=== PATIENT | male | born 1940 | race Caucasian/White ===

== ENCOUNTER → 2016-05-04 | Outpatient (CLI) | payer OTHER ==
[~2016-05-04] MED LIST: ACET-1256 PO; APIX1TAB3 PO; ATOR-22 PO; CHOL1TAB42 PO; COLC0.6T54 PO; CRD4 PO; DILT240C48 PO; FRS/40 PO; GLIM4TAB2 PO; GLUC1TAB22 PO; LSN25 PO; MULTTAB58 PO; OMEP40CA PO; OPTIRAY 320 IV PRN; OXGN; POTA-65 PO; SPRIN INH
--- NOTE | 2016-05-04 09:04 | DIAGNOSTIC IMAGING REPORT ---
CT ANGIOGRAM OF THE CHEST COMBO CLINICAL HISTORY: Thoracic aortic aneurysm status post repair. COMPARISON STUDY: CT angiogram of the chest dated 04/02/2015. TECHNIQUE: Before and following the IV administration of 92 cc of Optiray 320, CT angiogram of the chest was performed from the thoracic inlet to the upper abdomen utilizing the stent graft protocol. Images are reviewed in the axial, sagittal, and coronal planes. 3-D MIPS images are created and assessed. IV contrast was administered without complication. CT DOSE: 3349.67 mGy.cm FINDINGS: Thyroid: Imaged portions of the thyroid gland are normal in size and attenuation. Thoracic aorta: There is advanced atherosclerotic calcification of the thoracic aorta. The aortic arch demonstrates standard 3-vessel anatomy and the arch vessels are widely patent. Again seen are postoperative changes from stent graft repair of a descending thoracic aortic aneurysm. This originates at the level of T5-T6 and extends Below the diaphragmatic hiatus. The descending thoracic aorta measures up to 5.2 x 5.1 cm (AP x transverse) an this is overall similar to previous. There is no evidence of endoleak. Only a tiny residual aneurysm sac is present. The ascending thoracic aorta measures up to 3.9 cm in diameter and the aortic arch measures up to 2.9 cm. No dissection is seen. Pulmonary vasculature: The pulmonary trunk is dilated measuring up to 3.8 cm. This suggests pulmonary artery hypertension. There are no central filling defects identified in the pulmonary vessels to suggest pulmonary embolus. Note that this examination was not specifically protocoled to assess for pulmonary emboli. Heart: The heart is enlarged and there is trace pericardial effusion. The coronary arteries are calcified. Lungs and pleural spaces: Emphysematous change is again noted. There is no airspace consolidation typical for pneumonia. Trace pleural fluid is seen in the left lung base, and there is atelectasis/scarring in the left lower lobe adjacent to the stent graft. The trachea and central airways are clear. There are tiny scattered calcified granulomas. Mediastinum: There is no mediastinal lymphadenopathy. Candy: Clear. Axillae: There is no axillary lymphadenopathy. Upper abdomen: There is a small hiatal hernia. The visualized renal parenchyma demonstrates cortical atrophy. A dual diverticulum is incidentally noted. Skeletal structures: The skeletal structures are osteopenic. Degenerative change is noted throughout the thoracic spine. There are healed bilateral rib fractures. Arthritic change is seen in the shoulders. No lytic or blastic bony lesions are seen. IMPRESSION: 1. Again seen are postoperative changes from stent graft repair of a descending thoracic aortic aneurysm. 2. The descending thoracic aorta measures up to 5.2 cm. There is only a tiny residual aneurysm sac. No evidence of endoleak is seen. 3. Cardiomegaly with evidence of pulmonary artery hypertension. 4. Emphysema. 5. Trace left pleural effusion with atelectasis/scarring at the left lung base. 6. There is no airspace consolidation typical for pneumonia. 7. Additional findings as above. Electronically signed by: Andi Andrew M.D. 05/04/2016 9:02 AM Dictated Date/Time: 05/04/2016 8:47 AM
== END | disposition home or self-care (01) ==
LOC: C.CTS 07:37
PROVIDERS: ATTEND Surgery Vascular Surgery
DX: I71.2 Thoracic aortic aneurysm, without rupture (principal); Z98.890 Other specified postprocedural states; I51.7 Cardiomegaly; J43.9 Emphysema, unspecified; K44.9 Diaphragmatic hernia without obstruction or gangrene; M85.80 Other specified disorders of bone density and structure, unspecified site; M47.814 Spondylosis without myelopathy or radiculopathy, thoracic region; M19.011 Primary osteoarthritis, right shoulder; M19.012 Primary osteoarthritis, left shoulder

== ENCOUNTER → 2016-05-19 | Outpatient (CLI) | payer OTHER ==
[~2016-05-19] MED LIST changes: -OPTIRAY 320 IV PRN
[2016-05-19 13:35] LABS: BASO % 0.5 %; BASO ABS # 0.03 K/uL (0-0.2); COMPLETE YES; EOS % 2.5 %; HEMATOCRIT 37.3 % (42-52); IG% 0.2 %; LYMPH % 13.7 %; LYMPH ABS # 0.83 K/uL (1.2-3.4); MEAN CELL VOLUME 94.9 fL (80-100); MEAN CORPUSCULAR HEMOGLOBIN 31.8 pg (25-34); MEAN CORPUSCULAR HGB CONC 33.5 g/dl (32-36); MEAN PLATELET VOLUME 10.1 fL (7.4-10.4); MONO % 10.9 %; NEUT % 72.2 %; PLATELET COUNT 177 K/uL (130-400); RED BLOOD COUNT 3.93 M/uL (4.7-6.1); WHITE BLOOD COUNT 6.06 K/uL (4.8-10.8)
[2016-05-19 13:54] LABS: ESTIMATED AVERAGE GLUCOSE 140 mg/dl; HA1C FLAG Normal (Normal)
[2016-05-19 14:25] LABS: ALT/SGPT 32 U/L (12-78); AST/SGOT 19 U/L (15-37); BLOOD UREA NITROGEN 34 mg/dl (7-18); BUN/CREATININE RATIO 26.3 (10-20); CALCIUM 8.8 mg/dl (8.5-10.1); CARBON DIOXIDE 32 mmol/L (21-32); CHLORIDE 105 mmol/L (98-107); GLUCOSE 127 mg/dl (70-99); POTASSIUM 3.9 mmol/L (3.5-5.1); SODIUM 142 mmol/L (136-145); URIC ACID 12.1 mg/dl (2.6-7.2)
[2016-05-19 14:36] LABS: ALB/GLOB RATIO 1.2 (0.9-2); ALKALINE PHOSPHATASE 103 U/L (45-117)
== END | disposition home or self-care (01) ==
LOC: C.LABBC 11:20
PROVIDERS: ATTEND Internal Medicine Geriatric Medicine
DX: I10 Essential (primary) hypertension (principal); E11.9 Type 2 diabetes mellitus without complications; M10.9 Gout, unspecified; D64.9 Anemia, unspecified; I48.2 Chronic atrial fibrillation; D69.6 Thrombocytopenia, unspecified

== ENCOUNTER → 2016-09-03 | Outpatient (CLI) | payer OTHER ==
--- NOTE | 2016-09-03 17:54 | DIAGNOSTIC IMAGING REPORT ---
RIGHT UPPER EXTREMITY VENOUS DOPPLER CLINICAL HISTORY: Right upper extremity pain. COMPARISON STUDY: No previous studies for comparison. FINDINGS: The right internal jugular, subclavian, axillary, brachial, basilic, radial and ulnar veins were patent. IMPRESSION: No deep venous thrombus within the right upper extremity. Electronically signed by: Scotty Francis M.D. 09/03/2016 5:52 PM Dictated Date/Time: 09/03/2016 5:51 PM
--- NOTE | 2016-09-03 18:05 | DIAGNOSTIC IMAGING REPORT ---
CERVICAL SPINE 2 OR 3 VIEWS CLINICAL HISTORY: Right arm pain. No trauma. COMPARISON STUDY: No previous studies for comparison. FINDINGS: No acute fractures are visualized. The prevertebral soft tissues are normal. There is a minimal spinal curvature convex to the right. There are degenerative changes present most pronounced at the C6-7 level. There is mild widening of the C6-7, and C7-T1 interspinous distances. There is straightening of normal cervical lordosis. IMPRESSION: 1. No acute fractures 2. Degenerative changes most pronounced the C6-7 level 3. Straightening of normal cervical lordosis 4. Mild widening of the C6-7 and C7-T1 interspinous distances Electronically signed by: Cl Segundo M.D. 09/03/2016 6:04 PM Dictated Date/Time: 09/03/2016 6:02 PM
== END | disposition home or self-care (01) ==
LOC: C.ULTR 16:52
PROVIDERS: ATTEND Physician Assistant Medical
DX: M79.601 Pain in right arm (principal)

== ENCOUNTER → 2016-09-28 | Outpatient (CLI) | payer OTHER ==
--- NOTE | 2016-09-28 10:29 | DIAGNOSTIC IMAGING REPORT ---
LUMBAR SPINE W/O CONTRAST CLINICAL HISTORY: 76 years-old Male presenting with back pain and left leg weakness, no history of injury. TECHNIQUE: Multisequence, multiplanar MR imaging of the lumbar spine was performed without the use of intravenous contrast. IV contrast: None. COMPARISON: CT from 2014. FINDINGS: Localizer images: Unremarkable. Slight straightening of normal lumbar lordosis with slight kyphosis at L1-2, where there is mild anterior vertebral body height loss of L1 and minimal height loss of L2, unchanged since 2014. Mild T2 hyperintense, T1 hypointense bony edema noted at the anterior endplates at L2-3. Vertebral bodies otherwise demonstrate normal height, bone marrow signal intensity, and alignment. Intervertebral disc desiccation and height loss from L1-2 through L3-4, where there are multilevel degenerative changes. L1-2: Mild disc bulge with minimal effacement of the ventral thecal sac. No significant neural foraminal or spinal canal narrowing. L2-3: Mild disc bulge and left facet arthropathy results in mild left neural foraminal narrowing. No significant spinal canal narrowing. L3-4: Minimal disc bulge and mild ligamentum flavum hypertrophy without significant neural foraminal or spinal canal narrowing. L4-5: Mild left greater than right facet arthropathy. No significant neural foraminal or spinal canal narrowing. L5-S1: Mild left greater than right facet arthropathy. No significant neural foraminal or spinal canal narrowing. 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 The spinal cord ends in good position at L1. Normal morphology of the cauda equina. Paraspinal soft tissues normal. IMPRESSION: Mild multilevel degenerative changes in the upper lumbar spine resulting in mild left neural foraminal narrowing at L2-3, further detailed above. Electronically signed by: Tera Nixon M.D. 09/28/2016 10:28 AM Dictated Date/Time: 09/28/2016 10:13 AM
== END | disposition home or self-care (01) ==
LOC: C.MRI 09:14
PROVIDERS: ATTEND Physician Assistant Medical
DX: R29.898 Other symptoms and signs involving the musculoskeletal system (principal)

== ENCOUNTER → 2016-11-02 | Outpatient (CLI) | payer OTHER ==
[2016-11-02 09:29] LABS: BASO % 0.5 %; BASO ABS # 0.03 K/uL (0-0.2); COMPLETE YES; HEMATOCRIT 42.9 % (42-52); IG% 0.4 %; LYMPH ABS # 0.84 K/uL (1.2-3.4); MEAN CELL VOLUME 97.5 fL (80-100); MEAN CORPUSCULAR HEMOGLOBIN 31.6 pg (25-34); MEAN CORPUSCULAR HGB CONC 32.4 g/dl (32-36); MEAN PLATELET VOLUME 9.6 fL (7.4-10.4); MONO % 9.3 %; NEUT % 71.8 %; PLATELET COUNT 185 K/uL (130-400); WHITE BLOOD COUNT 5.59 K/uL (4.8-10.8)
[2016-11-02 10:20] LABS: ALT/SGPT 25 U/L (12-78); AST/SGOT 19 U/L (15-37); BLOOD UREA NITROGEN 18 mg/dl (7-18); CALCIUM 8.2 mg/dl (8.5-10.1); CARBON DIOXIDE 30 mmol/L (21-32); CHLORIDE 106 mmol/L (98-107); CHOLESTEROL 121 mg/dl (0-200); CREATININE 0.82 mg/dl (0.60-1.40); GLUCOSE 140 mg/dl (70-99); POTASSIUM 3.4 mmol/L (3.5-5.1); SODIUM 143 mmol/L (136-145)
[2016-11-02 10:23] LABS: ALB/GLOB RATIO 1.1 (0.9-2); ALKALINE PHOSPHATASE 112 U/L (45-117); CHOLESTEROL/HDL RATIO 2.9; HDL CHOLESTEROL 42 mg/dl; LDL CHOLESTEROL CALCULATED 51 mg/dl; TRIGLYCERIDES 141 mg/dl (0-150); URIC ACID 8.3 mg/dl (2.6-7.2); VERY LOW DENSITY LIPOPROT CALC 28 mg/dl
[2016-11-02 10:34] LABS: ESTIMATED AVERAGE GLUCOSE 117 mg/dl; HA1C FLAG Normal (Normal)
== END | disposition home or self-care (01) ==
LOC: C.LAB 08:35
PROVIDERS: ATTEND Internal Medicine Geriatric Medicine
DX: J44.9 Chronic obstructive pulmonary disease, unspecified (principal); M10.9 Gout, unspecified; E11.42 Type 2 diabetes mellitus with diabetic polyneuropathy; D64.9 Anemia, unspecified; I48.2 Chronic atrial fibrillation

== ENCOUNTER → 2017-01-18 | Outpatient (CLI) | payer OTHER ==
[2017-01-18 12:24] LABS: BASO % 0.7 %; BASO ABS # 0.04 K/uL (0-0.2); COMPLETE YES; EOS % 1.5 %; HEMATOCRIT 44.3 % (42-52); IG% 0.2 %; LYMPH % 15.4 %; LYMPH ABS # 0.91 K/uL (1.2-3.4); MEAN CELL VOLUME 96.3 fL (80-100); MEAN CORPUSCULAR HGB CONC 33.2 g/dl (32-36); MEAN PLATELET VOLUME 10.5 fL (7.4-10.4); NEUT % 72.2 %; PLATELET COUNT 198 K/uL (130-400); WHITE BLOOD COUNT 5.89 K/uL (4.8-10.8)
[2017-01-18 12:40] LABS: BLOOD UREA NITROGEN 19 mg/dl (7-18); BUN/CREATININE RATIO 18.9 (10-20); CALCIUM 8.5 mg/dl (8.5-10.1); CARBON DIOXIDE 31 mmol/L (21-32); CHLORIDE 103 mmol/L (98-107); CREATININE 0.98 mg/dl (0.60-1.40); GLUCOSE 117 mg/dl (70-99); POTASSIUM 3.3 mmol/L (3.5-5.1); SODIUM 139 mmol/L (136-145)
== END | disposition home or self-care (01) ==
LOC: C.LAB 11:01
PROVIDERS: ATTEND Internal Medicine Geriatric Medicine
DX: I10 Essential (primary) hypertension (principal); D64.9 Anemia, unspecified

== ENCOUNTER → 2017-02-10 | Outpatient (CLI) | payer OTHER ==
[2017-02-10 13:34] LABS: BLOOD UREA NITROGEN 19 mg/dl (7-18); BUN/CREATININE RATIO 19.3 (10-20); CALCIUM 8.6 mg/dl (8.5-10.1); CARBON DIOXIDE 30 mmol/L (21-32); CHLORIDE 105 mmol/L (98-107); GLUCOSE 85 mg/dl (70-99); POTASSIUM 3.8 mmol/L (3.5-5.1); SODIUM 140 mmol/L (136-145)
== END | disposition home or self-care (01) ==
LOC: C.LABBC 12:05
PROVIDERS: ATTEND Internal Medicine Geriatric Medicine
DX: I11.0 Hypertensive heart disease with heart failure (principal); I50.9 Heart failure, unspecified; D64.9 Anemia, unspecified

== ENCOUNTER 2017-03-24 10:04 | Inpatient (IN) | payer OTHER ==
[~2017-03-24] VITALS: Ht 177.8 cm; Wt 110.3 kg
[2017-03-24] VITALS (7 sets, daily range): BP systolic 129–158; BP diastolic 90–108; PULSE 79–113; TEMP 36.4–37.2; O2SAT 91–99; Ht 177.8 cm; Wt 110.3 kg
[2017-03-24] MEDS ORDERED: ASPIRIN 81 MG CHEW PO STA (10:27)
[2017-03-24] MEDS ORDERED: ALBUT/IPRATROP 3MG/0.5MG NEB 3 ML VIAL INH STA (10:30)
[2017-03-24 10:37] LABS: BASO % 0.2 %; BASO ABS # 0.01 K/uL (0-0.2); EOS % 0.2 %; EOS ABS # 0.01 K/uL (0-0.5); HEMATOCRIT 48.2 % (42-52); HEMOGLOBIN 16.3 g/dL (14.0-18.0); LYMPH ABS # 0.67 K/uL (1.2-3.4); MEAN CELL VOLUME 98.8 fL (80-100); MEAN CORPUSCULAR HEMOGLOBIN 33.4 pg (25-34); MEAN CORPUSCULAR HGB CONC 33.8 g/dl (32-36); MEAN PLATELET VOLUME 9.9 fL (7.4-10.4); MONO % 8.4 %; MONO ABS # 0.43 K/uL (0.11-0.59); NEUT % 78.2 %; NEUT ABS # 4.02 K/uL (1.4-6.5); PLATELET COUNT 161 K/uL (130-400); RED CELL DISTRIBUTION WIDTH CV 13.4 % (11.5-14.5); RED CELL DISTRIBUTION WIDTH SD 48.7 fL (36.4-46.3); WHITE BLOOD COUNT 5.14 K/uL (4.8-10.8)
[2017-03-24 10:47] LABS: PTT PATIENT 30.1 SECONDS (21.0-31.0)
[2017-03-24 10:52] LABS: BLOOD UREA NITROGEN 15 mg/dl (7-18); CALCIUM 8.6 mg/dl (8.5-10.1); CARBON DIOXIDE 29 mmol/L (21-32); CREATININE 1.05 mg/dl (0.60-1.40); GLUCOSE 122 mg/dl (70-99); POTASSIUM 3.9 mmol/L (3.5-5.1); SODIUM 139 mmol/L (136-145)
[2017-03-24 10:59] LABS: INFLUENZA B ANTIGEN Neg for Influ B (NEG)
[2017-03-24] MEDS ORDERED: FRS/40 PO (11:14)
[2017-03-24] MEDS ORDERED: SYMIN/8045 INH (11:14)
[2017-03-24] MEDS ORDERED: PRLSR20 PO (11:14)
[2017-03-24] MEDS ORDERED: OSELTAMIVIR PHOSPHATE 75 MG CAP PO STA (11:47)
--- NOTE | 2017-03-24 11:50 | History and Physical ---
History & Physical Date & Time of Service: Mar 24, 2017 at 11:46 Chief Complaint: Breathing Difficulty/Weakness Primary Care Physician: Garcia Lam M.D. History of Present Illness Source: patient 77 y/o M advanced COPD, diastolic CHF, DM, HTN, HPL, AF, obese. Pt presents with progressive SOB and a productive cough. He states that his symptoms have been present for one month but have recently worsened. He was treated for a COPD exacerbation one month prior with steroids and antibiotics. He could not confirm fevers and denies CP, nausea, vomiting or dysuria. Initial labs are notable for a (+) rapid flu and Leukocytosis. Past Medical/Surgical History 1. CHF - echo 11/29 - diastolic dysfunction - ejection fraction 50%. 2. COPD, dependent on 4 liters O2. 3. Insulin-dependent diabetes. 4. Hypertension. 5. Hyperlipidemia. 6. Chronic atrial fibrillation on Eliquis 7. Obesity. 8. Thoracic aortic aneurysm 9. Brain aneurysm Surgical 1. Hemorrhoidectomy 2. Tonsillectomy 3. Thoracic aneurysm repair - stent placement Family History Heart disease Stroke MOTHER Social History Smoking Status: Former Smoker Drug Use: none Marital Status: Housing status: lives alone Occupational Status: retired Immunizations History of Influenza Vaccine: Yes History of Tetanus Vaccine?: utd History of Pneumococcal: Yes History of Hepatitis B Vaccine: No Multi-Drug Resistant Organisms History of MDRO: No Allergies Coded Allergies: Iodinated Diagnostic Agents (Verified Allergy, Unknown, NEEDS PRETREAT FOR CT DYE, 12/28/15) Home Medications Scheduled Apixaban (Eliquis), 5 MG PO BID Atorvastatin (Lipitor), 20 MG PO QAM Budesonide/Formoterol Fumarate (Symbicort 80/4.5 Inhaler), 2 PUFFS INH BID Cholecalciferol (Vitamin D), 1 TAB PO DAILY Diltiazem Hcl Coated Beads (Cartia Xt), 480 MG PO QAM Doxazosin Mesylate (Doxazosin Mesylate), 4 MG PO HS Furosemide (Lasix), 40 MG PO DAILY Glimepiride (Glimepiride), 1 TAB PO DAILY Glucosamine Hydrochloride (Glucosamine), 2 TAB PO HS Home O2 Therapy (Oxygen), 2 LITERS NA CONTINOUS Multiple Vitamin (Multivitamin), 1 TAB PO DAILY Omeprazole (Prilosec), 40 MG PO DAILY Potassium Chloride (Potassium Chloride ER), 20 MEQ PO BID Scheduled PRN Acetaminophen (Tylenol), 1,000 MG PO TID PRN for PRN Colchicine (Colchicine), 0.6 MG PO QAM PRN for PRN Review of Systems Constitutional: + weakness, No fever, No chills, No sweats Eyes: No worsening of vision ENT: No hearing loss, No unusual epistaxis, No nasal symptoms Respiratory: + cough, + sputum, + shortness of breath, + dyspnea on exertion, + dyspnea at rest Cardiovascular: + orthopnea, No chest pain, No PND Abdomen: No pain, No nausea, No vomiting Musculoskeletal: No joint pain Genitourinary - Male: No hematuria, No dysuria Neurologic: + weakness, No memory loss, No paralysis Psychiatric: No depression symptoms Endocrine: + fatigue Hematologic / Lymphatic: No abnormal bleeding/bruising Integumentary: No rash Allergic / Immunologic: No environmental allergies Physical Exam Vital Signs Date Time Temp Pulse Resp B/P (MAP) Pulse Ox O2 Delivery O2 Flow Rate FiO2 03/24/17 10:55 93 Nasal Cannula 2.0 03/24/17 10:46 95 17 170/120 98 Nebulizer 03/24/17 10:34 91 21 91 03/24/17 10:31 174/108 03/24/17 10:23 99 18 155/114 93 Nasal Cannula 2.0 03/24/17 10:22 155/114 03/24/17 10:16 95 Nasal Cannula 2.0 03/24/17 10:16 95 Nasal Cannula 2.0 03/24/17 10:16 36.5 89 18 166/104 95 Nasal Cannula 2.0 03/24/17 10:15 93 03/24/17 10:09 166/104 General Appearance: + pertinent finding (Obese, elederly male - no overt distress, breathing is labored) Head: normocephalic Eyes: normal inspection ENT: normal ENT inspection, pharynx normal Neck: supple, + pertinent finding (Cannot eval JVD due to habitus) Respiratory/Chest: chest non-tender, + pertinent finding (Wheezing in all lung jauregui - very poor air movement in general) Cardiovascular: + irregularly irregular, + pertinent finding (Faimt, irreg heart sounds) Abdomen/GI: normal bowel sounds, + pertinent finding (Distended, nontender abdomen) Back: normal inspection, no CVA tenderness Extremities/Musculoskelatal: normal inspection, no calf tenderness, normal capillary refill Neurologic/Psych: experimental assembler II-XII nml as tested, no motor/sensory deficits, alert Skin: normal color Diagnostics Laboratory Results Results Past 24 Hours Test 03/24/17 10:17 03/24/17 10:30 Range/Units White Blood Count 5.14 4.8-10.8 K/uL Red Blood Count 4.88 4.7-6.1 M/uL Hemoglobin 16.3 14.0-18.0 g/dL Hematocrit 48.2 42-52 % Mean Corpuscular Volume 98.8 80-100 fL Mean Corpuscular Hemoglobin 33.4 25-34 pg Mean Corpuscular Hemoglobin Concent 33.8 32-36 g/dl Platelet Count 161 130-400 K/uL Mean Platelet Volume 9.9 7.4-10.4 fL Neutrophils (%) (Auto) 78.2 % Lymphocytes (%) (Auto) 13.0 % Monocytes (%) (Auto) 8.4 % Eosinophils (%) (Auto) 0.2 % Basophils (%) (Auto) 0.2 % Neutrophils # (Auto) 4.02 1.4-6.5 K/uL Lymphocytes # (Auto) 0.67 1.2-3.4 K/uL Monocytes # (Auto) 0.43 0.11-0.59 K/uL Eosinophils # (Auto) 0.01 0-0.5 K/uL Basophils # (Auto) 0.01 0-0.2 K/uL RDW Standard Deviation 48.7 36.4-46.3 fL RDW Coefficient of Variation 13.4 11.5-14.5 % Immature Granulocyte % (Auto) 0.0 % Immature Granulocyte # (Auto) 0.00 0.00-0.02 K/uL Prothrombin Time 10.4 9.0-12.0 SECONDS Prothromb Time International Ratio 1.0 0.9-1.1 Activated Partial Thromboplast Time 30.1 21.0-31.0 SECONDS Partial Thromboplastin Ratio 1.2 Sodium Level 139 136-145 mmol/L Potassium Level 3.9 3.5-5.1 mmol/L Chloride Level 103 98-107 mmol/L Carbon Dioxide Level 29 21-32 mmol/L Anion Gap 8.0 3-11 mmol/L Blood Urea Nitrogen 15 7-18 mg/dl Creatinine 1.05 0.60-1.40 mg/dl Est Creatinine Clear Calc Drug Dose 71.5 ml/min Estimated GFR () 78.4 Estimated GFR (Non- 67.7 BUN/Creatinine Ratio 14.2 10-20 Random Glucose 122 70-99 mg/dl Calcium Level 8.6 8.5-10.1 mg/dl Troponin I < 0.015 0-0.045 ng/ml Pro-B-Type Natriuretic Peptide 678 0-1800 pg/ml Influenza Type A Antigen POS for Influ A NEG Influenza Type B Antigen Neg for Influ B NEG Diagnostic Radiology CXR: Moderate cardiomegaly. Stent within the thoracic aorta which has been described previously. Mild prominence of pulmonary vasculature. Diaphragms are smooth. EKG AF, PVCs Impression Assessment and Plan 77 y/o M advanced COPD, diastolic CHF, DM, HTN, HPL, AF, obese. Pt presents with progressive SOB, a productive cough and intermittent CP - mostly when coughing. He states that his symptoms have been present for one month but have recently worsened. He could not confirm fevers and denies nausea, vomiting, diaphoresis. Initial labs are notable for a (+) rapid flu and Leukocytosis, although he was recently on a steroid taper. 1) Dyspnea/COPD/influ A - likely multifactorial owing to COPD, flu and possibly CHF. The pt will be placed on a COPD protocol including steroids, nebs, antibiotics. We will provide Tamiflu. 2) CHF - volume status is difficult to gauge clinically. He will remain on his scheduled Lasix dose - would consider additional diuresis if his resp status does not improve with COPD treatment. 3) AF - cont Apiaxaban, Diltiazem 4) DM - placed on SS 5) HTN - cont Diltiazem 6) HPL - cont Atorvastatin Full code - Apixaban prophylaxis Total time for this admit oncluding review of records, labs, meds, imaging, EKG - discussion with pt and ER attending - 41 min Level of Care Telemetry Resuscitation Status FULL RESUSCITATION VTE Prophylaxis Given or contraindicated: Other Anticoagulation
--- NOTE | 2017-03-24 11:56 | EMERGENCY ROOM VISIT NOTE ---
History Report prepared by Kimberley: Ge Yañez Under the Supervision of: Dr. Vikram Weber M.D. First contact with patient: 10:19 Chief Complaint: SHORTNESS OF BREATH Stated Complaint: BREATHING DIFFICULTY/WEAKNESS History of Present Illness The patient is a 77 year old male who presents to the Emergency Room with complaints of worsening shortness of breath beginning one month ago. The patient also complains of a productive cough and chest pain also beginning a month ago. His cough produces a yellow sputum. He feels that his chest pain is due to indigestion. The patient states that he received IM steroids, and PO steroids for his symptoms about a month ago from his PCP. He is on 2 L of supplemental oxygen at home all the time. He is a former smoker but quit 30 years ago. The patient denies any fevers, abdominal pain, hematuria, bloody stool, or passing out. He has a history of aortic stent due to an thoracic aortic aneurysm. He notes that he has a history of brain aneurysm as well. The patient states that he is usually able to lay flat when he sleeps, but slept in a recliner last night. He is on Eliquis and Lasix. Source of History: patient Onset: One month ago Quality: other (shortness of breath) Associated Symptoms: + cough (productive), + chest pain, No LOC, No fevers, No abdominal pain, No hematochezia, No urinary symptoms (hematuria) Review of Systems See HPI for pertinent positives and negatives. A total of ten systems were reviewed and were otherwise negative. Past Medical & Surgical Medical Problems: (1) Atrial fibrillation (2) CHF (congestive heart failure) (3) COPD (chronic obstructive pulmonary disease) (4) COPD exacerbation (5) Diabetes (6) History of cardioversion (7) Hyperlipidemia (8) Hypertension Surgical Problems: (1) History of hemorrhoidectomy (2) History of tonsillectomy Family History Heart disease Stroke MOTHER Social History Smoking Status: Former Smoker Alcohol Use: none Drug Use: none Marital Status: Housing Status: lives alone Occupation Status: retired Current/Historical Medications Scheduled Apixaban (Eliquis), 5 MG PO BID Atorvastatin (Lipitor), 20 MG PO QAM Budesonide/Formoterol Fumarate (Symbicort 80/4.5 Inhaler), 2 PUFFS INH BID Cholecalciferol (Vitamin D), 1 TAB PO DAILY Diltiazem Hcl Coated Beads (Cartia Xt), 480 MG PO QAM Doxazosin Mesylate (Doxazosin Mesylate), 4 MG PO HS Furosemide (Lasix), 40 MG PO DAILY Glimepiride (Glimepiride), 1 TAB PO DAILY Glucosamine Hydrochloride (Glucosamine), 2 TAB PO HS Home O2 Therapy (Oxygen), 2 LITERS NA CONTINOUS Multiple Vitamin (Multivitamin), 1 TAB PO DAILY Omeprazole (Prilosec), 40 MG PO DAILY Potassium Chloride (Potassium Chloride ER), 20 MEQ PO BID Scheduled PRN Acetaminophen (Tylenol), 1,000 MG PO TID PRN for PRN Colchicine (Colchicine), 0.6 MG PO QAM PRN for PRN Allergies Coded Allergies: Iodinated Diagnostic Agents (Verified Allergy, Unknown, NEEDS PRETREAT FOR CT DYE, 12/28/15) Physical Exam Vital Signs Date Time Temp Pulse Resp B/P (MAP) Pulse Ox O2 Delivery O2 Flow Rate FiO2 03/24/17 12:31 88 22 168/117 03/24/17 12:26 94 20 03/24/17 12:21 88 23 03/24/17 12:16 84 25 181/99 03/24/17 12:11 90 25 03/24/17 12:06 90 22 03/24/17 12:01 84 25 162/126 03/24/17 11:56 96 30 03/24/17 11:51 91 21 03/24/17 11:46 94 22 159/113 95 Nasal Cannula 2.0 03/24/17 11:31 184/110 03/24/17 11:21 94 25 03/24/17 11:16 180/118 03/24/17 11:01 166/100 03/24/17 10:55 93 Nasal Cannula 2.0 03/24/17 10:51 86 24 95 03/24/17 10:46 95 17 170/120 98 Nebulizer 03/24/17 10:34 91 21 91 03/24/17 10:31 174/108 03/24/17 10:23 99 18 155/114 93 Nasal Cannula 2.0 03/24/17 10:22 155/114 03/24/17 10:16 95 Nasal Cannula 2.0 03/24/17 10:16 95 Nasal Cannula 2.0 03/24/17 10:16 36.5 89 18 166/104 95 Nasal Cannula 2.0 03/24/17 10:15 93 03/24/17 10:09 166/104 Physical Exam GENERAL: Awake, alert, well-appearing, in no distress HENT: Normocephalic, Atraumatic. no hemotympanum bilaterally, lindsay sign negative bilaterally. Oropharynx unremarkable. EYES: Normal conjunctiva. Sclera non-icteric. PERRL bilaterally. EOMI bilaterally. NECK: Supple. No nuchal rigidity. FROM. No JVD. No C-spine tenderness. RESPIRATORY: Diffuse expiratory wheezes. CARDIAC: Regular rate, normal rhythm. Extremities warm and well perfused. Equal palpable radial pulses to the bilateral upper extremities. Equal palpable DP pulses to the bilateral lower extremities. ABDOMEN: Obese, soft, non-distended. No tenderness to palpation. No rebound or guarding. No masses. Rovsig Negative. RECTAL: Deferred. MUSCULOSKELETAL: Chest examination reveals no tenderness. The back is symmetrical on inspection without obvious abnormality. There is no CVA tenderness to palpation. No joint edema. LOWER EXTREMITIES: Calves are equal size bilaterally and non-tender. No edema. No discoloration. NEURO: Normal sensorium. No sensory or motor deficits noted. No pronator drift. No facial droop. No dysarthria. SKIN: No rash or jaundice noted. Diffuse ecchymosis on the upper and lower extremities. Medical Decision & Procedures Laboratory Results 03/24/17 10:17 Red Blood Count 4.88, Mean Corpuscular Volume 98.8, Mean Corpuscular Hemoglobin 33.4, Mean Corpuscular Hemoglobin Concent 33.8, Mean Platelet Volume 9.9, Neutrophils (%) (Auto) 78.2, Lymphocytes (%) (Auto) 13.0, Monocytes (%) (Auto) 8.4, Eosinophils (%) (Auto) 0.2, Basophils (%) (Auto) 0.2, Neutrophils # (Auto) 4.02, Lymphocytes # (Auto) 0.67, Monocytes # (Auto) 0.43, Eosinophils # (Auto) 0.01, Basophils # (Auto) 0.01 03/24/17 10:17 Test 03/24/17 10:17 03/24/17 10:30 White Blood Count 5.14 K/uL (4.8-10.8) Red Blood Count 4.88 M/uL (4.7-6.1) Hemoglobin 16.3 g/dL (14.0-18.0) Hematocrit 48.2 % (42-52) Mean Corpuscular Volume 98.8 fL (80-100) Mean Corpuscular Hemoglobin 33.4 pg (25-34) Mean Corpuscular Hemoglobin Concent 33.8 g/dl (32-36) Platelet Count 161 K/uL (130-400) Mean Platelet Volume 9.9 fL (7.4-10.4) Neutrophils (%) (Auto) 78.2 % Lymphocytes (%) (Auto) 13.0 % Monocytes (%) (Auto) 8.4 % Eosinophils (%) (Auto) 0.2 % Basophils (%) (Auto) 0.2 % Neutrophils # (Auto) 4.02 K/uL (1.4-6.5) Lymphocytes # (Auto) 0.67 K/uL (1.2-3.4) Monocytes # (Auto) 0.43 K/uL (0.11-0.59) Eosinophils # (Auto) 0.01 K/uL (0-0.5) Basophils # (Auto) 0.01 K/uL (0-0.2) RDW Standard Deviation 48.7 fL (36.4-46.3) RDW Coefficient of Variation 13.4 % (11.5-14.5) Immature Granulocyte % (Auto) 0.0 % Immature Granulocyte # (Auto) 0.00 K/uL (0.00-0.02) Prothrombin Time 10.4 SECONDS (9.0-12.0) Prothromb Time International Ratio 1.0 (0.9-1.1) Activated Partial Thromboplast Time 30.1 SECONDS (21.0-31.0) Partial Thromboplastin Ratio 1.2 Anion Gap 8.0 mmol/L (3-11) Est Creatinine Clear Calc Drug Dose 71.5 ml/min Estimated GFR () 78.4 Estimated GFR (Non- 67.7 BUN/Creatinine Ratio 14.2 (10-20) Calcium Level 8.6 mg/dl (8.5-10.1) Pro-B-Type Natriuretic Peptide 678 pg/ml (0-1800) Influenza Type A Antigen POS for Influ A (NEG) Influenza Type B Antigen Neg for Influ B (NEG) Laboratory results reviewed by me Medications Administered Medications (Trade) Dose Ordered Sig/Enrique Route Start Time Stop Time Status Last Admin Dose Admin Aspirin (Aspirin Chew) 324 mg NOW STAT PO 03/24/17 10:27 03/24/17 10:30 DC 03/24/17 10:53 324 MG Albuterol/ Ipratropium (Duoneb) 3 ml NOW STAT INH 03/24/17 10:30 03/24/17 10:31 DC 03/24/17 10:52 3 ML Prednisone (PredniSONE TAB) 60 mg NOW STAT PO 03/24/17 10:30 03/24/17 10:31 DC 03/24/17 10:53 60 MG Oseltamivir Phosphate (Tamiflu Cap) 75 mg NOW STAT PO 03/24/17 11:47 03/24/17 11:49 DC 03/24/17 11:58 75 MG ECG Indication: SOB/dyspnea Rate (beats per minute): 94 Rhythm: atrial fibrillation Findings: PVC, no acute ischemic change, other (QRS and QTC intervals within normal limits. Basline wander and artifact. ) ED Course 1020: The patient was evaluated in room A4B. A complete history and physical exam was performed. 1027: Ordered Aspirin Chew 324 mg PO. 1030: Ordered Prednisone Tab 60 mg PO, DuoNeb 3 mL INH. 1140: Patient's vitals are stable on oxygen. Patient is flu positive. Given his multiple pulmonary co-morbidities and positive influenza testing, will admit to the hospital for nebulizer treatments. Patient states that he feels better after receiving nebulizer treatment in the ED. Hospitalist to admit the patient. 1147: Ordered Tamiflu Cap 75 mg PO. Medical Decision Patient's vitals are stable on oxygen. Patient is flu positive. Given his multiple pulmonary co-morbidities and positive influenza testing, will admit to the hospital for nebulizer treatments. Patient states that he feels better after receiving nebulizer treatment in the ED. Hospitalist to admit the patient. Medication Reconcilliation Current Medication List: was personally reviewed by me Blood Pressure Screening Patient's blood pressure: Elevated blood pressure Blood pressure disposition: Referred to PCP Consults Time Called: 1140 Consulting Physician: Dr. Usama KESSLER Hospitalist Returned Call: 1143 The patient will be evaluated for further treatment and disposition. Impression Primary Impression: Influenza A Scribe Attestation The scribe's documentation has been prepared under my direction and personally reviewed by me in its entirety. I confirm that the note above accurately reflects all work, treatment, procedures, and medical decision making performed by me. The chart was completed utilizing [employer] Speech voice recognition software. Grammatical errors, random word insertions, pronoun errors, and incomplete sentences are an occasional consequence of this system due to software limitations, ambient noise, and hardware issues. Any formal questions or concerns about the content, text, or information contained within the body of this dictation should be directly addressed to the physician for clarification. Departure Information Dispostion Being Evaluated By Hospitalist Referrals Garcia Lam M.D. (PCP) Patient Instructions My [facility]
[2017-03-24] MEDS ORDERED: ALBUTEROL 0.083% NEBU SOLN 3 ML VIAL INH PRN (12:00)
--- NOTE | 2017-03-24 12:08 | DIAGNOSTIC IMAGING REPORT ---
CHEST ONE VIEW PORTABLE CLINICAL HISTORY: pnm pain. Dyspnea. COMPARISON STUDY: 12/29/2015 FINDINGS: Moderate cardiomegaly. Stent within the thoracic aorta which has been described previously. Mild prominence of pulmonary vasculature. Diaphragms are smooth. IMPRESSION: Potential developing congestive failure. The above report was generated using voice recognition software. It may contain grammatical, syntax or spelling errors. Electronically signed by: Tenzin Antunez M.D. 03/24/2017 12:07 PM Dictated Date/Time: 03/24/2017 12:06 PM
[2017-03-24] MEDS ORDERED: MAGNESIUM HYDROXIDE SUSP 30 ML UDC PO PRN (12:45)
[2017-03-24] MEDS ORDERED: ALUMINUM/MAGNESIUM/SIMETH (MAALOX MAX) 30 ML UDC PO PRN (12:45)
[2017-03-24] MEDS ORDERED: ACETAMINOPHEN 325 MG TAB PO PRN (12:45)
[2017-03-24] MEDS ORDERED: POLYETHYLENE (MIRALAX) 17 GM PACK PO PRN (12:45)
[2017-03-24] MEDS ORDERED: ONDANSETRON INJ 2 MG/ML 2 ML VIAL IV PRN (12:45)
[2017-03-24] MEDS ORDERED: LEVOFLOXACIN CONSULT ACTIVE PRN (14:30)
[2017-03-24] MEDS ORDERED: LEVOFLOXACIN / D5W 500 MG in PREMIXED IN D5W 100 ML IV SCH (14:30)
[2017-03-24] MEDS: ALBUT/IPRATROP 3MG/0.5MG NEB 3 ML VIAL INH SCH ×2 (14:59→19:17)
[2017-03-24] MEDS: METHYLPREDNISOLONE IV 60 MG in SYRINGE 0 ML IV SCH ×2 (15:43→21:06)
[2017-03-24] MEDS: POTASSIUM CHLORIDE 20 MEQ TABCR PO SCH (15:44)
[2017-03-24] MEDS ORDERED: GLUCOSE 10 TABS/TUBE PO PRN (19:15)
[2017-03-24] MEDS ORDERED: GLUCAGON FOR INJ 1 MG VIAL SQ PRN (19:15)
[2017-03-24] MEDS ORDERED: GLUCOSE 40% GEL 15 GM TUBE PO PRN (19:15)
[2017-03-24] MEDS: DOXAZosin MESYLATE TAB 4 MG TAB PO SCH (21:06)
[2017-03-24] MEDS: APIXABAN 2.5 MG TAB PO SCH (21:06)
[2017-03-24] MEDS: BUDESONIDE/FORMOTEROL FUMARATE 80/4.5 60 PUFFS/INHALER INH SCH (21:07)
[2017-03-24] MEDS: OSELTAMIVIR PHOSPHATE 75 MG CAP PO SCH (21:07)
[2017-03-24] MEDS: INSULIN ASPART 100 UNITS/ML 3 ML PEN SC SCH (21:10)
[2017-03-25] VITALS (11 sets, daily range): BP systolic 99–151; BP diastolic 73–104; PULSE 67–103; TEMP 36.5–36.7; O2SAT 92–100
[2017-03-25] MEDS: ALBUT/IPRATROP 3MG/0.5MG NEB 3 ML VIAL INH SCH ×4 (01:55→19:08)
[2017-03-25] MEDS: METHYLPREDNISOLONE IV 60 MG in SYRINGE 0 ML IV SCH (03:53)
[2017-03-25 06:21] LABS: HEMATOCRIT 42.8 % (42-52); HEMOGLOBIN 14.5 g/dL (14.0-18.0); MEAN CELL VOLUME 97.9 fL (80-100); MEAN CORPUSCULAR HEMOGLOBIN 33.2 pg (25-34); MEAN CORPUSCULAR HGB CONC 33.9 g/dl (32-36); MEAN PLATELET VOLUME 9.6 fL (7.4-10.4); PLATELET COUNT 144 K/uL (130-400); RED CELL DISTRIBUTION WIDTH CV 13.1 % (11.5-14.5); RED CELL DISTRIBUTION WIDTH SD 47.1 fL (36.4-46.3); WHITE BLOOD COUNT 4.35 K/uL (4.8-10.8)
[2017-03-25 06:39] LABS: CALCIUM 8.5 mg/dl (8.5-10.1); CREATININE 0.94 mg/dl (0.60-1.40)
[2017-03-25] MEDS: INSULIN ASPART 100 UNITS/ML 3 ML PEN SC SCH ×4 (07:00→22:01)
[2017-03-25] MEDS ORDERED: HydrALAZINE HCL 20 MG/ML VIAL IV PRN (08:00)
[2017-03-25] MEDS: FUROSEMIDE 40 MG TAB PO SCH (08:11)
[2017-03-25] MEDS: OSELTAMIVIR PHOSPHATE 75 MG CAP PO SCH ×2 (08:11→21:56)
[2017-03-25] MEDS: APIXABAN 2.5 MG TAB PO SCH ×2 (08:11→21:57)
[2017-03-25] MEDS: DILTIAZEM HCL 240 MG CAPCR PO SCH (08:12)
[2017-03-25] MEDS: PANTOprazole SOD 40 MG TAB PO SCH (08:13)
[2017-03-25] MEDS: BUDESONIDE/FORMOTEROL FUMARATE 80/4.5 60 PUFFS/INHALER INH SCH ×2 (08:13→21:56)
[2017-03-25] MEDS: POTASSIUM CHLORIDE 20 MEQ TABCR PO SCH ×2 (08:13→17:28)
[2017-03-25] MEDS ORDERED: METOPROLOL TARTRATE 1 MG/ML VIAL IV PRN (08:45)
[2017-03-25] MEDS ORDERED: METOPROLOL TARTRATE 1 MG/ML VIAL ONE (08:51)
[2017-03-25] MEDS: ATORVASTATIN 20 MG TAB PO SCH (09:00)
--- NOTE | 2017-03-25 09:04 | DIAGNOSTIC IMAGING REPORT ---
CHEST ONE VIEW PORTABLE CLINICAL HISTORY: worsening sob COMPARISON STUDY: March 24, 2017 FINDINGS: The heart is enlarged. 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 There is no failure. There is no focal pulmonary consolidation. An electronic device projects over the left mid chest, possibly representing an event recorder[ IMPRESSION: Stable cardiomegaly. No acute findings. Electronically signed by: Cl Segundo M.D. 03/25/2017 9:02 AM Dictated Date/Time: 03/25/2017 9:00 AM
--- NOTE | 2017-03-25 09:42 | Medical Student: [facility] ---
Med Student Progress Note Date of Service Mar 25, 2017. Subjective Pt evaluation today including: conversation w/ patient This is a 86-year-old male with a history of COPD, DMII, a fib, thoracic aortic aneurysm, and undefined CHF who rpesented to the ED 03/23 with shortness of breath and weakness, along with a productive cough. Patient states that he has felt more short of breath than usual over the last month, but yesterday he felt much worse and called the ambulance. He has had the cough for about a week, and he has coughed up yellow mucous. He is on 2L O2 nasal cannula at baseline. Has some orthopnea and is sitting in a recliner this morning as he states he cannot lie back in bed without feeling more short of breath. Denies fever, chills, nausea, vomiting, abdominal pain, abnormal bleeding. Former smoker, quit 30 years ago. Was +influenza A in ED. Normal WBC. Today he is feeling much better. Says the nebs in the ED helped a lot and that his breathing is markedly improved. States the his strength is returning as well. Still has a cough but is bringing up less mucous. No fevers overnight. Review of Systems Constitutional: No fever, No chills Respiratory: + cough, + sputum, + shortness of breath, + dyspnea on exertion Cardiac: + orthopnea, No chest pain, No edema, No claudication Musculoskeletal: No muscle pain, No calf pain Male : No dysuria Neurologic: + weakness Heme: No abnormal bleeding/bruising Endo: + fatigue Skin: No rash All Other Systems: Reviewed and Negative Objective Vital Signs Date Time Temp Pulse Resp B/P (MAP) Pulse Ox O2 Delivery O2 Flow Rate FiO2 03/25/17 08:53 133 142/104 03/25/17 08:05 Nasal Cannula 2.0 03/25/17 07:05 36.5 95 24 142/104 (117) 100 2.0 03/25/17 07:03 84 16 96 Nasal Cannula 2.0 03/25/17 03:53 Nasal Cannula 2.0 03/25/17 03:20 36.7 99 18 151/93 (112) 95 Nasal Cannula 2.0 03/25/17 01:55 67 16 95 Nasal Cannula 2.0 03/25/17 00:10 Nasal Cannula 2.0 03/24/17 23:20 36.9 97 22 150/100 (117) 92 Room Air 03/24/17 20:05 Nasal Cannula 2.0 03/24/17 20:04 36.4 113 20 147/100 (116) 91 Nasal Cannula 2.0 03/24/17 19:18 81 16 95 Nasal Cannula 2.0 03/24/17 16:00 Nasal Cannula 2.0 03/24/17 15:45 37.0 102 20 129/90 (103) 93 Nasal Cannula 2.0 03/24/17 15:02 86 18 94 Nasal Cannula 2.0 03/24/17 13:57 37.2 79 20 158/108 99 Nasal Cannula 2.0 03/24/17 13:49 37.2 79 20 158/108 (125) 94 Nasal Cannula 2.0 03/24/17 13:23 36.5 75 27 171/104 93 03/24/17 13:17 93 Nasal Cannula 2.0 03/24/17 13:16 171/104 03/24/17 13:04 153/99 03/24/17 13:02 184/164 03/24/17 13:01 75 27 85 03/24/17 12:46 176/126 03/24/17 12:31 88 22 168/117 03/24/17 12:26 94 20 03/24/17 12:21 88 23 03/24/17 12:16 84 25 181/99 03/24/17 12:11 90 25 03/24/17 12:06 90 22 03/24/17 12:01 84 25 162/126 03/24/17 11:56 96 30 03/24/17 11:51 91 21 03/24/17 11:46 94 22 159/113 95 Nasal Cannula 2.0 03/24/17 11:31 184/110 03/24/17 11:21 94 25 03/24/17 11:16 180/118 03/24/17 11:01 166/100 03/24/17 10:55 93 Nasal Cannula 2.0 03/24/17 10:51 86 24 95 03/24/17 10:46 95 17 170/120 98 Nebulizer 03/24/17 10:34 91 21 91 03/24/17 10:31 174/108 03/24/17 10:23 99 18 155/114 93 Nasal Cannula 2.0 03/24/17 10:22 155/114 03/24/17 10:16 95 Nasal Cannula 2.0 03/24/17 10:16 95 Nasal Cannula 2.0 03/24/17 10:16 36.5 89 18 166/104 95 Nasal Cannula 2.0 03/24/17 10:15 93 03/24/17 10:09 166/104 Physical Exam General Appearance: WD/WN, no apparent distress Eyes: bilateral eyes normal inspection Neck: supple, no adenopathy Respiratory/Chest: chest non-tender, + decreased breath sounds (diffuse), + wheezing (diffuse expiratory) Cardiovascular: no edema, + tachycardia Abdomen: normal bowel sounds, non tender, soft Extremities: normal range of motion, non-tender Neurologic/Psychiatric: alert, normal mood/affect, oriented x 3 Skin: normal color, warm/dry Laboratory Results Last 24 Hours Test 03/24/17 10:17 03/24/17 10:30 03/24/17 13:20 03/24/17 16:24 White Blood Count 5.14 K/uL Red Blood Count 4.88 M/uL Hemoglobin 16.3 g/dL Hematocrit 48.2 % Mean Corpuscular Volume 98.8 fL Mean Corpuscular Hemoglobin 33.4 pg Mean Corpuscular Hemoglobin Concent 33.8 g/dl Platelet Count 161 K/uL Mean Platelet Volume 9.9 fL Neutrophils (%) (Auto) 78.2 % Lymphocytes (%) (Auto) 13.0 % Monocytes (%) (Auto) 8.4 % Eosinophils (%) (Auto) 0.2 % Basophils (%) (Auto) 0.2 % Neutrophils # (Auto) 4.02 K/uL Lymphocytes # (Auto) 0.67 K/uL Monocytes # (Auto) 0.43 K/uL Eosinophils # (Auto) 0.01 K/uL Basophils # (Auto) 0.01 K/uL RDW Standard Deviation 48.7 fL RDW Coefficient of Variation 13.4 % Immature Granulocyte % (Auto) 0.0 % Immature Granulocyte # (Auto) 0.00 K/uL Prothrombin Time 10.4 SECONDS Prothromb Time International Ratio 1.0 Activated Partial Thromboplast Time 30.1 SECONDS Partial Thromboplastin Ratio 1.2 Sodium Level 139 mmol/L Potassium Level 3.9 mmol/L Chloride Level 103 mmol/L Carbon Dioxide Level 29 mmol/L Anion Gap 8.0 mmol/L Blood Urea Nitrogen 15 mg/dl Creatinine 1.05 mg/dl Est Creatinine Clear Calc Drug Dose 71.5 ml/min Estimated GFR () 78.4 Estimated GFR (Non- 67.7 BUN/Creatinine Ratio 14.2 Random Glucose 122 mg/dl Calcium Level 8.6 mg/dl Troponin I < 0.015 ng/ml < 0.015 ng/ml Pro-B-Type Natriuretic Peptide 678 pg/ml Influenza Type A Antigen POS for Influ A Influenza Type B Antigen Neg for Influ B Bedside Glucose 174 mg/dl Test 03/24/17 18:53 03/24/17 20:11 03/25/17 06:04 03/25/17 06:47 Troponin I < 0.015 ng/ml Bedside Glucose 263 mg/dl 269 mg/dl White Blood Count 4.35 K/uL Red Blood Count 4.37 M/uL Hemoglobin 14.5 g/dL Hematocrit 42.8 % Mean Corpuscular Volume 97.9 fL Mean Corpuscular Hemoglobin 33.2 pg Mean Corpuscular Hemoglobin Concent 33.9 g/dl RDW Standard Deviation 47.1 fL RDW Coefficient of Variation 13.1 % Platelet Count 144 K/uL Mean Platelet Volume 9.6 fL Sodium Level 135 mmol/L Potassium Level 4.0 mmol/L Chloride Level 100 mmol/L Carbon Dioxide Level 27 mmol/L Anion Gap 7.0 mmol/L Blood Urea Nitrogen 17 mg/dl Creatinine 0.94 mg/dl Est Creatinine Clear Calc Drug Dose 79.4 ml/min Estimated GFR () 89.6 Estimated GFR (Non- 77.3 BUN/Creatinine Ratio 18.6 Random Glucose 253 mg/dl Calcium Level 8.5 mg/dl Magnesium Level 1.8 mg/dl Assessment and Plan Assessment and Plan: Assessment: This is a 77 year old male with a history of COPD, a fib, DMII, and undefined CHF who presented to the ED 03/24 with shortness of breath and weakness. DDx includes COPD exacerbation, influenza, pneumonia, CHF exacerbation, PE, ME. Plan: SOB/COPD/influenza -SOB likely caused by combination of COPD/flu, with possible CHF component -Positive influenza A rapid test - start Tamiflu -Continue COPD protocol - nebs, steroids, Levaquin -Repeat CXR shows no acute changes A fib -Continue Eliquis, diltiazem -Monitor on tele; HR has been elevated, will use metoprolol IV q4 PRN CHF -Unclear diagnosis given last echo in 2015 showed no diastolic dysfunction and normal ejection fraction -Currently on Lasix per PCP -Will investigate further and diurese as needed -Consider repeat echo
--- NOTE | 2017-03-25 10:25 | Clinical Documentation Query ---
QUERY 1 OF [address] RILEY, In your clinical opinion is this patient being managed for: ( x) Chronic hypoxic respiratory failure ( ) Not Agree ( ) Other explanation of clinical findings (Please Explain) ( ) Unable to determine (Please Define) ( ) Need to Discuss The medical record reflects the following clinical findings, treatment, and risk factors. Clinical Indicators: 77 yo male presenting with influenza A. Noted to wear chronic home O2 support. Treatment: chronic management includes O2 support, symbicort Risk Factors: hx smoking, advanced COPD QUERY 2 OF 2 In your clinical opinion is this patient being managed for: ( ) COPD with exacerbation ( ) Not Agree ( x) Other explanation of clinical findings (Please Explain) ( ) Unable to determine (Please Define) ( ) Need to Discuss The medical record reflects the following clinical findings, treatment, and risk factors. Clinical Indicators: Pt noted to have diffuse exp wheezes Treatment:O2 support, IV solumedrol, symbicort, duonebs, levaquin Risk Factors: influenza A, advanced COPD Please clarify and document your clinical opinion in the progress notes and discharge summary. Terms such as "probable", "suspected", "likely", "questionable", "possible", or "still to be ruled out" are acceptable. IF IN AGREEMENT, YOU MUST DOCUMENT ABOVE DIAGNOSTIC STATEMENT IN DAILY PROGRESS NOTES AND DISCHARGE SUMMARY. This document is not part of the patient's record. Thank You, Lissy James, RN [phone]
[2017-03-25] MEDS ORDERED: LANTUS PER UNIT CHARGE SC ONE (13:00)
--- NOTE | 2017-03-25 14:02 | Progress Note ---
Subjective Date of Service: Mar 25, 2017. Subjective pt states he feels almost 90% improved, more ease of breathing but cannot lay flat nor walk without dyspnea, no chest pain or other issues Problem List Medical Problems: (1) Cellulitis of right leg Status: Acute (2) COPD exacerbation Status: Acute (3) COPD exacerbation Status: Acute (4) Exertional dyspnea Status: Acute (5) Fatigue Status: Acute (6) Fluid overload Status: Acute (7) Influenza A Status: Acute (8) SOB (shortness of breath) Status: Acute Review of Systems Constitutional: No fever, No chills Respiratory: + cough, + sputum, + shortness of breath, + dyspnea on exertion Cardiac: + orthopnea, + edema, No chest pain Abdomen: No pain, No nausea, No vomiting, No diarrhea Male : No dysuria, No urinary frequency Psychiatric: No depression symptoms, No anhedonism Objective Vital Signs Date Time Temp Pulse Resp B/P (MAP) Pulse Ox O2 Delivery O2 Flow Rate FiO2 03/25/17 07:05 36.5 95 24 142/104 (117) 100 2.0 03/25/17 07:03 84 16 96 Nasal Cannula 2.0 03/25/17 03:53 Nasal Cannula 2.0 03/25/17 03:20 36.7 99 18 151/93 (112) 95 Nasal Cannula 2.0 03/25/17 01:55 67 16 95 Nasal Cannula 2.0 03/25/17 00:10 Nasal Cannula 2.0 03/24/17 23:20 36.9 97 22 150/100 (117) 92 Room Air 03/24/17 20:05 Nasal Cannula 2.0 03/24/17 20:04 36.4 113 20 147/100 (116) 91 Nasal Cannula 2.0 03/24/17 19:18 81 16 95 Nasal Cannula 2.0 03/24/17 16:00 Nasal Cannula 2.0 03/24/17 15:45 37.0 102 20 129/90 (103) 93 Nasal Cannula 2.0 03/24/17 15:02 86 18 94 Nasal Cannula 2.0 03/24/17 13:57 37.2 79 20 158/108 99 Nasal Cannula 2.0 03/24/17 13:49 37.2 79 20 158/108 (125) 94 Nasal Cannula 2.0 03/24/17 13:23 36.5 75 27 171/104 93 03/24/17 13:17 93 Nasal Cannula 2.0 03/24/17 13:16 171/104 03/24/17 13:04 153/99 03/24/17 13:02 184/164 03/24/17 13:01 75 27 85 03/24/17 12:46 176/126 03/24/17 12:31 88 22 168/117 03/24/17 12:26 94 20 03/24/17 12:21 88 23 03/24/17 12:16 84 25 181/99 03/24/17 12:11 90 25 03/24/17 12:06 90 22 03/24/17 12:01 84 25 162/126 03/24/17 11:56 96 30 03/24/17 11:51 91 21 03/24/17 11:46 94 22 159/113 95 Nasal Cannula 2.0 03/24/17 11:31 184/110 03/24/17 11:21 94 25 03/24/17 11:16 180/118 03/24/17 11:01 166/100 03/24/17 10:55 93 Nasal Cannula 2.0 03/24/17 10:51 86 24 95 03/24/17 10:46 95 17 170/120 98 Nebulizer 03/24/17 10:34 91 21 91 03/24/17 10:31 174/108 03/24/17 10:23 99 18 155/114 93 Nasal Cannula 2.0 03/24/17 10:22 155/114 03/24/17 10:16 95 Nasal Cannula 2.0 03/24/17 10:16 95 Nasal Cannula 2.0 03/24/17 10:16 36.5 89 18 166/104 95 Nasal Cannula 2.0 03/24/17 10:15 93 03/24/17 10:09 166/104 Physical Exam General Appearance: + moderate distress, + obese Eyes: normal inspection, sclerae normal Respiratory/Chest: + decreased breath sounds, + accessory muscle use, + rales ( left base) Cardiovascular: + tachycardia, + irregularly irregular Abdomen: normal bowel sounds, non tender, soft Extremities: no calf tenderness, + pedal edema Neurologic/Psychiatric: alert, oriented x 3 Laboratory Results Last 24 Hours Test 03/24/17 10:17 03/24/17 10:30 03/24/17 13:20 03/24/17 16:24 White Blood Count 5.14 K/uL Red Blood Count 4.88 M/uL Hemoglobin 16.3 g/dL Hematocrit 48.2 % Mean Corpuscular Volume 98.8 fL Mean Corpuscular Hemoglobin 33.4 pg Mean Corpuscular Hemoglobin Concent 33.8 g/dl Platelet Count 161 K/uL Mean Platelet Volume 9.9 fL Neutrophils (%) (Auto) 78.2 % Lymphocytes (%) (Auto) 13.0 % Monocytes (%) (Auto) 8.4 % Eosinophils (%) (Auto) 0.2 % Basophils (%) (Auto) 0.2 % Neutrophils # (Auto) 4.02 K/uL Lymphocytes # (Auto) 0.67 K/uL Monocytes # (Auto) 0.43 K/uL Eosinophils # (Auto) 0.01 K/uL Basophils # (Auto) 0.01 K/uL RDW Standard Deviation 48.7 fL RDW Coefficient of Variation 13.4 % Immature Granulocyte % (Auto) 0.0 % Immature Granulocyte # (Auto) 0.00 K/uL Prothrombin Time 10.4 SECONDS Prothromb Time International Ratio 1.0 Activated Partial Thromboplast Time 30.1 SECONDS Partial Thromboplastin Ratio 1.2 Sodium Level 139 mmol/L Potassium Level 3.9 mmol/L Chloride Level 103 mmol/L Carbon Dioxide Level 29 mmol/L Anion Gap 8.0 mmol/L Blood Urea Nitrogen 15 mg/dl Creatinine 1.05 mg/dl Est Creatinine Clear Calc Drug Dose 71.5 ml/min Estimated GFR () 78.4 Estimated GFR (Non- 67.7 BUN/Creatinine Ratio 14.2 Random Glucose 122 mg/dl Calcium Level 8.6 mg/dl Troponin I < 0.015 ng/ml < 0.015 ng/ml Pro-B-Type Natriuretic Peptide 678 pg/ml Influenza Type A Antigen POS for Influ A Influenza Type B Antigen Neg for Influ B Bedside Glucose 174 mg/dl Test 03/24/17 18:53 03/24/17 20:11 03/25/17 06:04 03/25/17 06:47 Troponin I < 0.015 ng/ml Bedside Glucose 263 mg/dl 269 mg/dl White Blood Count 4.35 K/uL Red Blood Count 4.37 M/uL Hemoglobin 14.5 g/dL Hematocrit 42.8 % Mean Corpuscular Volume 97.9 fL Mean Corpuscular Hemoglobin 33.2 pg Mean Corpuscular Hemoglobin Concent 33.9 g/dl RDW Standard Deviation 47.1 fL RDW Coefficient of Variation 13.1 % Platelet Count 144 K/uL Mean Platelet Volume 9.6 fL Sodium Level 135 mmol/L Potassium Level 4.0 mmol/L Chloride Level 100 mmol/L Carbon Dioxide Level 27 mmol/L Anion Gap 7.0 mmol/L Blood Urea Nitrogen 17 mg/dl Creatinine 0.94 mg/dl Est Creatinine Clear Calc Drug Dose 79.4 ml/min Estimated GFR () 89.6 Estimated GFR (Non- 77.3 BUN/Creatinine Ratio 18.6 Random Glucose 253 mg/dl Calcium Level 8.5 mg/dl Magnesium Level 1.8 mg/dl Assessment and Plan 77 y/o M advanced COPD, diastolic CHF, DM, HTN, HPL, AF, obese. Pt presents with progressive SOB, a productive cough and intermittent CP Acute on Chronic Respiratory failure with hypoxia, Dyspnea/COPD/influ COPD protocol including steroids, nebs, antibiotics. Tamiflu. Copd exacerbation continue steroids, nebulized meds, improved 03/25 CHF - unclear wether systolic or diastolic, outpt Lasix dosing, last echo was 2015 suggested preserved EF but is taking lasix as out pt will repeat echo, suspect diastolic heart failure as history of afib and maybe due to rate Assesed to have fair rate control AF -did require additional metoprolol, cont Apiaxaban, Diltiazem DM -has been elevated, on ssi, monitoring for hypoglycemia HTN - cont Diltiazem to assure blood pressure control HPL - cont Atorvastatin Full code - Apixaban prophylaxis
[2017-03-25] MEDS: METHYLPREDNISOLONE IV 40 MG in SYRINGE 0 ML IV SCH (15:48)
[2017-03-25] MEDS: DOXAZosin MESYLATE TAB 4 MG TAB PO SCH (21:57)
[2017-03-26] VITALS (7 sets, daily range): BP systolic 117–133; BP diastolic 73–102; PULSE 65–96; TEMP 36.4–36.9; O2SAT 93–97
[2017-03-26] MEDS: ALBUT/IPRATROP 3MG/0.5MG NEB 3 ML VIAL INH SCH ×2 (01:44→07:17)
[2017-03-26] MEDS: METHYLPREDNISOLONE IV 40 MG in SYRINGE 0 ML IV SCH (04:07)
--- NOTE | 2017-03-26 08:58 | Progress Note ---
Subjective Date of Service: Mar 26, 2017. Problem List Medical Problems: (1) Cellulitis of right leg Status: Acute (2) COPD exacerbation Status: Acute (3) COPD exacerbation Status: Acute (4) Exertional dyspnea Status: Acute (5) Fatigue Status: Acute (6) Fluid overload Status: Acute (7) Influenza A Status: Acute (8) SOB (shortness of breath) Status: Acute Objective Vital Signs Date Time Temp Pulse Resp B/P (MAP) Pulse Ox O2 Delivery O2 Flow Rate FiO2 03/26/17 08:10 36.6 87 20 133/73 (93) 97 Nasal Cannula 2.0 03/26/17 07:19 76 16 96 Nasal Cannula 2.0 03/26/17 05:08 36.6 74 20 128/80 (96) 97 Nasal Cannula 1.0 03/26/17 04:00 Nasal Cannula 2.0 03/26/17 01:44 65 16 97 Nasal Cannula 2.0 03/26/17 00:16 36.9 84 21 117/102 (107) 94 03/26/17 00:00 Nasal Cannula 2.0 03/25/17 20:00 Nasal Cannula 2.0 03/25/17 19:51 36.5 103 20 140/82 (101) 92 Nasal Cannula 2.0 03/25/17 19:08 89 16 94 Nasal Cannula 2.0 03/25/17 16:00 95 Nasal Cannula 2.0 03/25/17 15:30 36.5 89 20 129/77 (94) 95 Nasal Cannula 2.0 03/25/17 14:08 79 16 92 Nasal Cannula 2.0 03/25/17 12:18 36.5 89 22 99/73 (82) 94 Room Air 03/25/17 12:02 Nasal Cannula 2.0 03/25/17 09:45 98 Laboratory Results Last 24 Hours Test 03/25/17 11:30 03/25/17 16:20 03/25/17 20:16 03/26/17 06:41 Bedside Glucose 322 mg/dl 297 mg/dl 321 mg/dl 203 mg/dl Assessment and Plan 77 y/o M advanced COPD, diastolic CHF, DM, HTN, HPL, AF, obese. Pt presents with progressive SOB, a productive cough and intermittent CP Acute on Chronic Respiratory failure with hypoxia, Dyspnea/COPD/influ COPD protocol including steroids, nebs, antibiotics. Tamiflu. Copd exacerbation continue steroids, nebulized meds, improved 03/25 CHF - unclear wether systolic or diastolic, last echo was 2015 suggested preserved EF pending repeat echo, suspect diastolic heart failure as history of afib and maybe due to rate Assessed to have fair rate control AF -did require additional metoprolol, cont Apiaxaban, Diltiazem DM -has been elevated, on ssi, willl use some lantus while on steroids, monitoring for hypoglycemia HTN - cont Diltiazem to assure blood pressure control HPL - cont Atorvastatin Full code - Apixaban prophylaxis
[2017-03-26] MEDS ORDERED: INSULIN GLARGINE SOLOSTAR 100 UNITS/ML 3 ML PEN SC SCH (09:00)
[2017-03-26] MEDS: BUDESONIDE/FORMOTEROL FUMARATE 80/4.5 60 PUFFS/INHALER INH SCH (09:17)
[2017-03-26] MEDS: APIXABAN 2.5 MG TAB PO SCH (09:17)
[2017-03-26] MEDS: OSELTAMIVIR PHOSPHATE 75 MG CAP PO SCH (09:17)
[2017-03-26] MEDS: PANTOprazole SOD 40 MG TAB PO SCH (09:18)
[2017-03-26] MEDS: POTASSIUM CHLORIDE 20 MEQ TABCR PO SCH (09:18)
[2017-03-26] MEDS: FUROSEMIDE 40 MG TAB PO SCH (09:18)
[2017-03-26] MEDS: DILTIAZEM HCL 240 MG CAPCR PO SCH (09:18)
[2017-03-26] MEDS: INSULIN ASPART 100 UNITS/ML 3 ML PEN SC SCH ×2 (09:22→12:47)
[2017-03-26] MEDS ORDERED: PRED10TA PO (10:33)
[2017-03-26] MEDS ORDERED: TMF75 PO (10:33)
[2017-03-26] MEDS ORDERED: IPRASOL4 INH (10:33)
[2017-03-26] MEDS ORDERED: NEBMAC (10:34)
--- NOTE | 2017-03-26 10:41 | Discharge Instructions ---
Discharge Instructions Date of Service Mar 26, 2017. Admission Reason for Admission: Copd Exacerbation, Influenza A Discharge Discharge Diagnosis / Problem: influenza, copd exacerbation Discharge Goals Goal(s): Diagnostic testing, Therapeutic intervention Activity Recommendations Activity Limitations: as noted below Lifting Limitations: gradually increase as tolerated Please take it easy and rest at home Use your nebulizer at home until released by your primary care provider As prednisone makes your blood sugar go up, please be very aware of the foods you eat to stick to a strict diabetic diet Wear oxygen at all times . Current Hospital Diet Patient's current hospital diet: AHA Diet (Heart Healthy), Diabetes Type 2 Diet Discharge Diet Recommended Diet: Diabetes Type 2 Diet Pending Studies Studies pending at discharge: no Medical Emergencies . Who to Call and When: Medical Emergencies: If at any time you feel your situation is an emergency, please call 911 immediately. . Non-Emergent Contact Non-Emergency issues call your: Primary Care Provider Call Non-Emergent contact if: temperature is above 101, your pain is unusual for you . . "Provider Documentation" section prepared by Freddy Hirsch. . VTE Core Measure Inpt VTE Proph given/why not?: Other Anticoagulation
[2017-03-26] MEDS: ATORVASTATIN 20 MG TAB PO SCH (13:06)
--- NOTE | 2017-03-26 15:12 | Discharge Summary ---
Discharge Summary Date of Service Mar 26, 2017. Discharge Summary Admission Date: Mar 24, 2017 at 12:34 Discharge Date: Mar 26, 2017 Discharge Disposition: Home Principal Diagnosis: influenza, copd exacerbation Immunizations: Have You Had Influenza Vaccine: Yes History of Tetanus Vaccine?: utd History of Pneumococcal: Yes History of Hepatitis B Vaccine: No Medication Reconciliation New Medications: Nebulizer Machine (Home Use) (Nebulizer Machine (Home Use) ) Mis EA N/A UD, #1 Prednisone Tab (Prednisone) 10 Mg Tab 10 MG PO UD, #42 TAB 4 pills a day for 4 days then 3 a day for 4 days then 2 a day for 4 days then 1 a day Ipratropium-Albuterol (Duoneb) 3 Ml Nebu 3 ML INH Q6R, #120 DOSE Oseltamivir Phosphate (Tamiflu) 75 Mg Cap 75 MG PO BID, #7 CAP Continued Medications: Acetaminophen (Tylenol) 500 Mg Tab 1000 MG PO TID PRN for PRN Apixaban (Eliquis) 5 Mg Tab 5 MG PO BID for 90 Days Atorvastatin (Lipitor) 20 Mg Tab 20 MG PO QAM, TAB Budesonide/Formoterol Fumarate (Symbicort 80/4.5 Inhaler) Aero 2 PUFFS INH BID, INHALER Cholecalciferol (Vitamin D) 5,000 Unit Tab 1 TAB PO DAILY Colchicine (Colchicine) 0.6 Mg Tab 0.6 MG PO QAM PRN for PRN Diltiazem Hcl Coated Beads (Cartia Xt) 240 Mg Cap 480 MG PO QAM, #90 Doxazosin Mesylate (Doxazosin Mesylate) 4 Mg Tab 4 MG PO HS for 30 Days, TAB Furosemide (Lasix) 40 Mg Tab 40 MG PO DAILY, TAB Glimepiride (Glimepiride) 4 Mg Tab 1 TAB PO DAILY for 30 Days, #30 TAB 5 Refills Glucosamine Hydrochloride (Glucosamine) 750 Mg Tab 2 TAB PO HS Home O2 Therapy (Oxygen) Gas 2 LITERS NA CONTINOUS Multiple Vitamin (Multivitamin) 1 Tab Tab 1 TAB PO DAILY Omeprazole (Prilosec) 20 Mg Capcr 40 MG PO DAILY, CAP Potassium Chloride (Potassium Chloride ER) 20 Meq Tab 20 MEQ PO BID, #4 Discharge Exam Review of Systems: Constitutional: No fever, No chills Respiratory: + cough, + sputum, + shortness of breath, + dyspnea on exertion Cardiovascular: No chest pain, No edema Abdomen: No pain, No nausea, No vomiting, No diarrhea Physical Exam: General Appearance: WD/WN, + mild distress Eyes: normal inspection, sclerae normal Respiratory/Chest: chest non-tender, + decreased breath sounds, + accessory muscle use Cardiovascular: regular rate, rhythm, + systolic murmur Abdomen / GI: normal bowel sounds, non tender, soft Extremities: no pedal edema, normal range of motion Neurologic/Psychiatric: alert, oriented x 3 Hospital Course 77 y/o M advanced COPD, diastolic CHF, DM, HTN, HPL, AF, obese. Pt presented with progressive SOB, a productive cough and intermittent CP Acute on Chronic Respiratory failure with hypoxia, Dyspnea/COPD/influenza has improved and will be able to taper steroids, nebs, antibiotics. Tamiflu complete outpt course. Copd exacerbation taper po steroids, nebulized meds, will have home on nebulizer for another month or so and wear home o2 continuously CHF - unclear wether systolic or diastolic, last echo was 2015 suggested preserved EF suspect diastolic heart failure as history of afib and maybe due to increased rate NOw Assessed to have fair rate control on diltiazem but-did require additional metoprolol, cont Apiaxaban, Diltiazem DM -has been elevated, on ssi,did use some lantus while on steroids, will have restarted home oral med HTN - cont Diltiazem to assure blood pressure control HPL - cont Atorvastatin Full code - Apixaban prophylaxis Total Time Spent: Greater than 30 minutes This includes examination of the patient, discharge planning, medication reconciliation, and communication with other providers. Discharge Instructions Please refer to the electronic Patient Visit Report (Discharge Instructions) for additional information.
== END 2017-03-26 13:56 | disposition home or self-care (01) | DRG 193 ==
LOC: EDBD 10:04 → C.EDA 10:05 → C.2E 12:34 → ENRESERV 13:13
PROVIDERS: ADMIT Internal Medicine; ATTEND Internal Medicine
DX: J10.1 Influenza due to other identified influenza virus with other respiratory manifestations (principal); J96.21 Acute and chronic respiratory failure with hypoxia; J44.1 Chronic obstructive pulmonary disease with (acute) exacerbation; J44.0 Chronic obstructive pulmonary disease with (acute) lower respiratory infection; I50.32 Chronic diastolic (congestive) heart failure; I48.91 Unspecified atrial fibrillation; E11.9 Type 2 diabetes mellitus without complications; E78.5 Hyperlipidemia, unspecified; I11.0 Hypertensive heart disease with heart failure; Z79.01 Long term (current) use of anticoagulants; Z79.899 Other long term (current) drug therapy; Z87.891 Personal history of nicotine dependence

== ENCOUNTER 2017-04-11 17:07 | Inpatient (IN) | payer OTHER ==
[~2017-04-11] VITALS: Ht 177.8 cm; Wt 109.3 kg
[~2017-04-11 17:07] MED LIST changes: +IPRASOL4 INH; -LSN25 PO; -OMEP40CA PO; +PRED10TA PO; +PRLSR20 PO; -SPRIN INH; +SYMIN/8045 INH; +TMF75 PO
[2017-04-11] MEDS ORDERED: ASPIRIN 81 MG CHEW PO STA (17:45)
--- NOTE | 2017-04-11 18:01 | DIAGNOSTIC IMAGING REPORT ---
CHEST ONE VIEW PORTABLE CLINICAL HISTORY: Atypical chest pain COMPARISON STUDY: March 25, 2017 FINDINGS: The cardiac and mediastinal contours remain stable. A descending thoracic aorta endograft is again visualized. An electronic device projects over the left chest, possibly representing an event recorder. Since the prior study, the patient has developed bibasal airspace opacities right greater than left. This may represent a pneumonia or aspiration. Clinical and radiographic follow-up is recommended.[ IMPRESSION: Interval development of bibasal airspace opacities right greater than left, suspicious for pneumonia. Clinical and radiographic follow-up is recommended in follow-up Electronically signed by: Cl Segundo M.D. 04/11/2017 5:59 PM Dictated Date/Time: 04/11/2017 5:58 PM
[2017-04-11] MEDS ORDERED: VANCOMYCIN INJ 0 MG in SODIUM CHLORIDE 0.9% 500ML 500 ML IV STA (18:22)
[2017-04-11] MEDS ORDERED: PIPERACILLIN/TAZOBACTAM 4.5 GM/100ML D5W IV STA (18:22)
[2017-04-11 18:30] LABS: BASO % 0.1 %; BASO ABS # 0.01 K/uL (0-0.2); HEMOGLOBIN 13.7 g/dL (14.0-18.0); IG# 0.04 K/uL (0.00-0.02); LYMPH % 4.2 %; LYMPH ABS # 0.42 K/uL (1.2-3.4); MEAN CELL VOLUME 101.2 fL (80-100); MEAN CORPUSCULAR HEMOGLOBIN 33.8 pg (25-34); MEAN CORPUSCULAR HGB CONC 33.4 g/dl (32-36); MEAN PLATELET VOLUME 10.1 fL (7.4-10.4); NEUT % 91.3 %; NEUT ABS # 9.15 K/uL (1.4-6.5); PLATELET COUNT 180 K/uL (130-400); RED CELL DISTRIBUTION WIDTH CV 13.9 % (11.5-14.5); RED CELL DISTRIBUTION WIDTH SD 51.5 fL (36.4-46.3); WHITE BLOOD COUNT 10.02 K/uL (4.8-10.8)
[2017-04-11] MEDS ORDERED: VANCOMYCIN CONSULT ACTIVE PRN ×2 (18:30→20:45)
[2017-04-11 18:37] LABS: BLOOD UREA NITROGEN 17 mg/dl (7-18); CALCIUM 8.7 mg/dl (8.5-10.1); CARBON DIOXIDE 32 mmol/L (21-32); CREATININE 0.92 mg/dl (0.60-1.40); GLUCOSE 348 mg/dl (70-99); POTASSIUM 3.8 mmol/L (3.5-5.1); SODIUM 135 mmol/L (136-145)
[2017-04-11] MEDS ORDERED: VANCOMYCIN INJ 1,000 MG in SODIUM CHLORIDE 0.9% 250ML 250 ML IV STA (18:47)
[2017-04-11] MEDS ORDERED: DOXA1TAB86 PO (19:57)
[2017-04-11] MEDS ORDERED: IPRASOL4 INH (19:59)
--- NOTE | 2017-04-11 20:26 | History and Physical ---
History & Physical Date & Time of Service: Apr 11, 2017 at 19:57 Chief Complaint: Fluid Build Up Primary Care Physician: Garcia Lam M.D. History of Present Illness Source: patient, spouse, hospital records 77 y/o M advanced COPD, diastolic CHF, DM, HTN, HPL, AF, obese. Recently admitted with URI, Influ A and CHF exacerbation. He presents complaining of fluid building up in his legs and a productive cough. He denies fever. He has not increased his home 02 flow which is 4L at baseline. He denies CP, N/V, diarrhea or dysuria. Past Medical/Surgical History 1. CHF - echo 11/29 - diastolic dysfunction - ejection fraction 50%. 2. COPD, dependent on 4 liters O2. 3. Insulin-dependent diabetes. 4. Hypertension. 5. Hyperlipidemia. 6. Chronic atrial fibrillation on Eliquis 7. Obesity. 8. Thoracic aortic aneurysm 9. Brain aneurysm Surgical 1. Hemorrhoidectomy 2. Tonsillectomy 3. Thoracic aneurysm repair - stent placement Family History Heart disease Stroke MOTHER Heart disease Stroke Social History Smoking Status: Former Smoker Drug Use: none Marital Status: Housing status: lives alone Occupational Status: retired Immunizations History of Influenza Vaccine: Yes History of Tetanus Vaccine?: utd History of Pneumococcal: Yes History of Hepatitis B Vaccine: No Multi-Drug Resistant Organisms History of MDRO: No Allergies Coded Allergies: Iodinated Diagnostic Agents (Verified Allergy, Unknown, NEEDS PRETREAT FOR CT DYE, 04/11/17) Home Medications Scheduled Apixaban (Eliquis), 5 MG PO BID Atorvastatin (Lipitor), 20 MG PO QAM Budesonide/Formoterol Fumarate (Symbicort 80/4.5 Inhaler), 2 PUFFS INH BID Cholecalciferol (Vitamin D), 5,000 UNITS PO DAILY Diltiazem Hcl Coated Beads (Cartia Xt), 480 MG PO QAM Doxazosin Mesylate (Doxazosin Mesylate), 4 MG PO HS Furosemide (Lasix), 40 MG PO DAILY Glimepiride (Glimepiride), 1 TAB PO DAILY Glucosamine Hydrochloride (Glucosamine), 1,500 MG PO HS Ipratropium-Albuterol (Duoneb), 3 ML INH Q6H Multiple Vitamin (Multivitamin), 1 TAB PO DAILY Omeprazole (Prilosec), 40 MG PO DAILY Potassium Chloride (Potassium Chloride ER), 20 MEQ PO BID Prednisone Tab (Prednisone), 10 MG PO UD Scheduled PRN Acetaminophen (Tylenol), 1,000 MG PO TID PRN for PRN Colchicine (Colchicine), 0.6 MG PO QAM PRN for PRN Review of Systems Constitutional: No fever, No chills, No sweats Eyes: No worsening of vision ENT: No hearing loss, No unusual epistaxis, No nasal symptoms Respiratory: + cough, + sputum, No wheezing, No shortness of breath Cardiovascular: No chest pain, No orthopnea, No PND Abdomen: No pain, No nausea, No vomiting Musculoskeletal: + problem reported (lower ext edema), No joint pain Genitourinary - Male: No hematuria, No dysuria, No urinary frequency Neurologic: No memory loss, No paralysis, No weakness Psychiatric: No depression symptoms Endocrine: No fatigue Hematologic / Lymphatic: No abnormal bleeding/bruising Integumentary: + problem reported, No rash Allergic / Immunologic: No environmental allergies Physical Exam Vital Signs Date Time Temp Pulse Resp B/P (MAP) Pulse Ox O2 Delivery O2 Flow Rate FiO2 04/11/17 19:25 87 24 143/89 95 Nasal Cannula 4.0 04/11/17 18:14 81 25 162/95 95 Nasal Cannula 4.0 04/11/17 18:13 94 Nasal Cannula 4.0 04/11/17 18:13 95 Nasal Cannula 4.0 04/11/17 18:12 91 04/11/17 17:48 139/78 04/11/17 17:35 37.4 96 22 174/108 80 Room Air General Appearance: WD/WN Head: normocephalic Eyes: normal inspection, EOMI ENT: normal ENT inspection, pharynx normal Neck: supple, + pertinent finding (cannot evaluate JVD due to habitus) Respiratory/Chest: chest non-tender, + crackles (BL crackles at both bases - no wheezing) Cardiovascular: no gallop, no murmur, + irregularly irregular Abdomen/GI: normal bowel sounds, non tender, soft Back: normal inspection, no CVA tenderness Extremities/Musculoskelatal: normal inspection, no calf tenderness, normal capillary refill, + pedal edema (3+ BL) Neurologic/Psych: 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, no motor/sensory deficits, alert Skin: + pertinent finding (There is stasis chnages of the LEs - The R ant has a few shallow skinn tears) Diagnostics Laboratory Results Results Past 24 Hours Test 04/11/17 18:00 Range/Units White Blood Count 10.02 4.8-10.8 K/uL Red Blood Count 4.05 4.7-6.1 M/uL Hemoglobin 13.7 14.0-18.0 g/dL Hematocrit 41.0 42-52 % Mean Corpuscular Volume 101.2 80-100 fL Mean Corpuscular Hemoglobin 33.8 25-34 pg Mean Corpuscular Hemoglobin Concent 33.4 32-36 g/dl Platelet Count 180 130-400 K/uL Mean Platelet Volume 10.1 7.4-10.4 fL Neutrophils (%) (Auto) 91.3 % Lymphocytes (%) (Auto) 4.2 % Monocytes (%) (Auto) 4.0 % Eosinophils (%) (Auto) 0.0 % Basophils (%) (Auto) 0.1 % Neutrophils # (Auto) 9.15 1.4-6.5 K/uL Lymphocytes # (Auto) 0.42 1.2-3.4 K/uL Monocytes # (Auto) 0.40 0.11-0.59 K/uL Eosinophils # (Auto) 0.00 0-0.5 K/uL Basophils # (Auto) 0.01 0-0.2 K/uL RDW Standard Deviation 51.5 36.4-46.3 fL RDW Coefficient of Variation 13.9 11.5-14.5 % Immature Granulocyte % (Auto) 0.4 % Immature Granulocyte # (Auto) 0.04 0.00-0.02 K/uL Venous Blood pH 7.38 7.36-7.41 Venous Blood Partial Pressure CO2 59 38.0-50.0 mmHg Venous Blood Partial Pressure O2 25 mmHg Venous Blood HCO3 34 mmol/L Venous Blood Oxygen Saturation < 60.0 % Venous Blood Base Excess 7.4 mEq/L Sodium Level 135 136-145 mmol/L Potassium Level 3.8 3.5-5.1 mmol/L Chloride Level 96 98-107 mmol/L Carbon Dioxide Level 32 21-32 mmol/L Anion Gap 7.0 3-11 mmol/L Blood Urea Nitrogen 17 7-18 mg/dl Creatinine 0.92 0.60-1.40 mg/dl Est Creatinine Clear Calc Drug Dose 80.7 ml/min Estimated GFR () 92.0 Estimated GFR (Non- 79.4 BUN/Creatinine Ratio 18.5 10-20 Random Glucose 348 70-99 mg/dl Calcium Level 8.7 8.5-10.1 mg/dl Magnesium Level 2.1 1.8-2.4 mg/dl Troponin I < 0.015 0-0.045 ng/ml Pro-B-Type Natriuretic Peptide 1424 0-1800 pg/ml Beta-Hydroxybutyric Acid 0.50 0.2-2.81 mg/dL Diagnostic Radiology CXR: Interval development of bibasilar airspace opacities right greater than left, suspicious for pneumonia. Clinical and radiographic follow-up is recommended in follow-up. EKG AF, PVCs - no evidence of acute ischemia - no significant change from prior Impression Assessment and Plan 77 y/o M advanced COPD, diastolic CHF, DM, HTN, HPL, AF, obese. Recently admitted with URI, Influ A and CHF exacerbation. He presents complaining of fluid building up in his legs and a productive cough. He denies fever. He has not increased his home 02 flow which is 4L at baseline. He denies CP, N/V, diarrhea or dysuria. 1) PNM - vs CHF - pt's volume status is difficult to gauge. The CXR may be read as CHF or BL PNM. A CT chest is therefore ordered. He had a recent flu and was hospitalized less than 20 days prior so that if PNM is confirmed, we would have to treat for post-viral and HCAP. He will receive Zosyn, Vanc, Zithro pending culture results. We will treat with additional diuresis and COPD modalities only in the absence of infiltrates on CT. He will receive diuresis regardless due to worsening LE edema. 2) AF - Cont Diltiazem, Apixaban - he did require additional B blockade during his recent stay which we can employ as needed 3) COPD - presentation is not consistent with exacerbation - cont Symbicort, PRN Albuterol, complete pred taper - 4L 02 4) DM - placed on SS and Lantus - Glu is high on arrival likely due to steroid taper 5) HTN, HPL - cont Atorvastatin, Diltiazem Full code - Apixaban prophylaxis Total time for this admit including review of labs, meds, imaging, records, EKG - discussion with pt, , ER attending - 37 min Level of Care Telemetry Resuscitation Status FULL RESUSCITATION VTE Prophylaxis Given or contraindicated: Other Anticoagulation
[2017-04-11] MEDS ORDERED: LANTUS PER UNIT CHARGE SC STA (20:30)
[2017-04-11] MEDS ORDERED: FUROSEMIDE INJ 40 MG in SYRINGE 0 ML IV ONE (20:30)
--- NOTE | 2017-04-11 20:40 | DIAGNOSTIC IMAGING REPORT ---
(CHEST) THORAX WITHOUT CT DOSE: 1119.59 mGy.cm HISTORY: Short of breath. PNM vs CHF TECHNIQUE: Multiaxial CT images of the chest were performed without contrast. A dose lowering technique was utilized adhering to the principles of ALARA. COMPARISON: Chest 05/04/2016. FINDINGS: Small amount of mucoid material within the trachea and bronchus intermedius. No pneumothorax. Emphysema. Respiratory motion artifact. Bibasilar patchy groundglass and consolidative airspace opacities, right greater than left. There is also small focus of nodular airspace opacities within the left upper lobe. Findings are consistent with a multifocal pneumonia. 5 mm nodular density within the right upper lobe on image 114. This is stable compared to the prior study. No pleural or pericardial effusions. The heart remains mildly enlarged. Evidence for stent graft repair of a descending thoracic aortic aneurysm. The graft and aneurysm sac remains unchanged. This measures a maximal diameter of 5.2 cm. No change in the atelectasis within the left lower lobe adjacent to the descending thoracic aorta. Evaluation for an aortic dissection is essentially nondiagnostic due to the lack of intravenous contrast. A few small gallstones. The unenhanced liver, spleen, and adrenal glands are unremarkable. Small residual electronic stimulator within the left anterior chest. Mild mediastinal lymphadenopathy which has slight progressed. This may be reactive. Old, healed left-sided rib fractures. Stable sclerotic focus within the left posterior ninth rib likely representing a bone island. IMPRESSION: 1. Bibasilar airspace opacities, right greater than left and a small airspace opacity within the left upper lobe. Findings are consistent with a multifocal pneumonia. Recommend follow-up to ensure resolution. 2. Stable 5 mm nodule within the right upper lobe. 3. No change in the size of the descending thoracic aorta status post stent graft repair. 4. Mild mediastinal lymphadenopathy which is slightly progressed. This could be reactive. 5. Additional findings as described above. Electronically signed by: Maldonado Moody M.D. 04/11/2017 8:38 PM Dictated Date/Time: 04/11/2017 8:30 PM
[2017-04-11] MEDS ORDERED: ALBUTEROL 0.083% NEBU SOLN 3 ML VIAL INH PRN (20:45)
[2017-04-11] MEDS ORDERED: COLCHICINE 0.6 MG TAB PO PRN (20:45)
[2017-04-11] MEDS ORDERED: PIPERACILL/TAZOBAC CONSULT ACTIVE PRN (20:45)
[2017-04-11] MEDS: INSULIN ASPART 100 UNITS/ML 3 ML PEN SC SCH (21:00)
[2017-04-11] MEDS ORDERED: FUROSEMIDE 40 MG/4 ML VIAL IV ONE (21:15)
[2017-04-11 22:00] VITALS: BP 137/73; PULSE 86; TEMP 36.7; O2SAT 92; Ht 177.8 cm; Wt 109.3 kg
[2017-04-11] MEDS ORDERED: GLUCAGON FOR INJ 1 MG VIAL SQ PRN (22:00)
[2017-04-11] MEDS ORDERED: GLUCOSE 10 TABS/TUBE PO PRN (22:00)
[2017-04-11] MEDS ORDERED: GLUCOSE 40% GEL 15 GM TUBE PO PRN (22:00)
[2017-04-11] MEDS ORDERED: DEXTROSE 50% 50 ML SYR IV PRN (22:00)
--- NOTE | 2017-04-11 23:59 | EMERGENCY ROOM VISIT NOTE ---
History Report prepared by Kimberley: Ivon Bardales Under the Supervision of: Dr. Vikram Weber M.D. First contact with patient: 17:41 Chief Complaint: OTHER COMPLAINT Stated Complaint: FLUID BUILD UP History of Present Illness The patient is a 77 year old male who presents to the Emergency Room with complaints of worsening SOB starting 2 weeks ago. The patient was discharged from the hospital 2 weeks ago after having the flu. He has been SOB since having the flu. He reports worsening fluid build up. He denies any chest pain. He is on Eliquis. He has a history of CHF. He is normally on 2L of oxygen. He has not been using more pillows at night. Patient states he has not been using his oxygen at home like he is supposed to. He states he has the oxygen, he just chose not to use it. Source of History: patient Onset: 2 weeks ago Position: other (global) Quality: other (SOB) Timing: worsening Associated Symptoms: No chest pain Review of Systems See HPI for pertinent positives and negatives. A total of ten systems were reviewed and were otherwise negative. Past Medical & Surgical Medical Problems: (1) Atrial fibrillation (2) CHF (congestive heart failure) (3) COPD (chronic obstructive pulmonary disease) (4) COPD exacerbation (5) Diabetes (6) History of cardioversion (7) Hyperlipidemia (8) Hypertension (9) Pneumonia Surgical Problems: (1) History of hemorrhoidectomy (2) History of tonsillectomy Family History Heart disease Stroke MOTHER Social History Smoking Status: Former Smoker Alcohol Use: none Drug Use: none Marital Status: Housing Status: lives alone Occupation Status: retired Current/Historical Medications Scheduled Apixaban (Eliquis), 5 MG PO BID Atorvastatin (Lipitor), 20 MG PO QAM Budesonide/Formoterol Fumarate (Symbicort 80/4.5 Inhaler), 2 PUFFS INH BID Cholecalciferol (Vitamin D), 5,000 UNITS PO DAILY Diltiazem Hcl Coated Beads (Cartia Xt), 480 MG PO QAM Doxazosin Mesylate (Doxazosin Mesylate), 4 MG PO HS Furosemide (Lasix), 40 MG PO DAILY Glimepiride (Glimepiride), 1 TAB PO DAILY Glucosamine Hydrochloride (Glucosamine), 1,500 MG PO HS Ipratropium-Albuterol (Duoneb), 3 ML INH Q6H Multiple Vitamin (Multivitamin), 1 TAB PO DAILY Omeprazole (Prilosec), 40 MG PO DAILY Potassium Chloride (Potassium Chloride ER), 20 MEQ PO BID Prednisone Tab (Prednisone), 10 MG PO UD Scheduled PRN Acetaminophen (Tylenol), 1,000 MG PO TID PRN for PRN Colchicine (Colchicine), 0.6 MG PO QAM PRN for PRN Allergies Coded Allergies: Iodinated Diagnostic Agents (Verified Allergy, Unknown, NEEDS PRETREAT FOR CT DYE, 04/11/17) Physical Exam Vital Signs Date Time Temp Pulse Resp B/P (MAP) Pulse Ox O2 Delivery O2 Flow Rate FiO2 04/11/17 20:10 78 20 156/92 95 Room Air 04/11/17 19:25 87 24 143/89 95 Nasal Cannula 4.0 04/11/17 18:14 81 25 162/95 95 Nasal Cannula 4.0 04/11/17 18:13 94 Nasal Cannula 4.0 04/11/17 18:13 95 Nasal Cannula 4.0 04/11/17 18:12 91 04/11/17 17:48 139/78 04/11/17 17:35 37.4 96 22 174/108 80 Room Air Physical Exam Physical Exam GENERAL: He is oriented to person, place, and time. He appears well-developed and well-nourished. He does not appear distressed. ____ HENT: Exam performed. Head: Normocephalic and atraumatic. Right Ear: External ear normal. No mastoid tenderness. Left Ear: External ear normal. No mastoid tenderness. Mouth/Throat: The oropharynx is clear and moist. No trismus in the jaw. No dental abscesses or uvula swelling. No oropharyngeal exudate or tonsillar abscesses. ____ EYES: Conjunctivae and EOM are normal. Pupils are equal, round, and reactive to light. Right eye exhibits no discharge. Left eye exhibits no discharge. No scleral icterus. ____ NECK: Normal range of motion. Neck supple. No JVD present. No spinous process tenderness present. No carotid bruit present. No rigidity. No tracheal deviation and normal range of motion present. No Brudzinski's sign and no Kernig 's sign noted. ____ CV: Normal rate, irregular rhythm, normal heart sounds and intact distal pulses. There is no peripheral edema. Palpable radial pulses bue. ____ PULM/CHEST: Effort normal. No respiratory distress. No stridor. He has scattered expiratory wheezes at the bases. He has diffuse rales bilaterally. Chest Wall: He exhibits no tenderness. ____ ABD: The abdomen is soft. Bowel sounds are normal. He has no distension. No mass is present. There is no tenderness. There is no rebound, no guarding, no Marie's sign and no tenderness at McBurney's point. Rovsig negative MUSC/SKEL: Normal range of motion. There is no tenderness or deformity. There is 3+ pitting edema. LYMPH: No cervical adenopathy. ____ NEURO: He is alert and oriented to person, place, and time. He has normal strength. No cranial nerve deficit or sensory deficit. Coordination and gait normal. GCS eye subscore is 4. GCS verbal subscore is 5. GCS motor subscore is 6. Cerebellar tests wnl. ____ SKIN: Skin is warm and dry. He is not diaphoretic. ____ PSYCH: He has a normal mood and affect. His behavior is normal. Judgment and thought content normal. ____ Medical Decision & Procedures ER Provider Diagnostic Interpretation: Radiology results as stated below per my review and radiologist interpretation: CHEST ONE VIEW PORTABLE CLINICAL HISTORY: Atypical chest pain COMPARISON STUDY: March 25, 2017 FINDINGS: The cardiac and mediastinal contours remain stable. A descending thoracic aorta endograft is again visualized. An electronic device projects over the left chest, possibly representing an event recorder. Since the prior study, the patient has developed bibasal airspace opacities right greater than left. This may represent a pneumonia or aspiration. Clinical and radiographic follow-up is recommended.[ IMPRESSION: Interval development of bibasal airspace opacities right greater than left, suspicious for pneumonia. Clinical and radiographic follow-up is recommended in follow-up Electronically signed by: Cl Segundo M.D. 04/11/2017 5:59 PM Dictated Date/Time: 04/11/2017 5:58 PM Laboratory Results 04/11/17 18:00 Red Blood Count 4.05, Mean Corpuscular Volume 101.2, Mean Corpuscular Hemoglobin 33.8, Mean Corpuscular Hemoglobin Concent 33.4, Mean Platelet Volume 10.1, Neutrophils (%) (Auto) 91.3, Lymphocytes (%) (Auto) 4.2, Monocytes (%) ( Auto) 4.0, Eosinophils (%) (Auto) 0.0, Basophils (%) (Auto) 0.1, Neutrophils # ( Auto) 9.15, Lymphocytes # (Auto) 0.42, Monocytes # (Auto) 0.40, Eosinophils # ( Auto) 0.00, Basophils # (Auto) 0.01 04/11/17 18:00 Test 04/11/17 18:00 White Blood Count 10.02 K/uL (4.8-10.8) Red Blood Count 4.05 M/uL (4.7-6.1) Hemoglobin 13.7 g/dL (14.0-18.0) Hematocrit 41.0 % (42-52) Mean Corpuscular Volume 101.2 fL (80-100) Mean Corpuscular Hemoglobin 33.8 pg (25-34) Mean Corpuscular Hemoglobin Concent 33.4 g/dl (32-36) Platelet Count 180 K/uL (130-400) Mean Platelet Volume 10.1 fL (7.4-10.4) Neutrophils (%) (Auto) 91.3 % Lymphocytes (%) (Auto) 4.2 % Monocytes (%) (Auto) 4.0 % Eosinophils (%) (Auto) 0.0 % Basophils (%) (Auto) 0.1 % Neutrophils # (Auto) 9.15 K/uL (1.4-6.5) Lymphocytes # (Auto) 0.42 K/uL (1.2-3.4) Monocytes # (Auto) 0.40 K/uL (0.11-0.59) Eosinophils # (Auto) 0.00 K/uL (0-0.5) Basophils # (Auto) 0.01 K/uL (0-0.2) RDW Standard Deviation 51.5 fL (36.4-46.3) RDW Coefficient of Variation 13.9 % (11.5-14.5) Immature Granulocyte % (Auto) 0.4 % Immature Granulocyte # (Auto) 0.04 K/uL (0.00-0.02) Venous Blood pH 7.38 (7.36-7.41) Venous Blood Partial Pressure CO2 59 mmHg (38.0-50.0) Venous Blood Partial Pressure O2 25 mmHg Venous Blood HCO3 34 mmol/L Venous Blood Oxygen Saturation < 60.0 % Venous Blood Base Excess 7.4 mEq/L Anion Gap 7.0 mmol/L (3-11) Est Creatinine Clear Calc Drug Dose 80.7 ml/min Estimated GFR () 92.0 Estimated GFR (Non- 79.4 BUN/Creatinine Ratio 18.5 (10-20) Calcium Level 8.7 mg/dl (8.5-10.1) Magnesium Level 2.1 mg/dl (1.8-2.4) Troponin I < 0.015 ng/ml (0-0.045) Pro-B-Type Natriuretic Peptide 1424 pg/ml (0-1800) Beta-Hydroxybutyric Acid 0.50 mg/dL (0.2-2.81) Laboratory results reviewed by me Medications Administered Medications (Trade) Dose Ordered Sig/Enrique Route Start Time Stop Time Status Last Admin Dose Admin Aspirin (Aspirin Chew) 324 mg NOW STAT PO 04/11/17 17:45 04/11/17 17:48 DC 04/11/17 17:45 324 MG Piperacillin Sod/ Tazobactam Sod (Zosyn Iv) 4.5 gm NOW STAT IV 04/11/17 18:22 04/11/17 18:24 DC 04/11/17 18:22 4.5 GM Vancomycin HCl 1000 mg/Sodium Chloride 270 ml @ 125 mls/hr NOW STAT IV 04/11/17 18:47 04/11/17 20:56 DC 04/11/17 18:47 125 MLS/HR ECG Per My Interpretation Indication: SOB/dyspnea Rate (beats per minute): 92 Rhythm: atrial fibrillation Findings: PVC, other (QRS, QTc within normal limits, no ST elevation or ST depression, baseline artifact due to patient's respiratory status) ED Course 1741: The patient was evaluated in room C1B. A complete history and physical exam was performed. Patient was immediately replaced on oxygen, his oxygen saturation did not improve with his home 2 L, he was placed on 4 L and his oxygen saturation level normalized. 1921: Vital signs stable on the continued nasal cannula [address] Forrester, [facility] hospitalist was notified. Labs within normal limits, the patient's proBNP was on the upper side of normal at 1424. Chest x-ray demonstrated bibasilar pneumonia. Given that the patient was recently admitted to the hospital and treated for influenza, he will be treated for HCAP. Patient was started on broad-spectrum antibiotics. The patient will be evaluated by hospitalist for further management. Medical Decision Vital signs stable on the continued nasal cannula 4 L. VICTORIA Santos hospitalist was notified. Labs within normal limits, the patient's proBNP was on the upper side of normal at 1424. Chest x-ray demonstrated bibasilar pneumonia. Given that the patient was recently admitted to the hospital and treated for influenza, he will be treated for HCAP. Patient was started on broad-spectrum antibiotics. The patient will be evaluated by hospitalist for further managemen Medication Reconcilliation Current Medication List: was personally reviewed by me Blood Pressure Screening Patient's blood pressure: Elevated blood pressure Referred to hospitalist. Consults Time Called: 1921 Consulting Physician: VICTORIA Santos hospitalist He was notified. Impression Primary Impression: HCAP (healthcare-associated pneumonia) Scribe Attestation The scribe's documentation has been prepared under my direction and personally reviewed by me in its entirety. I confirm that the note above accurately reflects all work, treatment, procedures, and medical decision making performed by me. The chart was completed utilizing [employer] Speech voice recognition software. Grammatical errors, random word insertions, pronoun errors, and incomplete sentences are an occasional consequence of this system due to software limitations, ambient noise, and hardware issues. Any formal questions or concerns about the content, text, or information contained within the body of this dictation should be directly addressed to the physician for clarification. Departure Information Dispostion Being Evaluated By Hospitalist Referrals Garcia Lam M.D. (PCP) Patient Instructions My [facility]
[2017-04-12] VITALS (7 sets, daily range): BP systolic 130–154; BP diastolic 75–88; PULSE 74–102; TEMP 36.5–38.9; O2SAT 92–97
[2017-04-12] MEDS: AZITHROMYCIN IV 500 MG in DEXTROSE 5% 250ML 250 ML IV SCH (00:02)
[2017-04-12] MEDS: VANCOMYCIN INJ 1,500 MG in SODIUM CHLORIDE 0.9% 500ML 500 ML IV SCH ×2 (00:02→12:18)
[2017-04-12] MEDS: POTASSIUM CHLORIDE 20 MEQ TABCR PO SCH ×3 (00:02→21:30)
[2017-04-12] MEDS: DOXAZosin MESYLATE TAB 4 MG TAB PO SCH ×2 (00:03→21:29)
[2017-04-12] MEDS: BUDESONIDE/FORMOTEROL FUMARATE 80/4.5 60 PUFFS/INHALER INH SCH ×3 (00:03→21:28)
[2017-04-12] MEDS: APIXABAN 2.5 MG TAB PO SCH ×3 (00:03→21:29)
[2017-04-12] MEDS: ALBUT/IPRATROP 3MG/0.5MG NEB 3 ML VIAL INH SCH ×4 (01:47→19:12)
[2017-04-12] MEDS: PIPERACILL/TAZOBAC IV 4.5 GM in DEXTROSE 5% 100ML 100 ML IV SCH ×3 (03:17→19:22)
[2017-04-12] MEDS ORDERED: SODIUM CHLORIDE 0.65% NA SOLN 45 ML (OCEAN) ONE (05:39)
[2017-04-12] MEDS: INSULIN ASPART 100 UNITS/ML 3 ML PEN SC SCH ×4 (07:00→21:00)
[2017-04-12 07:47] LABS: HEMATOCRIT 35.6 % (42-52); HEMOGLOBIN 11.8 g/dL (14.0-18.0); MEAN CELL VOLUME 100.6 fL (80-100); MEAN CORPUSCULAR HEMOGLOBIN 33.3 pg (25-34); MEAN CORPUSCULAR HGB CONC 33.1 g/dl (32-36); MEAN PLATELET VOLUME 9.6 fL (7.4-10.4); PLATELET COUNT 141 K/uL (130-400); RED CELL DISTRIBUTION WIDTH CV 13.6 % (11.5-14.5); RED CELL DISTRIBUTION WIDTH SD 50.2 fL (36.4-46.3); WHITE BLOOD COUNT 6.86 K/uL (4.8-10.8)
[2017-04-12] MEDS: DILTIAZEM HCL 240 MG CAPCR PO SCH (07:49)
[2017-04-12] MEDS: PANTOprazole SOD 40 MG TAB PO SCH (07:49)
[2017-04-12] MEDS: ATORVASTATIN 20 MG TAB PO SCH (07:50)
[2017-04-12] MEDS: CHOLECALCIFEROL 1000 INTER.UNIT TAB PO SCH (07:50)
--- NOTE | 2017-04-12 08:09 | Clinical Documentation Query ---
QUERY 1 OF [address] IRIZARRY, In your clinical opinion is this patient being managed for: ( x ) possible gram negative or MRSA Pneumonia ( ) Not Agree ( ) Other explanation of clinical findings (Please Explain) ( ) Unable to determine (Please Define) ( ) Need to Discuss The medical record reflects the following clinical findings, treatment, and risk factors. Clinical Indicators: 77 yo male presenting with increasing dyspnea, diagnosed with HCAP and now with moist productive cough. Pt recently hospitalized with influenza A. Treatment: sputum cx, IV zosyn, IV vancomycin, IV azithromycin, O2 support, symbicort, prn ventolin nebs Risk Factors: age, DM, recent hospitalization QUERY 2 OF 3 In your clinical opinion is this patient being managed for: ( x ) possible Acute on chronic diastolic CHF, ( ) Chronic diastolic CHF ( ) Not Agree ( ) Other explanation of clinical findings (Please Explain) ( ) Unable to determine (Please Define) ( ) Need to Discuss The medical record reflects the following clinical findings, treatment, and risk factors. Clinical Indicators: Pt with increasing LE edema, bibasilar crackles. BNP hi normal 1424 Treatment: O2 support, tele, lasix, cardizem, cardura, Risk Factors: A fib, HTN, DM, penumonia Please clarify and document your clinical opinion in the progress notes and discharge summary. Terms such as "probable", "suspected", "likely", "questionable", "possible", or "still to be ruled out" are acceptable. QUERY 3 OF 3 In your clinical opinion is this patient being managed for: ( ) Chronic hypoxic respiratory failure ( ) Not Agree ( ) Other explanation of clinical findings (Please Explain) ( ) Unable to determine (Please Define) ( ) Need to Discuss The medical record reflects the following clinical findings, treatment, and risk factors. Clinical Indicators: Pt noted to be ordered chronic home O2 (pt is however, noncompliant) Treatment: chronic treatment includes O2 support, symbicort, duonebs, and current prednisone taper Risk Factors: COPD, diastolic CHF Please clarify and document your clinical opinion in the progress notes and discharge summary. Terms such as "probable", "suspected", "likely", "questionable", "possible", or "still to be ruled out" are acceptable. IF IN AGREEMENT, YOU MUST DOCUMENT ABOVE DIAGNOSTIC STATEMENT IN DAILY PROGRESS NOTES AND DISCHARGE SUMMARY. This document is not part of the patient's record. Thank You, Lissy James RN [phone]
--- NOTE | 2017-04-12 08:14 | Hospitalist Progress Note ---
Hospitalist Progress Note Date of Service Apr 12, 2017. Subjective Pt evaluation today including: conversation w/ patient, conversation w/ family , physical exam, chart review, lab review, review of studies, review of inpatient medication list Patient seen and evaluated. No acute events overnight. Remains in A Fib on monitor. States breathing has improved since admission but not yet baseline. Not requiring more than baseline O2 at this time. Continue with a productive cough of brown sputum. Nasal congestion improving with saline spray. Feels that his lower extremity edema is improving. Constitutional: No fever, No chills Respiratory: + cough, + sputum, + shortness of breath Cardiovascular: No chest pain Abdomen: No pain, No nausea, No vomiting, No diarrhea, No constipation Musculoskeletal: + swelling (b/l lower extremities - improving) Male : No dysuria Heme: No abnormal bleeding/bruising Skin: No rash Medications Current Inpatient Medications Medications (Trade) Dose Ordered Sig/Enrique Route Start Time Stop Time Status Last Admin Dose Admin Insulin Aspart (novoLOG ASPART) SLIDING SCALE G... ACHS SC 04/11/17 21:00 05/11/17 20:59 04/12/17 12:21 8 UNITS Atorvastatin Calcium (Lipitor Tab) 20 mg QAM PO 04/12/17 09:00 05/12/17 08:59 04/12/17 07:50 20 MG Budesonide/ Formoterol Fumarate (Symbicort 80/ 4.5 Inh) 2 puffs BID INH 04/11/17 21:00 05/11/17 20:59 04/12/17 07:51 2 PUFFS Colchicine (Colchicine Tab) 0.6 mg QAM PRN PO 04/11/17 20:45 05/11/17 20:44 Diltiazem HCl (Cardizem Cd Cap) 480 mg QAM PO 04/12/17 09:00 05/12/17 08:59 04/12/17 07:49 480 MG Doxazosin Mesylate (Cardura Tab) 4 mg HS PO 04/11/17 21:00 05/11/17 20:59 04/12/17 00:03 4 MG Albuterol/ Ipratropium (Duoneb) 3 ml Q6R INH 04/12/17 03:00 05/12/17 02:59 04/12/17 01:47 3 ML Apixaban (Eliquis Tab) 5 mg BID PO 04/11/17 21:00 05/11/17 20:59 04/12/17 07:50 5 MG Cholecalciferol (Vitamin D Tab) 5,000 inter.unit DAILY PO 04/12/17 09:00 05/12/17 08:59 04/12/17 07:50 5,000 INTER.UNIT Pantoprazole Sodium (Protonix Tab) 40 mg DAILY PO 04/12/17 09:00 05/12/17 08:59 04/12/17 07:49 40 MG Potassium Chloride (Klor-Con Tab) 20 meq BID PO 04/11/17 21:00 05/11/17 20:59 04/12/17 07:51 20 MEQ Albuterol Sulfate (Ventolin 0.083% 2.5MG/3ML Neb) 2.5 mg Q6R PRN INH 04/11/17 20:45 05/11/17 20:44 Piperacillin Sod/ Tazobactam Sod 4.5 gm/Dextrose 120 ml @ 30 mls/hr Q8H IV 04/12/17 00:00 04/19/17 00:00 04/12/17 12:18 30 MLS/HR Miscellaneous Information (Consult) 1 ea UD PRN N/A 04/11/17 20:45 05/11/17 20:44 Vancomycin HCl 1500 mg/Sodium Chloride 530 ml @ 200 mls/hr Q12H IV 04/12/17 00:00 04/19/17 00:00 04/12/17 12:18 200 MLS/HR Miscellaneous Information (Consult) 1 ea UD PRN N/A 04/11/17 20:45 05/11/17 20:44 Azithromycin 500 mg/Dextrose 255 ml @ 125 mls/hr Q24H IV 04/12/17 00:00 04/19/17 00:00 04/12/17 00:02 125 MLS/HR Glucose (Glucose 40% Gel) 15-30 GRAMS 15 GRAMS... UD PRN PO 04/11/17 22:00 05/11/17 21:59 Glucose (Glucose Chew Tab) 4-8 Tablets 4 Tabl... UD PRN PO 04/11/17 22:00 05/11/17 21:59 Dextrose (Dextrose 50% 50ML Syringe) 25-50ML OF 50% DW IV FOR... UD PRN IV 04/11/17 22:00 05/11/17 21:59 Glucagon (Glucagon Inj) 1 mg UD PRN SQ 04/11/17 22:00 05/11/17 21:59 Insulin Glargine (Lantus Solostar Pen) 15 units HS SC 04/12/17 21:00 05/12/17 20:59 Furosemide 40 mg/ Syringe 4 ml @ 4 mls/min BID17 IV 04/12/17 18:00 05/12/17 17:59 Objective Vital Signs Date Time Temp Pulse Resp B/P (MAP) Pulse Ox O2 Delivery O2 Flow Rate FiO2 04/12/17 07:52 37.0 86 22 147/87 (107) 94 04/12/17 04:00 Nasal Cannula 4.0 04/12/17 03:09 36.5 100 22 154/75 (101) 94 04/12/17 01:50 102 20 94 Nasal Cannula 4.0 04/11/17 23:59 Nasal Cannula 4.0 04/11/17 22:00 36.7 86 24 137/73 92 Nasal Cannula 4.0 04/11/17 21:56 37.4 78 20 156/92 95 04/11/17 20:10 78 20 156/92 95 Room Air 04/11/17 19:25 87 24 143/89 95 Nasal Cannula 4.0 04/11/17 18:14 81 25 162/95 95 Nasal Cannula 4.0 04/11/17 18:13 94 Nasal Cannula 4.0 04/11/17 18:13 95 Nasal Cannula 4.0 04/11/17 18:12 91 04/11/17 17:48 139/78 04/11/17 17:35 37.4 96 22 174/108 80 Room Air Physical Exam General Appearance: WD/WN, no apparent distress Eyes: sclerae normal ENT: hearing grossly normal Neck: supple, no JVD, trachea midline Respiratory/Chest: no respiratory distress, no accessory muscle use, + crackles , + rhonchi (b/l bases to approx. mid lung) Cardiovascular: + irregularly irregular Abdomen: normal bowel sounds, non tender, soft Extremities: + pertinent finding (chronic venous stasis changes; trace to 1+ pitting edema) Neurologic/Psychiatric: alert Skin: normal color Laboratory Results Last 24 Hours Test 04/11/17 18:00 04/11/17 22:30 04/12/17 07:00 White Blood Count 10.02 K/uL 6.86 K/uL Red Blood Count 4.05 M/uL 3.54 M/uL Hemoglobin 13.7 g/dL 11.8 g/dL Hematocrit 41.0 % 35.6 % Mean Corpuscular Volume 101.2 fL 100.6 fL Mean Corpuscular Hemoglobin 33.8 pg 33.3 pg Mean Corpuscular Hemoglobin Concent 33.4 g/dl 33.1 g/dl Platelet Count 180 K/uL 141 K/uL Mean Platelet Volume 10.1 fL 9.6 fL Neutrophils (%) (Auto) 91.3 % Lymphocytes (%) (Auto) 4.2 % Monocytes (%) (Auto) 4.0 % Eosinophils (%) (Auto) 0.0 % Basophils (%) (Auto) 0.1 % Neutrophils # (Auto) 9.15 K/uL Lymphocytes # (Auto) 0.42 K/uL Monocytes # (Auto) 0.40 K/uL Eosinophils # (Auto) 0.00 K/uL Basophils # (Auto) 0.01 K/uL RDW Standard Deviation 51.5 fL 50.2 fL RDW Coefficient of Variation 13.9 % 13.6 % Immature Granulocyte % (Auto) 0.4 % Immature Granulocyte # (Auto) 0.04 K/uL Venous Blood pH 7.38 Venous Blood Partial Pressure CO2 59 mmHg Venous Blood Partial Pressure O2 25 mmHg Venous Blood HCO3 34 mmol/L Venous Blood Oxygen Saturation < 60.0 % Venous Blood Base Excess 7.4 mEq/L Sodium Level 135 mmol/L Potassium Level 3.8 mmol/L Chloride Level 96 mmol/L Carbon Dioxide Level 32 mmol/L Anion Gap 7.0 mmol/L Blood Urea Nitrogen 17 mg/dl Creatinine 0.92 mg/dl Est Creatinine Clear Calc Drug Dose 80.7 ml/min Estimated GFR () 92.0 Estimated GFR (Non- 79.4 BUN/Creatinine Ratio 18.5 Random Glucose 348 mg/dl Calcium Level 8.7 mg/dl Magnesium Level 2.1 mg/dl Troponin I < 0.015 ng/ml Pro-B-Type Natriuretic Peptide 1424 pg/ml Beta-Hydroxybutyric Acid 0.50 mg/dL Bedside Glucose 149 mg/dl Assessment and Plan 77 y/o M advanced COPD, diastolic CHF, DM, HTN, HPL, AF, obese. Recently admitted with URI, Influ A and CHF exacerbation. He presents complaining of fluid building up in his legs and a productive cough. He denies fever. He has not increased his home 02 flow which is 4L at baseline. He denies CP, N/V, diarrhea or dysuria. Multifocal Pneumonia: - Recent treatment for influenza - may be viral etiology vs HCAP - Zithromax 500 mg IV daily, Zosyn, and Vanc - Duonebs ENRIQUE and PRN Albuterol; Symbicort 2 puffs BID Acute on Chronic Diastolic CHF: - Currently at - 700 mL - Continue Lasix 40 mg IV BID -- Reports home dosing is actually twice a day dosing and states he can take up to 4 pills if needed - will verify home dosing to have appropriate med rec on D/C Chronic Respiratory Failure 2/2 COPD without Exacerbation: Baseline 4 L NC - Currently not requiring additional O2 needs - continue to monitor Persistent Atrial Fibrillation with HTN/HLD: - Eliquis 5 mg BID and Diltiazem 480 mg daily - Doxazosin 4 mg HS - Lipitor 20 mg daily T2DM: A1c 5.7 - Lantus 15 units SC daily and SSI - If oral intake remains well and the stress of illness doesn't create significant sugars - consider changing ora DVT Prophylaxis: Eliquis Code Status: FULL RESUSCITATION Disposition: - Continue to diurese and ambulate as tolerated Continued [facility] stay due to: multiple IV medications needed Discharge planning: home with IV medication
[2017-04-12 08:16] LABS: CALCIUM 7.9 mg/dl (8.5-10.1); CREATININE 0.62 mg/dl (0.60-1.40); POTASSIUM 3.1 mmol/L (3.5-5.1)
--- NOTE | 2017-04-12 08:33 | Pharmacy Progress Note ---
Pharmacy Abx Initial Consult Date of Service Apr 12, 2017. Pharmacy Dosing Scope Date of Consult: 04/12/17 Consultation requested by: Dr. Forrester Pharmacy is consulted to initiate Vanco/Zosyn IV dosing therapy, order appropriate labs and adjust drug dose/frequency. Subjective The patient is a 77 year old male admitted on Apr 11, 2017 at 20:29. Objective Height (Feet): 5 Height (Inches): 10.00 Weight (Kilograms): 112.500 Vital Signs (Past 12Hrs) Vital Signs Past 12 Hours Date Time Temp Pulse Resp B/P (MAP) Pulse Ox O2 Delivery O2 Flow Rate FiO2 04/12/17 07:52 37.0 86 22 147/87 (107) 94 04/12/17 04:00 Nasal Cannula 4.0 04/12/17 03:09 36.5 100 22 154/75 (101) 94 04/12/17 01:50 102 20 94 Nasal Cannula 4.0 04/11/17 23:59 Nasal Cannula 4.0 04/11/17 22:00 36.7 86 24 137/73 92 Nasal Cannula 4.0 04/11/17 21:56 37.4 78 20 156/92 95 Lab Results (24Hrs) Laboratory Tests (24 Hours) Test 04/11/17 18:00 04/12/17 07:00 White Blood Count 10.02 K/uL (4.8-10.8) 6.86 K/uL (4.8-10.8) Red Blood Count 4.05 M/uL (4.7-6.1) L Hemoglobin 13.7 g/dL (14.0-18.0) L Hematocrit 41.0 % (42-52) L Mean Corpuscular Volume 101.2 fL (80-100) H Mean Corpuscular Hemoglobin 33.8 pg (25-34) Mean Corpuscular Hemoglobin Concent 33.4 g/dl (32-36) Platelet Count 180 K/uL (130-400) Mean Platelet Volume 10.1 fL (7.4-10.4) Neutrophils (%) (Auto) 91.3 % Lymphocytes (%) (Auto) 4.2 % Monocytes (%) (Auto) 4.0 % Eosinophils (%) (Auto) 0.0 % Basophils (%) (Auto) 0.1 % Neutrophils # (Auto) 9.15 K/uL (1.4-6.5) H Lymphocytes # (Auto) 0.42 K/uL (1.2-3.4) L Monocytes # (Auto) 0.40 K/uL (0.11-0.59) Eosinophils # (Auto) 0.00 K/uL (0-0.5) Basophils # (Auto) 0.01 K/uL (0-0.2) Micro Results Date/Time Source Procedure Growth Status 04/12/17 03:20 Sputum Expectorated Sputum Gram Stain - Final Resulted 04/12/17 03:20 Sputum Expectorated Sputum Sputum Culture Pending Resulted Risk Factors for Resistance * Hospitalization for 48 hours or more within the past 90 days Assessment & Plan Assessment Mr. Dc is a 77yo M p/w fluid overload and productive cough. Currently being treated for HAP due to his recent hospital admission. Current population p' kinetics: t1/2=6.6, ke=0.104,m Vd=0.6. Sputum and MRSA nares are both currently pending. Plan Vancomycin: * Vanco 1000mg x1 given in ED * Then Vancomycin 1500mg (13.3mg/kg) started overnight q12 * Trough ordered for 04/13/17 @ 1130 * Goal trough 15-20mcg/mL for possible pulmonary source Zosyn: * Zosyn EI 4.5g q8, appropriate for renal fxn and pts clinical status. Pharmacy will continue to follow and will adjust dose/frequency as necessary. Thank you.
[2017-04-12] MEDS ORDERED: FUROSEMIDE 40 MG TAB PO SCH (09:00)
[2017-04-12] MEDS ORDERED: POTASSIUM CHLORIDE 20 MEQ TABCR PO STA (10:35)
[2017-04-12] MEDS ORDERED: FUROSEMIDE INJ 40 MG in SYRINGE 0 ML IV ONE (14:00)
[2017-04-12] MEDS: FUROSEMIDE INJ 40 MG in SYRINGE 0 ML IV SCH (18:31)
[2017-04-12] MEDS: INSULIN GLARGINE SOLOSTAR 100 UNITS/ML 3 ML PEN SC SCH (21:39)
[2017-04-13] VITALS (9 sets, daily range): BP systolic 116–146; BP diastolic 68–88; PULSE 59–90; TEMP 36.5–36.9; O2SAT 92–97
[2017-04-13] MEDS: AZITHROMYCIN IV 500 MG in DEXTROSE 5% 250ML 250 ML IV SCH ×2 (00:14→23:39)
[2017-04-13] MEDS: VANCOMYCIN INJ 1,500 MG in SODIUM CHLORIDE 0.9% 250ML 250 ML IV SCH ×2 (00:14→13:18)
[2017-04-13] MEDS: ALBUT/IPRATROP 3MG/0.5MG NEB 3 ML VIAL INH SCH ×2 (01:35→07:16)
[2017-04-13] MEDS: PIPERACILL/TAZOBAC IV 4.5 GM in DEXTROSE 5% 100ML 100 ML IV SCH ×3 (04:21→21:33)
[2017-04-13] MEDS: DILTIAZEM HCL 240 MG CAPCR PO SCH (07:53)
[2017-04-13] MEDS: FUROSEMIDE INJ 40 MG in SYRINGE 0 ML IV SCH ×2 (07:54→17:26)
[2017-04-13] MEDS: APIXABAN 2.5 MG TAB PO SCH ×2 (07:54→21:33)
[2017-04-13] MEDS: POTASSIUM CHLORIDE 20 MEQ TABCR PO SCH ×2 (07:54→21:31)
[2017-04-13] MEDS: PANTOprazole SOD 40 MG TAB PO SCH (07:55)
[2017-04-13] MEDS: ATORVASTATIN 20 MG TAB PO SCH (07:55)
[2017-04-13] MEDS: BUDESONIDE/FORMOTEROL FUMARATE 80/4.5 60 PUFFS/INHALER INH SCH (07:55)
[2017-04-13] MEDS: CHOLECALCIFEROL 1000 INTER.UNIT TAB PO SCH (07:55)
[2017-04-13 07:58] LABS: HEMATOCRIT 37.2 % (42-52); MEAN CELL VOLUME 100.8 fL (80-100); MEAN CORPUSCULAR HEMOGLOBIN 32.5 pg (25-34); MEAN CORPUSCULAR HGB CONC 32.3 g/dl (32-36); MEAN PLATELET VOLUME 9.7 fL (7.4-10.4); PLATELET COUNT 160 K/uL (130-400); RED CELL DISTRIBUTION WIDTH CV 13.7 % (11.5-14.5); RED CELL DISTRIBUTION WIDTH SD 50.4 fL (36.4-46.3); WHITE BLOOD COUNT 7.22 K/uL (4.8-10.8)
[2017-04-13] MEDS: INSULIN ASPART 100 UNITS/ML 3 ML PEN SC SCH ×4 (07:58→21:43)
[2017-04-13 08:30] LABS: CALCIUM 8.1 mg/dl (8.5-10.1); CREATININE 0.78 mg/dl (0.60-1.40); POTASSIUM 3.6 mmol/L (3.5-5.1)
[2017-04-13] MEDS ORDERED: VANCOMYCIN TROUGH ONE (11:30)
[2017-04-13] MEDS ORDERED: NURSING VERBAL MED ORDER ONE ×2 (12:00→18:30)
[2017-04-13] MEDS ORDERED: METOPROLOL TARTRATE 25 MG TAB PO ONE (12:15)
[2017-04-13] MEDS ORDERED: ALBUTEROL 0.083% NEBU SOLN 3 ML VIAL INH SCH (12:15)
--- NOTE | 2017-04-13 12:51 | Pharmacy Progress Note ---
Pharmacy Abx Dose Short Note Date of Service Apr 13, 2017. Assessment & Plan Assessment 77 year old male receiving Vancomycin for treatment of bilateral HAP Day # 04/20 of antimicrobial therapy. Plan Vancomycin * Trough level of 14.8 mcg/mL is therapeutic * Continue dose of 1500 mg IV every 12 hours * Goal trough level for pneumonia : 15 to 20 mcg/mL * Trough level ordered for: 04/15/17 ~30 minutes before the 1200 dose to ensure therapeutic concentrations without causing Vancomycin accumulation and toxicity. Pharmacy will continue to follow and will adjust dose/frequency as necessary. Thank you.
[2017-04-13] MEDS ORDERED: ALBUT/IPRATROP 3MG/0.5MG NEB 3 ML VIAL INH PRN (13:00)
--- NOTE | 2017-04-13 13:48 | Hospitalist Progress Note ---
Hospitalist Progress Note Date of Service Apr 13, 2017. Subjective Pt evaluation today including: conversation w/ patient, physical exam, chart review, lab review, review of studies, review of inpatient medication list Patient seen and evaluated. No acute events overnight. Reporting breathing seems to be improving each day but not baseline. Better aeration today but still with crackles at bases. Will place fluid restriction while trying to diurese. Only approx. - 300 cc and hopefully with fluid restriction this will help. Continues with a productive cough but feels like it is improving. Does admit to dietary intake of salty foods such as breakfast sausage that may have caused his swelling Constitutional: No fever, No chills Respiratory: + cough, + sputum, + shortness of breath Cardiovascular: No chest pain Abdomen: No pain, No nausea, No vomiting, No diarrhea, No constipation Musculoskeletal: + swelling (b/l lower extremities ), No calf pain Male : No dysuria Heme: No abnormal bleeding/bruising Skin: No rash Medications Current Inpatient Medications Medications (Trade) Dose Ordered Sig/Enrique Route Start Time Stop Time Status Last Admin Dose Admin Insulin Aspart (novoLOG ASPART) SLIDING SCALE G... ACHS SC 04/11/17 21:00 05/11/17 20:59 04/13/17 12:10 5 UNITS Atorvastatin Calcium (Lipitor Tab) 20 mg QAM PO 04/12/17 09:00 05/12/17 08:59 04/13/17 07:55 20 MG Colchicine (Colchicine Tab) 0.6 mg QAM PRN PO 04/11/17 20:45 05/11/17 20:44 Diltiazem HCl (Cardizem Cd Cap) 480 mg QAM PO 04/12/17 09:00 05/12/17 08:59 04/13/17 07:53 480 MG Doxazosin Mesylate (Cardura Tab) 4 mg HS PO 04/11/17 21:00 05/11/17 20:59 04/12/17 21:29 4 MG Apixaban (Eliquis Tab) 5 mg BID PO 04/11/17 21:00 05/11/17 20:59 04/13/17 07:54 5 MG Cholecalciferol (Vitamin D Tab) 5,000 inter.unit DAILY PO 04/12/17 09:00 05/12/17 08:59 2/28/18 07:55 5,000 INTER.UNIT Pantoprazole Sodium (Protonix Tab) 40 mg DAILY PO 04/12/17 09:00 05/12/17 08:59 04/13/17 07:55 40 MG Potassium Chloride (Klor-Con Tab) 20 meq BID PO 04/11/17 21:00 05/11/17 20:59 04/13/17 07:54 20 MEQ Piperacillin Sod/ Tazobactam Sod 4.5 gm/Dextrose 120 ml @ 30 mls/hr Q8H IV 04/12/17 00:00 04/19/17 00:00 04/13/17 12:08 30 MLS/HR Miscellaneous Information (Consult) 1 ea UD PRN N/A 04/11/17 20:45 05/11/17 20:44 Miscellaneous Information (Consult) 1 ea UD PRN N/A 04/11/17 20:45 05/11/17 20:44 Azithromycin 500 mg/Dextrose 255 ml @ 125 mls/hr Q24H IV 04/12/17 00:00 04/19/17 00:00 04/13/17 00:14 125 MLS/HR Glucose (Glucose 40% Gel) 15-30 GRAMS 15 GRAMS... UD PRN PO 04/11/17 22:00 05/11/17 21:59 Glucose (Glucose Chew Tab) 4-8 Tablets 4 Tabl... UD PRN PO 04/11/17 22:00 05/11/17 21:59 Dextrose (Dextrose 50% 50ML Syringe) 25-50ML OF 50% DW IV FOR... UD PRN IV 04/11/17 22:00 05/11/17 21:59 Glucagon (Glucagon Inj) 1 mg UD PRN SQ 04/11/17 22:00 05/11/17 21:59 Insulin Glargine (Lantus Solostar Pen) 15 units HS SC 04/12/17 21:00 05/12/17 20:59 04/12/17 21:39 15 UNITS Furosemide 40 mg/ Syringe 4 ml @ 4 mls/min BID17 IV 04/12/17 18:00 05/12/17 17:59 04/13/17 07:54 4 MLS/MIN Vancomycin HCl 1500 mg/Sodium Chloride 280 ml @ 105 mls/hr Q12H IV 04/13/17 00:00 04/19/17 00:00 04/13/17 13:18 105 MLS/HR Metoprolol Tartrate (Lopressor Tab) 25 mg BID PO 04/13/17 21:00 05/13/17 20:59 Albuterol/ Ipratropium (Duoneb) 3 ml Q2H PRN INH 04/13/17 13:00 05/12/17 02:59 Objective Vital Signs Date Time Temp Pulse Resp B/P (MAP) Pulse Ox O2 Delivery O2 Flow Rate FiO2 04/13/17 12:00 Nasal Cannula 3.0 04/13/17 11:51 36.5 59 18 129/68 (88) 96 04/13/17 08:00 Nasal Cannula 3.0 04/13/17 07:55 36.8 61 18 130/69 (89) 95 04/13/17 07:16 77 18 96 Nasal Cannula 4.0 04/13/17 04:00 93 Nasal Cannula 3.0 04/13/17 03:42 36.7 85 18 146/81 (102) 93 3.0 04/13/17 01:35 90 20 96 Nasal Cannula 4.0 04/13/17 00:01 Nasal Cannula 4.0 04/12/17 23:52 36.6 98 20 130/83 (99) 92 4.0 04/12/17 20:00 Nasal Cannula 3.0 04/12/17 19:24 36.9 82 18 139/88 (105) 95 Nasal Cannula 3.0 04/12/17 16:00 36.9 95 20 135/80 (98) 95 Nasal Cannula 3.0 04/12/17 16:00 Nasal Cannula 3.0 Physical Exam General Appearance: WD/WN, no apparent distress ENT: hearing grossly normal Neck: supple, no JVD, trachea midline Respiratory/Chest: no respiratory distress, no accessory muscle use, + crackles (bases b/l), + rhonchi (bases b/l - improving) Cardiovascular: + irregularly irregular Abdomen: normal bowel sounds, non tender, soft Extremities: + swelling (trace to 1+ pitting edema b/l with chronic venous stasis changes) Neurologic/Psychiatric: alert Skin: normal color, warm/dry Laboratory Results Last 24 Hours Test 04/12/17 15:53 04/12/17 20:28 04/13/17 06:42 04/13/17 07:28 Bedside Glucose 135 mg/dl 150 mg/dl 158 mg/dl White Blood Count 7.22 K/uL Red Blood Count 3.69 M/uL Hemoglobin 12.0 g/dL Hematocrit 37.2 % Mean Corpuscular Volume 100.8 fL Mean Corpuscular Hemoglobin 32.5 pg Mean Corpuscular Hemoglobin Concent 32.3 g/dl RDW Standard Deviation 50.4 fL RDW Coefficient of Variation 13.7 % Platelet Count 160 K/uL Mean Platelet Volume 9.7 fL Sodium Level 137 mmol/L Potassium Level 3.6 mmol/L Chloride Level 97 mmol/L Carbon Dioxide Level 35 mmol/L Anion Gap 5.0 mmol/L Blood Urea Nitrogen 15 mg/dl Creatinine 0.78 mg/dl Est Creatinine Clear Calc Drug Dose 97.0 ml/min Estimated GFR () 100.2 Estimated GFR (Non- 86.5 BUN/Creatinine Ratio 19.8 Random Glucose 146 mg/dl Calcium Level 8.1 mg/dl Magnesium Level 2.0 mg/dl Test 04/13/17 11:19 04/13/17 11:44 Bedside Glucose 198 mg/dl Vancomycin Level Trough 14.8 mcg/ml Assessment and Plan 77 y/o M advanced COPD, diastolic CHF, DM, HTN, HPL, AF, obese. Recently admitted with URI, Influ A and CHF exacerbation. He presents complaining of fluid building up in his legs and a productive cough. He denies fever. He has not increased his home 02 flow which is 4L at baseline. He denies CP, N/V, diarrhea or dysuria. Multifocal Pneumonia: IMPROVING - Recent treatment for influenza - may be viral etiology vs HCAP - Given that he has remained afebrile and without leukocytosis will stop Vanc, switch Zithro to oral, and will continue Zosyn at this time -- Could consider conversion to Cefdinir tomorrow for gram + coverage/ strept. pneumoniae coverage and continue Zithro - Albuterol INH QID as patient has been reluctant to take complete neb treatments; Symbicort 2 puffs BID - Per outpatient records that were reviewed - he is not always compliant with supplemental O2 or neb treatments Acute on Chronic Diastolic CHF: - Currently at - 300 mL - will place 1800 fluid restriction as respiratory status may be more fluid overload - Continue Lasix 40 mg IV BID -- Reports home dosing is actually 40 mg twice a day dosing and states he can take up to 4 pills if needed which he has been for a couple days Chronic Respiratory Failure 2/2 COPD without Exacerbation: Baseline 4 L NC - Currently not requiring additional O2 needs - no wheezing on examination - does not appear to be in an exacerbation at this time Persistent Atrial Fibrillation with HTN/HLD: - Eliquis 5 mg BID and Diltiazem 480 mg daily - Doxazosin 4 mg HS - Lipitor 20 mg daily T2DM: A1c 5.7 - Lantus 15 units SC daily and SSI DVT Prophylaxis: Eliquis Code Status: FULL RESUSCITATION Disposition: - Continue to diurese and ambulate as tolerated - possible D/C in 1-2 days pending diuresis - Not very cooperative with OT services - patient plans to return home Continued [facility] stay due to: multiple IV medications needed Discharge planning: home
[2017-04-13] MEDS: ALBUTEROL HFA 8 GM INHALER INH SCH ×2 (17:26→21:29)
[2017-04-13] MEDS ORDERED: ALBUTEROL HFA 8 GM INHALER INH SCH (18:00)
[2017-04-13] MEDS: ACETAMINOPHEN 325 MG TAB PO PRN (18:45)
[2017-04-13] MEDS: METOPROLOL TARTRATE 25 MG TAB PO SCH (21:31)
[2017-04-13] MEDS: DOXAZosin MESYLATE TAB 4 MG TAB PO SCH (21:33)
[2017-04-13] MEDS: INSULIN GLARGINE SOLOSTAR 100 UNITS/ML 3 ML PEN SC SCH (21:44)
[2017-04-14] VITALS (10 sets, daily range): BP systolic 121–155; BP diastolic 77–93; PULSE 70–101; TEMP 36.7–37.7; O2SAT 89–97
[2017-04-14] MEDS: ACETAMINOPHEN 325 MG TAB PO PRN (02:27)
[2017-04-14] MEDS: PIPERACILL/TAZOBAC IV 4.5 GM in DEXTROSE 5% 100ML 100 ML IV SCH ×2 (04:05→11:58)
[2017-04-14 07:25] LABS: HEMATOCRIT 35.5 % (42-52); HEMOGLOBIN 11.7 g/dL (14.0-18.0); MEAN CELL VOLUME 99.2 fL (80-100); MEAN CORPUSCULAR HEMOGLOBIN 32.7 pg (25-34); MEAN PLATELET VOLUME 9.4 fL (7.4-10.4); PLATELET COUNT 149 K/uL (130-400); RED CELL DISTRIBUTION WIDTH CV 13.7 % (11.5-14.5); RED CELL DISTRIBUTION WIDTH SD 49.4 fL (36.4-46.3)
[2017-04-14 08:01] LABS: CALCIUM 8.1 mg/dl (8.5-10.1); CREATININE 0.71 mg/dl (0.60-1.40); POTASSIUM 3.2 mmol/L (3.5-5.1)
[2017-04-14] MEDS: INSULIN ASPART 100 UNITS/ML 3 ML PEN SC SCH ×4 (08:09→20:40)
[2017-04-14] MEDS: APIXABAN 2.5 MG TAB PO SCH ×2 (08:10→20:37)
[2017-04-14] MEDS: FUROSEMIDE INJ 40 MG in SYRINGE 0 ML IV SCH (08:10)
[2017-04-14] MEDS: POTASSIUM CHLORIDE 20 MEQ TABCR PO SCH ×2 (08:11→20:37)
[2017-04-14] MEDS: DILTIAZEM HCL 240 MG CAPCR PO SCH (08:11)
[2017-04-14] MEDS: METOPROLOL TARTRATE 25 MG TAB PO SCH ×2 (08:11→20:36)
[2017-04-14] MEDS: ATORVASTATIN 20 MG TAB PO SCH (08:12)
[2017-04-14] MEDS: CHOLECALCIFEROL 1000 INTER.UNIT TAB PO SCH (08:12)
[2017-04-14] MEDS: PANTOprazole SOD 40 MG TAB PO SCH (08:12)
[2017-04-14] MEDS: ALBUTEROL HFA 8 GM INHALER INH SCH ×4 (08:13→20:35)
[2017-04-14] MEDS ORDERED: NURSING VERBAL MED ORDER ONE (10:15)
[2017-04-14] MEDS ORDERED: POTASSIUM CHLORIDE 20 MEQ TABCR PO ONE (10:30)
--- NOTE | 2017-04-14 15:57 | Progress Note ---
Subjective Date of Service: Apr 14, 2017. Subjective Pt evaluation today including: conversation w/ patient, conversation w/ family , physical exam, chart review, lab review, review of studies, review of inpatient medication list Voiding: no voiding problems Feeling a little better, less cough, less sputum, however , lower extremities still 2-3+ edema, denies fever and chill, denied chest pain Problem List Medical Problems: (1) Cellulitis of right leg Status: Acute (2) COPD exacerbation Status: Acute (3) COPD exacerbation Status: Acute (4) Exertional dyspnea Status: Acute (5) Fatigue Status: Acute (6) Fluid overload Status: Acute (7) HCAP (healthcare-associated pneumonia) Status: Acute (8) Influenza A Status: Acute (9) SOB (shortness of breath) Status: Acute Review of Systems Constitutional: + weakness, + fatigue, No fever, No chills, No sweats, No weight loss, No problem reported Eyes: No worsening of vision, No eye pain, No redness, No discharge, No diplopia ENT: No hearing loss, No unusual epistaxis, No nasal symptoms, No sore throat, No tinnitus, No dental problems, No trouble swallowing Respiratory: + cough, + shortness of breath, No sputum, No wheezing, No dyspnea on exertion, No dyspnea at rest, No hemoptysis Cardiac: + edema, No chest pain, No orthopnea, No PND, No claudication, No palpitations Abdomen: No pain, No nausea, No vomiting, No diarrhea, No constipation Musculoskeletal: + swelling, No joint pain, No muscle pain, No calf pain Male : No dysuria, No urinary frequency, No incontinence, No nocturia more than once/night, No slowing stream, No hematuria Neurologic: No memory loss, No paralysis, No weakness, No numbness/tingling, No vertigo, No balance problems Psychiatric: No depression symptoms, No anhedonism, No anxiety, No insomnia, No substance abuse Heme: No abnormal bleeding/bruising, No clotting problems, No swollen lymph nodes, No night sweats Endo: No fatigue, No excessive thirst, No excessive urination Skin: No rash, No itch, No new/changing skin lesions, No color change, No bleeding Objective Vital Signs Date Time Temp Pulse Resp B/P (MAP) Pulse Ox O2 Delivery O2 Flow Rate FiO2 04/14/17 12:00 93 Nasal Cannula 4.0 04/14/17 11:30 36.8 70 18 132/87 (102) 96 04/14/17 08:00 89 Nasal Cannula 6.0 04/14/17 07:21 36.8 95 18 143/89 (107) 95 5.0 04/14/17 04:50 36.8 71 20 143/93 (110) 97 Nasal Cannula 5.0 04/14/17 04:00 97 Nasal Cannula 5.0 04/14/17 00:01 97 Nasal Cannula 5.0 04/13/17 23:51 36.9 74 21 131/88 (102) 97 Nasal Cannula 5.0 04/13/17 20:04 36.7 76 20 125/84 (98) 92 Nasal Cannula 5.0 04/13/17 20:00 Nasal Cannula 3.0 04/13/17 16:00 Nasal Cannula 3.0 Physical Exam General Appearance: WD/WN, no apparent distress, + obese Eyes: normal inspection, PERRL, EOMI, sclerae normal ENT: normal ENT inspection, hearing grossly normal, pharynx normal Neck: supple, no adenopathy, thyroid normal, no JVD, no carotid bruits, trachea midline Respiratory/Chest: chest non-tender, normal breath sounds, no respiratory distress, no accessory muscle use, + decreased breath sounds, + rales Cardiovascular: regular rate, rhythm, no gallop, no JVD, no murmur Abdomen: normal bowel sounds, non tender, soft, no organomegaly, no pulsatile mass Extremities: normal range of motion, non-tender, normal inspection, no pedal edema, no calf tenderness, normal capillary refill, pelvis stable, + swelling (2 -3+ edema) 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, no motor/sensory deficits, alert, normal mood/affect, oriented x 3 Skin: normal color, warm/dry, no rash Lymphatic: no adenopathy Laboratory Results Last 24 Hours Test 04/13/17 16:14 04/13/17 21:02 04/14/17 07:08 04/14/17 07:30 Bedside Glucose 323 mg/dl 179 mg/dl 150 mg/dl White Blood Count 5.90 K/uL Red Blood Count 3.58 M/uL Hemoglobin 11.7 g/dL Hematocrit 35.5 % Mean Corpuscular Volume 99.2 fL Mean Corpuscular Hemoglobin 32.7 pg Mean Corpuscular Hemoglobin Concent 33.0 g/dl RDW Standard Deviation 49.4 fL RDW Coefficient of Variation 13.7 % Platelet Count 149 K/uL Mean Platelet Volume 9.4 fL Sodium Level 136 mmol/L Potassium Level 3.2 mmol/L Chloride Level 98 mmol/L Carbon Dioxide Level 33 mmol/L Anion Gap 6.0 mmol/L Blood Urea Nitrogen 15 mg/dl Creatinine 0.71 mg/dl Est Creatinine Clear Calc Drug Dose 106.5 ml/min Estimated GFR () 104.2 Estimated GFR (Non- 89.9 BUN/Creatinine Ratio 21.5 Random Glucose 143 mg/dl Calcium Level 8.1 mg/dl Magnesium Level 2.1 mg/dl Assessment and Plan 77 y/o M admitted because of multiple focal pneumonia and CHF exacerbation, Multifocal Pneumonia: Stable IMPROVING, blood culture negative so far, no fever and chills, change IV antibiotic to oral, continue nebulizer treatment, Symbicort, continue oxygen support Acute on Chronic Diastolic CHF: Has no obvious negative fluid and weight loss yet even though has been on IV Lasix, and fluid restriction, will continue fluid restriction, change Lasix to 60 mg IV twice daily, continue watching him out, switch IV medication to oral which may also help Chronic Respiratory Failure 2/2 COPD without Exacerbation: Baseline 4 L NC, Coumadin is on 4 L possible approaching 2 patient, continue current care, may plan to add oral steroid which may help improving of pneumonia Persistent Atrial Fibrillation with HTN/HLD T2DM: A1c 5.7 above conditions are stable continue current medication Hypokalemia replaced DVT Prophylaxis: Eliquis Code Status: FULL RESUSCITATION Disposition: - Continue to diurese and ambulate as tolerated - possible D/C in 1-2 days pending diuresis - Not very cooperative with OT services - patient plans to return home Continued [facility] stay due to: multiple IV medications needed Discharge planning: home
[2017-04-14] MEDS: FUROSEMIDE INJ 60 MG in SYRINGE 0 ML IV SCH (17:05)
[2017-04-14] MEDS: AMOXICILLIN/CLAVULANATE TAB 875 MG TAB PO SCH (17:05)
[2017-04-14] MEDS: DOXAZosin MESYLATE TAB 4 MG TAB PO SCH (20:36)
[2017-04-14] MEDS: INSULIN GLARGINE SOLOSTAR 100 UNITS/ML 3 ML PEN SC SCH (20:39)
[2017-04-15] VITALS (8 sets, daily range): BP systolic 114–150; BP diastolic 62–82; PULSE 72–154; TEMP 36.6–37; O2SAT 89–98
[2017-04-15] MEDS: ACETAMINOPHEN 325 MG TAB PO PRN (00:12)
[2017-04-15] MEDS: FUROSEMIDE INJ 60 MG in SYRINGE 0 ML IV SCH ×2 (07:19→17:27)
[2017-04-15] MEDS: ALBUTEROL HFA 8 GM INHALER INH SCH ×4 (07:19→21:04)
[2017-04-15] MEDS: AMOXICILLIN/CLAVULANATE TAB 875 MG TAB PO SCH ×2 (07:20→17:26)
[2017-04-15] MEDS: AZITHROMYCIN 250 MG TAB PO SCH (07:20)
[2017-04-15] MEDS: DILTIAZEM HCL 240 MG CAPCR PO SCH (07:20)
[2017-04-15] MEDS: APIXABAN 2.5 MG TAB PO SCH ×2 (07:21→21:06)
[2017-04-15] MEDS: POTASSIUM CHLORIDE 20 MEQ TABCR PO SCH ×2 (07:22→21:05)
[2017-04-15] MEDS: ATORVASTATIN 20 MG TAB PO SCH (07:22)
[2017-04-15] MEDS: CHOLECALCIFEROL 1000 INTER.UNIT TAB PO SCH (07:23)
[2017-04-15] MEDS: METOPROLOL TARTRATE 25 MG TAB PO SCH ×2 (07:25→21:14)
[2017-04-15] MEDS: PANTOprazole SOD 40 MG TAB PO SCH (07:25)
[2017-04-15 07:43] LABS: HEMATOCRIT 35.3 % (42-52); HEMOGLOBIN 11.6 g/dL (14.0-18.0); MEAN CORPUSCULAR HEMOGLOBIN 32.9 pg (25-34); MEAN CORPUSCULAR HGB CONC 32.9 g/dl (32-36); MEAN PLATELET VOLUME 9.3 fL (7.4-10.4); PLATELET COUNT 161 K/uL (130-400); RED CELL DISTRIBUTION WIDTH CV 13.8 % (11.5-14.5); RED CELL DISTRIBUTION WIDTH SD 49.6 fL (36.4-46.3); WHITE BLOOD COUNT 5.42 K/uL (4.8-10.8)
[2017-04-15] MEDS: INSULIN ASPART 100 UNITS/ML 3 ML PEN SC SCH ×4 (07:46→21:12)
[2017-04-15 08:13] LABS: CALCIUM 8.3 mg/dl (8.5-10.1); CREATININE 0.76 mg/dl (0.60-1.40); POTASSIUM 3.5 mmol/L (3.5-5.1)
[2017-04-15] MEDS ORDERED: VANCOMYCIN TROUGH ONE (11:30)
--- NOTE | 2017-04-15 16:42 | Hospitalist Progress Note ---
Hospitalist Progress Note Date of Service Apr 15, 2017. Subjective Pt evaluation today including: conversation w/ patient, physical exam, chart review, lab review, review of inpatient medication list Patient seen and evaluated. No acute events overnight. Currently diuresed for negative 1.6 L. Reporting almost feeling at baseline respiratory lynch. Was mildly febrile last night. Feels leg edema continues to improve. States he had an episode of stool incontinence overnight. Given antibiotics, hospital stay, and loose stool/incontinence - would be reasonable to check for c. diff if re-occurs Constitutional: No fever, No chills Respiratory: + cough, + shortness of breath (chronic - reporting almost baseline) Cardiovascular: No chest pain Abdomen: + diarrhea (and episode of incontinence), No pain, No nausea, No vomiting Musculoskeletal: + swelling (improving b/l lower extremity edema), No calf pain Male : No dysuria Heme: No abnormal bleeding/bruising Skin: No rash Medications Current Inpatient Medications Medications (Trade) Dose Ordered Sig/Enrique Route Start Time Stop Time Status Last Admin Dose Admin Insulin Aspart (novoLOG ASPART) SLIDING SCALE G... ACHS SC 04/11/17 21:00 05/11/17 20:59 04/15/17 11:50 3 UNITS Atorvastatin Calcium (Lipitor Tab) 20 mg QAM PO 04/12/17 09:00 05/12/17 08:59 04/15/17 07:22 20 MG Colchicine (Colchicine Tab) 0.6 mg QAM PRN PO 04/11/17 20:45 05/11/17 20:44 04/13/17 21:30 0.6 MG Diltiazem HCl (Cardizem Cd Cap) 480 mg QAM PO 04/12/17 09:00 05/12/17 08:59 04/15/17 07:20 480 MG Doxazosin Mesylate (Cardura Tab) 4 mg HS PO 04/11/17 21:00 05/11/17 20:59 04/14/17 20:36 4 MG Apixaban (Eliquis Tab) 5 mg BID PO 04/11/17 21:00 05/11/17 20:59 04/15/17 07:21 5 MG Cholecalciferol (Vitamin D Tab) 5,000 inter.unit DAILY PO 04/12/17 09:00 05/12/17 08:59 04/15/17 07:23 5,000 INTER.UNIT Pantoprazole Sodium (Protonix Tab) 40 mg DAILY PO 04/12/17 09:00 05/12/17 08:59 04/15/17 07:25 40 MG Potassium Chloride (Klor-Con Tab) 20 meq BID PO 04/11/17 21:00 05/11/17 20:59 04/15/17 07:22 20 MEQ Glucose (Glucose 40% Gel) 15-30 GRAMS 15 GRAMS... UD PRN PO 04/11/17 22:00 05/11/17 21:59 Glucose (Glucose Chew Tab) 4-8 Tablets 4 Tabl... UD PRN PO 04/11/17 22:00 05/11/17 21:59 Dextrose (Dextrose 50% 50ML Syringe) 25-50ML OF 50% DW IV FOR... UD PRN IV 04/11/17 22:00 05/11/17 21:59 Glucagon (Glucagon Inj) 1 mg UD PRN SQ 04/11/17 22:00 05/11/17 21:59 Insulin Glargine (Lantus Solostar Pen) 15 units HS SC 04/12/17 21:00 05/12/17 20:59 04/14/17 20:39 15 UNITS Metoprolol Tartrate (Lopressor Tab) 25 mg BID PO 04/13/17 21:00 05/13/17 20:59 04/15/17 07:25 25 MG Albuterol/ Ipratropium (Duoneb) 3 ml Q2H PRN INH 04/13/17 13:00 05/12/17 02:59 Albuterol (Ventolin Hfa Inhaler) 2 puffs QID INH 04/13/17 17:00 05/13/17 16:59 04/15/17 11:50 2 PUFFS Acetaminophen (Tylenol Tab) 650 mg Q6H PRN PO 04/13/17 18:30 05/13/17 18:29 04/15/17 00:12 650 MG Furosemide 60 mg/ Syringe 6 ml @ 4 mls/min BID17 IV 04/14/17 17:00 05/14/17 16:59 04/15/17 07:19 4 MLS/MIN Azithromycin (Zithromax Tab) 500 mg QAM PO 04/15/17 09:00 04/22/17 08:59 04/15/17 07:20 500 MG Amoxicillin/ Clavulanate Potassium (Augmentin Tab) 875 mg BIDM PO 04/14/17 16:45 04/21/17 16:44 04/15/17 07:20 875 MG Objective Vital Signs Date Time Temp Pulse Resp B/P (MAP) Pulse Ox O2 Delivery O2 Flow Rate FiO2 04/15/17 16:00 Nasal Cannula 4.0 04/15/17 14:14 114 89 04/15/17 12:00 Nasal Cannula 4.0 04/15/17 11:42 36.9 72 16 139/74 (95) 97 04/15/17 08:00 Nasal Cannula 4.0 04/15/17 07:56 37.0 84 18 148/74 (98) 98 04/15/17 04:00 Nasal Cannula 4.0 04/15/17 03:45 36.6 89 20 150/80 (103) 91 Nasal Cannula 4.0 04/14/17 23:59 37.7 101 22 121/77 (92) 92 Nasal Cannula 4.0 04/14/17 23:59 Nasal Cannula 4.0 04/14/17 20:00 Nasal Cannula 4.0 04/14/17 19:21 37.6 86 18 151/89 (109) 93 Nasal Cannula 4.0 Physical Exam General Appearance: WD/WN, no apparent distress Eyes: sclerae normal Neck: supple, no JVD, trachea midline Respiratory/Chest: no respiratory distress, no accessory muscle use, + rhonchi (improving - bases b/l) Cardiovascular: + irregularly irregular Abdomen: normal bowel sounds, non tender, soft Extremities: + swelling (continues with 1+ pitting edema L > R) Neurologic/Psychiatric: alert Skin: normal color, + pertinent finding (chronic venous stasis of legs) Laboratory Results Last 24 Hours Test 04/14/17 20:26 04/15/17 06:48 04/15/17 07:19 04/15/17 11:09 Bedside Glucose 128 mg/dl 108 mg/dl 126 mg/dl White Blood Count 5.42 K/uL Red Blood Count 3.53 M/uL Hemoglobin 11.6 g/dL Hematocrit 35.3 % Mean Corpuscular Volume 100.0 fL Mean Corpuscular Hemoglobin 32.9 pg Mean Corpuscular Hemoglobin Concent 32.9 g/dl RDW Standard Deviation 49.6 fL RDW Coefficient of Variation 13.8 % Platelet Count 161 K/uL Mean Platelet Volume 9.3 fL Sodium Level 138 mmol/L Potassium Level 3.5 mmol/L Chloride Level 100 mmol/L Carbon Dioxide Level 31 mmol/L Anion Gap 7.0 mmol/L Blood Urea Nitrogen 15 mg/dl Creatinine 0.76 mg/dl Est Creatinine Clear Calc Drug Dose 99.0 ml/min Estimated GFR () 101.3 Estimated GFR (Non- 87.4 BUN/Creatinine Ratio 19.9 Random Glucose 104 mg/dl Calcium Level 8.3 mg/dl Magnesium Level 2.2 mg/dl Assessment and Plan 77 y/o M advanced COPD, diastolic CHF, DM, HTN, HPL, AF, obese. Recently admitted with URI, Influ A and CHF exacerbation. He presents complaining of fluid building up in his legs and a productive cough. He denies fever. He has not increased his home 02 flow which is 4L at baseline. He denies CP, N/V, diarrhea or dysuria. Multifocal Pneumonia: IMPROVING - Recent treatment for influenza - resolved - Zithromax with last dose would be 3/3 and continue Augmentin BID - Albuterol INH QID as patient has been reluctant to take complete neb treatments; Symbicort 2 puffs BID - Per outpatient records - he is not always compliant with supplemental O2 or neb treatments Reporting Loose Stool/Incontinence: - Ordered C. diff testing as patient was also mildly febrile last night - only check if continued loose stool Acute on Chronic Diastolic CHF: IMPROVING - Continue to monitor outputs and maintain fluid restriction - Continue increased Lasix 60 mg IV BID - currently at - 1.6 L -- Reports home dosing is actually 40 mg twice a day dosing and states he can take up to 4 pills if needed which he has been for a couple days Chronic Respiratory Failure 2/2 COPD without Exacerbation: Baseline 4 L NC - Currently not requiring additional O2 needs - does not appear to be in an exacerbation at this time Persistent Atrial Fibrillation with HTN/HLD: - Eliquis 5 mg BID, Diltiazem 480 mg daily, tolerating addition of Metoprolol 25 mg BID - Doxazosin 4 mg HS - Lipitor 20 mg daily T2DM: A1c 5.7 - Lantus 15 units SC daily and SSI DVT Prophylaxis: Eliquis Code Status: FULL RESUSCITATION Disposition: - Possible D/C next 1-2 days to home Continued [facility] stay due to: multiple IV medications needed Discharge planning: home
[2017-04-15] MEDS ORDERED: METOPROLOL TARTRATE 1 MG/ML VIAL IV STA (17:54)
[2017-04-15] MEDS ORDERED: METOPROLOL TARTRATE 1 MG/ML VIAL ONE (18:10)
[2017-04-15] MEDS: DOXAZosin MESYLATE TAB 4 MG TAB PO SCH (21:05)
[2017-04-15] MEDS: INSULIN GLARGINE SOLOSTAR 100 UNITS/ML 3 ML PEN SC SCH (21:14)
[2017-04-16] VITALS (10 sets, daily range): BP systolic 106–134; BP diastolic 65–79; PULSE 68–101; TEMP 36.3–36.8; O2SAT 92–96
[2017-04-16] MEDS: ALBUTEROL HFA 8 GM INHALER INH SCH ×4 (08:13→21:20)
[2017-04-16] MEDS: AMOXICILLIN/CLAVULANATE TAB 875 MG TAB PO SCH ×2 (08:13→17:35)
[2017-04-16] MEDS: DILTIAZEM HCL 240 MG CAPCR PO SCH (08:14)
[2017-04-16] MEDS: APIXABAN 2.5 MG TAB PO SCH ×2 (08:14→21:21)
[2017-04-16] MEDS: ATORVASTATIN 20 MG TAB PO SCH (08:15)
[2017-04-16] MEDS: METOPROLOL TARTRATE 25 MG TAB PO SCH ×2 (08:15→21:20)
[2017-04-16] MEDS: POTASSIUM CHLORIDE 20 MEQ TABCR PO SCH ×2 (08:15→21:20)
[2017-04-16] MEDS: PANTOprazole SOD 40 MG TAB PO SCH (08:15)
[2017-04-16] MEDS: CHOLECALCIFEROL 1000 INTER.UNIT TAB PO SCH (08:15)
[2017-04-16] MEDS: AZITHROMYCIN 250 MG TAB PO SCH (08:16)
[2017-04-16] MEDS: INSULIN ASPART 100 UNITS/ML 3 ML PEN SC SCH ×4 (08:19→21:22)
[2017-04-16 08:20] LABS: CALCIUM 7.9 mg/dl (8.5-10.1); CREATININE 0.77 mg/dl (0.60-1.40); POTASSIUM 3.2 mmol/L (3.5-5.1)
[2017-04-16] MEDS: FUROSEMIDE INJ 60 MG in SYRINGE 0 ML IV SCH (10:30)
[2017-04-16] MEDS: FUROSEMIDE 40 MG TAB PO SCH (17:36)
[2017-04-16] MEDS ORDERED: POTASSIUM CHLORIDE 10 MEQ TABCR PO SCH (21:00)
[2017-04-16] MEDS: DOXAZosin MESYLATE TAB 4 MG TAB PO SCH (21:20)
[2017-04-16] MEDS: INSULIN GLARGINE SOLOSTAR 100 UNITS/ML 3 ML PEN SC SCH (21:22)
--- NOTE | 2017-04-16 22:49 | Progress Note ---
Subjective Date of Service: Apr 16, 2017. Subjective Pt evaluation today including: conversation w/ patient, conversation w/ family , physical exam, chart review, lab review, review of studies, review of inpatient medication list Pain: denies any pain Patient is seen and examined by me. No acute events overnight, doing well. Pt is at the bedside. Continue to be in negative balance. Problem List Medical Problems: (1) Cellulitis of right leg Status: Acute (2) COPD exacerbation Status: Acute (3) COPD exacerbation Status: Acute (4) Exertional dyspnea Status: Acute (5) Fatigue Status: Acute (6) Fluid overload Status: Acute (7) HCAP (healthcare-associated pneumonia) Status: Acute (8) Influenza A Status: Acute (9) SOB (shortness of breath) Status: Acute Review of Systems Constitutional: No fever, No chills Respiratory: + cough, + shortness of breath (chronic - reporting almost baseline) Cardiovascular: No chest pain Abdomen: + diarrhea (and episode of incontinence), No pain, No nausea, No vomiting Musculoskeletal: + swelling (improving b/l lower extremity edema), No calf pain Male : No dysuria Heme: No abnormal bleeding/bruising Skin: No rash Objective Vital Signs Date Time Temp Pulse Resp B/P (MAP) Pulse Ox O2 Delivery O2 Flow Rate FiO2 04/16/17 20:00 36.4 101 18 130/69 (89) 94 Nasal Cannula 3.0 04/16/17 16:00 94 Nasal Cannula 4.0 04/16/17 15:28 36.3 72 18 124/79 (94) 96 Nasal Cannula 4.0 04/16/17 12:18 36.8 79 18 134/66 (88) 96 04/16/17 12:00 95 Nasal Cannula 4.0 04/16/17 08:13 36.8 89 18 109/65 (80) 93 04/16/17 08:00 94 Nasal Cannula 4.0 04/16/17 04:03 36.6 93 20 106/71 (83) 94 Nasal Cannula 4.0 04/16/17 04:00 Nasal Cannula 3.0 04/16/17 00:01 36.7 71 16 119/76 (90) 92 Nasal Cannula 4.0 04/16/17 00:00 Nasal Cannula 3.0 Physical Exam Comments: General Appearance: WD/WN, no apparent distress Eyes: sclerae normal Neck: supple, no JVD, trachea midline Respiratory/Chest: no respiratory distress, no accessory muscle use, + rhonchi (improving - bases b/l) Cardiovascular: + irregularly irregular Abdomen: normal bowel sounds, non tender, soft Extremities: + swelling (continues with 1+ pitting edema L > R) Neurologic/Psychiatric: alert Skin: normal color, + pertinent finding (chronic venous stasis of legs) Laboratory Results Last 24 Hours Test 04/16/17 06:46 04/16/17 07:29 04/16/17 11:27 04/16/17 16:56 Sodium Level 140 mmol/L Potassium Level 3.2 mmol/L Chloride Level 101 mmol/L Carbon Dioxide Level 34 mmol/L Anion Gap 5.0 mmol/L Blood Urea Nitrogen 17 mg/dl Creatinine 0.77 mg/dl Est Creatinine Clear Calc Drug Dose 97.3 ml/min Estimated GFR () 100.7 Estimated GFR (Non- 86.9 BUN/Creatinine Ratio 22.5 Random Glucose 176 mg/dl Calcium Level 7.9 mg/dl Magnesium Level 2.1 mg/dl Bedside Glucose 185 mg/dl 154 mg/dl 168 mg/dl Test 04/16/17 20:30 Bedside Glucose 217 mg/dl Assessment and Plan Assessment and Plan 77 y/o M advanced COPD, diastolic CHF, DM, HTN, HPL, AF, obese. Recently admitted with URI, Influ A and CHF exacerbation. He presents complaining of fluid building up in his legs and a productive cough. He denies fever. He has not increased his home 02 flow which is 4L at baseline. He denies CP, N/V, diarrhea or dysuria. Multifocal Pneumonia: IMPROVING - Recent treatment for influenza - resolved - Zithromax with last dose would be / and continue Augmentin BID - Albuterol INH QID as patient has been reluctant to take complete neb treatments; Symbicort 2 puffs BID - Per outpatient records - he is not always compliant with supplemental O2 or neb treatments Acute on Chronic Diastolic CHF: IMPROVING - Continue to monitor outputs and maintain fluid restriction - Continue increased Lasix 60 mg po BID - currently negative balance -- Reports home dosing is actually 40 mg twice a day dosing and states he can take up to 4 pills if needed which he has been for a couple days Chronic Respiratory Failure 2/2 COPD without Exacerbation: Baseline 4 L NC - Currently not requiring additional O2 needs - does not appear to be in an exacerbation at this time Persistent Atrial Fibrillation with HTN/HLD: - Eliquis 5 mg BID, Diltiazem 480 mg daily, tolerating addition of Metoprolol 25 mg BID - Doxazosin 4 mg HS - Lipitor 20 mg daily T2DM: A1c 5.7 - Lantus 15 units SC daily and SSI DVT Prophylaxis: Lissaqujenni Code Status: FULL RESUSCITATION Disposition: - Possible D/C next 1-2 days to home Continued [facility] stay due to: multiple IV medications needed Discharge planning: home
[2017-04-17] MEDS: ACETAMINOPHEN 325 MG TAB PO PRN ×2 (01:20→07:41)
[2017-04-17 04:10] VITALS: BP 109/60; PULSE 75; TEMP 36.4; O2SAT 92
[2017-04-17] MEDS: INSULIN ASPART 100 UNITS/ML 3 ML PEN SC SCH ×2 (07:00→12:32)
[2017-04-17] MEDS: ALBUTEROL HFA 8 GM INHALER INH SCH ×2 (07:40→12:28)
[2017-04-17] MEDS: AMOXICILLIN/CLAVULANATE TAB 875 MG TAB PO SCH (07:42)
[2017-04-17] MEDS: APIXABAN 2.5 MG TAB PO SCH (07:42)
[2017-04-17] MEDS: AZITHROMYCIN 250 MG TAB PO SCH (07:42)
[2017-04-17] MEDS: DILTIAZEM HCL 240 MG CAPCR PO SCH (07:42)
[2017-04-17] MEDS: CHOLECALCIFEROL 1000 INTER.UNIT TAB PO SCH (07:43)
[2017-04-17] MEDS: PANTOprazole SOD 40 MG TAB PO SCH (07:43)
[2017-04-17] MEDS: METOPROLOL TARTRATE 25 MG TAB PO SCH (07:43)
[2017-04-17] MEDS: POTASSIUM CHLORIDE 20 MEQ TABCR PO SCH (07:43)
[2017-04-17] MEDS: ATORVASTATIN 20 MG TAB PO SCH (07:43)
[2017-04-17] MEDS: FUROSEMIDE 40 MG TAB PO SCH (07:43)
[2017-04-17 08:00] VITALS: BP 142/89; PULSE 72; TEMP 36.3; O2SAT 96
[2017-04-17 08:25] LABS: CALCIUM 8.2 mg/dl (8.5-10.1); CREATININE 0.66 mg/dl (0.60-1.40); POTASSIUM 3.4 mmol/L (3.5-5.1)
[2017-04-17] MEDS ORDERED: AMOX1TAB43 PO (13:14)
[2017-04-17] MEDS ORDERED: LPR25 PO (13:14)
[2017-04-17] MEDS ORDERED: AZIT-57 PO (13:14)
[2017-04-17] MEDS ORDERED: LSX40 PO (13:14)
--- NOTE | 2017-04-17 13:17 | Discharge Instructions ---
Discharge Instructions Date of Service Apr 17, 2017. Admission Reason for Admission: Chf Exacerbation, Pneumonia Discharge Discharge Diagnosis / Problem: Pneumonia Discharge Goals Goal(s): Decrease discomfort, Improve function, Increase independence, Improve disease control, Learn about illness, Diagnostic testing, Prevent Disease Progression Activity Recommendations Activity Limitations: resume your previous activity . Current Hospital Diet Patient's current hospital diet: AHA Diet (Heart Healthy), Diabetes Type 2 Diet Discharge Diet Recommended Diet: AHA Diet (Heart Healthy), Diabetes Type 2 Diet Procedures Procedures Performed: None Pending Studies Studies pending at discharge: no Medical Emergencies . Who to Call and When: Medical Emergencies: If at any time you feel your situation is an emergency, please call 911 immediately. . Non-Emergent Contact Non-Emergency issues call your: Primary Care Provider Call Non-Emergent contact if: temperature is above 101, your pain is not controlled . . "Provider Documentation" section prepared by Berkley Mittal .
--- NOTE | 2017-04-17 13:24 | Discharge Summary ---
Discharge Summary Date of Service Apr 17, 2017. Discharge Summary Admission Date: Apr 11, 2017 at 20:29 Discharge Disposition: Home Principal Diagnosis: Pneumonia Immunizations: Have You Had Influenza Vaccine: Yes History of Tetanus Vaccine?: utd History of Pneumococcal: Yes History of Hepatitis B Vaccine: No Procedures: None Consultations: None Referrals At Discharge Follow up Referrals: Roll Mechanic Referral - Within a Month with Triston Robison M.D. Family Practice Referral - Within 1-2 Weeks with Garcia Lam M.D. Discharge Exam patient is seen and examined at bedside, in presence of his denies any new complains. ready to go home in self care. Physical Exam: General Appearance: no apparent distress, + obese Eyes: normal inspection Neck: supple, no adenopathy Respiratory/Chest: lungs clear, normal breath sounds, no respiratory distress, + pertinent finding (continue 02 2L via NC) Cardiovascular: regular rate, rhythm, no murmur, + pertinent finding (trace edema bilateral LE) Abdomen / GI: normal bowel sounds, non tender, soft Extremities: no calf tenderness, normal range of motion Neurologic/Psychiatric: alert, normal mood/affect, normal reflexes, oriented x 3 Skin: no rash Lymphatic: no adenopathy Hospital Course Assessment and Plan 77 y/o M advanced COPD, diastolic CHF, DM, HTN, HPL, AF, obese. Recently admitted with URI, Influ A and CHF exacerbation. He presents complaining of fluid building up in his legs and a productive cough. He denies fever. He has not increased his home 02 flow which is 4L at baseline. He denies CP, N/V, diarrhea or dysuria. Multifocal Pneumonia: IMPROVING - Recent treatment for influenza - resolved - Zithromax with last dose would be 3/3 and continue Augmentin BID - Albuterol INH QID as patient has been reluctant to take complete neb treatments; Symbicort 2 puffs BID - Per outpatient records - he is not always compliant with supplemental O2 or neb treatments -- We will send him home on couple of more days of oral antibiotics both azithromycin and Augmentin. Acute on Chronic Diastolic CHF: IMPROVING - Continue to monitor outputs and maintain fluid restriction - Continue increased Lasix 60 mg po BID - currently negative balance -- Reports home dosing is actually 40 mg twice a day dosing and states he can take up to 4 pills if needed which he has been for a couple days -- We will send him home on lasix 60 mg po bid for 7 more days and than resume his home dose of lasix 40 mg po bid. Chronic Respiratory Failure 2/2 COPD without Exacerbation: Baseline 4 L NC - Currently not requiring additional O2 needs - does not appear to be in an exacerbation at this time Persistent Atrial Fibrillation with HTN/HLD: - Eliquis 5 mg BID, Diltiazem 480 mg daily, tolerating addition of Metoprolol 25 mg BID - Doxazosin 4 mg HS - Lipitor 20 mg daily T2DM: A1c 5.7 - Lantus 15 units SC daily and SSI DVT Prophylaxis: Eliquis Code Status: FULL RESUSCITATION Disposition: - Possible D/C next 1-2 days to home Total Time Spent: Greater than 30 minutes This includes examination of the patient, discharge planning, medication reconciliation, and communication with other providers. Discharge Instructions Please refer to the electronic Patient Visit Report (Discharge Instructions) for additional information. Follow-Up Last Resulted CBC 04/15/17 07:19 Last Resulted BMP 04/17/17 06:55 Additional Copies To Garcia Lam M.D.
[2017-04-17 13:38] VITALS: BP 142/89; PULSE 72; TEMP 36.3; O2SAT 96
== END 2017-04-17 14:47 | disposition home or self-care (01) | DRG 177 ==
LOC: C.EDB 17:10 → C.2T 20:29 → ENRESERV 20:52 → C.2T 04-16 13:52
PROVIDERS: ADMIT Internal Medicine; ATTEND Hospitalist
DX: J15.6 Pneumonia due to other Gram-negative bacteria (principal); I11.0 Hypertensive heart disease with heart failure; I50.33 Acute on chronic diastolic (congestive) heart failure; J96.10 Chronic respiratory failure, unspecified whether with hypoxia or hypercapnia; I48.1 Persistent atrial fibrillation; J12.9 Viral pneumonia, unspecified; E87.6 Hypokalemia; E11.9 Type 2 diabetes mellitus without complications; E78.5 Hyperlipidemia, unspecified; J44.9 Chronic obstructive pulmonary disease, unspecified; E66.9 Obesity, unspecified; Z79.899 Other long term (current) drug therapy; Z79.01 Long term (current) use of anticoagulants; Z79.84 Long term (current) use of oral hypoglycemic drugs; Z79.52 Long term (current) use of systemic steroids; Z87.09 Personal history of other diseases of the respiratory system; Z68.34 Body mass index [BMI] 34.0-34.9, adult; Z99.81 Dependence on supplemental oxygen; Z87.891 Personal history of nicotine dependence; Z91.041 Radiographic dye allergy status; Z82.3 Family history of stroke

== ENCOUNTER → 2017-06-06 | Outpatient (CLI) | payer OTHER ==
[~2017-06-06] MED LIST changes: +AMOX1TAB43 PO; +AZIT-57 PO; -CRD4 PO; +DOXA1TAB86 PO; -FRS/40 PO; +LPR25 PO; +LSX40 PO; -OXGN; -PRED10TA PO; -TMF75 PO
[2017-06-06 13:36] LABS: BASO % 0.9 %; BASO ABS # 0.05 K/uL (0-0.2); EOS % 1.9 %; EOS ABS # 0.11 K/uL (0-0.5); HEMATOCRIT 43.4 % (42-52); HEMOGLOBIN 14.1 g/dL (14.0-18.0); IG# 0.01 K/uL (0.00-0.02); LYMPH % 18.1 %; LYMPH ABS # 1.03 K/uL (1.2-3.4); MEAN CELL VOLUME 99.1 fL (80-100); MEAN CORPUSCULAR HEMOGLOBIN 32.2 pg (25-34); MEAN CORPUSCULAR HGB CONC 32.5 g/dl (32-36); MEAN PLATELET VOLUME 10.3 fL (7.4-10.4); MONO % 10.7 %; MONO ABS # 0.61 K/uL (0.11-0.59); NEUT % 68.2 %; NEUT ABS # 3.88 K/uL (1.4-6.5); PLATELET COUNT 226 K/uL (130-400); RED CELL DISTRIBUTION WIDTH CV 13.4 % (11.5-14.5); RED CELL DISTRIBUTION WIDTH SD 48.3 fL (36.4-46.3); WHITE BLOOD COUNT 5.69 K/uL (4.8-10.8)
[2017-06-06 14:03] LABS: HEMOGLOBIN A1C 6.1 % (4.5-5.6)
[2017-06-06 14:09] LABS: BLOOD UREA NITROGEN 13 mg/dl (7-18); CALCIUM 8.5 mg/dl (8.5-10.1); CARBON DIOXIDE 29 mmol/L (21-32); CREATININE 0.92 mg/dl (0.60-1.40); GLUCOSE 107 mg/dl (70-99); SODIUM 141 mmol/L (136-145); URIC ACID 6.7 mg/dl (2.6-7.2)
== END | disposition home or self-care (01) ==
LOC: C.LABBC 10:30
PROVIDERS: ATTEND Internal Medicine Geriatric Medicine
DX: I10 Essential (primary) hypertension (principal); E11.42 Type 2 diabetes mellitus with diabetic polyneuropathy; D64.9 Anemia, unspecified; D69.6 Thrombocytopenia, unspecified; M10.9 Gout, unspecified

== ENCOUNTER → 2017-06-16 | Outpatient (CLI) | payer OTHER ==
--- NOTE | 2017-06-16 10:46 | DIAGNOSTIC IMAGING REPORT ---
CERVICAL WITHOUT CONTRAST HISTORY: 77 years-old Male M54.12 Cervical [id number] acute bilateral arm pain with concern for cervical etiology. No known trauma COMPARISON: Cervical spine radiographs 09/03/2016, CTA of the head 09/11/2015, CT head 12/28/2015 TECHNIQUE: Multiplanar multisequence MRI of the cervical spine was obtained without contrast. FINDINGS: Partially imaged area of blooming artifact measuring 11 mm within the inferior right cerebellar hemisphere is noted in addition to a linear area of blooming artifact extending towards the fourth ventricle. 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 Imaged posterior fossa structures are otherwise unremarkable. No focal bone marrow edema, acute fracture or subluxation. C2-C3: Disc desiccation and uncovertebral spurring with mild facet arthrosis. No central canal or foraminal narrowing. C3-C4: Disc desiccation and uncovertebral spurring with mild facet arthrosis. No central canal or foraminal narrowing. C4-C5: Disc desiccation with mild intervertebral disc space narrowing, uncovertebral spurring, mild facet arthrosis and small posterior disc bulge. There is mild central canal and mild bilateral foraminal narrowing. C5-C6: Moderate intervertebral disc space narrowing and mild facet arthrosis with uncovertebral spurring, circumferential annular disc bulge with small broad-based central disc protrusion. These findings cause mild to moderate central canal and mild bilateral foraminal narrowing. C6-C7: Mild to moderate intervertebral disc space narrowing with uncovertebral spurring and circumferential annular disc bulge with mild facet arthrosis. Findings cause mild central canal and mild left foraminal narrowing. The right foramen is patent. C7-T1: Uncovertebral spurring and mild facet arthrosis causes mild to moderate left and mild right foraminal narrowing. There is dextroscoliosis of the thoracic cervical junction. IMPRESSION: 1. At C5-C6 , moderate intervertebral disc space narrowing and mild facet arthrosis with uncovertebral spurring, circumferential annular disc bulge and small broad-based central disc protrusion causes mild to moderate central canal and mild bilateral foraminal narrowing. 2. Mild central canal narrowing at C4-C5 and C6-C7 secondary to uncovertebral spurring and posterior annular disc bulges. 3. 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 4. Mild dextroscoliosis of the cervical thoracic junction. The above report was generated using voice recognition software. It may contain grammatical, syntax or spelling errors. Electronically signed by: Lance Wadsworth M.D. 06/16/2017 10:45 AM Dictated Date/Time: 06/16/2017 10:30 AM
== END | disposition home or self-care (01) ==
LOC: C.MRIBC 09:11
PROVIDERS: ATTEND Internal Medicine Geriatric Medicine
DX: M54.12 Radiculopathy, cervical region (principal)

== ENCOUNTER → 2017-09-23 | Outpatient (CLI) | payer OTHER ==
[~2017-09-23] MED LIST changes: +ALL100 PO; -AMOX1TAB43 PO; -AZIT-57 PO; +FRS/40 PO; +IPRA-64 INH; -IPRASOL4 INH; -LPR25 PO; -LSX40 PO; +METO25TA56 PO; +OXGN; +POTA20TA13 PO; +SPRIN/30 INH; +VGR50 PO
--- NOTE | 2017-09-23 11:53 | DIAGNOSTIC IMAGING REPORT ---
KUB CLINICAL HISTORY: R04.2 Cough with [id number] COMPARISON STUDY: No previous studies for comparison. FINDINGS: The soft tissues, psoas shadows, renal outlines and intestinal gas pattern appear normal. There is no evidence for bowel obstruction. No abnormal abdominal calcifications are seen. There is evidence for an arterial stent involving the descending thoracic aorta as well as proximal abdominal aorta. No evidence for pneumatosis. IMPRESSION: Nonobstructive bowel pattern. Aortic stent as described. The above report was generated using voice recognition software. It may contain grammatical, syntax or spelling errors. Electronically signed by: Tenzin Antunez M.D. 09/23/2017 11:52 AM Dictated Date/Time: 09/23/2017 11:51 AM
--- NOTE | 2017-09-23 12:14 | DIAGNOSTIC IMAGING REPORT ---
CHEST 2 VIEWS ROUTINE HISTORY: R04.2 Cough with [id number] COMPARISON: Chest 08/11/2017. FINDINGS: Emphysema. The heart remains mildly enlarged. Descending thoracic aortic stent remains unchanged in position. Small left pleural effusion has increased in size. Progressive left mid to lower lung zone airspace opacities. The right basilar interstitial thickening is unchanged. Mild central pulmonary vascular congestion without overt edema. No pneumothorax. IMPRESSION: 1. New left mid to lower lung zone airspace opacities. This likely represents a pneumonia. 2. Small left pleural effusion. 3. Mild central pulmonary vascular congestion without overt edema. This remains unchanged. Electronically signed by: Maldonado Moody M.D. 09/23/2017 12:12 PM Dictated Date/Time: 09/23/2017 12:10 PM
== END | disposition home or self-care (01) ==
LOC: C.RADBC 11:19
PROVIDERS: ATTEND Family Medicine Adult Medicine
DX: R91.8 Other nonspecific abnormal finding of lung field (principal); J90 Pleural effusion, not elsewhere classified; R04.2 Hemoptysis

== ENCOUNTER 2019-01-01 17:14 | Inpatient (IN) ==
[2019-01-01 18:21] LABS: Basophils # (auto) 0.02 K/uL (0-0.2); Basophils % (auto) 0.4 %; Eosinophils # (auto) 0.03 K/uL (0-0.5); Eosinophils % (auto) 0.5 %; Hematocrit (blood only) 35.7 % (42-52); Hemoglobin 11.4 g/dL (14.0-18.0); Immature Granulocytes # (auto) 0.01 K/uL (0.00-0.02); Immature Granulocytes % (auto) 0.2 %; Lymphocytes # (auto) 0.64 K/uL (1.2-3.4); Lymphocytes % (auto) 11.3 %; Mean Corpuscular Hemoglobin 32.8 pg (25-34); Mean Corpuscular Hgb Conc 31.9 g/dL (32-36); Mean Corpuscular Volume 102.6 fL (80-100); Mean Platelet Volume 9.5 fL (7.4-10.4); Monocytes # (auto) 0.53 K/uL (0.11-0.59); Monocytes % (auto) 9.4 %; Neutrophils # (auto) 4.41 K/uL (1.4-6.5); Neutrophils % (auto) 78.2 %; Platelet Count 172 K/uL (130-400); RDW Coefficient of Variation 13.6 % (11.5-14.5); RDW Standard Deviation 50.7 fL (36.4-46.3); Red Blood Count 3.48 M/uL (4.7-6.1); White Blood Count 5.64 K/uL (4.8-10.8)
[2019-01-01 18:33] LABS: INR 1.2 (0.9-1.1); Partial Thromboplastin Ratio 1.2; Partial Thromboplastin Time 32.7 Seconds (21.0-31.0); Prothrombin Time 12.3 Seconds (9.0-12.0)
[2019-01-01 18:41] LABS: Alanine Aminotransferase 25 U/L (12-78); Albumin Level 2.7 gm/dl (3.4-5.0); Aspartate Aminotransferase 22 U/L (15-37); BUN Creatinine Ratio 16.7 (10-20); Blood Urea Nitrogen 16 mg/dl (7-18); Calcium 8.1 mg/dl (8.5-10.1); Carbon Dioxide 36 mmol/L (21-32); Chloride 100 mmol/L (98-107); Creatinine Clr Calc Pharmacy 80.5 ml/min; Est GFR (African American) 87.9; Est GFR (Non-African American) 75.8; Glucose 182 mg/dl (70-99); Magnesium 2.1 mg/dl (1.8-2.4); Potassium 4.5 mmol/L (3.5-5.1); Sodium 138 mmol/L (136-145)
[2019-01-01 18:47] LABS: Albumin Globulin Ratio 0.8 (0.9-2); Alkaline Phosphatase 128 U/L (45-117); Bilirubin,Total 1.2 mg/dl (0.2-1); Globulin 3.5 gm/dl (2.5-4.0); Total Protein 6.2 gm/dl (6.4-8.2); Troponin I < 0.015 ng/ml (0-0.045)
--- NOTE | 2019-01-01 18:49 | XRay Report ---
XR forearm LT 2V CLINICAL HISTORY: 78 years-old Male presenting with swelling. TECHNIQUE: Frontal and lateral views of the left forearm were obtained. COMPARISON: Comparison made to plain radiographs of the left elbow from 01/27/2018. FINDINGS: Osteopenia. Allowing for osteopenia, no displaced fracture or malalignment. Sensitivity for nondispla harriet fracture is limited in the setting of this degree of osteopenia. Degenerative changes at the elbo w. Diffuse soft tissue swelling with subcutaneous edema evident. IMPRESSION: 1. Allowing for osteopenia, no acute osseous injury. 2. Nonspecific diffuse soft tissue swelling. Electronically signed by: Tera Nixon M.D. 01/01/2019 6:47 PM
--- NOTE | 2019-01-01 18:50 | XRay Report ---
XR chest 1V portable CLINICAL HISTORY: 78 years-old Male presenting with Dyspnea. TECHNIQUE: Portable upright AP view of the chest was obtained. COMPARISON: 12/02/2018. FINDINGS: Atherosclerosis of the aortic arch. Cardiac silhouette enlarged. Descending thoracic aortic endograft stent in place. A medical management specialist projects over the left mid lung as on prior exam. Pulmonary vascula r prominence. Prominence of the basilio likely also vascular. No focal opacity. No large effusion or pne umothorax. Osseous structures grossly normal. Upper abdomen normal. IMPRESSION: 1. Cardiomegaly with volume overload. No advanced congestive change or sd pulmonary edema. 2. Postprocedural changes of thoracic aortic endograft stent. Electronically signed by: Tera Nixon M.D. 01/01/2019 6:49 PM
--- NOTE | 2019-01-01 18:52 | XRay Report ---
XR hand LT min 3V routine CLINICAL HISTORY: 78 years-old Male presenting with swelling. TECHNIQUE: Frontal, oblique, and lateral views of the left hand were obtained. COMPARISON: Comparison made to plain radiographs of the left wrist from 2018. FINDINGS: Osteopenia. No acute fracture or malalignment. No advanced degenerative change. Diffuse soft tissue s welling. IMPRESSION: 1. Allowing for osteopenia, no acute osseous injury. 2. Nonspecific diffuse soft tissue swelling. Electronically signed by: Tera Nixon M.D. 01/01/2019 6:50 PM
--- NOTE | 2019-01-01 19:59 | Ultrasound Report ---
US venous doppler UE LT CLINICAL HISTORY: 78 years-old Male presenting with swelling. TECHNIQUE: Real-time grayscale and color and spectral Doppler ultrasound imaging of the veins of the left upper extremity was performed. Compression and augmentation were also utilized. COMPARISON: 01/27/2018. FINDINGS: LEFT: Internal jugular vein: Patent. Subclavian vein: Patent. Axillary vein: Patent. Brachial vein: Patent. Basilic vein (superficial): Patent. Cephalic vein (superficial): Patent. Radial vein: Patent. Ulnar vein: Patent. Other: None. IMPRESSION: No evidence of deep venous thrombosis. Electronically signed by: Tera Nixon M.D. 01/01/2019 7:58 PM
[2019-01-01] MEDS ORDERED: BUMETANIDE 2 MG in SYRINGE 0 ML IV ONE (20:01)
--- NOTE | 2019-01-01 20:40 | Emergency Department Note ---
Entered by Katarina Kelly acting as a scribe for Kurt Hensley M.D. History of Present Illness General Chief complaint: Shortness of Breath/Dyspnea Stated complaint: L ARM EDEMA, SOB Time Seen by Provider: 01/01/19 17:23 Source: patient Mode of arrival: ambulatory History of Present Illness Onset (ago): day(s) 2 Location: left (arm) Radiation: other (from left hand to left shoulder) Severity: similar to prior episodes Pain Consistency: + other (persistent) Quality: + sharp Relieved By: + medication (Bumex) Exacerbated By: + movement Associated symptoms: + shortness of breath and + other (Positive arm swelling, arm pain, lower extremity swelling. negative recent trauma, falls. ); no fever/chills Treatments prior to arrival: other (Bumex) The patient is a 78 year old male presenting to the Emergency Department via EMS complaining of persistent arm swelling starting 2 days ago. The patient reports that he is short of breath. He states that he normally uses 2L of supplemental oxygen daily as he is short of breath all the time. He explains that his left arm is swelling and that is has been swollen for the past 2 days. He notes that he has sharp pains in his left hand and that this pain radiates up his left arm to his left shoulder. He adds that moving his left arm worsens his pain. The patient reports that he has been taking more of his Bumex for the past 2 days for the swelling and that this helped, as his left arm swelling has improved and that this helped his lower extremity swelling. He states that he regularly takes Eliquis. He notes that he has experienced these symptoms before as he chronically is short of breath and dealing with extremity swelling because of his CHF. The patient denies recent trauma, recent falls, fevers and chills. Home Medications Home Medications Medication Instructions Recorded Confirmed Type Eliquis 5 mg PO BID 01/16/18 01/01/19 History atorvastatin 20 mg PO DAILY 01/16/18 01/01/19 History multivitamin 1 tab PO DAILY 01/16/18 01/01/19 History doxazosin 4 mg tablet 4 mg PO DAILY #90 tab 07/21/18 01/01/19 Rx bumetanide 1 mg tablet 1 mg PO BID #180 tab 08/22/18 01/01/19 History sacubitril 97 mg-valsartan 103 mg 1 tab PO BID #180 tab 08/22/18 01/01/19 History tablet budesonide-formoterol HFA 160 2 puff INHALATION BID #10.2 gm 11/15/18 01/01/19 Rx mcg-4.5 mcg/actuation aerosol inhaler potassium chloride 20 mEq 20 meq PO QPM tab 11/23/18 01/01/19 History tablet,extended release(part/cryst) acetaminophen 500 mg tablet 1,000 mg PO TID PRN tab 11/27/18 01/01/19 History pantoprazole 40 mg tablet,delayed 40 mg PO DAILY #14 tab 11/27/18 01/01/19 Rx release turmeric root extract 500 mg 500 mg PO BID cap 12/19/18 01/01/19 History capsule glimepiride 4 mg tablet 4 mg PO QAM #90 tab 12/22/18 01/01/19 Rx allopurinol 200 mg PO DAILY 01/01/19 01/01/19 History colchicine 0.6 mg PO HS PRN 01/01/19 01/01/19 History metoprolol succinate 200 mg PO DAILY 01/01/19 01/01/19 History potassium chloride 40 meq PO QAM 01/01/19 01/01/19 History Allergies Allergy/AdvReac Type Severity Reaction Status Date / Time Iodinated Contrast Media Allergy Severe NEEDS Verified 12/28/18 14:[address] DYE Past Med/Surg History Medical History Abdominal aortic aneurysm (Acute) Acute on chronic combined systolic (congestive) and diastolic (congestive) heart failure (Acute) Anemia (Acute) Aneurysm of thoracic aorta (Acute) Arteriosclerotic coronary artery disease (Acute) Arthritis Cardiomyopathy, idiopathic (Acute) Cervical radiculopathy (Acute) Cervical spinal stenosis (Acute) Chronic anticoagulation (Acute) Chronic combined systolic and diastolic congestive heart failure (Acute) Chronic osteoarthritis (Acute) COPD (chronic obstructive pulmonary disease) (Chronic) Diabetes (Chronic) Diabetes mellitus with diabetic polyneuropathy (Acute) Gastroesophageal reflux disease (Acute) History of cardioversion Hyperlipidemia (Chronic) Hypertension (Chronic) Nonsustained ventricular tachycardia (Acute) Obesity, Class II, BMI 35-39.9 (Acute) Osteoarthritis of knee (Acute) Permanent atrial fibrillation (Acute) Rib fractures (03/29/13) Shoulder pain (Acute) Sleep apnea (Acute) Status post thoracic aortic aneurysm repair Thoracic aortic aneurysm without rupture (Chronic 01/07/14) Ventral hernia (Chronic) Vitamin D deficiency (Acute) Surgical History History of hemorrhoidectomy (Resolved) History of tonsillectomy (Resolved) Family History Father No pertinent family history Mother Stroke Other Medical history non-contributory Social History Preferred Language: [place] Communication Ability: Effective Beliefs That Will Affect Care: None marital status: Current Living Situation: Spouse Feels Safe at Home: Yes Smoking Status: Former smoker Hx Alcohol Use: No Hx Substance Use: No Dental Care, Regularly: No Seatbelt Use: always Review of Systems See HPI for pertinent positives & negatives. and A total of 10 systems reviewed and were otherwise negative Physical Exam Vital Signs Vital Signs - 24 hr 01/01/19 17:19 01/01/19 17:26 01/01/19 17:34 Temperature 37.3 C Temperature Source Oral Pulse Rate 107 H 118 H 106 H Pulse Rate [Finger] 118 H Pulse Rate from SpO2 Sensor Respiratory Rate 28 H 12 25 H Respiratory Effort / Characteristics Non-Labored Respiratory Depth Normal Respiratory Pattern Regular Blood Pressure 179/157 H 179/157 H Blood Pressure [Right Arm] 179/157 H Blood Pressure Mean 168 164 Blood Pressure Mean [Right Arm] 164 Pulse Oximetry 97 Oxygen Delivery Method Room Air Nasal Cannula Room Air Oxygen Flow Rate 2 Sepsis Recent Fever Within 48 Hours No Sepsis New/Unexplained Change in Mental Status No Sepsis Action Taken by Nursing No Action Required 01/01/19 17:40 01/01/19 17:42 01/01/19 17:50 Temperature Temperature Source Pulse Rate 109 H 100 H Pulse Rate [Finger] Pulse Rate from SpO2 Sensor Respiratory Rate 29 H 18 Respiratory Effort / Characteristics Respiratory Depth Respiratory Pattern Blood Pressure Blood Pressure [Right Arm] Blood Pressure Mean Blood Pressure Mean [Right Arm] Pulse Oximetry Oxygen Delivery Method Room Air Nasal Cannula Room Air Oxygen Flow Rate 2 Sepsis Recent Fever Within 48 Hours Sepsis New/Unexplained Change in Mental Status Sepsis Action Taken by Nursing 01/01/19 18:00 01/01/19 18:10 01/01/19 18:20 Temperature Temperature Source Pulse Rate 98 H 96 H 100 H Pulse Rate [Finger] Pulse Rate from SpO2 Sensor Respiratory Rate 20 20 21 Respiratory Effort / Characteristics Respiratory Depth Respiratory Pattern Blood Pressure Blood Pressure [Right Arm] Blood Pressure Mean Blood Pressure Mean [Right Arm] Pulse Oximetry Oxygen Delivery Method Room Air Room Air Room Air Oxygen Flow Rate Sepsis Recent Fever Within 48 Hours Sepsis New/Unexplained Change in Mental Status Sepsis Action Taken by Nursing 01/01/19 18:30 01/01/19 18:40 01/01/19 18:50 Temperature Temperature Source Pulse Rate 93 H 98 H 92 H Pulse Rate [Finger] Pulse Rate from SpO2 Sensor Respiratory Rate 16 23 20 Respiratory Effort / Characteristics Respiratory Depth Respiratory Pattern Blood Pressure Blood Pressure [Right Arm] Blood Pressure Mean Blood Pressure Mean [Right Arm] Pulse Oximetry Oxygen Delivery Method Room Air Room Air Room Air Oxygen Flow Rate Sepsis Recent Fever Within 48 Hours Sepsis New/Unexplained Change in Mental Status Sepsis Action Taken by Nursing 01/01/19 19:00 01/01/19 19:10 01/01/19 19:20 Temperature Temperature Source Pulse Rate 105 H 96 H 100 H Pulse Rate [Finger] Pulse Rate from SpO2 Sensor Respiratory Rate 21 21 18 Respiratory Effort / Characteristics Respiratory Depth Respiratory Pattern Blood Pressure Blood Pressure [Right Arm] Blood Pressure Mean Blood Pressure Mean [Right Arm] Pulse Oximetry Oxygen Delivery Method Room Air Nasal Cannula Nasal Cannula Oxygen Flow Rate 2 2 Sepsis Recent Fever Within 48 Hours Sepsis New/Unexplained Change in Mental Status Sepsis Action Taken by Nursing 01/01/19 20:03 01/01/19 20:10 01/01/19 20:20 Temperature Temperature Source Pulse Rate 98 H 97 H 98 H Pulse Rate [Finger] Pulse Rate from SpO2 Sensor 191 H Respiratory Rate 33 H 19 19 Respiratory Effort / Characteristics Respiratory Depth Respiratory Pattern Blood Pressure Blood Pressure [Right Arm] Blood Pressure Mean Blood Pressure Mean [Right Arm] Pulse Oximetry Oxygen Delivery Method Nasal Cannula Nasal Cannula Nasal Cannula Oxygen Flow Rate 2 2 2 Sepsis Recent Fever Within 48 Hours Sepsis New/Unexplained Change in Mental Status Sepsis Action Taken by Nursing 01/01/19 20:30 01/01/19 20:40 01/01/19 20:50 Temperature Temperature Source Pulse Rate 91 H 88 103 H Pulse Rate [Finger] Pulse Rate from SpO2 Sensor Respiratory Rate 24 28 H 16 Respiratory Effort / Characteristics Respiratory Depth Respiratory Pattern Blood Pressure Blood Pressure [Right Arm] Blood Pressure Mean Blood Pressure Mean [Right Arm] Pulse Oximetry Oxygen Delivery Method Nasal Cannula Nasal Cannula Nasal Cannula Oxygen Flow Rate 2 2 2 Sepsis Recent Fever Within 48 Hours Sepsis New/Unexplained Change in Mental Status Sepsis Action Taken by Nursing GENERAL: Awake, alert, chronically ill-appearing, in no distress on 2L NC. HENT: Normocephalic, atraumatic. EYES: Normal conjunctiva. Sclera non-icteric. RESPIRATORY: Clear to auscultation anteriorly, diminished bases. Normal respiratory effort. CARDIAC: Tachycardic rate. Irregular rhythm. Extremities warm and well perfused. GI: Soft, non-distended. No tenderness to palpation. MUSCULOSKELETAL: Atraumatic. Chest examination reveals no tenderness. UPPER EXTREMITIES: Swelling of the LUE below the elbow. Mild diffuse tenderness. NVI LUE. A few small scattered spot of redness but no petechiae or crepitus. Wedding band on left hand 4th finger with surrounding swelling. LOWER EXTREMITIES: Chronic stasis changes. Calves are equal size bilaterally and non-tender. NEURO: No motor deficits noted. No facial droop or slurred speech. SKIN: Warm and dry. No jaundice noted. Course Course 1729: The patient was evaluated in room B12A, and a complete history and physical examination were performed. 1841: I reevaluated the patient at this time. 2011: I discussed the patients case with Dr. Ra KESSLER hospitalist. She will evaluate the patient for further management. Administered Medications Discontinued Medications Bumetanide 2 mg/ Syringe 8 mls @ 4 mls/min IV ONE ONE Stop: 01/01/19 20:02 Last Admin: 01/01/19 20:31 Dose: 4 mls/min Documented by: [id number] Medical Decision Making Differential Diagnosis Differential diagnosis: Etiologies such as infections, reactive airway disease, pneumonia, pneumothorax, COPD, CHF, cardiac ischemia, pulmonary embolism, musculoskeletal, gastrointestinal, as well as others were entertained. Medical Records Attestation: I reviewed the patient's medical records. Home Medications Current Medication List: was personally reviewed by me Laboratory Data Attestation: I reviewed the patient's lab results. Result diagrams: 01/01/19 18:01 01/01/19 18:01 Lab Results 11/18/19 11/18/19 11/18/19 Range/Units 18:01 18:01 18:01 WBC 5.64 (4.8-10.8) K/uL RBC 3.48 L (4.7-6.1) M/uL Hgb 11.4 L (14.0-18.0) g/dL Hct 35.7 L (42-52) % MCV 102.6 H (80-100) fL MCH 32.8 (25-34) pg MCHC 31.9 L (32-36) g/dL RDW Std Deviation 50.7 H (36.4-46.3) fL RDW Coeff of Chuck 13.6 (11.5-14.5) % Plt Count 172 (130-400) K/uL MPV 9.5 (7.4-10.4) fL Immature Gran % (Auto) 0.2 % Neut % (Auto) 78.2 % Lymph % (Auto) 11.3 % Waller % (Auto) 9.4 % Eos % (Auto) 0.5 % Baso % (Auto) 0.4 % Immature Gran # (Auto) 0.01 (0.00-0.02) K/uL Neut # (Auto) 4.41 (1.4-6.5) K/uL Lymph # (Auto) 0.64 L (1.2-3.4) K/uL Waller # (Auto) 0.53 (0.11-0.59) K/uL Eos # (Auto) 0.03 (0-0.5) K/uL Baso # (Auto) 0.02 (0-0.2) K/uL PT 12.3 H (9.0-12.0) Seconds INR 1.2 H (0.9-1.1) APTT 32.7 H (21.0-31.0) Seconds PTT Ratio 1.2 Sodium 138 (136-145) mmol/L Potassium 4.5 (3.5-5.1) mmol/L Chloride 100 (98-107) mmol/L Carbon Dioxide 36 H (21-32) mmol/L Anion Gap 2.0 L (3-11) BUN 16 (7-18) mg/dl Creatinine 0.95 (0.6-1.4) mg/dl Est Cr Clr Drug Dosing 80.5 ml/min Est GFR ( Amer) 87.9 Est GFR (Non-Af Amer) 75.8 BUN/Creatinine Ratio 16.7 (10-20) Glucose 182 H (70-99) mg/dl POC Lactic Acid Nick (0.90-1.70) mmol/L Calcium 8.1 L (8.5-10.1) mg/dl Magnesium 2.1 (1.8-2.4) mg/dl Total Bilirubin 1.2 H (0.2-1) mg/dl AST 22 (15-37) U/L ALT 25 (12-78) U/L Alkaline Phosphatase 128 H (45-117) U/L Troponin I < 0.015 (0-0.045) ng/ml Total Protein 6.2 L (6.4-8.2) gm/dl Albumin 2.7 L (3.4-5.0) gm/dl Globulin 3.5 (2.5-4.0) gm/dl Albumin/Globulin Ratio 0.8 L (0.9-2) Procalcitonin (0-0.5) ng/ml 01/01/19 01/01/19 Range/Units 18:01 18:09 WBC (4.8-10.8) K/uL RBC (4.7-6.1) M/uL Hgb (14.0-18.0) g/dL Hct (42-52) % MCV (80-100) fL MCH (25-34) pg MCHC (32-36) g/dL RDW Std Deviation (36.4-46.3) fL RDW Coeff of Chuck (11.5-14.5) % Plt Count (130-400) K/uL MPV (7.4-10.4) fL Immature Gran % (Auto) % Neut % (Auto) % Lymph % (Auto) % Waller % (Auto) % Eos % (Auto) % Baso % (Auto) % Immature Gran # (Auto) (0.00-0.02) K/uL Neut # (Auto) (1.4-6.5) K/uL Lymph # (Auto) (1.2-3.4) K/uL Waller # (Auto) (0.11-0.59) K/uL Eos # (Auto) (0-0.5) K/uL Baso # (Auto) (0-0.2) K/uL PT (9.0-12.0) Seconds INR (0.9-1.1) APTT (21.0-31.0) Seconds PTT Ratio Sodium (136-145) mmol/L Potassium (3.5-5.1) mmol/L Chloride (98-107) mmol/L Carbon Dioxide (21-32) mmol/L Anion Gap (3-11) BUN (7-18) mg/dl Creatinine (0.6-1.4) mg/dl Est Cr Clr Drug Dosing ml/min Est GFR ( Amer) Est GFR (Non-Af Amer) BUN/Creatinine Ratio (10-20) Glucose (70-99) mg/dl POC Lactic Acid Nick 1.12 (0.90-1.70) mmol/L Calcium (8.5-10.1) mg/dl Magnesium (1.8-2.4) mg/dl Total Bilirubin (0.2-1) mg/dl AST (15-37) U/L ALT (12-78) U/L Alkaline Phosphatase (45-117) U/L Troponin I (0-0.045) ng/ml Total Protein (6.4-8.2) gm/dl Albumin (3.4-5.0) gm/dl Globulin (2.5-4.0) gm/dl Albumin/Globulin Ratio (0.9-2) Procalcitonin 0.39 (0-0.5) ng/ml Imaging Data Radiologist's Impression: Radiology results as stated below per my review and the radiologist's interpretation: US venous doppler UE LT CLINICAL HISTORY: 78 years-old Male presenting with swelling. TECHNIQUE: Real-time grayscale and color and spectral Doppler ultrasound imaging of the veins of the left upper extremity was performed. Compression and augmentation were also utilized. COMPARISON: 01/27/2018. FINDINGS: LEFT: Internal jugular vein: Patent. Subclavian vein: Patent. Axillary vein: Patent. Brachial vein: Patent. Basilic vein (superficial): Patent. Cephalic vein (superficial): Patent. Radial vein: Patent. Ulnar vein: Patent. Other: None. IMPRESSION: No evidence of deep venous thrombosis. Electronically signed by: Tera Nixon M.D. 01/01/2019 7:58 PM XR chest 1V portable CLINICAL HISTORY: 78 years-old Male presenting with Dyspnea. TECHNIQUE: Portable upright AP view of the chest was obtained. COMPARISON: 12/02/2018. FINDINGS: Atherosclerosis of the aortic arch. Cardiac silhouette enlarged. Descending thoracic aortic endograft stent in place. A certified medical transcriptionist projects over the left mid lung as on prior exam. Pulmonary vascular prominence. Prominence of the basilio likely also vascular. No focal opacity. No large effusion or pneumothorax. Osseous structures grossly normal. Upper abdomen normal. IMPRESSION: 1. Cardiomegaly with volume overload. No advanced congestive change or sd pulmonary edema. 2. Postprocedural changes of thoracic aortic endograft stent. Electronically signed by: Tera Nixon M.D. 01/01/2019 6:49 PM XR forearm LT 2V CLINICAL HISTORY: 78 years-old Male presenting with swelling. TECHNIQUE: Frontal and lateral views of the left forearm were obtained. COMPARISON: Comparison made to plain radiographs of the left elbow from 01/27/2018. FINDINGS: Osteopenia. Allowing for osteopenia, no displaced fracture or malalignment. Sensitivity for nondisplaced fracture is limited in the setting of this degree of osteopenia. Degenerative changes at the elbow. Diffuse soft tissue swelling with subcutaneous edema evident. IMPRESSION: 1. Allowing for osteopenia, no acute osseous injury. 2. Nonspecific diffuse soft tissue swelling. Electronically signed by: Tera Nixon M.D. 01/01/2019 6:47 PM XR hand LT min 3V routine CLINICAL HISTORY: 78 years-old Male presenting with swelling. TECHNIQUE: Frontal, oblique, and lateral views of the left hand were obtained. COMPARISON: Comparison made to plain radiographs of the left wrist from 2018. FINDINGS: Osteopenia. No acute fracture or malalignment. No advanced degenerative change. Diffuse soft tissue swelling. IMPRESSION: 1. Allowing for osteopenia, no acute osseous injury. 2. Nonspecific diffuse soft tissue swelling. Electronically signed by: Tera Nixon M.D. 01/01/2019 6:50 PM ECG Data Attestation: I personally reviewed and interpreted this ECG as follows: Indication: + SOB/dyspnea Rate (beats per minute): 109 Rhythm: + atrial fibrillation (A-fib with RVR) ECG ST segments: no ST elevation ECG Findings: + Other (Prolonged QTC.) Comparison ECG Date: from (01/24/18) Change: no significant change Blood Pressure Blood Pressure Findings: Elevated blood pressure Blood Pressure Disposition: further management by hospitalist MARIAA Narrative Patient is a 78-year-old gentleman with a past medical history including CHF, atrial fibrillation, diabetes, COPD, gout, hypertension presenting today complaining of significant edema of his left arm with some mild shortness of breath. States he noted swelling or last several days predominately his left arm with a bit in his lower legs. Increased his Bumex at home (to TID) with improvement of the swelling his legs but still persistent swelling his left upper arm although he states this is doing a bit better. Some tenderness throughout this area as well. No trauma reported. No significant swelling of the right upper extremity. Neurovascular intact in the left upper extremity. This is fairly swollen feels somewhat warm and occasionally has some scattered features of erythema but no significant confluence or fluctuance. Denies a history of cellulitis here. Is afebrile. States his breathing is mildly worse but is stable on baseline home oxygen. Concern this could possibly represent fluid overload versus infectious process in his left upper arm. Patient is wearing a wedding ring on his left hand the patient states when he was yesterday and things are okay and he does not wish to have it cut off. Was aware of the risk. Did send blood cultures given initial concern however the patient again is afebrile and leukocytosis is not present. Patient again states swelling is improved since yesterday. However given his chronic medical conditions the ex tent of the swelling feel that further monitor diuresis to be indicated. Lower suspicion for DVT given the fact that he is on Eliquis at this point. Did complete an ultrasound given the swelling without significant findings here. Procalcitonin not significantly elevated. Blood work is reassuring. Diffuse nonspecific edema on images of the left upper arm confirms what I see on exam. Some evidence of volume overload but no sd pulmonary edema and again not requiring oxygen here. Given he is already doubled his Bumex and still having significant swelling discussed with the patient and feel that monitored. Given additional Bumex. Discussed with the hospitalist. Impression & Plan Left upper extremity swelling, CHF exacerbation Discharge Plan Visit Data Chief Complaint: Shortness of Breath/Dyspnea Stated Complaint: L ARM EDEMA, SOB ED Provider: Kurt Hensley Discharge Problem: Left upper extremity swelling, CHF exacerbation Patient Disposition: Being Evaluated by Hospitalist Discharge Instructions Interventions: ED Discharge Assessment Last Done: 01/01/19 21:30 Discharge Problem: CHF exacerbation Qualifiers: Heart failure type: unspecified Qualified Code(s): I50.9 - Heart failure, unspecified The scribe's documentation has been prepared under my direction and personally reviewed by me in its entirety. I confirm that the note above accurately reflects all work, treatment, procedures, and medical decision making performed by me.
--- NOTE | 2019-01-01 20:58 | History & Physical Report ---
Date of Service January 01, 2019 Assessment & Plan (1) Acute on chronic combined systolic (congestive) and diastolic (congestive) heart failure: Stable respiratory status. Patient with worsening edema which he reports to be fairly consistent with prior CHF exacerbations. Bumex 2 mg IV daily -Daily weights, strict I's and O's -BMP every 12 hours with electrolyte repletion -Closely monitor renal function -Continue home CHF medicationsEntresto, metoprolol Present on Admission?: Yes (2) COPD (chronic obstructive pulmonary disease): Chronic. Stable. Adequate oxygenation with no respiratory distress or wheeze. Continue supplemental oxygen as needed Continue budesonide/formoterol twice daily -Albuterol as needed Present on Admission?: Yes (3) Hyperlipidemia: Chronic. Stable. Continue Lipitor 20 mg p.o. daily Present on Admission?: Yes (4) Diabetes: Chronic. Stable. Blood sugar mildly elevated at 182. Patient has had fairly well controlled diabetes in the past per review of hemoglobin A1c. Check hemoglobin A1c Hold oral agents Lantus 8 units twice daily with insulin sliding scale, goal blood sugar 100-140 Present on Admission?: Yes (5) Hypertension: Blood pressure stable at present Continue metoprolol -Continue to monitor Present on Admission?: Yes (6) Gout: Chronic. Stable. No active flare Continue allopurinol Present on Admission?: Yes (7) CAD (coronary artery disease), [place] coronary artery: Patient with nonobstructive CAD per cardiac catheterization 01/24/2018. -Continue home medications (8) Permanent atrial fibrillation: Rate controlled at 71 bpm. Patient anticoagulated on Eliquis Continue metoprolol Continue Eliquis (9) Gastroesophageal reflux disease: Chronic. Stable. -Continue Protonix F/E/Ndiuresis with Bumex 2 mg IV daily, strict I's and O's and BMP twice daily. Continue oral potassium repletion. Heart healthy/diabetic diet as tolerated Prophylaxiscontinue home Eliquis for A. fib, continue home Protonix Codefull per discussion with patient Dispositionadmit to medical floor with telemetry monitoring History of Present Illness Chief Complaint: CHF exacerbation Primary Care Provider: Maryanne Whipple MD Nicola Dc is a 78-year-old male with multiple medical problems to include AAA status post repair, systolic/diastolic CHF, CAD, COPD on 2 L of oxygen, diabetes, hypertension, hyperlipidemia, atrial fibrillation on chronic anticoagulation presenting with worsening edema. Patient states that over the last 2 to 3 days he has had worsening of edema in his right foot as well as his left upper extremity. He states that swelling in these areas is fairly typical of his CHF exacerbations. Reports that he ate ham a couple of days ago and blames his recent edema on this increased salt intake. He has been taking Bumex 3 mg daily over the last 3 days with slight improvement in his swelling. He also reports mild worsening of his baseline shortness of breath. Stable orthopnea, no change in weight. Patient has an abdominal wall defect. He has seen Dr. Lucero for this concern on 12/28. He is to have a CT of the abdomen performed. Patient also reports fairly remote history of bloody bowel movement. None recently. He has a colonoscopy being arranged by his primary care physician. ER course: Bumex 2 mg IV Allergies Allergy/AdvReac Type Severity Reaction Status Date / Time Iodinated Contrast Media Allergy Severe NEEDS Verified 12/28/18 14:[address] DYE Home Medications Home Medications Medication Instructions Recorded Confirmed Type Eliquis 5 mg PO BID 01/16/18 01/01/19 History atorvastatin 20 mg PO DAILY 01/16/18 01/01/19 History multivitamin 1 tab PO DAILY 01/16/18 01/01/19 History doxazosin 4 mg tablet 4 mg PO DAILY #90 tab 07/21/18 01/01/19 Rx bumetanide 1 mg tablet 1 mg PO BID #180 tab 08/22/18 01/01/19 History sacubitril 97 mg-valsartan 103 mg 1 tab PO BID #180 tab 08/22/18 01/01/19 History tablet budesonide-formoterol HFA 160 2 puff INHALATION BID #10.2 gm 11/15/18 01/01/19 Rx mcg-4.5 mcg/actuation aerosol inhaler potassium chloride 20 mEq 20 meq PO QPM tab 11/23/18 01/01/19 History tablet,extended release(part/cryst) acetaminophen 500 mg tablet 1,000 mg PO TID PRN tab 11/27/18 01/01/19 History pantoprazole 40 mg tablet,delayed 40 mg PO DAILY #14 tab 11/27/18 01/01/19 Rx release turmeric root extract 500 mg 500 mg PO BID cap 12/19/18 01/01/19 History capsule glimepiride 4 mg tablet 4 mg PO QAM #90 tab 12/22/18 01/01/19 Rx allopurinol 200 mg PO DAILY 01/01/19 01/01/19 History colchicine 0.6 mg PO HS PRN 01/01/19 01/01/19 History metoprolol succinate 200 mg PO DAILY 01/01/19 01/01/19 History potassium chloride 40 meq PO QAM 01/01/19 01/01/19 History Past Med/Surg History Medical History (Updated 01/02/19 @ 00:15 by Serena Knapp DO) Abdominal aortic aneurysm (Acute) Acute on chronic combined systolic (congestive) and diastolic (congestive) heart failure (Acute) Anemia (Acute) Aneurysm of thoracic aorta (Acute) Arteriosclerotic coronary artery disease (Acute) Arthritis Cardiomyopathy, idiopathic (Acute) Cervical radiculopathy (Acute) Cervical spinal stenosis (Acute) Chronic anticoagulation (Acute) Chronic combined systolic and diastolic congestive heart failure (Acute) Chronic osteoarthritis (Acute) COPD (chronic obstructive pulmonary disease) (Chronic) Diabetes (Chronic) Diabetes mellitus with diabetic polyneuropathy (Acute) Gastroesophageal reflux disease (Acute) History of cardioversion Hyperlipidemia (Chronic) Hypertension (Chronic) Nonsustained ventricular tachycardia (Acute) Obesity, Class II, BMI 35-39.9 (Acute) Osteoarthritis of knee (Acute) Permanent atrial fibrillation (Acute) Rib fractures (03/29/13) Shoulder pain (Acute) Sleep apnea (Acute) Status post thoracic aortic aneurysm repair Thoracic aortic aneurysm without rupture (Chronic 01/07/14) Ventral hernia (Chronic) Vitamin D deficiency (Acute) Surgical History History of hemorrhoidectomy (Resolved) History of tonsillectomy (Resolved) Family History Father No pertinent family history Mother Stroke Other Medical history non-contributory Social History Preferred Language: Latvian Communication Ability: Effective Footwear Stitcher Required: No Beliefs That Will Affect Care: None marital status: Current Living Situation: Spouse Other Information That Helps Us Care for You: No Feels Safe at Home: Yes Safety Concerns: Feels Safe At This Time Smoking Status: Former smoker Second Hand Exposure: No ; Hx Alcohol Use: No Hx Substance Use: No Dental Care, Regularly: No Seatbelt Use: always Review of Systems Review of Systems: All systems reviewed & are unremarkable except as noted in HPI & below + Left shoulder pain + Chills Physical Exam Physical Exam: General: patient resting comfortably, NAD, non-toxic in appearance, AA&O x 4 Skin: warm, dry, intact, no rashes or lesions HEENT: NC/AT, PERRL, EOMI, anicteric sclera, conjunctiva without injection, external ear normal to inspection and nontender, nares patent, moist mucus membranes, dentition intact, no oropharyngeal lesions, neck supple, trachea midline, no LAD, no thyromegaly, no JVD Heart: +S1/S2, irregularly irregular, no m/r/g Lungs: equal air entry bilaterally, no rales/rhonchi/wheezes Abd: +BS, soft, NT/ND, no masses/organomegaly/ascites Ext: Left upper extremity edema, tenderness, palpable pulses and sensation intact, mild right pedal edema Neuro: nonfocal, patient AA&O x 4, speech intact, no facial droop, moving all extremities on command with equal strength 5/5 Results & Data Vital Signs (Past 12 Hours) Vital Signs Temp Pulse Pulse Resp BP BP Pulse Ox 01/01/19 20:30 91 H 24 01/01/19 20:20 98 H 19 01/01/19 20:10 97 H 19 01/01/19 20:03 98 H 33 H 01/01/19 19:20 100 H 18 01/01/19 19:10 96 H 21 01/01/19 19:00 105 H 21 01/01/19 18:50 92 H 20 01/01/19 18:40 98 H 23 01/01/19 18:30 93 H 16 01/01/19 18:20 100 H 21 01/01/19 18:10 96 H 20 01/01/19 18:00 98 H 20 01/01/19 17:50 100 H 18 01/01/19 17:40 109 H 29 H 01/01/19 17:34 106 H 25 H 01/01/19 17:26 37.3 C 118 H 118 H 12 179/157 H 179/157 H 97 01/01/19 17:19 107 H 28 H 179/157 H Laboratory Results Lab Results 01/01/19 01/01/19 01/01/19 Range/Units 18:01 18:01 18:01 WBC 5.64 (4.8-10.8) K/uL RBC 3.48 L (4.7-6.1) M/uL Hgb 11.4 L (14.0-18.0) g/dL Hct 35.7 L (42-52) % MCV 102.6 H (80-100) fL MCH 32.8 (25-34) pg MCHC 31.9 L (32-36) g/dL RDW Std Deviation 50.7 H (36.4-46.3) fL RDW Coeff of Chuck 13.6 (11.5-14.5) % Plt Count 172 (130-400) K/uL MPV 9.5 (7.4-10.4) fL Immature Gran % (Auto) 0.2 % Neut % (Auto) 78.2 % Lymph % (Auto) 11.3 % [place] % (Auto) 9.4 % Eos % (Auto) 0.5 % Baso % (Auto) 0.4 % Immature Gran # (Auto) 0.01 (0.00-0.02) K/uL Neut # (Auto) 4.41 (1.4-6.5) K/uL Lymph # (Auto) 0.64 L (1.2-3.4) K/uL [place] # (Auto) 0.53 (0.11-0.59) K/uL Eos # (Auto) 0.03 (0-0.5) K/uL Baso # (Auto) 0.02 (0-0.2) K/uL PT 12.3 H (9.0-12.0) Seconds INR 1.2 H (0.9-1.1) APTT 32.7 H (21.0-31.0) Seconds PTT Ratio 1.2 Sodium 138 (136-145) mmol/L Potassium 4.5 (3.5-5.1) mmol/L Chloride 100 (98-107) mmol/L Carbon Dioxide 36 H (21-32) mmol/L Anion Gap 2.0 L (3-11) BUN 16 (7-18) mg/dl Creatinine 0.95 (0.6-1.4) mg/dl Est Cr Clr Drug Dosing 80.5 ml/min Est GFR ( Amer) 87.9 Est GFR (Non-Af Amer) 75.8 BUN/Creatinine Ratio 16.7 (10-20) Glucose 182 H (70-99) mg/dl POC Lactic Acid Nick (0.90-1.70) mmol/L Calcium 8.1 L (8.5-10.1) mg/dl Phosphorus (2.5-4.9) mg/dl Magnesium 2.1 (1.8-2.4) mg/dl Total Bilirubin 1.2 H (0.2-1) mg/dl AST 22 (15-37) U/L ALT 25 (12-78) U/L Alkaline Phosphatase 128 H (45-117) U/L Troponin I < 0.015 (0-0.045) ng/ml NT-Pro-B Natriuret Pep (0-1800) pg/ml Total Protein 6.2 L (6.4-8.2) gm/dl Albumin 2.7 L (3.4-5.0) gm/dl Globulin 3.5 (2.5-4.0) gm/dl Albumin/Globulin Ratio 0.8 L (0.9-2) Procalcitonin (0-0.5) ng/ml 01/01/19 01/01/19 01/01/19 Range/Units 18:01 18:09 22:50 WBC (4.8-10.8) K/uL RBC (4.7-6.1) M/uL Hgb (14.0-18.0) g/dL Hct (42-52) % MCV (80-100) fL MCH (25-34) pg MCHC (32-36) g/dL RDW Std Deviation (36.4-46.3) fL RDW Coeff of Chuck (11.5-14.5) % Plt Count (130-400) K/uL MPV (7.4-10.4) fL Immature Gran % (Auto) % Neut % (Auto) % Lymph % (Auto) % [place] % (Auto) % Eos % (Auto) % Baso % (Auto) % Immature Gran # (Auto) (0.00-0.02) K/uL Neut # (Auto) (1.4-6.5) K/uL Lymph # (Auto) (1.2-3.4) K/uL [place] # (Auto) (0.11-0.59) K/uL Eos # (Auto) (0-0.5) K/uL Baso # (Auto) (0-0.2) K/uL PT (9.0-12.0) Seconds INR (0.9-1.1) APTT (21.0-31.0) Seconds PTT Ratio Sodium 137 (136-145) mmol/L Potassium 4.3 (3.5-5.1) mmol/L Chloride 100 (98-107) mmol/L Carbon Dioxide 33 H (21-32) mmol/L Anion Gap 4.0 (3-11) BUN 17 (7-18) mg/dl Creatinine 0.95 (0.6-1.4) mg/dl Est Cr Clr Drug Dosing 79.8 ml/min Est GFR ( Amer) 87.9 Est GFR (Non-Af Amer) 75.8 BUN/Creatinine Ratio 17.6 (10-20) Glucose 182 H (70-99) mg/dl POC Lactic Acid Nick 1.12 (0.90-1.70) mmol/L Calcium 8.4 L (8.5-10.1) mg/dl Phosphorus 3.1 (2.5-4.9) mg/dl Magnesium 2.1 (1.8-2.4) mg/dl Total Bilirubin (0.2-1) mg/dl AST (15-37) U/L ALT (12-78) U/L Alkaline Phosphatase (45-117) U/L Troponin I (0-0.045) ng/ml NT-Pro-B Natriuret Pep 2753 H (0-1800) pg/ml Total Protein (6.4-8.2) gm/dl Albumin (3.4-5.0) gm/dl Globulin (2.5-4.0) gm/dl Albumin/Globulin Ratio (0.9-2) Procalcitonin 0.39 (0-0.5) ng/ml Diagnostic Findings XR chest 1V portable CLINICAL HISTORY: 78 years-old Male presenting with Dyspnea. TECHNIQUE: Portable upright AP view of the chest was obtained. COMPARISON: 12/02/2018. FINDINGS: Atherosclerosis of the aortic arch. Cardiac silhouette enlarged. Descending thoracic aortic endograft stent in place. A medical interpreter projects over the left mid lung as on prior exam. Pulmonary vascular prominence. Prominence of the basilio likely also vascular. No focal opacity. No large effusion or pneumothorax. Osseous structures grossly normal. Upper abdomen normal. IMPRESSION: 1. Cardiomegaly with volume overload. No advanced congestive change or sd pulmonary edema. 2. Postprocedural changes of thoracic aortic endograft stent. Electronically signed by: Tera Nixon M.D. 01/01/2019 6:49 PM Dictated: 01/01/191847 Transcribed: 01/01/191847 XR forearm LT 2V CLINICAL HISTORY: 78 years-old Male presenting with swelling. TECHNIQUE: Frontal and lateral views of the left forearm were obtained. COMPARISON: Comparison made to plain radiographs of the left elbow from . FINDINGS: Osteopenia. Allowing for osteopenia, no displaced fracture or malalignment. Sensitivity for nondisplaced fracture is limited in the setting of this degree of osteopenia. Degenerative changes at the elbow. Diffuse soft tissue swelling with subcutaneous edema evident. IMPRESSION: 1. Allowing for osteopenia, no acute osseous injury. 2. Nonspecific diffuse soft tissue swelling. Electronically signed by: Tera Nixon M.D. 01/01/2019 6:47 PM Dictated: 01/01/191845 Transcribed: 01/01/191845 XR hand LT min 3V routine CLINICAL HISTORY: 78 years-old Male presenting with swelling. TECHNIQUE: Frontal, oblique, and lateral views of the left hand were obtained. COMPARISON: Comparison made to plain radiographs of the left wrist from 2018. FINDINGS: Osteopenia. No acute fracture or malalignment. No advanced degenerative change. Diffuse soft tissue swelling. IMPRESSION: 1. Allowing for osteopenia, no acute osseous injury. 2. Nonspecific diffuse soft tissue swelling. Electronically signed by: Tera Nixon M.D. 01/01/2019 6:50 PM Dictated: 01/01/191848 Transcribed: 01/01/191848 US venous doppler UE LT CLINICAL HISTORY: 78 years-old Male presenting with swelling. TECHNIQUE: Real-time grayscale and color and spectral Doppler ultrasound imaging of the veins of the left upper extremity was performed. Compression and augmentation were also utilized. COMPARISON: 01/27/2018. FINDINGS: LEFT: Internal jugular vein: Patent. Subclavian vein: Patent. Axillary vein: Patent. Brachial vein: Patent. Basilic vein (superficial): Patent. Cephalic vein (superficial): Patent. Radial vein: Patent. Ulnar vein: Patent. Other: None. IMPRESSION: No evidence of deep venous thrombosis. Electronically signed by: Tera Nixon M.D. 01/01/2019 7:58 PM Dictated: 01/01/191956 Transcribed: 01/01/191956 Code Status & VTE Plan Code Status Full code VTE Prophylaxis Plan VTE Prophylaxis will be ordered: Yes PG Care Time/CCT Total # of Minutes Spent Total Time Spent with Patient: Total time spent is greater than 50% in coordination of care (as documented) at patient's floor/unit and/or counseling patient: (1) COPD (chronic obstructive pulmonary disease) COPD type: unspecified COPD Qualified Code(s): J44.9 - Chronic obstructive pulmonary disease, unspecified (2) Hyperlipidemia Hyperlipidemia type: unspecified Qualified Code(s): E78.5 - Hyperlipidemia, unspecified (3) Diabetes Diabetes mellitus type: type 2 Diabetes mellitus joint terminal attack controller insulin use: without prison use Diabetes mellitus complication status: without complication Qualified Code(s): E11.9 - Type 2 diabetes mellitus without complications (4) Hypertension Hypertension type: essential hypertension Qualified Code(s): I10 - Essential (primary) hypertension (5) Gout Gout site: unspecified site Gout etiology: unspecified cause Chronicity: unspecified Qualified Code(s): M10.9 - Gout, unspecified (6) CAD (coronary artery disease), [place] coronary artery [place] vs. transplanted heart: [place] heart Associated angina: without angina Qualified Code(s): I25.10 - Atherosclerotic heart disease of [place] coronary artery without angina pectoris (7) Gastroesophageal reflux disease Esophagitis presence: esophagitis presence not specified Qualified Code(s): K21.9 - Gastro-esophageal reflux disease without esophagitis
[2019-01-01] MEDS ORDERED: CARBOHYDRATES FOR HYPOGLYCEMIA PO PRN (22:33)
[2019-01-01] MEDS ORDERED: GLUCOSE 10 TABS/TUBE PO PRN (22:33)
[2019-01-01] MEDS ORDERED: ONDANSETRON INJ 2 MG/ML 2 ML VIAL IV PRN (22:33)
[2019-01-01] MEDS ORDERED: GLUCAGON FOR INJ 1 MG VIAL SQ PRN (22:33)
[2019-01-01] MEDS ORDERED: GLUCOSE 40% GEL 15 GM TUBE PO PRN (22:33)
[2019-01-01] MEDS ORDERED: DEXTROSE 50% 50 ML SYRINGE IV PRN (22:33)
[2019-01-01 23:24] LABS: BUN Creatinine Ratio 17.6 (10-20); Calcium 8.4 mg/dl (8.5-10.1); Creatinine Clr Calc Pharmacy 79.8 ml/min; Est GFR (African American) 87.9; Est GFR (Non-African American) 75.8; Magnesium 2.1 mg/dl (1.8-2.4); Potassium 4.3 mmol/L (3.5-5.1)
[2019-01-01 23:29] LABS: Phosphorus 3.1 mg/dl (2.5-4.9)
[2019-01-01] MEDS: INSULIN GLARGINE SOLOSTAR 100 UNITS/ML 3 ML PEN SC SCH (23:51)
[2019-01-02] MEDS ORDERED: ALBUTEROL 0.5% NEB SOLN 2.5 MG/0.5 ML VIAL NEB PRN (00:13)
[2019-01-02] MEDS: POTASSIUM CHLORIDE 20 MEQ TABCR PO SCH ×3 (00:51→16:42)
[2019-01-02] MEDS: SACUBITRIL-VALSARTAN 49/51 MG TAB PO SCH ×3 (00:51→20:27)
[2019-01-02] MEDS: APIXABAN 5 MG TABLET PO SCH ×3 (00:51→20:26)
[2019-01-02] MEDS: INSULIN ASPART 100 UNITS/ML 3 ML PEN SC SCH ×5 (00:54→20:29)
[2019-01-02] MEDS: BUDESONIDE/FORMOTEROL FUMARATE 160/4.5 60 PUFFS/INHALER INH SCH ×3 (00:55→20:27)
[2019-01-02] MEDS: OXYCODONE HCL IR 5 MG TAB (IMMEDIATE RELEASE) PO PRN ×3 (01:26→16:44)
[2019-01-02 06:09] LABS: Estimated Average Glucose 177 mg/dl; Hemoglobin A1C 7.8 % (4.5-5.6)
[2019-01-02] MEDS: BUMETANIDE 2 MG in SYRINGE 0 ML IV SCH ×2 (09:22→16:42)
[2019-01-02] MEDS: DOXAZosin MESYLATE 4 MG TAB PO SCH (09:23)
[2019-01-02] MEDS: INSULIN GLARGINE SOLOSTAR 100 UNITS/ML 3 ML PEN SC SCH ×2 (09:28→20:28)
[2019-01-02] MEDS: ATORVASTATIN 20 MG TAB PO SCH (09:30)
[2019-01-02] MEDS: PANTOprazole 40 MG TAB PO SCH (09:31)
[2019-01-02] MEDS: METOPROLOL SUCC 50MG EXT REL TAB PO SCH (09:34)
[2019-01-02] MEDS: allopurinoL 100 MG TAB PO SCH (09:35)
[2019-01-02 11:52] LABS: BUN Creatinine Ratio 21.6 (10-20); Creatinine Clr Calc Pharmacy 79.5 ml/min; Est GFR (African American) 87.9; Est GFR (Non-African American) 75.8; Potassium 4.1 mmol/L (3.5-5.1)
--- NOTE | 2019-01-02 13:20 | Hospitalist Progress Note ---
Date of Service January 02, 2019 Assessment & Plan (1) CHF exacerbation: 78yo with PMhx of combination systolic/diastolic CHF, DMII, HTN, HLD, CAD, COPD and atrial fibrillation who presents with upper and lower extremity swelling likely secondary to CHF exacerbation. CHF Exacerbation -Pt with swelling in LUE and RLE, unimproved; currently at baseline in terms of oxygen supplementation for dyspnea. -Echo 2018: decreased EF 30s-40s, diastolic component noted as well. -Currently receiving Bumex 2mg IV BID; extra dose given this AM -UOP minimal. small improvement with weight -can consider increasing Bumex dose on a scheduled basis for edema. -continue home Entresto and metoprolol -continue strict Is and Os and daily weights. Chronic respiratory failure -continue home O2 CHRONIC Problems Shoulder pain: continue PRN oxycodone. COPD: does not appear to be in exacerbation; continue home meds HLD: continue home meds Diabetes: ISS while hospitalized. HgbA1c of 7.8 noted; continue to hold home oral meds. Atrial fibrillation: currenlty rate controlled; continue home meds (Eliquis and metoprolol) HTN: continue home meds Gout: continue home meds CAD: continue home meds GERD: continue home meds FEN/GI: Diabetic diet/low sodium CODE STATUS: Full DVT prophylaxis: On Eliquis Dispo: discharge pending improvement in edema. Supervising Physician Co-Signing Physician Notes Resident Physician Supervision Note: I independently interviewed and examined the patient and verified the daigle history and physical, reviewed labs and image studies, discussed the case with the resident Dr. Valdez and agree with the findings and care plan. Subjective Pt seen this AM. States he is at his baseline in terms of SOB. However he is concerned that he is still swollen. Also complaining of some shoulder pain this AM. Denies any headache, changes to vision, cough, runny nose, fevers, chills or night sweats, chest pain or palpitations, diarrhea or constipation, or numbness and tingling in his extremities. Review of Systems Review of Systems: All systems reviewed & are unremarkable except as noted in HPI & below Physical Exam Physical Exam: General: Alert, oriented. No acute distress Skin: No noted rashes or bruises, no erythema of left UE or RLE Psych: Appropriate mood and affect Neuro: No gross deficits HEENT: NC/AT. Chest: Nontender to palpation. CV: Irregularly irregular rate Resp: Breath sounds decreased bilaterally, no increased effort of breathing. No crackles/rhonchi/rales noted. Abdomen: Soft, mildly tender near umbilicus, distended. No guarding. No organomegaly appreciated. Extremities: Trace edema in lower extremities bilaterally. Swollen left upper extremity. Results & Data Vital Signs (Past 12 Hours) Vital Signs Temp Pulse Resp BP Pulse Ox 01/02/19 11:21 37.6 C H 87 24 114/71 95 01/02/19 07:40 36.3 C L 103 H 24 114/84 97 01/02/19 04:07 36.7 C 110 H 24 113/72 92 Laboratory Results Laboratory Results - last 24 hr 01/01/19 01/01/19 01/01/19 18:01 18:01 18:01 WBC 5.64 RBC 3.48 L Hgb 11.4 L Hct 35.7 L MCV 102.6 H MCH 32.8 MCHC 31.9 L RDW Std Deviation 50.7 H RDW Coeff of Chuck 13.6 Plt Count 172 MPV 9.5 Immature Gran % (Auto) 0.2 Neut % (Auto) 78.2 Lymph % (Auto) 11.3 Miller % (Auto) 9.4 Eos % (Auto) 0.5 Baso % (Auto) 0.4 Immature Gran # (Auto) 0.01 Neut # (Auto) 4.41 Lymph # (Auto) 0.64 L Miller # (Auto) 0.53 Eos # (Auto) 0.03 Baso # (Auto) 0.02 PT 12.3 H INR 1.2 H APTT 32.7 H PTT Ratio 1.2 Sodium 138 Potassium 4.5 Chloride 100 Carbon Dioxide 36 H Anion Gap 2.0 L BUN 16 Creatinine 0.95 Est Cr Clr Drug Dosing 80.5 Est GFR ( Amer) 87.9 Est GFR (Non-Af Amer) 75.8 BUN/Creatinine Ratio 16.7 Glucose 182 H POC Glucose Estimat Average Glucose Hemoglobin A1c POC Lactic Acid Nick Calcium 8.1 L Phosphorus Magnesium 2.1 Total Bilirubin 1.2 H AST 22 ALT 25 Alkaline Phosphatase 128 H Troponin I < 0.015 NT-Pro-B Natriuret Pep Total Protein 6.2 L Albumin 2.7 L Globulin 3.5 Albumin/Globulin Ratio 0.8 L Procalcitonin 01/01/19 01/01/19 01/01/19 18:01 18:01 18:09 WBC RBC Hgb Hct MCV MCH MCHC RDW Std Deviation RDW Coeff of Chuck Plt Count MPV Immature Gran % (Auto) Neut % (Auto) Lymph % (Auto) Miller % (Auto) Eos % (Auto) Baso % (Auto) Immature Gran # (Auto) Neut # (Auto) Lymph # (Auto) Miller # (Auto) Eos # (Auto) Baso # (Auto) PT INR APTT PTT Ratio Sodium Potassium Chloride Carbon Dioxide Anion Gap BUN Creatinine Est Cr Clr Drug Dosing Est GFR ( Amer) Est GFR (Non-Af Amer) BUN/Creatinine Ratio Glucose POC Glucose Estimat Average Glucose 177 Hemoglobin A1c 7.8 H POC Lactic Acid Nick 1.12 Calcium Phosphorus Magnesium Total Bilirubin AST ALT Alkaline Phosphatase Troponin I NT-Pro-B Natriuret Pep Total Protein Albumin Globulin Albumin/Globulin Ratio Procalcitonin 0.39 01/01/19 01/02/19 01/02/19 22:50 07:08 10:54 WBC RBC Hgb Hct MCV MCH MCHC RDW Std Deviation RDW Coeff of Chuck Plt Count MPV Immature Gran % (Auto) Neut % (Auto) Lymph % (Auto) Miller % (Auto) Eos % (Auto) Baso % (Auto) Immature Gran # (Auto) Neut # (Auto) Lymph # (Auto) Miller # (Auto) Eos # (Auto) Baso # (Auto) PT INR APTT PTT Ratio Sodium 137 137 Potassium 4.3 4.1 Chloride 100 99 Carbon Dioxide 33 H 33 H Anion Gap 4.0 5.0 BUN 17 21 H Creatinine 0.95 0.95 Est Cr Clr Drug Dosing 79.8 79.5 Est GFR ( Amer) 87.9 87.9 Est GFR (Non-Af Amer) 75.8 75.8 BUN/Creatinine Ratio 17.6 21.6 H Glucose 182 H 166 H POC Glucose 136 H Estimat Average Glucose Hemoglobin A1c POC Lactic Acid Nick Calcium 8.4 L 8.0 L Phosphorus 3.1 Magnesium 2.1 2.0 Total Bilirubin AST ALT Alkaline Phosphatase Troponin I NT-Pro-B Natriuret Pep 2753 H Total Protein Albumin Globulin Albumin/Globulin Ratio Procalcitonin 11/19/19 11:34 WBC RBC Hgb Hct MCV MCH MCHC RDW Std Deviation RDW Coeff of Chuck Plt Count MPV Immature Gran % (Auto) Neut % (Auto) Lymph % (Auto) Miller % (Auto) Eos % (Auto) Baso % (Auto) Immature Gran # (Auto) Neut # (Auto) Lymph # (Auto) Miller # (Auto) Eos # (Auto) Baso # (Auto) PT INR APTT PTT Ratio Sodium Potassium Chloride Carbon Dioxide Anion Gap BUN Creatinine Est Cr Clr Drug Dosing Est GFR ( Amer) Est GFR (Non-Af Amer) BUN/Creatinine Ratio Glucose POC Glucose 161 H Estimat Average Glucose Hemoglobin A1c POC Lactic Acid Nick Calcium Phosphorus Magnesium Total Bilirubin AST ALT Alkaline Phosphatase Troponin I NT-Pro-B Natriuret Pep Total Protein Albumin Globulin Albumin/Globulin Ratio Procalcitonin Medications Administered Home Medications Eliquis 5 mg PO BID 01/16/18 [History Confirmed 01/01/19] atorvastatin 20 mg PO DAILY 01/16/18 [History Confirmed 01/01/19] multivitamin 1 tab PO DAILY 01/16/18 [History Confirmed 01/01/19] doxazosin 4 mg tablet 4 mg PO DAILY #90 tab 07/21/18 [Rx Confirmed 01/01/19] bumetanide 1 mg tablet 1 mg PO BID #180 tab 08/22/18 [History Confirmed 01/01/19] sacubitril 97 mg-valsartan 103 mg tablet 1 tab PO BID #180 tab 08/22/18 [History Confirmed 01/01/19] budesonide-formoterol HFA 160 mcg-4.5 mcg/actuation aerosol inhaler 2 puff INHALATION BID #10.2 gm 11/15/18 [Rx Confirmed 01/01/19] potassium chloride 20 mEq tablet,extended release(part/cryst) 20 meq PO QPM tab 11/23/18 [History Confirmed 01/01/19] acetaminophen 500 mg tablet 1,000 mg PO TID PRN tab 11/27/18 [History Confirmed 01/01/19] pantoprazole 40 mg tablet,delayed release 40 mg PO DAILY #14 tab 11/27/18 [Rx Confirmed 01/01/19] turmeric root extract 500 mg capsule 500 mg PO BID cap 12/19/18 [History Confirmed 01/01/19] glimepiride 4 mg tablet 4 mg PO QAM #90 tab 12/22/18 [Rx Confirmed 01/01/19] allopurinol 200 mg PO DAILY 01/01/19 [History Confirmed 01/01/19] colchicine 0.6 mg PO HS PRN 01/01/19 [History Confirmed 01/01/19] metoprolol succinate 200 mg PO DAILY 01/01/19 [History Confirmed 01/01/19] potassium chloride 40 meq PO QAM 01/01/19 [History Confirmed 01/01/19] Active Medications Acetaminophen (Tylenol) 1,000 mg PO TID PRN PRN Reason: Pain Stop: 01/31/19 22:32 Albuterol (Ventolin 0.5% 2.5mg/0.5ml) 2.5 mg NEB Q2H PRN PRN Reason: SOB/Wheeze Stop: 02/01/19 00:12 Allopurinol (Zyloprim) 200 mg PO DAILY [facility] Stop: 02/01/19 08:59 Last Admin: 01/02/19 09:35 Dose: 200 mg Documented by: Apixaban (Eliquis) 5 mg PO BID [facility] Stop: 01/31/19 22:32 Last Admin: 01/02/19 09:24 Dose: 5 mg Documented by: Atorvastatin Calcium (Lipitor) 20 mg PO DAILY [facility] Stop: 02/01/19 08:59 Last Admin: 01/02/19 09:30 Dose: 20 mg Documented by: Budesonide/Formoterol Fumarate (Symbicort 160mcg/4.5mcg) 2 puffs INH BID [facility] Stop: 01/31/19 22:32 Last Admin: 01/02/19 09:32 Dose: 2 puffs Documented by: Dextrose (Dextrose 50%) 25 - 50 ml IV UD PRN; Protocol PRN Reason: Hypoglycemia Protocol Stop: 01/31/19 22:32 Doxazosin Mesylate (Cardura) 4 mg PO DAILY [facility] Stop: 02/01/19 08:59 Last Admin: 01/02/19 09:23 Dose: 4 mg Documented by: Glucagon (Glucagen) 1 mg SQ UD PRN; Protocol PRN Reason: Hypoglycemia Protocol Stop: 01/31/19 22:32 Glucose (Dex4 Glucose) 4 - 8 tabs PO UD PRN; Protocol PRN Reason: Hypoglycemia Protocol Stop: 01/31/19 22:32 Glucose (Glucose 40%) 15 - 30 gm PO UD PRN; Protocol PRN Reason: Hypoglycemia Protocol Stop: 01/31/19 22:32 Bumetanide 2 mg/ Syringe 8 mls @ 4 mls/min IV DAILY@0900,1700 [facility] Stop: 02/01/19 08:59 Last Admin: 01/02/19 09:22 Dose: 4 mls/min Documented by: Insulin Aspart (Novolog Flexpen) 0 units SC ACHS [facility] Stop: 01/31/19 22:32 Last Admin: 01/02/19 12:22 Dose: 4 units Documented by: Insulin Glargine (Lantus Solostar Pen) 8 units SC BID [facility] Stop: 01/31/19 22:32 Last Admin: 01/02/19 09:28 Dose: 8 units Documented by: Metoprolol Succinate (Toprol Xl) 200 mg PO DAILY [facility] Stop: 02/01/19 08:59 Last Admin: 01/02/19 09:34 Dose: 200 mg Documented by: Miscellaneous (Carbohydrates For Hypoglycemia) 15 - 30 gm PO UD PRN PRN Reason: Hypoglycemia Protocol Stop: 01/31/19 22:32 Ondansetron HCl (Zofran) 4 mg IV Q6H PRN PRN Reason: Nausea Stop: 01/31/19 22:32 Oxycodone HCl (Roxicodone Immediate Rel) 5 mg PO Q6H PRN PRN Reason: Pain Stop: 01/15/19 23:36 Last Admin: 01/02/19 09:40 Dose: 5 mg Documented by: Pantoprazole Sodium (Protonix) 40 mg PO DAILY [facility] Stop: 02/01/19 08:59 Last Admin: 01/02/19 09:31 Dose: 40 mg Documented by: Potassium Chloride (Klor-Con M20) 20 meq PO 1700 [facility] Stop: 01/31/19 22:32 Last Admin: 01/02/19 00:51 Dose: Not Given Documented by: Potassium Chloride (Klor-Con M20) 40 meq PO QAM [facility] Stop: 02/01/19 08:59 Last Admin: 01/02/19 09:27 Dose: 40 meq Documented by: Sacubitril/Valsartan (Entresto 49/51mg) 2 tab PO BID [facility] Stop: 01/31/19 22:32 Last Admin: 01/02/19 09:25 Dose: 2 tab Documented by: Resident Activity Tracking Resident Involvement: Resident Care Provided Care Provided: Adult Hospital Medicine (1) CHF exacerbation Heart failure type: unspecified Qualified Code(s): I50.9 - Heart failure, unspecified
[2019-01-02] MEDS ORDERED: BUMETANIDE 2 MG in SYRINGE 0 ML IV ONE ×2 (13:30→19:00)
[2019-01-02 15:13] LABS: Appearance Urine Clear (Clear); Bacteria Urine Automated Negative (Negative); Bilirubin Urine Negative (Negative); Blood Urine Negative (Negative); Color Urine Dark Yellow; Epithelial Cell Urine Auto 20-30 /lpf (0-5); Glucose Urine UA Negative (Negative); Ketones Urine Negative (Negative); Leukocyte Esterase Urine Trace (Negative); Nitrite Urine Negative (Negative); Protein Urine 1+ (Negative); RBC Urine Automated 0-4 /hpf (0-4); Specific Gravity Urine 1.016 (1.000-1.030); Urobilinogen Urine Negative (Negative); pH Urine 5.5 (4.5-7.5)
[2019-01-02 22:52] LABS: BUN Creatinine Ratio 16.4 (10-20); Calcium 8.1 mg/dl (8.5-10.1); Creatinine Clr Calc Pharmacy 42.2 ml/min; Est GFR (African American) 40.9; Est GFR (Non-African American) 35.3; Magnesium 1.9 mg/dl (1.8-2.4); Potassium 4.7 mmol/L (3.5-5.1)
[2019-01-03 06:28] LABS: Basophils # (auto) 0.01 K/uL (0-0.2); Basophils % (auto) 0.2 %; Hematocrit (blood only) 34.7 % (42-52); Hemoglobin 11.2 g/dL (14.0-18.0); Immature Granulocytes # (auto) 0.01 K/uL (0.00-0.02); Immature Granulocytes % (auto) 0.2 %; Lymphocytes # (auto) 0.55 K/uL (1.2-3.4); Lymphocytes % (auto) 8.3 %; Mean Corpuscular Hemoglobin 32.7 pg (25-34); Mean Corpuscular Hgb Conc 32.3 g/dL (32-36); Mean Corpuscular Volume 101.2 fL (80-100); Mean Platelet Volume 9.4 fL (7.4-10.4); Monocytes # (auto) 0.68 K/uL (0.11-0.59); Monocytes % (auto) 10.3 %; Neutrophils # (auto) 5.35 K/uL (1.4-6.5); Platelet Count 192 K/uL (130-400); RDW Coefficient of Variation 13.6 % (11.5-14.5); RDW Standard Deviation 50.7 fL (36.4-46.3); Red Blood Count 3.43 M/uL (4.7-6.1)
[2019-01-03] MEDS: OXYCODONE HCL IR 5 MG TAB (IMMEDIATE RELEASE) PO PRN (07:30)
[2019-01-03] MEDS ORDERED: BUMETANIDE 4 MG in SYRINGE 0 ML IV SCH (09:00)
[2019-01-03] MEDS: INSULIN ASPART 100 UNITS/ML 3 ML PEN SC SCH ×4 (09:10→20:26)
[2019-01-03] MEDS: BUMETANIDE 2 MG in SYRINGE 0 ML IV SCH (09:15)
[2019-01-03] MEDS: INSULIN GLARGINE SOLOSTAR 100 UNITS/ML 3 ML PEN SC SCH ×2 (09:27→20:26)
[2019-01-03] MEDS: allopurinoL 100 MG TAB PO SCH (09:32)
[2019-01-03] MEDS: ATORVASTATIN 20 MG TAB PO SCH (09:33)
[2019-01-03] MEDS: PANTOprazole 40 MG TAB PO SCH (09:33)
[2019-01-03] MEDS: SACUBITRIL-VALSARTAN 49/51 MG TAB PO SCH ×2 (09:33→20:24)
[2019-01-03] MEDS: APIXABAN 5 MG TABLET PO SCH ×2 (09:34→20:24)
[2019-01-03] MEDS: BUDESONIDE/FORMOTEROL FUMARATE 160/4.5 60 PUFFS/INHALER INH SCH ×2 (09:34→20:21)
[2019-01-03] MEDS: POTASSIUM CHLORIDE 20 MEQ TABCR PO SCH ×2 (09:41→16:05)
[2019-01-03] MEDS: METOPROLOL SUCC 50MG EXT REL TAB PO SCH (09:51)
[2019-01-03] MEDS: DOXAZosin MESYLATE 4 MG TAB PO SCH (09:51)
[2019-01-03 10:44] LABS: BUN Creatinine Ratio 21.4 (10-20); Calcium 8.2 mg/dl (8.5-10.1); Creatinine Clr Calc Pharmacy 49.9 ml/min; Est GFR (African American) 49.8; Magnesium 2.1 mg/dl (1.8-2.4); Potassium 4.3 mmol/L (3.5-5.1)
--- NOTE | 2019-01-03 11:00 | Hospitalist Progress Note ---
Date of Service January 03, 2019 Assessment & Plan (1) CHF exacerbation: 78yo with PMhx of combination systolic/diastolic CHF, DMII, HTN, HLD, CAD, COPD and atrial fibrillation who presents with upper and lower extremity swelling likely secondary to CHF exacerbation. CHF Exacerbation HFrEF -Pt with swelling in LUE and RLE, unimproved; currently at baseline in terms of oxygen supplementation for dyspnea. -Echo 2018: decreased EF 30s-40s, diastolic component noted as well. -Currently receiving Bumex 2mg IV BID; will hold given recent increase in Cr. CARDS consult placed. Can consider nephrology consult as well for volume overload not responding to diuretics. -UOP minimal. small improvement with weight -continue home Entresto and metoprolol -continue strict Is and Os and daily weights. -cardiology consult placed; appreciate recs Chronic respiratory failure -continue home O2 Atrial fibrillation: currenlty rate controlled; continue home meds (Eliquis and metoprolol) COPD: does not appear to be in exacerbation; continue home meds HLD: continue home meds Diabetes: ISS while hospitalized. HgbA1c of 7.8 noted; continue to hold home oral meds. HTN: continue home meds Gout: continue home meds CAD: continue home meds GERD: continue home meds Shoulder pain: continue PRN oxycodone. FEN/GI: Diabetic diet/low sodium CODE STATUS: Full DVT prophylaxis: On Eliquis Dispo: discharge pending improvement in edema. Supervising Physician Co-Signing Physician Notes Resident Physician Supervision Note: I independently interviewed and examined the patient and verified the daigle history and physical, reviewed labs and image studies, discussed the case with the resident Dr. Valdez and agree with the findings and care plan. Subjective Mr. Petersen was seen this AM. Endorses malaise, no specific complaints. States his swelling is improving. Denies SOB. No associated chest pain or palpitations. Denies any headache, changes to vision, cough, runny nose, sore throat, dizziness, weakness, chest pain, SOB, palpitations, abdominal pain, diarrhea or constipation, swelling in hands or feet or numbness or tingling anywhere. Review of Systems Review of Systems: All systems reviewed & are unremarkable except as noted in HPI & below Physical Exam Physical Exam: General: Alert, oriented. No acute distress Skin: No noted rashes or bruises Psych: Appropriate mood and affect Neuro: No gross deficits HEENT: NC/AT Chest: Nontender to palpation. CV: Irregularly irregular rate and rhythm. No murmurs appreciated Resp: Breath sounds on front decreased but clear bilaterally, no increased effort of breathing. No crackles/rhonchi/rales. Abdomen: Soft, mildly tender, distended. No guarding. No organomegaly appreciated. Extremities: Trace edema in lower extremities bilaterally. Results & Data Vital Signs (Past 12 Hours) Vital Signs Temp Pulse Resp BP Pulse Ox 01/03/19 07:26 36.7 C 80 20 94/57 L 95 01/03/19 02:49 36.7 C 108 H 18 107/70 93 01/02/19 23:10 36.8 C 113 H 18 113/73 95 Laboratory Results Laboratory Results - last 24 hr 01/02/19 01/02/19 01/02/19 10:54 11:34 13:55 WBC RBC Hgb Hct MCV MCH MCHC RDW Std Deviation RDW Coeff of Chuck Plt Count MPV Immature Gran % (Auto) Neut % (Auto) Lymph % (Auto) Gilliam % (Auto) Eos % (Auto) Baso % (Auto) Immature Gran # (Auto) Neut # (Auto) Lymph # (Auto) Gilliam # (Auto) Eos # (Auto) Baso # (Auto) Sodium 137 Potassium 4.1 Chloride 99 Carbon Dioxide 33 H Anion Gap 5.0 BUN 21 H Creatinine 0.95 Est Cr Clr Drug Dosing 79.5 Est GFR ( Amer) 87.9 Est GFR (Non-Af Amer) 75.8 BUN/Creatinine Ratio 21.6 H Glucose 166 H POC Glucose 161 H Calcium 8.0 L Magnesium 2.0 Urine Color Dark Yellow Urine Appearance Clear Urine pH 5.5 Ur Specific Ciales 1.016 Urine Protein 1+ H Urine Glucose (UA) Negative Urine Ketones Negative Urine Blood Negative Urine Nitrite Negative Urine Bilirubin Negative Urine Urobilinogen Negative Ur Leukocyte Esterase Trace H Urine WBC (Auto) 1-5 Urine RBC (Auto) 0-4 U Hyaline Cast (Auto) 1-5 U Epithel Cells (Auto) 20-30 H Urine Bacteria (Auto) Negative 01/02/19 01/02/19 01/02/19 16:36 20:25 22:27 WBC RBC Hgb Hct MCV MCH MCHC RDW Std Deviation RDW Coeff of Chuck Plt Count MPV Immature Gran % (Auto) Neut % (Auto) Lymph % (Auto) Gilliam % (Auto) Eos % (Auto) Baso % (Auto) Immature Gran # (Auto) Neut # (Auto) Lymph # (Auto) Gilliam # (Auto) Eos # (Auto) Baso # (Auto) Sodium 135 L Potassium 4.7 Chloride 99 Carbon Dioxide 30 Anion Gap 6.0 BUN 29 H Creatinine 1.79 H D Est Cr Clr Drug Dosing 42.2 Est GFR ( Amer) 40.9 Est GFR (Non-Af Amer) 35.3 BUN/Creatinine Ratio 16.4 Glucose 142 H POC Glucose 164 H 156 H Calcium 8.1 L Magnesium 1.9 Urine Color Urine Appearance Urine pH Ur Specific Ciales Urine Protein Urine Glucose (UA) Urine Ketones Urine Blood Urine Nitrite Urine Bilirubin Urine Urobilinogen Ur Leukocyte Esterase Urine WBC (Auto) Urine RBC (Auto) U Hyaline Cast (Auto) U Epithel Cells (Auto) Urine Bacteria (Auto) 01/03/19 01/03/19 01/03/19 05:47 05:48 07:33 WBC 6.60 RBC 3.43 L Hgb 11.2 L Hct 34.7 L MCV 101.2 H MCH 32.7 MCHC 32.3 RDW Std Deviation 50.7 H RDW Coeff of Chuck 13.6 Plt Count 192 MPV 9.4 Immature Gran % (Auto) 0.2 Neut % (Auto) 81.0 Lymph % (Auto) 8.3 Gilliam % (Auto) 10.3 Eos % (Auto) 0.0 Baso % (Auto) 0.2 Immature Gran # (Auto) 0.01 Neut # (Auto) 5.35 Lymph # (Auto) 0.55 L Gilliam # (Auto) 0.68 H Eos # (Auto) 0.00 Baso # (Auto) 0.01 Sodium 137 Potassium 4.3 Chloride 100 Carbon Dioxide 29 Anion Gap 9.0 BUN 33 H Creatinine 1.52 H Est Cr Clr Drug Dosing 49.9 Est GFR ( Amer) 49.8 Est GFR (Non-Af Amer) 43.0 BUN/Creatinine Ratio 21.4 H Glucose 153 H POC Glucose 184 H Calcium 8.2 L Magnesium 2.1 Urine Color Urine Appearance Urine pH Ur Specific Ciales Urine Protein Urine Glucose (UA) Urine Ketones Urine Blood Urine Nitrite Urine Bilirubin Urine Urobilinogen Ur Leukocyte Esterase Urine WBC (Auto) Urine RBC (Auto) U Hyaline Cast (Auto) U Epithel Cells (Auto) Urine Bacteria (Auto) Medications Administered Home Medications Eliquis 5 mg PO BID 01/16/18 [History Confirmed 01/01/19] atorvastatin 20 mg PO DAILY 01/16/18 [History Confirmed 01/01/19] multivitamin 1 tab PO DAILY 01/16/18 [History Confirmed 01/01/19] doxazosin 4 mg tablet 4 mg PO DAILY #90 tab 07/21/18 [Rx Confirmed 01/01/19] bumetanide 1 mg tablet 1 mg PO BID #180 tab 08/22/18 [History Confirmed 01/01/19] sacubitril 97 mg-valsartan 103 mg tablet 1 tab PO BID #180 tab 08/22/18 [History Confirmed 01/01/19] budesonide-formoterol HFA 160 mcg-4.5 mcg/actuation aerosol inhaler 2 puff INHALATION BID #10.2 gm 11/15/18 [Rx Confirmed 01/01/19] potassium chloride 20 mEq tablet,extended release(part/cryst) 20 meq PO QPM tab 11/23/18 [History Confirmed 01/01/19] acetaminophen 500 mg tablet 1,000 mg PO TID PRN tab 11/27/18 [History Confirmed 01/01/19] pantoprazole 40 mg tablet,delayed release 40 mg PO DAILY #14 tab 11/27/18 [Rx Confirmed 01/01/19] turmeric root extract 500 mg capsule 500 mg PO BID cap 12/19/18 [History Confirmed 01/01/19] glimepiride 4 mg tablet 4 mg PO QAM #90 tab 12/22/18 [Rx Confirmed 01/01/19] allopurinol 200 mg PO DAILY 01/01/19 [History Confirmed 01/01/19] colchicine 0.6 mg PO HS PRN 01/01/19 [History Confirmed 01/01/19] metoprolol succinate 200 mg PO DAILY 01/01/19 [History Confirmed 01/01/19] potassium chloride 40 meq PO QAM 01/01/19 [History Confirmed 01/01/19] Active Medications Acetaminophen (Tylenol) 1,000 mg PO TID PRN PRN Reason: Pain Stop: 01/31/19 22:32 Albuterol (Ventolin 0.5% 2.5mg/0.5ml) 2.5 mg NEB Q2H PRN PRN Reason: SOB/Wheeze Stop: 02/01/19 00:12 Allopurinol (Zyloprim) 200 mg PO DAILY [facility] Stop: 02/01/19 08:59 Last Admin: 01/03/19 09:32 Dose: 200 mg Documented by: Apixaban (Eliquis) 5 mg PO BID [facility] Stop: 01/31/19 22:32 Last Admin: 01/03/19 09:34 Dose: 5 mg Documented by: Atorvastatin Calcium (Lipitor) 20 mg PO DAILY [facility] Stop: 02/01/19 08:59 Last Admin: 01/03/19 09:33 Dose: 20 mg Documented by: Budesonide/Formoterol Fumarate (Symbicort 160mcg/4.5mcg) 2 puffs INH BID [facility] Stop: 01/31/19 22:32 Last Admin: 01/03/19 09:34 Dose: 2 puffs Documented by: Dextrose (Dextrose 50%) 25 - 50 ml IV UD PRN; Protocol PRN Reason: Hypoglycemia Protocol Stop: 01/31/19 22:32 Doxazosin Mesylate (Cardura) 4 mg PO DAILY [facility] Stop: 02/01/19 08:59 Last Admin: 01/03/19 09:51 Dose: 4 mg Documented by: Glucagon (Glucagen) 1 mg SQ UD PRN; Protocol PRN Reason: Hypoglycemia Protocol Stop: 01/31/19 22:32 Glucose (Dex4 Glucose) 4 - 8 tabs PO UD PRN; Protocol PRN Reason: Hypoglycemia Protocol Stop: 01/31/19 22:32 Glucose (Glucose 40%) 15 - 30 gm PO UD PRN; Protocol PRN Reason: Hypoglycemia Protocol Stop: 01/31/19 22:32 Bumetanide 2 mg/ Syringe 8 mls @ 4 mls/min IV DAILY@0900,1700 [facility] Stop: 02/02/19 08:59 Last Admin: 01/03/19 09:15 Dose: 4 mls/min Documented by: Insulin Aspart (Novolog Flexpen) 0 units SC ACHS [facility] Stop: 01/31/19 22:32 Last Admin: 01/03/19 09:10 Dose: 2 units Documented by: Insulin Glargine (Lantus Solostar Pen) 8 units SC BID [facility] Stop: 01/31/19 22:32 Last Admin: 01/03/19 09:27 Dose: 8 units Documented by: Metoprolol Succinate (Toprol Xl) 200 mg PO DAILY [facility] Stop: 02/01/19 08:59 Last Admin: 01/03/19 09:51 Dose: 200 mg Documented by: Miscellaneous (Carbohydrates For Hypoglycemia) 15 - 30 gm PO UD PRN PRN Reason: Hypoglycemia Protocol Stop: 01/31/19 22:32 Ondansetron HCl (Zofran) 4 mg IV Q6H PRN PRN Reason: Nausea Stop: 01/31/19 22:32 Oxycodone HCl (Roxicodone Immediate Rel) 5 mg PO Q6H PRN PRN Reason: Pain Stop: 01/15/19 23:36 Last Admin: 01/03/19 07:30 Dose: 5 mg Documented by: Pantoprazole Sodium (Protonix) 40 mg PO DAILY [facility] Stop: 02/01/19 08:59 Last Admin: 01/03/19 09:33 Dose: 40 mg Documented by: Potassium Chloride (Klor-Con M20) 20 meq PO 1700 [facility] Stop: 01/31/19 22:32 Last Admin: 01/02/19 16:42 Dose: 20 meq Documented by: Potassium Chloride (Klor-Con M20) 40 meq PO QAM [facility] Stop: 02/01/19 08:59 Last Admin: 01/03/19 09:41 Dose: 40 meq Documented by: Sacubitril/Valsartan (Entresto 49/51mg) 2 tab PO BID [facility] Stop: 01/31/19 22:32 Last Admin: 01/03/19 09:33 Dose: 2 tab Documented by: Resident Activity Tracking Resident Involvement: Resident Care Provided Care Provided: Adult Hospital Medicine (1) CHF exacerbation Heart failure type: unspecified Qualified Code(s): I50.9 - Heart failure, unspecified
[2019-01-04] MEDS: ACETAMINOPHEN 500 MG TAB PO PRN ×2 (00:18→08:15)
[2019-01-04 06:12] LABS: Basophils # (auto) 0.01 K/uL (0-0.2); Basophils % (auto) 0.1 %; Hematocrit (blood only) 32.6 % (42-52); Hemoglobin 10.8 g/dL (14.0-18.0); Lymphocytes # (auto) 0.43 K/uL (1.2-3.4); Lymphocytes % (auto) 5.3 %; Mean Corpuscular Hgb Conc 33.1 g/dL (32-36); Mean Corpuscular Volume 99.7 fL (80-100); Mean Platelet Volume 9.6 fL (7.4-10.4); Monocytes # (auto) 0.96 K/uL (0.11-0.59); Monocytes % (auto) 11.9 %; Neutrophils # (auto) 6.67 K/uL (1.4-6.5); Neutrophils % (auto) 82.7 %; Platelet Count 207 K/uL (130-400); RDW Coefficient of Variation 13.5 % (11.5-14.5); RDW Standard Deviation 49.4 fL (36.4-46.3); Red Blood Count 3.27 M/uL (4.7-6.1); White Blood Count 8.07 K/uL (4.8-10.8)
[2019-01-04] MEDS: SACUBITRIL-VALSARTAN 49/51 MG TAB PO SCH ×2 (08:16→20:33)
[2019-01-04] MEDS: APIXABAN 5 MG TABLET PO SCH ×2 (08:16→20:33)
[2019-01-04] MEDS: DOXAZosin MESYLATE 4 MG TAB PO SCH (08:16)
[2019-01-04] MEDS: ATORVASTATIN 20 MG TAB PO SCH (08:18)
[2019-01-04] MEDS: POTASSIUM CHLORIDE 20 MEQ TABCR PO SCH ×2 (08:18→17:42)
[2019-01-04] MEDS: PANTOprazole 40 MG TAB PO SCH (08:18)
[2019-01-04] MEDS: METOPROLOL SUCC 50MG EXT REL TAB PO SCH (08:19)
[2019-01-04] MEDS: BUDESONIDE/FORMOTEROL FUMARATE 160/4.5 60 PUFFS/INHALER INH SCH ×2 (08:19→20:34)
[2019-01-04] MEDS: allopurinoL 100 MG TAB PO SCH (08:20)
[2019-01-04] MEDS: INSULIN ASPART 100 UNITS/ML 3 ML PEN SC SCH ×4 (08:28→20:36)
[2019-01-04] MEDS: INSULIN GLARGINE SOLOSTAR 100 UNITS/ML 3 ML PEN SC SCH ×2 (08:30→20:35)
[2019-01-04 12:10] LABS: BUN Creatinine Ratio 29.7 (10-20); Calcium 8.4 mg/dl (8.5-10.1); Creatinine Clr Calc Pharmacy 48.9 ml/min; Est GFR (African American) 48.2; Est GFR (Non-African American) 41.6; Potassium 4.5 mmol/L (3.5-5.1)
--- NOTE | 2019-01-04 16:05 | Cardiology Consultation ---
Date of Consultation January 04, 2019 Assessment & Plan (1) Left upper extremity swelling: He has quite severe upper extremity swelling, this is probably a combination of elevated venous pressure and low albumin. It is interesting that it is confined to his arms and not his legs, I am not sure we have excluded superior vena cava syndrome. We should look into that and make sure that we have either excluded it or look for it. In the meantime we need diuresis. (2) CHF exacerbation: He is clearly fluid overloaded, and I think we need diuresis. (3) Permanent atrial fibrillation: He is in atrial fibrillation, the rate is reasonably well controlled and I would continue anticoagulation. (4) Chronic anticoagulation: He is currently on Eliquis and it appears to be the proper dose. I would continue it. History of Present Illness Reason for Consultation: Bilateral arm edema, atrial fibrillation Attending Physician: Claudia Cavazos MD History of Present Illness This is a 78-year-old male who has a history of atrial fibrillation identified somewhere around October 2010 although it may be older than that. We performed cardioversion December 31, 2010, he appears to have been in sinus rhythm for some time but by March 20, 2012 was back in atrial fibrillation and having symptoms. We therefore converted him again on March 22, 2012. He was having difficulty with exercise around that time but remained in sinus rhythm however by May 22, 2014 he was back in atrial fibrillation. He then prevented with syncope, evidently having a number of episodes in August 2015. The episodes were unusual, echocardiography showed normal left ventricular size and function although the right ventricle was dilated and there appeared to be right ventricular pressure overload. Holter monitoring demonstrated a reasonable heart rate response in atrial fibrillation. He had a lot of ventricular ectopy and some nonsustained ventricular tachycardia. We therefore implanted a loop recorder on November 13, 2015. He has had difficulty with congestive heart failure since, he has had a number of echocardiograms with the one from January 19, 2018 showing an ejection fraction of 35 to 40%, catheterization January 24, 2018 showed minimal nonobstructive disease. He was started on medications and his ejection fraction improved and by May 11, 2018 his ejection fraction was 55 to 60% with normal function and no wall motion abnormalities. The right atrium remains severely dilated and the right ventricle remains moderately dilated. He presents now with shortness of breath and complaints of left arm swelling. Evidently this started 2 days prior to presentation, he has been taking Eliquis regularly. He did have an ultrasound of his arm done on January 01, 2019 which showed the vessel to be patent with no evidence of thrombus. A chest x-ray done this admission is suggestive of fluid overload. His weight appears to be up, although the measurements are somewhat variable. Until December of this year he seemed to be about 117 kg, now he is about 120. At the time of my interview he was complaining of arm pain, his left arm is quite swollen, his right arm is swollen as well. He seems to have less leg swelling than arm swelling. With touching either of his arms and hands he has significant pain. Allergies Allergy/AdvReac Type Severity Reaction Status Date / Time Iodinated Contrast Media Allergy Severe NEEDS Verified 12/28/18 14:[address] DYE Home Medications Home Medications Medication Instructions Recorded Confirmed Type Eliquis 5 mg PO BID 01/16/18 01/01/19 History atorvastatin 20 mg PO DAILY 01/16/18 01/01/19 History multivitamin 1 tab PO DAILY 01/16/18 01/01/19 History doxazosin 4 mg tablet 4 mg PO DAILY #90 tab 07/21/18 01/01/19 Rx bumetanide 1 mg tablet 1 mg PO BID #180 tab 08/22/18 01/01/19 History sacubitril 97 mg-valsartan 103 mg 1 tab PO BID #180 tab 08/22/18 01/01/19 History tablet budesonide-formoterol HFA 160 2 puff INHALATION BID #10.2 gm 11/15/18 01/01/19 Rx mcg-4.5 mcg/actuation aerosol inhaler potassium chloride 20 mEq 20 meq PO QPM tab 11/23/18 01/01/19 History tablet,extended release(part/cryst) acetaminophen 500 mg tablet 1,000 mg PO TID PRN tab 11/27/18 01/01/19 History pantoprazole 40 mg tablet,delayed 40 mg PO DAILY #14 tab 11/27/18 01/01/19 Rx release turmeric root extract 500 mg 500 mg PO BID cap 12/19/18 01/01/19 History capsule glimepiride 4 mg tablet 4 mg PO QAM #90 tab 12/22/18 01/01/19 Rx allopurinol 200 mg PO DAILY 01/01/19 01/01/19 History colchicine 0.6 mg PO HS PRN 01/01/19 01/01/19 History metoprolol succinate 200 mg PO DAILY 01/01/19 01/01/19 History potassium chloride 40 meq PO QAM 01/01/19 01/01/19 History Patient History Family History Father No pertinent family history Mother Stroke Other Medical history non-contributory Social History Preferred Language: Mauritanian Communication Ability: Effective It Quality Analyst Required: No Beliefs That Will Affect Care: None marital status: Current Living Situation: Spouse Feels Safe at Home: Yes Smoking Status: Former smoker Second Hand Exposure: No ; Hx Alcohol Use: No Hx Substance Use: No Dental Care, Regularly: No Seatbelt Use: always Physical Exam Physical Exam: Constitutional: Alert, cooperative and in mild positive distress. HEENT: Unremarkable Neck: Positive jugular venous distention, carotid pulses are irregular but otherwise normal and equal bilaterally without bruits. Pulmonary: Clear to auscultation bilaterally. Cardiac: Irregular rhythm with no murmur, gallop or rub. Abdomen: Soft, nontender with normal bowel sounds. Extremities: +3 painful left arm and hand edema, +2 painful right arm edema, +1 bilateral pretibial edema. Distal pulses intact. Neurologic: No focal findings. Gait is steady. Skin: No rash, ecchymoses or petechiae. Results & Data Vital Signs (Past 12 Hours) Vital Signs Temp Pulse Resp BP BP Pulse Ox 01/04/19 11:48 37.2 C 99 H 20 96/64 L 95 01/04/19 07:19 36.5 C 113 H 20 115/63 91 Laboratory Results Abnormal lab results 01/03/19 01/04/19 01/04/19 Range/Units 20:14 05:40 05:41 RBC 3.27 L (4.7-6.1) M/uL Hgb 10.8 L (14.0-18.0) g/dL Hct 32.6 L (42-52) % RDW Std Deviation 49.4 H (36.4-46.3) fL Neut # (Auto) 6.67 H (1.4-6.5) K/uL Lymph # (Auto) 0.43 L (1.2-3.4) K/uL [place] # (Auto) 0.96 H (0.11-0.59) K/uL Sodium 135 L (136-145) mmol/L BUN 46 H (7-18) mg/dl Creatinine 1.56 H (0.6-1.4) mg/dl BUN/Creatinine Ratio 29.7 H (10-20) Glucose 174 H (70-99) mg/dl POC Glucose 200 H (70-99) Calcium 8.4 L (8.5-10.1) mg/dl 01/04/19 01/04/19 Range/Units 07:41 11:43 RBC (4.7-6.1) M/uL Hgb (14.0-18.0) g/dL Hct (42-52) % RDW Std Deviation (36.4-46.3) fL Neut # (Auto) (1.4-6.5) K/uL Lymph # (Auto) (1.2-3.4) K/uL [place] # (Auto) (0.11-0.59) K/uL Sodium (136-145) mmol/L BUN (7-18) mg/dl Creatinine (0.6-1.4) mg/dl BUN/Creatinine Ratio (10-20) Glucose (70-99) mg/dl POC Glucose 191 H 167 H (70-99) Calcium (8.5-10.1) mg/dl Diagnostic Findings Telemetry: Atrial fibrillation with a reasonably well-controlled heart rate. Frequent PVCs. Electrocardiogram: Atrial fibrillation with a heart rate of 109 bpm, frequent premature ventricular beats. PG Care Time/CCT Total # of Minutes Spent Total Time Spent with Patient: Total time spent is greater than 50% in coordination of care (as documented) at patient's floor/unit and/or counseling patient: (1) CHF exacerbation Heart failure type: unspecified Qualified Code(s): I50.9 - Heart failure, unspecified
--- NOTE | 2019-01-04 17:52 | Hospitalist Progress Note ---
Date of Service January 04, 2019 Assessment & Plan (1) CHF exacerbation: 78yo with PMhx of combination systolic/diastolic CHF, DMII, HTN, HLD, CAD, COPD and atrial fibrillation who presents with upper and lower extremity swelling likely secondary to CHF exacerbation. UE Edema -Pt with significant edema in upper extremities bilaterally -Believed to be secondary to CHF, howver will rule out SVC syndrome. -Chest XR with no noted mass; given contrast allergy will get CT without contrast to rule out mass. -holding bumex given Cr function -will continue to monitor -appreciate cards recs CHF Exacerbation HFrEF -Pt with swelling in LUE and RLE, unimproved; currently at baseline in terms of oxygen supplementation for dyspnea. -Echo 2018: decreased EF 30s-40s, diastolic component noted as well. -Currently receiving Bumex 2mg IV BID; will hold given recent increase in Cr. CARDS consult placed. Can consider nephrology consult as well for volume overload not responding to diuretics. -UOP minimal. small improvement with weight -continue home Entresto and metoprolol -continue strict Is and Os and daily weights. -cardiology consult placed; appreciate recs Chronic respiratory failure -continue home O2 Atrial fibrillation: currently rate controlled; continue home meds (Eliquis and metoprolol) Shoulder pain: HOLDING PRN oxycodone, given acute changes in mentation. COPD: does not appear to be in exacerbation; continue home budesonide-formoterol HLD: continue home atorvastatin 20mg Diabetes: ISS while hospitalized. HgbA1c of 7.8 noted; continue to hold home oral meds(glimepiride). HTN: continue home sacubitril-valsartan, metoprolol Gout: continue home allopurinol CAD: continue home metoprolol GERD: continue home pantoprazole FEN/GI: Diabetic diet/low sodium CODE STATUS: Full DVT prophylaxis: On Eliquis Dispo: discharge pending improvement in edema. Supervising Physician Co-Signing Physician Notes Resident Physician Supervision Note: I independently interviewed and examined the patient and verified the daigle history and physical, reviewed labs and image studies, discussed the case with the resident Dr. Valdez and agree with the findings and care plan. Subjective Mr. Petersen was seen this AM. Still endorsing malaise, states today that he feels he cannot move his arms. Denies SOB. No associated chest pain or palpitations. Denies any headache, changes to vision, cough, runny nose, sore throat, dizziness, weakness, chest pain, SOB, palpitations, abdominal pain, diarrhea or constipation, numbness or tingling anywhere. Review of Systems Review of Systems: All systems reviewed & are unremarkable except as noted in HPI & below Physical Exam Physical Exam: General: Alert, oriented. Uncomfortable. Skin: No noted rashes or bruises Psych: Appropriate mood and affect Neuro: No gross deficits HEENT: NC/AT Chest: Nontender to palpation. CV: Irregularly irregular rate and rhythm. No murmurs appreciated Resp: Breath sounds on front decreased but clear bilaterally, no increased effort of breathing. No crackles/rhonchi/rales. Abdomen: Soft, mildly tender, distended. No guarding. No organomegaly appreciated. Extremities: Swelling of both right and left upper extremities. Trace edema in lower extremities bilaterally. Results & Data Vital Signs (Past 12 Hours) Vital Signs Temp Pulse Pulse Resp BP BP Pulse Ox 01/04/19 16:00 37.0 C 105 H 75 98/4 L 01/04/19 11:48 37.2 C 99 H 20 96/64 L 95 01/04/19 07:19 36.5 C 113 H 20 115/63 91 Resident Activity Tracking Resident Involvement: Resident Care Provided Care Provided: Adult Hospital Medicine (1) CHF exacerbation Heart failure type: unspecified Qualified Code(s): I50.9 - Heart failure, unspecified
--- NOTE | 2019-01-04 18:45 | CT Scan Report ---
CT chest wo con CT DOSE: 981.93 mGy.cm CLINICAL HISTORY: 78 years-old Male with rule out SVC. Acute right upper extremity pain with soft ti ssue swelling TECHNIQUE: Multiaxial CT images of the chest were performed without contrast. A dose lowering techni que was utilized adhering to the principles of ALARA. COMPARISON: Doppler study 01/01/2019, chest CT 04/11/2017, CTA chest 05/04/2016 FINDINGS: Unremarkable thyroid. Nonspecific prominent mediastinal and hilar lymph nodes. Moderate cardiomegaly. Trace pericardial effusion. Coronary arterial with aortic calcifications are noted. 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 No mediastinal hematoma identified. Loop recorder device of the left chest wall is noted. Unopacif ied pulmonary artery is dilated measuring up to 3.8 cm which may reflect pulmonary arterial hypertens ion the appropriate clinical setting. No pneumothorax or overt pulmonary edema. Mild emphysema. No definite pleural effusion. Linear subseg mental consolidative and groundglass opacities of the lung bases suggest atelectasis/scarring. There are a few scattered calcific granulomata also noted. There are no suspicious pulmonary nodules or mas ses. The previously noted 5 mm solid nodule of the anterior segment right upper lobe is obscured by a telectasis/scarring on today's study. 2 mm solid nodule of the basal right lower lobe on image 162 se zack 4, likely benign. There is no apical mass or lesion identified obstructing the SVC. Mild nonspec ific stranding involves the left subpectoral tissues. No acute process of the imaged upper abdomen. Hepatic steatosis. Degenerative changes of the spine an d shoulders. There are a few healed remote left-sided rib fractures. Mild convex left curvature of th e upper thoracic spine. IMPRESSION: 1. No acute intrathoracic abnormality identified. 2. No CT evidence to suggest SVC obstruction. 3. Cardiomegaly with unchanged size of the stented fusiform aneurysmal dilation of the descending tho racic aorta. 4. Mild emphysema. 5. Hepatic steatosis. 6. Additional findings as above. Electronically signed by: Lance Wadsworth M.D. 01/04/2019 6:43 PM
[2019-01-05] MEDS: ACETAMINOPHEN 500 MG TAB PO PRN ×2 (00:15→19:42)
[2019-01-05 07:49] LABS: Basophils # (auto) 0.01 K/uL (0-0.2); Basophils % (auto) 0.1 %; Eosinophils # (auto) 0.01 K/uL (0-0.5); Eosinophils % (auto) 0.1 %; Hematocrit (blood only) 33.2 % (42-52); Immature Granulocytes # (auto) 0.01 K/uL (0.00-0.02); Immature Granulocytes % (auto) 0.1 %; Lymphocytes # (auto) 0.43 K/uL (1.2-3.4); Lymphocytes % (auto) 6.1 %; Mean Corpuscular Hgb Conc 33.1 g/dL (32-36); Mean Corpuscular Volume 99.7 fL (80-100); Mean Platelet Volume 9.6 fL (7.4-10.4); Monocytes # (auto) 0.57 K/uL (0.11-0.59); Monocytes % (auto) 8.1 %; Neutrophils # (auto) 6.05 K/uL (1.4-6.5); Neutrophils % (auto) 85.5 %; Platelet Count 232 K/uL (130-400); RDW Coefficient of Variation 13.7 % (11.5-14.5); RDW Standard Deviation 49.8 fL (36.4-46.3); Red Blood Count 3.33 M/uL (4.7-6.1); White Blood Count 7.08 K/uL (4.8-10.8)
[2019-01-05 08:17] LABS: BUN Creatinine Ratio 45.3 (10-20); Calcium 8.8 mg/dl (8.5-10.1); Creatinine Clr Calc Pharmacy 64.5 ml/min; Est GFR (African American) 67.6; Est GFR (Non-African American) 58.3; Potassium 4.4 mmol/L (3.5-5.1)
[2019-01-05] MEDS: INSULIN ASPART 100 UNITS/ML 3 ML PEN SC SCH ×4 (08:23→20:25)
[2019-01-05] MEDS: DOXAZosin MESYLATE 4 MG TAB PO SCH (08:24)
[2019-01-05] MEDS: allopurinoL 100 MG TAB PO SCH (08:24)
[2019-01-05] MEDS: METOPROLOL SUCC 50MG EXT REL TAB PO SCH (08:24)
[2019-01-05] MEDS: SACUBITRIL-VALSARTAN 49/51 MG TAB PO SCH ×2 (08:24→20:18)
[2019-01-05] MEDS: ATORVASTATIN 20 MG TAB PO SCH (08:24)
[2019-01-05] MEDS: PANTOprazole 40 MG TAB PO SCH (08:24)
[2019-01-05] MEDS: APIXABAN 5 MG TABLET PO SCH ×2 (08:25→20:18)
[2019-01-05] MEDS: INSULIN GLARGINE SOLOSTAR 100 UNITS/ML 3 ML PEN SC SCH ×2 (08:25→20:26)
[2019-01-05] MEDS: BUDESONIDE/FORMOTEROL FUMARATE 160/4.5 60 PUFFS/INHALER INH SCH ×2 (08:25→20:15)
[2019-01-05] MEDS: POTASSIUM CHLORIDE 20 MEQ TABCR PO SCH ×2 (08:25→17:31)
[2019-01-05] MEDS: BUMETANIDE 2 MG in SYRINGE 0 ML IV SCH ×2 (10:26→17:30)
[2019-01-05] MEDS ORDERED: HYDROCORTISONE SOD 200 MG in SYRINGE 0 ML IV ONE ×2 (15:00→18:30)
--- NOTE | 2019-01-05 15:26 | Hospitalist Progress Note ---
Date of Service January 05, 2019 Assessment & Plan (1) CHF exacerbation: 78yo with PMhx of combination systolic/diastolic CHF, DMII, HTN, HLD, CAD, COPD and atrial fibrillation who presents with upper and lower extremity swelling likely secondary to CHF exacerbation. UE Edema and weakness -Pt with significant edema in upper extremities bilaterally, L>R -Chest XR with no noted mass; CT chest obtained without contrast due to allergy of "convulsions" showed no evidence of mass, or SVC pathology that could be contributing to symptoms. -Historical notes with previous treatment of upper arm swelling with oral prednisone; though no official diagnosis given. -Arms do not appear to be infected; cellulitis less likely to be bilateral and Doppler of left UE with no evidence of clot. -New onset difficulty with arm movement likely secondary to deconditioning- but an acute inflammatory process cannot be definitively ruled out. -will continue to monitor CHF Exacerbation HFrEF -Pt with swelling in LUE and RLE, unimproved; currently at baseline in terms of oxygen supplementation for dyspnea. -Echo 2018: decreased EF 30s-40s, diastolic component noted as well. -Currently receiving Bumex 2mg IV BID -UOP significant overnight. small improvement with weight -continue home Entresto and metoprolol -continue strict Is and Os and daily weights. -restarted on bumex this AM given improved Cr function. -cardiology consult- continue diuresis, rule out SVC Chronic respiratory failure -continue home O2 Atrial fibrillation: pt currently tachycardic but per CARDS who has been following pt circa 2012, reasonably rate controlled; continue home meds (Eliquis 5mg BID and metoprolol succ 200mg daily) Shoulder pain: HOLDING PRN oxycodone, given acute changes in mentation. Does not appear to be an issue currently. COPD: does not appear to be in exacerbation; continue home budesonide-formoterol HLD: continue home atorvastatin 20mg Diabetes: ISS while hospitalized. HgbA1c of 7.8 noted; continue to hold home oral meds(glimepiride). HTN: continue home sacubitril-valsartan, metoprolol Gout: continue home allopurinol CAD: continue home metoprolol, atorvastatin GERD: continue home pantoprazole FEN/GI: Diabetic diet/low sodium CODE STATUS: Full DVT prophylaxis: On Eliquis PT/OT- appreciate recs Dispo: discharge pending improvement in edema. Supervising Physician Co-Signing Physician Notes Resident Physician Supervision Note: I independently interviewed and examined the patient and verified the daigle history and physical, reviewed labs and image studies, discussed the case with the resident Dr. Valdez and agree with the findings and care plan. Subjective Mr. Dc states he is unchanged this AM. AAOx3. Still has the upper extremity swelling but denies associated SOB, chest pain, or palps. States he now has difficulty moving and using his arms. Denies any headache, changes to vision, cough, runny nose, sore throat, dizziness,abdominal pain, diarrhea or constipation. Review of Systems Review of Systems: All systems reviewed & are unremarkable except as noted in HPI & below Physical Exam Physical Exam: General: Alert, orientedx3. Laying in bed, difficult to move Skin: No noted rashes or bruises Psych: Appropriate mood and affect Neuro: No gross deficits HEENT: NC/AT Chest: Nontender to palpation. CV: Irregularly irregular rate and rhythm. No murmurs appreciated Resp: Breath sounds on front decreased but clear bilaterally, no increased effort of breathing. Abdomen: Soft, mildly tender, distended. No guarding. No organomegaly appreciated. Extremities: Swelling of both right and left upper extremities. Trace edema in lower extremities bilaterally. Results & Data Vital Signs (Past 12 Hours) Vital Signs Temp Pulse Pulse Resp BP Pulse Ox 01/05/19 13:08 108 H 01/05/19 11:27 36.4 C L 95 H 20 131/73 92 01/05/19 07:52 36.6 C 107 H 22 137/83 96 01/05/19 04:00 36.5 C 73 20 112/72 97 Laboratory Results Laboratory Results - last 24 hr 01/04/19 01/04/19 01/05/19 16:39 20:26 07:32 WBC 7.08 RBC 3.33 L Hgb 11.0 L Hct 33.2 L MCV 99.7 MCH 33.0 MCHC 33.1 RDW Std Deviation 49.8 H RDW Coeff of Chuck 13.7 Plt Count 232 MPV 9.6 Immature Gran % (Auto) 0.1 Neut % (Auto) 85.5 Lymph % (Auto) 6.1 [place] % (Auto) 8.1 Eos % (Auto) 0.1 Baso % (Auto) 0.1 Immature Gran # (Auto) 0.01 Neut # (Auto) 6.05 Lymph # (Auto) 0.43 L [place] # (Auto) 0.57 Eos # (Auto) 0.01 Baso # (Auto) 0.01 Sodium Potassium Chloride Carbon Dioxide Anion Gap BUN Creatinine Est Cr Clr Drug Dosing Est GFR ( Amer) Est GFR (Non-Af Amer) BUN/Creatinine Ratio Glucose POC Glucose 166 H 169 H Calcium 01/05/19 01/05/19 01/05/19 07:32 07:34 11:48 WBC RBC Hgb Hct MCV MCH MCHC RDW Std Deviation RDW Coeff of Chuck Plt Count MPV Immature Gran % (Auto) Neut % (Auto) Lymph % (Auto) [place] % (Auto) Eos % (Auto) Baso % (Auto) Immature Gran # (Auto) Neut # (Auto) Lymph # (Auto) [place] # (Auto) Eos # (Auto) Baso # (Auto) Sodium 137 Potassium 4.4 Chloride 101 Carbon Dioxide 28 Anion Gap 7.0 BUN 53 H Creatinine 1.18 D Est Cr Clr Drug Dosing 64.5 Est GFR ( Amer) 67.6 Est GFR (Non-Af Amer) 58.3 BUN/Creatinine Ratio 45.3 H Glucose 139 H POC Glucose 155 H 188 H Calcium 8.8 Medications Administered Home Medications Eliquis 5 mg PO BID 01/16/18 [History Confirmed 01/01/19] atorvastatin 20 mg PO DAILY 01/16/18 [History Confirmed 01/01/19] multivitamin 1 tab PO DAILY 01/16/18 [History Confirmed 01/01/19] doxazosin 4 mg tablet 4 mg PO DAILY #90 tab 07/21/18 [Rx Confirmed 01/01/19] bumetanide 1 mg tablet 1 mg PO BID #180 tab 08/22/18 [History Confirmed 01/01/19] sacubitril 97 mg-valsartan 103 mg tablet 1 tab PO BID #180 tab 08/22/18 [History Confirmed 01/01/19] budesonide-formoterol HFA 160 mcg-4.5 mcg/actuation aerosol inhaler 2 puff INHALATION BID #10.2 gm 11/15/18 [Rx Confirmed 01/01/19] potassium chloride 20 mEq tablet,extended release(part/cryst) 20 meq PO QPM tab 11/23/18 [History Confirmed 01/01/19] acetaminophen 500 mg tablet 1,000 mg PO TID PRN tab 11/27/18 [History Confirmed 01/01/19] pantoprazole 40 mg tablet,delayed release 40 mg PO DAILY #14 tab 11/27/18 [Rx Confirmed 01/01/19] turmeric root extract 500 mg capsule 500 mg PO BID cap 12/19/18 [History Confirmed 01/01/19] glimepiride 4 mg tablet 4 mg PO QAM #90 tab 12/22/18 [Rx Confirmed 01/01/19] allopurinol 200 mg PO DAILY 01/01/19 [History Confirmed 01/01/19] colchicine 0.6 mg PO HS PRN 01/01/19 [History Confirmed 01/01/19] metoprolol succinate 200 mg PO DAILY 01/01/19 [History Confirmed 01/01/19] potassium chloride 40 meq PO QAM 01/01/19 [History Confirmed 01/01/19] Active Medications Acetaminophen (Tylenol) 1,000 mg PO TID PRN PRN Reason: Pain Stop: 01/31/19 22:32 Last Admin: 01/05/19 00:15 Dose: 1,000 mg Documented by: Albuterol (Ventolin 0.5% 2.5mg/0.5ml) 2.5 mg NEB Q2H PRN PRN Reason: SOB/Wheeze Stop: 02/01/19 00:12 Allopurinol (Zyloprim) 200 mg PO DAILY YARITZA Stop: 02/01/19 08:59 Last Admin: 01/05/19 08:24 Dose: 200 mg Documented by: Apixaban (Eliquis) 5 mg PO BID YARITZA Stop: 01/31/19 22:32 Last Admin: 01/05/19 08:25 Dose: 5 mg Documented by: Atorvastatin Calcium (Lipitor) 20 mg PO DAILY [facility] Stop: 02/01/19 08:59 Last Admin: 01/05/19 08:24 Dose: 20 mg Documented by: Budesonide/Formoterol Fumarate (Symbicort 160mcg/4.5mcg) 2 puffs INH BID YARITZA Stop: 01/31/19 22:32 Last Admin: 01/05/19 08:25 Dose: 2 puffs Documented by: Dextrose (Dextrose 50%) 25 - 50 ml IV UD PRN; Protocol PRN Reason: Hypoglycemia Protocol Stop: 01/31/19 22:32 Doxazosin Mesylate (Cardura) 4 mg PO DAILY YARITZA Stop: 02/01/19 08:59 Last Admin: 01/05/19 08:24 Dose: 4 mg Documented by: Glucagon (Glucagen) 1 mg SQ UD PRN; Protocol PRN Reason: Hypoglycemia Protocol Stop: 01/31/19 22:32 Glucose (Dex4 Glucose) 4 - 8 tabs PO UD PRN; Protocol PRN Reason: Hypoglycemia Protocol Stop: 01/31/19 22:32 Glucose (Glucose 40%) 15 - 30 gm PO UD PRN; Protocol PRN Reason: Hypoglycemia Protocol Stop: 01/31/19 22:32 Bumetanide 2 mg/ Syringe 8 mls @ 4 mls/min IV DAILY@0900,1700 YARITZA Stop: 02/02/19 08:59 Last Admin: 01/05/19 10:26 Dose: 4 mls/min Documented by: Insulin Aspart (Novolog Flexpen) 0 units SC ACHS YARITZA Stop: 01/31/19 22:32 Last Admin: 01/05/19 12:24 Dose: 6 units Documented by: Insulin Glargine (Lantus Solostar Pen) 8 units SC BID YARITZA Stop: 01/31/19 22:32 Last Admin: 01/05/19 08:25 Dose: 8 units Documented by: Metoprolol Succinate (Toprol Xl) 200 mg PO DAILY YARITZA Stop: 02/01/19 08:59 Last Admin: 01/05/19 08:24 Dose: 200 mg Documented by: Miscellaneous (Carbohydrates For Hypoglycemia) 15 - 30 gm PO UD PRN PRN Reason: Hypoglycemia Protocol Stop: 01/31/19 22:32 Ondansetron HCl (Zofran) 4 mg IV Q6H PRN PRN Reason: Nausea Stop: 01/31/19 22:32 Pantoprazole Sodium (Protonix) 40 mg PO DAILY YARITZA Stop: 02/01/19 08:59 Last Admin: 01/05/19 08:24 Dose: 40 mg Documented by: Potassium Chloride (Klor-Con M20) 20 meq PO 1700 YARITZA Stop: 01/31/19 22:32 Last Admin: 01/04/19 17:42 Dose: 20 meq Documented by: Potassium Chloride (Klor-Con M20) 40 meq PO QAM YARITZA Stop: 02/01/19 08:59 Last Admin: 01/05/19 08:25 Dose: 40 meq Documented by: Sacubitril/Valsartan (Entresto 49/51mg) 2 tab PO BID YARITZA Stop: 01/31/19 22:32 Last Admin: 01/05/19 08:24 Dose: 2 tab Documented by: Resident Activity Tracking Resident Involvement: Resident Care Provided Care Provided: Adult Hospital Medicine (1) CHF exacerbation Heart failure type: unspecified Qualified Code(s): I50.9 - Heart failure, unspecified
--- NOTE | 2019-01-05 16:31 | Cardiology Progress Note ---
Date of Service January 05, 2019 Assessment & Plan (1) Left upper extremity swelling: He has quite severe upper extremity swelling, this is unusual and the cause is not clear to me. Likely contributory is a combination of elevated venous pressure and low albumin. It is interesting that the swelling is confined primarily to his arms and not his legs, however I believe he is overall volume overloaded and I would recommend diuresis. (2) CHF exacerbation: He is clearly fluid overloaded, and I think we need diuresis. Although the distribution is unusual being in his arms and on his legs I think we should try to eliminate it with diuretics. (3) Permanent atrial fibrillation: He is in atrial fibrillation, the rate is reasonably well controlled and I would continue anticoagulation. (4) Chronic anticoagulation: He is currently on Eliquis and it appears to be the proper dose. I would continue it. Subjective He continues to complain of bilateral arm discomfort with movement, this appears to be related to the swelling in his arms and hands. He also has some shoulder discomfort as well with motion. No rest symptoms, no significant shortness of breath. Physical Exam Physical Exam: Constitutional: Alert, cooperative and in mild positive distress. HEENT: Unremarkable Neck: Positive jugular venous distention, carotid pulses are irregular but otherwise normal and equal bilaterally without bruits. Pulmonary: Clear to auscultation bilaterally. Cardiac: Irregular rhythm with no murmur, gallop or rub. Abdomen: Soft, nontender with normal bowel sounds. Extremities: +3 painful left arm and hand edema, +2 painful right arm edema, +1 bilateral pretibial edema. Distal pulses intact. Neurologic: No focal findings. Gait is steady. Skin: No rash, ecchymoses or petechiae. Results & Data Vital Signs (Past 12 Hours) Vital Signs Temp Pulse Pulse Resp BP Pulse Ox 01/05/19 15:28 36.3 C L 115 H 18 128/74 96 01/05/19 13:08 108 H 01/05/19 11:27 36.4 C L 95 H 20 131/73 92 01/05/19 07:52 36.6 C 107 H 22 137/83 96 Laboratory Results Abnormal lab results 01/04/19 01/04/19 01/05/19 Range/Units 16:39 20:26 07:32 RBC 3.33 L (4.7-6.1) M/uL Hgb 11.0 L (14.0-18.0) g/dL Hct 33.2 L (42-52) % RDW Std Deviation 49.8 H (36.4-46.3) fL Lymph # (Auto) 0.43 L (1.2-3.4) K/uL BUN (7-18) mg/dl BUN/Creatinine Ratio (10-20) Glucose (70-99) mg/dl POC Glucose 166 H 169 H (70-99) 01/05/19 01/05/19 01/05/19 Range/Units 07:32 07:34 11:48 RBC (4.7-6.1) M/uL Hgb (14.0-18.0) g/dL Hct (42-52) % RDW Std Deviation (36.4-46.3) fL Lymph # (Auto) (1.2-3.4) K/uL BUN 53 H (7-18) mg/dl BUN/Creatinine Ratio 45.3 H (10-20) Glucose 139 H (70-99) mg/dl POC Glucose 155 H 188 H (70-99) Diagnostic Findings Telemetry: Atrial fibrillation with a rate averaging right around 100 bpm PG Care Time/CCT Total # of Minutes Spent Total Time Spent with Patient: Total time spent is greater than 50% in coordination of care (as documented) at patient's floor/unit and/or counseling patient: (1) CHF exacerbation Heart failure type: unspecified Qualified Code(s): I50.9 - Heart failure, unspecified
[2019-01-05] MEDS ORDERED: DiphenhydrAMINE HCL 50 MG/ML VIAL IV ONE ×2 (18:30)
[2019-01-06 05:58] LABS: Eosinophils # (auto) 0.01 K/uL (0-0.5); Eosinophils % (auto) 0.1 %; Hematocrit (blood only) 33.3 % (42-52); Hemoglobin 10.8 g/dL (14.0-18.0); Immature Granulocytes # (auto) 0.01 K/uL (0.00-0.02); Immature Granulocytes % (auto) 0.1 %; Lymphocytes % (auto) 5.6 %; Mean Corpuscular Hemoglobin 32.4 pg (25-34); Mean Corpuscular Hgb Conc 32.4 g/dL (32-36); Mean Platelet Volume 9.7 fL (7.4-10.4); Monocytes % (auto) 9.9 %; Neutrophils # (auto) 5.97 K/uL (1.4-6.5); Neutrophils % (auto) 84.3 %; Platelet Count 274 K/uL (130-400); RDW Coefficient of Variation 13.7 % (11.5-14.5); Red Blood Count 3.33 M/uL (4.7-6.1); White Blood Count 7.09 K/uL (4.8-10.8)
[2019-01-06 06:22] LABS: BUN Creatinine Ratio 49.6 (10-20); Calcium 8.6 mg/dl (8.5-10.1); Creatinine Clr Calc Pharmacy 67.4 ml/min; Est GFR (African American) 71.3; Est GFR (Non-African American) 61.5; Potassium 4.6 mmol/L (3.5-5.1)
[2019-01-06] MEDS: INSULIN ASPART 100 UNITS/ML 3 ML PEN SC SCH ×4 (08:21→20:42)
[2019-01-06] MEDS: BUMETANIDE 2 MG in SYRINGE 0 ML IV SCH (08:21)
[2019-01-06] MEDS: SACUBITRIL-VALSARTAN 49/51 MG TAB PO SCH ×2 (08:22→20:40)
[2019-01-06] MEDS: DOXAZosin MESYLATE 4 MG TAB PO SCH (08:22)
[2019-01-06] MEDS: allopurinoL 100 MG TAB PO SCH (08:24)
[2019-01-06] MEDS: APIXABAN 5 MG TABLET PO SCH ×2 (08:24→20:39)
[2019-01-06] MEDS: POTASSIUM CHLORIDE 20 MEQ TABCR PO SCH ×2 (08:24→16:21)
[2019-01-06] MEDS: INSULIN GLARGINE SOLOSTAR 100 UNITS/ML 3 ML PEN SC SCH ×2 (08:25→20:41)
[2019-01-06] MEDS: METOPROLOL SUCC 50MG EXT REL TAB PO SCH (08:25)
[2019-01-06] MEDS: PANTOprazole 40 MG TAB PO SCH (08:25)
[2019-01-06] MEDS: ATORVASTATIN 20 MG TAB PO SCH (08:25)
[2019-01-06] MEDS: BUDESONIDE/FORMOTEROL FUMARATE 160/4.5 60 PUFFS/INHALER INH SCH ×2 (08:26→20:40)
--- NOTE | 2019-01-06 12:39 | Cardiology Progress Note ---
Date of Service January 06, 2019 Assessment & Plan (1) Left upper extremity swelling: The patient does demonstrate hypervolemia and is responding to diuresis. Suspect he has an elevated central venous pressure along with his low albumin as contributing factors. (2) CHF exacerbation: Continue intravenous Bumex. (3) Permanent atrial fibrillation: Tolerating rate control and long-term anticoagulation without difficulty. He did demonstrate a 9 beat run of atrial fibrillation with aberrancy. (4) Chronic anticoagulation: Continue Eliquis. Subjective The patient is resting comfortably in the bedside chair without complaints of chest pain or dyspnea. Does have arthritic complaints. Physical Exam Physical Exam: In general this is an obese male seated in a bedside chair without complaints. HEENT exam is negative. Neck is supple with full carotid upstrokes. No obvious bruits. Jugular is pressure is difficult to assess. Cardiovascular exam reveals an irregular regular rhythm with distant heart sounds. Lungs are clear without rales, rhonchi or wheezes. Abdomen is obese without bruits. Extremities reveal 1+ pretibial edema bilaterally. There is 2 to 3+ bilateral upper extremity edema. Results & Data Vital Signs (Past 12 Hours) Vital Signs Temp Pulse Resp BP Pulse Ox 01/06/19 12:12 36.8 C 80 20 109/61 98 01/06/19 08:38 37.0 C 82 20 122/75 99 01/06/19 04:00 36.8 C 63 20 129/61 97 Laboratory Results case monitor notes atrial fibrillation with a controlled ventricular response. There frequent PVCs or aberrant beats. There is one, 9 beat run of aberrancy (very irregular). PG Care Time/CCT Total # of Minutes Spent Total Time Spent with Patient: Total time spent is greater than 50% in coordination of care (as documented) at patient's floor/unit and/or counseling patient: (1) CHF exacerbation Heart failure type: unspecified Qualified Code(s): I50.9 - Heart failure, unspecified
--- NOTE | 2019-01-06 13:31 | Hospitalist Progress Note ---
Date of Service January 06, 2019 Assessment & Plan (1) CHF exacerbation: 78yo with PMhx of combination systolic/diastolic CHF, DMII, HTN, HLD, CAD, COPD and atrial fibrillation who presents with upper and lower extremity swelling likely secondary to CHF exacerbation. UE Edema -Pt with significant edema in upper extremities bilaterally Patient multiple admissions for CHF exacerbations, possibly secondary to CHF exacerbation as patient does appear to be fluid overloaded however is on presentation as there is limited lower extremity swelling and marketed upper extremity swelling. -Chest XR with no noted mass; CT chest obtained without contrast due to allergy of "convulsions" showed no evidence of mass, or SVC pathology that could be contributing to symptoms. -Historical notes with previous treatment of upper arm swelling with oral prednisone; though no official diagnosis given. -Arms do not appear to be infected; cellulitis less likely to be bilateral and Doppler of left UE with no evidence of clot. -New onset difficulty with arm movement likely secondary to deconditioning- but an acute inflammatory process cannot be definitively ruled out. Bilateral Doppler ultrasounds ordered, have come back negative no evidence for DVT or obstruction of the veins Appears patient has central venous fluid overload, however with the increase in BUN and concentration of his urine will cut Bumex dose in half Cut Bumex to 1 mgTwice daily -will continue to monitor Cardiology encourage continuing to diurese CHF Exacerbation HFrEF -Pt with swelling in LUE and RLE, unimproved; currently at baseline in terms of oxygen supplementation for dyspnea. -Echo 2018: decreased EF 30s-40s, diastolic component noted as well. -Currently receiving Bumex 1mg IV BID Patient continuing to diurese Though urine is concentrated and patient's BUN is beginning to climb. 46 today -continuing home Entresto and metoprolol -continue strict Is and Os and daily weights. -cardiology consult- continue diuresis, rule out SVC Chronic respiratory failure -continue home O2 At baseline O2 Atrial fibrillation: pt currently tachycardic but per CARDS who has been following pt circa 2012, reasonably rate controlled; continue home meds (Eliquis 5mg BID and metoprolol succ 200mg daily) COPD: does not appear to be in exacerbation; continue home budesonide-formoterol HLD: continue home atorvastatin 20mg Diabetes: ISS while hospitalized. HgbA1c of 7.8 noted; continue to hold home oral meds(glimepiride). HTN: continue home sacubitril-valsartan, metoprolol Gout: continue home allopurinol CAD: continue home metoprolol, atorvastatin GERD: continue home pantoprazole FEN/GI: Diabetic diet/low sodium CODE STATUS: Full DVT prophylaxis: On Eliquis PT/OT- appreciate recs Dispo: discharge pending improvement in edema. Supervising Physician Co-Signing Physician Notes Resident Physician Supervision Note: I independently interviewed and examined the patient and verified the daigle history and physical, reviewed labs and image studies, discussed the case with the resident Dr. Torres and agree with the findings and care plan. Subjective Patient is sitting up in bed, tells me that he is feeling better for the most part, but still experiencing arm pain and swelling. He tells me he has had many CHF exacerbations but all of them has not have have had clear predominance of lower extremity edema over upper extremity edema. He is starting to feel like he is dry his urine is far more concentrated and he has had no difficulty breathing Patient denies any chest pain, shortness of breath, dyspnea, increased oxygen requirement, leg swelling beyond baseline, GI pain or upset, no nausea vomiting diarrhea constipation, no other symptoms of note Review of Systems Review of Systems: All systems reviewed & are unremarkable except as noted in HPI & below Physical Exam Physical Exam: General: Alert, orientedx3. Laying in bed, difficult to move Skin: No noted rashes or bruises Psych: Appropriate mood and affect Neuro: No gross deficits Chest: Nontender to palpation. CV: Irregularly irregular rate and rhythm. Heart sounds distant, 1+ edema lower extremities pretibially, 3+ edema of upper extremities bilaterally Resp: Breath sounds on front decreased but clear bilaterally, no increased effort of breathing. Abdomen: Soft, mildly tender, distended. No guarding. No organomegaly appreciated. Musculoskeletal: Shoulder exam limited due to patient's pain, no bony tenderness no joint line tenderness, no muscle body tenderness, some pain with movementSpaceIn any direction Results & Data Vital Signs (Past 12 Hours) Vital Signs Temp Pulse Resp BP Pulse Ox 01/06/19 12:12 36.8 C 80 20 109/61 98 01/06/19 08:38 37.0 C 82 20 122/75 99 01/06/19 04:00 36.8 C 63 20 129/61 97 Resident Activity Tracking Resident Involvement: Resident Care Provided Care Provided: Adult Hospital Medicine (1) CHF exacerbation Heart failure type: unspecified Qualified Code(s): I50.9 - Heart failure, unspecified
--- NOTE | 2019-01-06 13:48 | Ultrasound Report ---
ULTRASOUND BILATERAL UPPER EXTREMITY VENOUS CLINICAL HISTORY: Upper extremity edema. Arm pain. COMPARISON STUDY: Left upper extremity venous ultrasound dated 01/01/2019. TECHNIQUE: Real-time, grayscale, and color Doppler sonography of the deep veins of the right and left upper extremity is performed. Compression and augmentation were utilized. FINDINGS: There is no sonographic evidence of deep venous thrombosis identified in the right or left upper extremity. The internal jugular, axillary, and brachial veins are patent and normally compressi ble bilaterally. Normal venous waveforms and augmentation are seen within the right and left subclavi an vein. The cephalic and basilic veins are clear in both arms. The visualized radial and ulnar veins are patent bilaterally. IMPRESSION: There is no sonographic evidence of deep venous thrombosis identified in the right or lef t upper extremity. Electronically signed by: Andi Andrew M.D. 01/06/2019 1:47 PM
[2019-01-06] MEDS: BUMETANIDE 1 MG in SYRINGE 0 ML IV SCH (16:21)
[2019-01-06] MEDS: ACETAMINOPHEN 500 MG TAB PO PRN ×2 (16:30→23:55)
[2019-01-07 05:52] LABS: Basophils # (auto) 0.01 K/uL (0-0.2); Basophils % (auto) 0.2 %; Eosinophils # (auto) 0.01 K/uL (0-0.5); Eosinophils % (auto) 0.2 %; Hematocrit (blood only) 33.8 % (42-52); Immature Granulocytes # (auto) 0.01 K/uL (0.00-0.02); Immature Granulocytes % (auto) 0.2 %; Lymphocytes # (auto) 0.45 K/uL (1.2-3.4); Lymphocytes % (auto) 8.3 %; Mean Corpuscular Hemoglobin 32.9 pg (25-34); Mean Corpuscular Hgb Conc 32.5 g/dL (32-36); Mean Corpuscular Volume 101.2 fL (80-100); Mean Platelet Volume 9.7 fL (7.4-10.4); Monocytes # (auto) 0.54 K/uL (0.11-0.59); Neutrophils # (auto) 4.37 K/uL (1.4-6.5); Neutrophils % (auto) 81.1 %; Platelet Count 264 K/uL (130-400); RDW Coefficient of Variation 13.9 % (11.5-14.5); RDW Standard Deviation 51.5 fL (36.4-46.3); Red Blood Count 3.34 M/uL (4.7-6.1); White Blood Count 5.39 K/uL (4.8-10.8)
[2019-01-07 06:29] LABS: BUN Creatinine Ratio 51.6 (10-20); Calcium 8.9 mg/dl (8.5-10.1); Est GFR (African American) 84.6; Potassium 4.3 mmol/L (3.5-5.1)
[2019-01-07] MEDS: BUMETANIDE 1 MG in SYRINGE 0 ML IV SCH ×2 (07:59→16:54)
[2019-01-07] MEDS: SACUBITRIL-VALSARTAN 49/51 MG TAB PO SCH ×2 (08:04→20:32)
[2019-01-07] MEDS: APIXABAN 5 MG TABLET PO SCH ×2 (08:04→20:32)
[2019-01-07] MEDS: INSULIN GLARGINE SOLOSTAR 100 UNITS/ML 3 ML PEN SC SCH ×2 (08:05→20:52)
[2019-01-07] MEDS: POTASSIUM CHLORIDE 20 MEQ TABCR PO SCH ×2 (08:05→16:54)
[2019-01-07] MEDS: PANTOprazole 40 MG TAB PO SCH (08:07)
[2019-01-07] MEDS: ATORVASTATIN 20 MG TAB PO SCH (08:07)
[2019-01-07] MEDS: allopurinoL 100 MG TAB PO SCH (08:08)
[2019-01-07] MEDS: METOPROLOL SUCC 50MG EXT REL TAB PO SCH (08:08)
[2019-01-07] MEDS: BUDESONIDE/FORMOTEROL FUMARATE 160/4.5 60 PUFFS/INHALER INH SCH ×2 (08:09→20:32)
[2019-01-07] MEDS: DOXAZosin MESYLATE 4 MG TAB PO SCH (08:09)
[2019-01-07] MEDS: INSULIN ASPART 100 UNITS/ML 3 ML PEN SC SCH ×4 (08:44→20:52)
[2019-01-07] MEDS: ACETAMINOPHEN 500 MG TAB PO PRN (10:11)
[2019-01-07] MEDS ORDERED: MICONAZOLE NITRATE POWDER 43 GM EXT PRN (11:27)
--- NOTE | 2019-01-07 14:50 | XRay Report ---
XR shoulder RT min 2V routine CLINICAL HISTORY: SHoulder pain weakness pain COMPARISON: None. DISCUSSION: Generalized degenerative change. Narrowing of the acromiohumeral space which is secondary sign of deterioration of the rotator cuff. No evidence for fracture or dislocation. No lytic or blastic process. There is no evidence for soft t issue swelling. IMPRESSION: 1. Moderate generalized degenerative change 2. Considerable narrowing of the acromiohumeral space which is a secondary sign of deterioration of t he rotator cuff. The above report was generated using voice recognition software. It may contain grammatical, syntax or spelling errors. Electronically signed by: Tenzin Antunez M.D. 01/07/2019 2:48 PM
--- NOTE | 2019-01-07 14:54 | CT Scan Report ---
CT head/brain wo con CT DOSE: 810.83 mGy.cm HISTORY: Mental status change. Arm weakness. Right arm weakness TECHNIQUE: Multiaxial CT images of the head were performed without the use of intravenous contrast. A dose lowering technique was utilized adhering to the principles of ALARA. Comparison: 12/28/2015 Findings: The paranasal sinuses and mastoid air cells are clear. The calvarium and skull base are int act. The ventricles and sulci are within normal limits. There is no mass, hematoma, midline shift, or acute infarct. Small focus of high density lateral aspect mid right cerebellum. This is unchanged in the prior study is considered by definition benign. No acute intracranial hemorrhage. No midline shift. Age-related atrophy and chronic small vessel arango ge. Impression: No acute intracranial abnormality. Chronic and age-related change. The above report was generated using voice recognition software. It may contain grammatical, syntax or spelling errors. Electronically signed by: Tenzin Antunez M.D. 01/07/2019 2:38 PM
--- NOTE | 2019-01-07 15:18 | Hospitalist Progress Note ---
Date of Service January 07, 2019 Assessment & Plan (1) CHF exacerbation: 78yo with PMhx of combination systolic/diastolic CHF, DMII, HTN, HLD, CAD, COPD and atrial fibrillation who presents with upper and lower extremity swelling likely secondary to CHF exacerbation. UE Edema -Pt with significant edema in upper extremities bilaterally Patient multiple admissions for CHF exacerbations, possibly secondary to CHF exacerbation as patient does appear to be fluid overloaded however is on presentation as there is limited lower extremity swelling and marked upper extremity swelling. -Chest XR with no noted mass; CT chest obtained without contrast due to allergy of "convulsions" showed no evidence of mass, or SVC pathology that could be contributing to symptoms. -Historical notes with previous treatment of upper arm swelling with oral prednisone; though no official diagnosis given. -Arms do not appear to be infected; cellulitis less likely to be bilateral and Doppler of left UE with no evidence of clot. -New onset difficulty with arm movement likely secondary to deconditioning- but an acute inflammatory process cannot be definitively ruled out. Bilateral Doppler ultrasounds ordered, have come back negative no evidence for DVT or obstruction of the vein Continuing to diurese 1.4 L net in last 24 hours Continue Bumex 1 mg IV bid -will continue to monitor Cardiology consulted, encourage continuing to diurese RUE weakness: Unable to get much movement from right arm, difficult to ascertain how much is pain limited vs effort vs swelling vs possible neurologic issue Will get head CT to rule out stroke Will obtain shoulder x ray to look for any injury CHF Exacerbation HFrEF -Pt with swelling in UE > LE, improving markedly; currently at baseline in terms of oxygen supplementation for dyspnea. -Echo 2018: decreased EF 30s-40s, diastolic component noted as well. -Currently receiving Bumex 1mg IV BID Patient continuing to diurese BUN and creatinine slightly improved today -continuing home Entresto and metoprolol -continue strict Is and Os and daily weights. -cardiology consult- continue diuresis Chronic respiratory failure -continue home O2 At baseline O2 Atrial fibrillation: pt currently tachycardic but per CARDS who has been following pt circa 2012, reasonably rate controlled; continue home meds (Eliquis 5mg BID and metoprolol succ 200mg daily) COPD: does not appear to be in exacerbation; continue home budesonide-formoterol HLD: continue home atorvastatin 20mg DMII: ISS while hospitalized. HgbA1c of 7.8 noted; continue to hold home oral meds(glimepiride). HTN: continue home sacubitril-valsartan, metoprolol Gout: continue home allopurinol CAD: continue home metoprolol, atorvastatin GERD: continue home pantoprazole FEN/GI: Diabetic diet/low sodium CODE STATUS: Full DVT prophylaxis: On Eliquis Supervising Physician Co-Signing Physician Notes Resident Physician Supervision Note: I independently interviewed and examined the patient and verified the daigle history and physical, reviewed labs and image studies, discussed the case with the resident Dr. Torres and agree with the findings and care plan. Subjective Mr. Dc endorses some shoulder pain today he says his right arm still hurts very badly and he is having trouble moving it. Denies any difficulty breathing, notes that his swelling is markedly decreased in bilateral upper extremities. Left arm feeling much better. Review of Systems Review of Systems: All systems reviewed & are unremarkable except as noted in HPI & below Physical Exam Physical Exam: General: Alert, orientedx3. Laying in bed, difficult to move Skin: No noted rashes or bruises Psych: Appropriate mood and affect Neuro: No gross deficits Chest: Nontender to palpation. CV: Irregularly irregular rate and rhythm. Heart sounds distant, 1+ edema lower extremities pretibially, 2+ edema of upper extremities bilaterally Resp: Bronchial breath sounds throughout bilaterally, no increased effort of breathing Nasal cannula in place Abdomen: Soft, mildly tender, distended. No guarding. No organomegaly appreciated. Musculoskeletal: Shoulder exam limited due to patient's pain, no bony tenderness no joint line tenderness, no muscle body tenderness, some pain with passive movement SpaceIn any direction [employer] and muscle movements intact but minimal effort and minimal strength. Left arm range of motion and strength much improved from yesterday Results & Data Vital Signs (Past 12 Hours) Vital Signs Temp Pulse Resp BP Pulse Ox 01/07/19 12:37 36.6 C 75 22 107/67 94 01/07/19 09:31 36.4 C L 103 H 18 96/62 L 96 01/07/19 07:58 36.6 C 119 H 22 124/75 96 Resident Activity Tracking Resident Involvement: Resident Care Provided Care Provided: Adult Hospital Medicine (1) CHF exacerbation Heart failure type: unspecified Qualified Code(s): I50.9 - Heart failure, unspecified
[2019-01-07] MEDS: TRAMADOL HCL 50 MG TABLET PO PRN ×2 (15:49→19:53)
[2019-01-08 06:19] LABS: BUN Creatinine Ratio 52.1 (10-20); Creatinine Clr Calc Pharmacy 76.8 ml/min; Est GFR (African American) 83.6; Est GFR (Non-African American) 72.1; Potassium 4.7 mmol/L (3.5-5.1)
[2019-01-08] MEDS: TRAMADOL HCL 50 MG TABLET PO PRN ×3 (08:53→21:15)
[2019-01-08] MEDS: INSULIN ASPART 100 UNITS/ML 3 ML PEN SC SCH ×4 (09:00→20:34)
[2019-01-08] MEDS: BUMETANIDE 1 MG in SYRINGE 0 ML IV SCH ×2 (09:01→17:28)
[2019-01-08] MEDS: APIXABAN 5 MG TABLET PO SCH ×2 (09:03→20:32)
[2019-01-08] MEDS: DOXAZosin MESYLATE 4 MG TAB PO SCH (09:03)
[2019-01-08] MEDS: SACUBITRIL-VALSARTAN 49/51 MG TAB PO SCH ×2 (09:04→20:32)
[2019-01-08] MEDS: POTASSIUM CHLORIDE 20 MEQ TABCR PO SCH ×2 (09:04→17:24)
[2019-01-08] MEDS: INSULIN GLARGINE SOLOSTAR 100 UNITS/ML 3 ML PEN SC SCH ×2 (09:05→20:33)
[2019-01-08] MEDS: ATORVASTATIN 20 MG TAB PO SCH (09:06)
[2019-01-08] MEDS: BUDESONIDE/FORMOTEROL FUMARATE 160/4.5 60 PUFFS/INHALER INH SCH ×2 (09:06→20:31)
[2019-01-08] MEDS: PANTOprazole 40 MG TAB PO SCH (09:06)
[2019-01-08] MEDS: METOPROLOL SUCC 50MG EXT REL TAB PO SCH (09:07)
[2019-01-08] MEDS: allopurinoL 100 MG TAB PO SCH (09:07)
--- NOTE | 2019-01-08 12:41 | Cardiology Progress Note ---
Date of Service January 08, 2019 Assessment & Plan (1) Left upper extremity swelling: He continues with quite severe upper extremity swelling, this is unusual without lower extremity edema and the reason for the discrepancy is not clear to me. Likely contributory is a combination of elevated venous pressure and low albumin. It is interesting that the swelling is confined primarily to his arms and not his legs, however I believe he is overall volume overloaded and I would recommend continued diuresis. His BUN is increasing but his creatinine is not and I would continue with diuresis. (2) CHF exacerbation: He is clearly fluid overloaded, and I think we need to continue diuresis. Although the distribution is unusual being in his arms and on his legs I think we should try to eliminate it with diuretics. (3) Permanent atrial fibrillation: He is in atrial fibrillation, the rate is reasonably well controlled and I would continue anticoagulation. (4) Chronic anticoagulation: He is currently on Eliquis and it appears to be the proper dose. I would continue it. Subjective He is definitely feeling better than he did last week when I saw him. His left arm and hand are improved, although he still has pain in his right hand and arm and now in his right shoulder. He has not been out of bed much. He has no cardiac complaints. Physical Exam Physical Exam: Constitutional: Alert, cooperative and in mild positive distress. HEENT: Unremarkable Neck: Positive jugular venous distention, carotid pulses are irregular but otherwise normal and equal bilaterally without bruits. Pulmonary: Clear to auscultation bilaterally. Cardiac: Irregular rhythm with no murmur, gallop or rub. Abdomen: Soft, nontender with normal bowel sounds. Extremities: +2 painful left arm and hand edema, +3 painful right arm and hand e marco, trace bilateral pretibial edema. Distal pulses intact. Neurologic: No focal findings. Gait was not tested. Skin: No rash, ecchymoses or petechiae. Results & Data Vital Signs (Past 12 Hours) Vital Signs Temp Pulse Pulse Resp BP Pulse Ox 01/08/19 12:05 36.6 C 114 H 18 101/61 95 01/08/19 08:11 36.5 C 110 H 20 115/69 96 01/08/19 05:00 36.7 C 100 H 20 104/60 90 01/08/19 01:03 110 H Laboratory Results Abnormal lab results 01/07/19 01/07/1901/08/19 Range/Units 16:21 20:50 05:17 BUN 52 H (7-18) mg/dl BUN/Creatinine Ratio 52.1 H (10-20) Glucose 156 H (70-99) mg/dl POC Glucose 222 H 216 H (70-99) 01/08/19 01/08/19 Range/Units 07:51 12:09 BUN (7-18) mg/dl BUN/Creatinine Ratio (10-20) Glucose (70-99) mg/dl POC Glucose 173 H 148 H (70-99) Diagnostic Findings Telemetry: Atrial fibrillation with a controlled heart rate PG Care Time/CCT Total # of Minutes Spent Total Time Spent with Patient: Total time spent is greater than 50% in coordination of care (as documented) at patient's floor/unit and/or counseling patient: (1) CHF exacerbation Heart failure type: unspecified Qualified Code(s): I50.9 - Heart failure, unspecified
--- NOTE | 2019-01-08 16:54 | Hospitalist Progress Note ---
Date of Service January 08, 2019 Assessment & Plan (1) Left upper extremity swellinyo with PMhx of combination systolic/diastolic CHF, DMII, HTN, HLD, CAD, COPD and atrial fibrillation who presents with upper and lower extremity swelling likely secondary to CHF exacerbation. UE Edema -Pt with significant edema in upper extremities bilaterally -DDx includes SVC Syndrome given only upper extremity edema but chest XR with no noted mass; -CT chest obtained without contrast due to allergy of "convulsions" also showed no evidence of mass, or SVC pathology that could be contributing to symptoms. -Historical notes with previous treatment of upper arm swelling with oral prednisone; though no official diagnosis given. -Shoulder XR 01/07 shows degenerative change. Pt likely has component of osteoarthritis which could be why it responded to prednisone in the past. -Arms do not appear to be infected; cellulitis less likely to be bilateral and Doppler of UE with no evidence of clot. -New onset difficulty with arm movement likely secondary to deconditioning as well-PT/OT on board -Pt continuing to diurese- 5L off since admission -Continue Bumex 1 mg IV daily. -Cardiology consulted-appreciate recs RUE weakness/pain: -Unable to get much movement from right arm, difficult to ascertain how much is pain limited vs effort vs swelling vs possible neurologic issue -head CT- no evidence of stroke -shoulder x ray 01/07- degenerative changes. Pt likely has component of osteoarthritis. -continue icing which provided some relief -started on topical diclofenac TID application daily for pain relief as well. -continue PT/OT -continue tramadol as needed -will continue to monitor CHF Exacerbation HFrEF -Pt with swelling in UE > LE, improving markedly; currently at baseline in terms of oxygen supplementation for dyspnea. -Echo 2018: decreased EF 30s-40s, diastolic component noted as well. -Currently receiving Bumex 1mg IV daily -Patient continuing to diurese-creatinine within normal limits today -continuing home Entresto and metoprolol -continue strict Is and Os and daily weights. -cardiology consult- continue diuresis Chronic respiratory failure -continue home O2 At baseline O2 Atrial fibrillation: pt currently tachycardic but per CARDS who has been following pt circa 2012, reasonably rate controlled; continue home meds (Eliquis 5mg BID and metoprolol succ 200mg daily) COPD: does not appear to be in exacerbation; continue home budesonide-formoterol HLD: continue home atorvastatin 20mg DMII: ISS while hospitalized. HgbA1c of 7.8 noted; continue to hold home oral meds(glimepiride). HTN: continue home sacubitril-valsartan, metoprolol Gout: continue home allopurinol CAD: continue home metoprolol, atorvastatin GERD: continue home pantoprazole FEN/GI: Diabetic diet/low sodium CODE STATUS: Full DVT prophylaxis: On Eliquis Dispo: Awaiting placement auth at [facility] Supervising Physician Co-Signing Physician Notes I personally examined the patient and verified all daigle points of history and exam, discussed case, and agree with decision making with Dr Valdez. other than R arm pain and swelling, feeling better. breathing seems OK. R arm hurts to move but seems to loosen some once he gets it moving - but he's extremely hesitant to move it vitals noted nad heent nc at mmm R arm diffuse ~2+ edema tender at shoulder (especially supraspinatus/AC region) and elbow (at epicondyles) and wrist (across joint) acute on chronic HFrEF w subsequent secondary pulmonary HTN and R sided CHF -continue to diurese R arm swelling -seems to relate to above - no other clear causes. see below for joint pain diffuse R arm joint pain -exam fits w DJD on Xray for shoulder, fits w b/l epicondylitis for elbow, fits w just swelling for wrist -doubt anything systemic at play - suspect that since he gets UE swelling from CHF, this led to flare of DJD/tendonitis from swelling extravasating into soft tissue -mobilize as much as possible - encouraged movement -voltaren gel to shoulder and elbow otheriwse as above Subjective Pt seen this AM. Was laying in bed requesting that the bed be lowered. States his symptoms are unchanged, arm swelling lynch and pain. Stated that he did get some ice-packs to his shoulder which helped with the pain as well as overnight tramadol. Denies any headache, changes to vision, cough, runny nose, sore throat, dizziness, chest pain, SOB, palpitations, abdominal pain, diarrhea or constipation or numbness or tingling anywhere. Review of Systems Review of Systems: All systems reviewed & are unremarkable except as noted in HPI & below Physical Exam Physical Exam: General: Alert, orientedx3. Laying in bed, arms bilaterally on pillows, difficulty moving. Skin: No noted rashes or bruises Psych: Appropriate mood and affect Neuro: Able to move fingers, difficult to move arms HEENT: NC/AT Chest: Nontender to palpation. CV: Irregularly irregular rate and rhythm. No murmurs appreciated Resp: Breath sounds on front decreased but clear bilaterally, no increased effort of breathing. Abdomen: Soft, mildly tender, distended. No guarding. No organomegaly appreciated. Extremities: Swelling of both right and left upper extremities. Trace edema in lower extremities bilaterally. Results & Data Vital Signs (Past 12 Hours) Vital Signs Temp Pulse Pulse Resp BP Pulse Ox 01/08/19 15:33 36.8 C 102 H 20 103/59 L 96 01/08/19 13:13 115 H 01/08/19 12:05 36.6 C 114 H 18 101/61 95 01/08/19 08:11 36.5 C 110 H 20 115/69 96 01/08/19 05:00 36.7 C 100 H 20 104/60 90 Laboratory Results Laboratory Results - last 24 hr 01/07/19 01/08/19 01/08/19 20:50 05:17 07:51 Sodium 136 Potassium 4.7 Chloride 102 Carbon Dioxide 27 Anion Gap 8.0 BUN 52 H Creatinine 0.99 Est Cr Clr Drug Dosing 76.8 Est GFR ( Amer) 83.6 Est GFR (Non-Af Amer) 72.1 BUN/Creatinine Ratio 52.1 H Glucose 156 H POC Glucose 216 H 173 H Calcium 9.0 01/08/19 01/08/19 12:09 16:25 Sodium Potassium Chloride Carbon Dioxide Anion Gap BUN Creatinine Est Cr Clr Drug Dosing Est GFR ( Amer) Est GFR (Non-Af Amer) BUN/Creatinine Ratio Glucose POC Glucose 148 H 179 H Calcium Medications Administered Home Medications Eliquis 5 mg PO BID 01/16/18 [History Confirmed 01/01/19] atorvastatin 20 mg PO DAILY 01/16/18 [History Confirmed 01/01/19] multivitamin 1 tab PO DAILY 01/16/18 [History Confirmed 01/01/19] doxazosin 4 mg tablet 4 mg PO DAILY #90 tab 07/21/18 [Rx Confirmed 01/01/19] bumetanide 1 mg tablet 1 mg PO BID #180 tab 08/22/18 [History Confirmed 01/01/19] sacubitril 97 mg-valsartan 103 mg tablet 1 tab PO BID #180 tab 08/22/18 [History Confirmed 01/01/19] budesonide-formoterol HFA 160 mcg-4.5 mcg/actuation aerosol inhaler 2 puff INHALATION BID #10.2 gm 11/15/18 [Rx Confirmed 01/01/19] potassium chloride 20 mEq tablet,extended release(part/cryst) 20 meq PO QPM tab 11/23/18 [History Confirmed 01/01/19] acetaminophen 500 mg tablet 1,000 mg PO TID PRN tab 11/27/18 [History Confirmed 01/01/19] pantoprazole 40 mg tablet,delayed release 40 mg PO DAILY #14 tab 11/27/18 [Rx Confirmed 01/01/19] turmeric root extract 500 mg capsule 500 mg PO BID cap 12/19/18 [History Confirmed 01/01/19] glimepiride 4 mg tablet 4 mg PO QAM #90 tab 12/22/18 [Rx Confirmed 01/01/19] allopurinol 200 mg PO DAILY 01/01/19 [History Confirmed 01/01/19] colchicine 0.6 mg PO HS PRN 01/01/19 [History Confirmed 01/01/19] metoprolol succinate 200 mg PO DAILY 01/01/19 [History Confirmed 01/01/19] potassium chloride 40 meq PO QAM 01/01/19 [History Confirmed 01/01/19] Wheelchair (Manual or Powered) #1 ea 01/08/19 [Rx] Active Medications Acetaminophen (Tylenol) 1,000 mg PO TID PRN PRN Reason: Pain Stop: 01/31/19 22:32 Last Admin: 01/07/19 10:11 Dose: 1,000 mg Documented by: Albuterol (Ventolin 0.5% 2.5mg/0.5ml) 2.5 mg NEB Q2H PRN PRN Reason: SOB/Wheeze Stop: 02/01/19 00:12 Allopurinol (Zyloprim) 200 mg PO DAILY [facility] Stop: 02/01/19 08:59 Last Admin: 01/08/19 09:07 Dose: 200 mg Documented by: Apixaban (Eliquis) 5 mg PO BID [facility] Stop: 01/31/19 22:32 Last Admin: 01/08/19 09:03 Dose: 5 mg Documented by: Atorvastatin Calcium (Lipitor) 20 mg PO DAILY [facility] Stop: 02/01/19 08:59 Last Admin: 01/08/19 09:06 Dose: 20 mg Documented by: Budesonide/Formoterol Fumarate (Symbicort 160mcg/4.5mcg) 2 puffs INH BID [facility] Stop: 01/31/19 22:32 Last Admin: 01/08/19 09:06 Dose: 2 puffs Documented by: Dextrose (Dextrose 50%) 25 - 50 ml IV UD PRN; Protocol PRN Reason: Hypoglycemia Protocol Stop: 01/31/19 22:32 Doxazosin Mesylate (Cardura) 4 mg PO DAILY [facility] Stop: 02/01/19 08:59 Last Admin: 01/08/19 09:03 Dose: 4 mg Documented by: Glucagon (Glucagen) 1 mg SQ UD PRN; Protocol PRN Reason: Hypoglycemia Protocol Stop: 01/31/19 22:32 Glucose (Dex4 Glucose) 4 - 8 tabs PO UD PRN; Protocol PRN Reason: Hypoglycemia Protocol Stop: 01/31/19 22:32 Glucose (Glucose 40%) 15 - 30 gm PO UD PRN; Protocol PRN Reason: Hypoglycemia Protocol Stop: 01/31/19 22:32 Bumetanide 1 mg/ Syringe 4 mls @ 4 mls/min IV DAILY@0900,1700 [facility] Stop: 02/05/19 16:59 Last Admin: 01/08/19 09:01 Dose: 4 mls/min Documented by: Insulin Aspart (Novolog Flexpen) 0 units SC ACHS [facility] Stop: 01/31/19 22:32 Last Admin: 01/08/19 12:40 Dose: 3 units Documented by: Insulin Glargine (Lantus Solostar Pen) 8 units SC BID [facility] Stop: 01/31/19 22:32 Last Admin: 01/08/19 09:05 Dose: 8 units Documented by: Metoprolol Succinate (Toprol Xl) 200 mg PO DAILY [facility] Stop: 02/01/19 08:59 Last Admin: 01/08/19 09:07 Dose: 200 mg Documented by: Miconazole Nitrate (Desenex) 1 appln EXT PRN PRN PRN Reason: Affected Skin Folds Stop: 02/06/19 11:26 Miscellaneous (Carbohydrates For Hypoglycemia) 15 - 30 gm PO UD PRN PRN Reason: Hypoglycemia Protocol Stop: 01/31/19 22:32 Ondansetron HCl (Zofran) 4 mg IV Q6H PRN PRN Reason: Nausea Stop: 01/31/19 22:32 Pantoprazole Sodium (Protonix) 40 mg PO DAILY [facility] Stop: 02/01/19 08:59 Last Admin: 01/08/19 09:06 Dose: 40 mg Documented by: Potassium Chloride (Klor-Con M20) 20 meq PO 1700 [facility] Stop: 01/31/19 22:32 Last Admin: 01/07/19 16:54 Dose: 20 meq Documented by: Potassium Chloride (Klor-Con M20) 40 meq PO QAM [facility] Stop: 02/01/19 08:59 Last Admin: 01/08/19 09:04 Dose: 40 meq Documented by: Sacubitril/Valsartan (Entresto 49/51mg) 2 tab PO BID [facility] Stop: 01/31/19 22:32 Last Admin: 01/08/19 09:04 Dose: 2 tab Documented by: Tramadol HCl (Ultram) 50 mg PO Q4H PRN PRN Reason: Pain Stop: 02/06/19 11:41 Last Admin: 01/08/19 08:53 Dose: 50 mg Documented by: Resident Activity Tracking Resident Involvement: Resident Care Provided Care Provided: Adult Hospital Medicine
--- NOTE | 2019-01-08 17:11 | Billing Data ---
Coding Level of Care Code 24373 Subseq Hosp Care Lvl 3
[2019-01-08] MEDS: DICLOFENAC SOD 1% GEL 100 GM TUBE EXT SCH ×2 (18:06→20:32)
--- NOTE | 2019-01-09 06:53 | Hospitalist Progress Note ---
Date of Service January 09, 2019 Assessment & Plan (1) CHF exacerbation: 78yo with PMhx of combination systolic/diastolic CHF, DMII, HTN, HLD, CAD, COPD and atrial fibrillation who presents with upper and lower extremity swelling likely secondary to CHF exacerbation. UE Edema -Pt with significant edema in upper extremities bilaterally -DDx includes SVC Syndrome given only upper extremity edema but chest XR with no noted mass; -CT chest obtained without contrast due to allergy of "convulsions" also showed no evidence of mass, or SVC pathology that could be contributing to symptoms. -Historical notes with previous treatment of upper arm swelling with oral pr ednisone; though no official diagnosis given. -Shoulder XR 01/07 shows degenerative change. Pt likely has component of osteoarthritis which could be why it responded to prednisone in the past. -Arms do not appear to be infected; cellulitis less likely to be bilateral and Doppler of UE with no evidence of clot. -New onset difficulty with arm movement likely secondary to deconditioning as well-PT/OT on board -Pt continuing to diurese- 5L off since admission -Switched to home PO Bumex 1mg BID -Cardiology consulted-appreciate recs RUE weakness/pain: -Unable to get much movement from right arm, difficult to ascertain how much is pain limited vs effort vs swelling vs possible neurologic issue -head CT- no evidence of stroke -shoulder x ray 01/07- degenerative changes. Pt likely has component of osteoarthritis. -continue icing which provided some relief -started on topical diclofenac TID application daily for pain relief as well. -continue PT/OT -continue tramadol as needed -will continue to monitor CHF Exacerbation HFrEF -Pt with swelling in UE > LE, improving markedly; currently at baseline in terms of oxygen supplementation for dyspnea. -Echo 2018: decreased EF 30s-40s, diastolic component noted as well. -Currently receiving Bumex 1mg IV daily -Patient continuing to diurese-creatinine within normal limits today -continuing home Entresto and metoprolol -continue strict Is and Os and daily weights. -cardiology consult- continue diuresis Chronic respiratory failure -continue home O2 At baseline O2 Atrial fibrillation: pt currently tachycardic but per CARDS who has been following pt circa 2012, reasonably rate controlled; continue home meds (Eliquis 5mg BID and metoprolol succ 200mg daily) COPD: does not appear to be in exacerbation; continue home budesonide-formoterol HLD: continue home atorvastatin 20mg DMII: ISS while hospitalized. HgbA1c of 7.8 noted; continue to hold home oral meds(glimepiride). HTN: continue home sacubitril-valsartan, metoprolol Gout: continue home allopurinol CAD: continue home metoprolol, atorvastatin GERD: continue home pantoprazole FEN/GI: Diabetic diet/low sodium CODE STATUS: Full DVT prophylaxis: On Eliquis Dispo: [facility]wait[facility] placement at [facility] Supervising Physician Co-Signing Physician Notes I personally examined the patient and verified all daigle points of history and exam, discussed case, and agree with decision making with Dr Valdez. arm hurting less but still not moving it much - mostly refuses because it hurts too much to move vitals noted nad heent nc at mmm R arm diffuse ~2+ edema tender at shoulder (especially supraspinatus/AC region) and elbow (at epicondyles) and wrist (across joint) - but seems a little less than yesterday acute on chronic HFrEF w subsequent secondary pulmonary HTN and R sided CHF -creatinine slightly starting to rise - transition back to PO diuretics R arm swelling -seems to relate to above - no other clear causes. see below for joint pain diffuse R arm joint pain -exam fits w DJD on Xray for shoulder, fits w b/l epicondylitis for elbow, fits w just swelling for wrist -doubt anything systemic at play - suspect that since he gets UE swelling from CHF, this led to flare of DJD/tendonitis from swelling extravasating into soft tissue -continue to try to mobilize to break up gelling of muscles as well as to mobilize fluid - he's reticent for this -voltaren gel to shoulder and elbow does seem to be helping otherwise as above Subjective Pt seen this AM. States the topical diclofenac has been helping. Still refusing to move arms. However, denies any headache, changes to vision, cough, runny nose, sore throat, dizziness, weakness, chest pain, SOB, palpitations, abdominal pain, diarrhea or constipation. Review of Systems Review of Systems: All systems reviewed & are unremarkable except as noted in HPI & below Physical Exam Physical Exam: General: Alert, orientedx3. Laying in bed, arms bilaterally on pillows, difficulty moving. Skin: No noted rashes or bruises Psych: Appropriate mood and affect Neuro: Able to move fingers, difficult to move arms HEENT: NC/AT Chest: Nontender to palpation. CV: Irregularly irregular rate and rhythm. No murmurs appreciated Resp: Breath sounds on front decreased but clear bilaterally, no increased effort of breathing. Abdomen: Soft, mildly tender, distended. No guarding. No organomegaly appreciated. Extremities: Swelling of both right and left upper extremities. Trace edema in lower extremities bilaterally. Results & Data Vital Signs (Past 12 Hours) Vital Signs Temp Pulse Pulse Resp BP BP Pulse Ox 01/08/19 23:49 37 C 60 20 97/67 L 95 01/08/19 21:10 36.6 C 100 H 18 94/62 L 97 01/08/19 20:08 98/57 L 01/08/19 20:07 36.8 C 50 L 20 94 Laboratory Results Laboratory Results - last 24 hr 01/08/19 01/09/19 01/09/19 20:32 08:04 08:05 Sodium 136 Potassium 5.0 Chloride 101 Carbon Dioxide 26 Anion Gap 8.0 BUN 53 H Creatinine 1.02 Est Cr Clr Drug Dosing 74.6 Est GFR ( Amer) 80.6 Est GFR (Non-Af Amer) 69.6 BUN/Creatinine Ratio 52.3 H Glucose 144 H POC Glucose 191 H 147 H Calcium 9.2 01/09/19 01/09/19 12:16 17:59 Sodium Potassium Chloride Carbon Dioxide Anion Gap BUN Creatinine Est Cr Clr Drug Dosing Est GFR ( Amer) Est GFR (Non-Af Amer) BUN/Creatinine Ratio Glucose POC Glucose 150 H 147 H Calcium Medications Administered Home Medications Eliquis 5 mg PO BID 01/16/18 [History Confirmed 01/01/19] atorvastatin 20 mg PO DAILY 01/16/18 [History Confirmed 01/01/19] multivitamin 1 tab PO DAILY 01/16/18 [History Confirmed 01/01/19] doxazosin 4 mg tablet 4 mg PO DAILY #90 tab 07/21/18 [Rx Confirmed 01/01/19] bumetanide 1 mg tablet 1 mg PO BID #180 tab 08/22/18 [History Confirmed 01/01/19] sacubitril 97 mg-valsartan 103 mg tablet 1 tab PO BID #180 tab 08/22/18 [History Confirmed 01/01/19] budesonide-formoterol HFA 160 mcg-4.5 mcg/actuation aerosol inhaler 2 puff INHALATION BID #10.2 gm 11/15/18 [Rx Confirmed 01/01/19] potassium chloride 20 mEq tablet,extended release(part/cryst) 20 meq PO QPM tab 11/23/18 [History Confirmed 01/01/19] acetaminophen 500 mg tablet 1,000 mg PO TID PRN tab 11/27/18 [History Confirmed 01/01/19] pantoprazole 40 mg tablet,delayed release 40 mg PO DAILY #14 tab 11/27/18 [Rx Confirmed 01/01/19] turmeric root extract 500 mg capsule 500 mg PO BID cap 12/19/18 [History Confirmed 01/01/19] glimepiride 4 mg tablet 4 mg PO QAM #90 tab 12/22/18 [Rx Confirmed 01/01/19] allopurinol 200 mg PO DAILY 01/01/19 [History Confirmed 01/01/19] colchicine 0.6 mg PO HS PRN 01/01/19 [History Confirmed 01/01/19] metoprolol succinate 200 mg PO DAILY 01/01/19 [History Confirmed 01/01/19] potassium chloride 40 meq PO QAM 01/01/19 [History Confirmed 01/01/19] Wheelchair (Manual or Powered) #1 ea 01/08/19 [Rx] sodium,potassium,mag sulfates 17.5 gram-3.13 gram-1.6 gram oral soln 177 ml PO DAILY #354 ml 01/09/19 [Rx] Active Medications Acetaminophen (Tylenol) 1,000 mg PO TID PRN PRN Reason: Pain Stop: 01/31/19 22:32 Last Admin: 01/09/19 18:30 Dose: 1,000 mg Documented by: Albuterol (Ventolin 0.5% 2.5mg/0.5ml) 2.5 mg NEB Q2H PRN PRN Reason: SOB/Wheeze Stop: 02/01/19 00:12 Allopurinol (Zyloprim) 200 mg PO DAILY [facility] Stop: 02/01/19 08:59 Last Admin: 01/09/19 09:03 Dose: 200 mg Documented by: Apixaban (Eliquis) 5 mg PO BID [facility] Stop: 01/31/19 22:32 Last Admin: 01/09/19 09:01 Dose: 5 mg Documented by: Atorvastatin Calcium (Lipitor) 20 mg PO DAILY [facility] Stop: 02/01/19 08:59 Last Admin: 01/09/19 09:03 Dose: 20 mg Documented by: Budesonide/Formoterol Fumarate (Symbicort 160mcg/4.5mcg) 2 puffs INH BID [facility] Stop: 01/31/19 22:32 Last Admin: 01/09/19 09:03 Dose: 2 puffs Documented by: Bumetanide (Bumex) 1 mg PO BID17 [facility] Stop: 02/08/19 16:59 Last Admin: 01/09/19 17:56 Dose: 1 mg Documented by: Dextrose (Dextrose 50%) 25 - 50 ml IV UD PRN; Protocol PRN Reason: Hypoglycemia Protocol Stop: 01/31/19 22:32 Diclofenac Sodium (Voltaren 1% Top) 2 gm EXT QID [facility] Stop: 02/07/19 17:04 Last Admin: 01/09/19 18:00 Dose: 2 gm Documented by: Doxazosin Mesylate (Cardura) 4 mg PO DAILY [facility] Stop: 02/01/19 08:59 Last Admin: 01/09/19 09:00 Dose: 4 mg Documented by: Glucagon (Glucagen) 1 mg SQ UD PRN; Protocol PRN Reason: Hypoglycemia Protocol Stop: 01/31/19 22:32 Glucose (Dex4 Glucose) 4 - 8 tabs PO UD PRN; Protocol PRN Reason: Hypoglycemia Protocol Stop: 01/31/19 22:32 Glucose (Glucose 40%) 15 - 30 gm PO UD PRN; Protocol PRN Reason: Hypoglycemia Protocol Stop: 01/31/19 22:32 Insulin Aspart (Novolog Flexpen) 0 units SC ACHS [facility] Stop: 01/31/19 22:32 Last Admin: 01/09/19 13:26 Dose: 1 units Documented by: Insulin Glargine (Lantus Solostar Pen) 8 units SC BID [facility] Stop: 01/31/19 22:32 Last Admin: 01/09/19 09:07 Dose: 8 units Documented by: Metoprolol Succinate (Toprol Xl) 200 mg PO DAILY [facility] Stop: 02/01/19 08:59 Last Admin: 01/09/19 09:03 Dose: 200 mg Documented by: Miconazole Nitrate (Desenex) 1 appln EXT PRN PRN PRN Reason: Affected Skin Folds Stop: 02/06/19 11:26 Miscellaneous (Carbohydrates For Hypoglycemia) 15 - 30 gm PO UD PRN PRN Reason: Hypoglycemia Protocol Stop: 01/31/19 22:32 Ondansetron HCl (Zofran) 4 mg IV Q6H PRN PRN Reason: Nausea Stop: 01/31/19 22:32 Pantoprazole Sodium (Protonix) 40 mg PO DAILY [facility] Stop: 02/01/19 08:59 Last Admin: 01/09/19 09:04 Dose: 40 mg Documented by: Potassium Chloride (Klor-Con M20) 20 meq PO 1700 [facility] Stop: 01/31/19 22:32 Last Admin: 01/09/19 17:57 Dose: 20 meq Documented by: Potassium Chloride (Klor-Con M20) 40 meq PO QAM [facility] Stop: 02/01/19 08:59 Last Admin: 01/09/19 09:04 Dose: 40 meq Documented by: Sacubitril/Valsartan (Entresto 49/51mg) 2 tab PO BID [facility] Stop: 01/31/19 22:32 Last Admin: 01/09/19 09:01 Dose: 2 tab Documented by: Tramadol HCl (Ultram) 50 mg PO Q4H PRN PRN Reason: Pain Stop: 02/06/19 11:41 Last Admin: 01/09/19 09:12 Dose: 50 mg Documented by: Resident Activity Tracking Resident Involvement: Resident Care Provided Care Provided: Adult Hospital Medicine (1) CHF exacerbation Heart failure type: unspecified Qualified Code(s): I50.9 - Heart failure, unspecified
[2019-01-09 08:57] LABS: BUN Creatinine Ratio 52.3 (10-20); Calcium 9.2 mg/dl (8.5-10.1); Creatinine Clr Calc Pharmacy 74.6 ml/min; Est GFR (African American) 80.6; Est GFR (Non-African American) 69.6
[2019-01-09] MEDS: BUMETANIDE 1 MG in SYRINGE 0 ML IV SCH (09:00)
[2019-01-09] MEDS: DOXAZosin MESYLATE 4 MG TAB PO SCH (09:00)
[2019-01-09] MEDS: SACUBITRIL-VALSARTAN 49/51 MG TAB PO SCH ×2 (09:01→20:46)
[2019-01-09] MEDS: APIXABAN 5 MG TABLET PO SCH ×2 (09:01→20:46)
[2019-01-09] MEDS: DICLOFENAC SOD 1% GEL 100 GM TUBE EXT SCH ×4 (09:02→20:45)
[2019-01-09] MEDS: METOPROLOL SUCC 50MG EXT REL TAB PO SCH (09:03)
[2019-01-09] MEDS: BUDESONIDE/FORMOTEROL FUMARATE 160/4.5 60 PUFFS/INHALER INH SCH ×2 (09:03→20:47)
[2019-01-09] MEDS: allopurinoL 100 MG TAB PO SCH (09:03)
[2019-01-09] MEDS: ATORVASTATIN 20 MG TAB PO SCH (09:03)
[2019-01-09] MEDS: PANTOprazole 40 MG TAB PO SCH (09:04)
[2019-01-09] MEDS: POTASSIUM CHLORIDE 20 MEQ TABCR PO SCH ×2 (09:04→17:57)
[2019-01-09] MEDS: INSULIN GLARGINE SOLOSTAR 100 UNITS/ML 3 ML PEN SC SCH ×2 (09:07→21:07)
[2019-01-09] MEDS: INSULIN ASPART 100 UNITS/ML 3 ML PEN SC SCH ×4 (09:09→21:08)
[2019-01-09] MEDS: TRAMADOL HCL 50 MG TABLET PO PRN (09:12)
[2019-01-09] MEDS: BUMETANIDE 1 MG TAB PO SCH (17:56)
[2019-01-09] MEDS: ACETAMINOPHEN 500 MG TAB PO PRN (18:30)
--- NOTE | 2019-01-09 18:50 | Billing Data ---
Coding Level of Care Code 89703 Initial Inpt Care Lvl 3
[2019-01-10 07:54] LABS: BUN Creatinine Ratio 54.8 (10-20); Creatinine Clr Calc Pharmacy 74.9 ml/min; Est GFR (African American) 81.6; Est GFR (Non-African American) 70.4; Potassium 4.7 mmol/L (3.5-5.1)
[2019-01-10] MEDS: DICLOFENAC SOD 1% GEL 100 GM TUBE EXT SCH ×3 (09:20→17:02)
[2019-01-10] MEDS: METOPROLOL SUCC 50MG EXT REL TAB PO SCH (09:21)
[2019-01-10] MEDS: PANTOprazole 40 MG TAB PO SCH (09:21)
[2019-01-10] MEDS: BUDESONIDE/FORMOTEROL FUMARATE 160/4.5 60 PUFFS/INHALER INH SCH (09:21)
[2019-01-10] MEDS: allopurinoL 100 MG TAB PO SCH (09:22)
[2019-01-10] MEDS: ATORVASTATIN 20 MG TAB PO SCH (09:22)
[2019-01-10] MEDS: DOXAZosin MESYLATE 4 MG TAB PO SCH (09:22)
[2019-01-10] MEDS: BUMETANIDE 1 MG TAB PO SCH ×2 (09:23→17:02)
[2019-01-10] MEDS: APIXABAN 5 MG TABLET PO SCH (09:23)
[2019-01-10] MEDS: SACUBITRIL-VALSARTAN 49/51 MG TAB PO SCH (09:23)
[2019-01-10] MEDS: INSULIN GLARGINE SOLOSTAR 100 UNITS/ML 3 ML PEN SC SCH (09:26)
[2019-01-10] MEDS: INSULIN ASPART 100 UNITS/ML 3 ML PEN SC SCH ×2 (09:26→12:57)
[2019-01-10] MEDS: POTASSIUM CHLORIDE 20 MEQ TABCR PO SCH ×2 (11:13→17:02)
--- NOTE | 2019-01-10 16:07 | Hospitalist Progress Note ---
Date of Service January 10, 2019 Assessment & Plan (1) CHF exacerbation: 78yo with PMhx of combination systolic/diastolic CHF, DMII, HTN, HLD, CAD, COPD and atrial fibrillation who presents with upper and lower extremity swelling likely secondary to a CHF exacerbation. UE Edema -Pt with significant edema in upper extremities bilaterally -DDx includes SVC Syndrome given only upper extremity edema but chest XR with no noted mass -CT chest obtained without contrast due to allergy of "convulsions" also showed no evidence of mass, or SVC pathology that could be contributing to symptoms. -Historical notes with previous treatment of upper arm swelling with oral p rednisone; though no official diagnosis given. -Shoulder XR 01/07 shows degenerative change. Pt likely has component of osteoarthritis which could be why it responded to prednisone in the past. -Arms do not appear to be infected; cellulitis less likely to be bilateral and Doppler of UE with no evidence of clot. -New onset difficulty with arm movement likely secondary to deconditioning as well-PT/OT on board -Pt continuing to diurese- 7L off since admission -Switched to home PO Bumex 1mg BID-continue -Cardiology consulted-appreciate recs RUE weakness/pain: -Unable to get much movement from right arm, difficult to ascertain how much is pain limited vs effort vs swelling vs possible neurologic issue -head CT- no evidence of stroke -shoulder x ray 01/07- degenerative changes. Pt likely has component of osteoarthritis. -continue icing which provided some relief -started on topical diclofenac TID application daily for pain relief as well. -continue PT/OT -continue tramadol as needed -will continue to monitor CHF Exacerbation HFrEF -Pt with swelling in UE > LE, improving markedly; currently at baseline in terms of oxygen supplementation for dyspnea. -Echo 2018: decreased EF 30s-40s, diastolic component noted as well. -Currently receiving home Bumex 1mg PO BID -Patient continuing to diurese-creatinine within normal limits -continuing home Entresto and metoprolol -continue strict Is and Os and daily weights. -cardiology consult- continue diuresis Chronic respiratory failure -continue home O2 -At baseline O2 Atrial fibrillation: -pt currently tachycardic but per CARDS who has been following pt circa 2012, reasonably rate controlled; -continue home meds (Eliquis 5mg BID and metoprolol succ 200mg daily) COPD: does not appear to be in exacerbation; continue home budesonide-formoterol HLD: continue home atorvastatin 20mg DMII: ISS while hospitalized. HgbA1c of 7.8 noted; continue to hold home oral meds(glimepiride). HTN: continue home sacubitril-valsartan, metoprolol Gout: continue home allopurinol CAD: continue home metoprolol, atorvastatin GERD: continue home pantoprazole FEN/GI: Diabetic diet/low sodium CODE STATUS: Full DVT prophylaxis: On Eliquis Dispo: Awaiting placement at SNF Supervising Physician Co-Signing Physician Notes see dc summary Subjective Pt seen this AM. States he is doing much better, the topical diclofenac still helping. he is able to move the right arm a bit more. Denies any headache, changes to vision, cough, runny nose, sore throat, dizziness, weakness, chest pain, SOB, palpitations, abdominal pain, diarrhea or constipation. Review of Systems Review of Systems: All systems reviewed & are unremarkable except as noted in HPI & below Physical Exam Physical Exam: General: Alert, orientedx3. Laying in bed, arms bilaterally on pillows. Skin: No noted rashes or bruises Psych: Appropriate mood and affect Neuro: Able to move fingers, improvement with moving right arm, left arm also with greater ROM. HEENT: NC/AT Chest: Nontender to palpation. CV: Irregularly irregular rate and rhythm. No murmurs appreciated Resp: Breath sounds on front decreased but clear bilaterally, no increased effort of breathing. Abdomen: Soft, mildly tender, distended. No guarding. No organomegaly appreciated. Extremities: Swelling of both right and left upper extremities, R>L. Trace edema in lower extremities bilaterally. Results & Data Vital Signs (Past 12 Hours) Vital Signs Temp Pulse Resp BP Pulse Ox 01/10/19 15:01 36.3 C L 110 H 17 122/78 93 01/10/19 06:52 36.8 C 89 18 100/53 L 95 Laboratory Results Laboratory Results - last 24 hr 01/09/19 01/09/19 01/09/19 12:16 17:59 20:58 Sodium Potassium Chloride Carbon Dioxide Anion Gap BUN Creatinine Est Cr Clr Drug Dosing Est GFR ( Amer) Est GFR (Non-Af Amer) BUN/Creatinine Ratio Glucose POC Glucose 150 H 147 H 143 H Calcium 01/10/19 01/10/19 01/10/19 07:03 08:12 11:59 Sodium 136 Potassium 4.7 Chloride 101 Carbon Dioxide 28 Anion Gap 7.0 BUN 55 H Creatinine 1.01 Est Cr Clr Drug Dosing 74.9 Est GFR ( Amer) 81.6 Est GFR (Non-Af Amer) 70.4 BUN/Creatinine Ratio 54.8 H Glucose 107 H POC Glucose 117 H 184 H Calcium 9.0 Medications Administered Home Medications Eliquis 5 mg PO BID 01/16/18 [History Confirmed 01/01/19] atorvastatin 20 mg PO DAILY 01/16/18 [History Confirmed 01/01/19] multivitamin 1 tab PO DAILY 01/16/18 [History Confirmed 01/01/19] doxazosin 4 mg tablet 4 mg PO DAILY #90 tab 07/21/18 [Rx Confirmed 01/01/19] bumetanide 1 mg tablet 1 mg PO BID #180 tab 08/22/18 [History Confirmed 01/01/19] sacubitril 97 mg-valsartan 103 mg tablet 1 tab PO BID #180 tab 08/22/18 [History Confirmed 01/01/19] budesonide-formoterol HFA 160 mcg-4.5 mcg/actuation aerosol inhaler 2 puff INHALATION BID #10.2 gm 11/15/18 [Rx Confirmed 01/01/19] potassium chloride 20 mEq tablet,extended release(part/cryst) 20 meq PO QPM tab 11/23/18 [History Confirmed 01/01/19] acetaminophen 500 mg tablet 1,000 mg PO TID PRN tab 11/27/18 [History Confirmed 01/01/19] pantoprazole 40 mg tablet,delayed release 40 mg PO DAILY #14 tab 11/27/18 [Rx Confirmed 01/01/19] turmeric root extract 500 mg capsule 500 mg PO BID cap 12/19/18 [History Confirmed 01/01/19] glimepiride 4 mg tablet 4 mg PO QAM #90 tab 12/22/18 [Rx Confirmed 01/01/19] allopurinol 200 mg PO DAILY 01/01/19 [History Confirmed 01/01/19] colchicine 0.6 mg PO HS PRN 01/01/19 [History Confirmed 01/01/19] metoprolol succinate 200 mg PO DAILY 01/01/19 [History Confirmed 01/01/19] potassium chloride 40 meq PO QAM 01/01/19 [History Confirmed 01/01/19] Wheelchair (Manual or Powered) #1 ea 01/08/19 [Rx] sodium,potassium,mag sulfates 17.5 gram-3.13 gram-1.6 gram oral soln 177 ml PO DAILY #354 ml 01/09/19 [Rx] Active Medications Acetaminophen (Tylenol) 1,000 mg PO TID PRN PRN Reason: Pain Stop: 01/31/19 22:32 Last Admin: 01/09/19 18:30 Dose: 1,000 mg Documented by: Albuterol (Ventolin 0.5% 2.5mg/0.5ml) 2.5 mg NEB Q2H PRN PRN Reason: SOB/Wheeze Stop: 02/01/19 00:12 Allopurinol (Zyloprim) 200 mg PO DAILY YARITZA Stop: 02/01/19 08:59 Last Admin: 01/10/19 09:22 Dose: 200 mg Documented by: Apixaban (Eliquis) 5 mg PO BID YARITZA Stop: 01/31/19 22:32 Last Admin: 01/10/19 09:23 Dose: 5 mg Documented by: Atorvastatin Calcium (Lipitor) 20 mg PO DAILY YARITZA Stop: 02/01/19 08:59 Last Admin: 01/10/19 09:22 Dose: 20 mg Documented by: Budesonide/Formoterol Fumarate (Symbicort 160mcg/4.5mcg) 2 puffs INH BID YARITZA Stop: 01/31/19 22:32 Last Admin: 01/10/19 09:21 Dose: 2 puffs Documented by: Bumetanide (Bumex) 1 mg PO BID17 YARITZA Stop: 02/08/19 16:59 Last Admin: 01/10/19 09:23 Dose: 1 mg Documented by: Dextrose (Dextrose 50%) 25 - 50 ml IV UD PRN; Protocol PRN Reason: Hypoglycemia Protocol Stop: 01/31/19 22:32 Diclofenac Sodium (Voltaren 1% Top) 2 gm EXT QID YARITZA Stop: 02/07/19 17:04 Last Admin: 01/10/19 12:56 Dose: 2 gm Documented by: Doxazosin Mesylate (Cardura) 4 mg PO DAILY YARITZA Stop: 02/01/19 08:59 Last Admin: 01/10/19 09:22 Dose: 4 mg Documented by: Glucagon (Glucagen) 1 mg SQ UD PRN; Protocol PRN Reason: Hypoglycemia Protocol Stop: 01/31/19 22:32 Glucose (Dex4 Glucose) 4 - 8 tabs PO UD PRN; Protocol PRN Reason: Hypoglycemia Protocol Stop: 01/31/19 22:32 Glucose (Glucose 40%) 15 - 30 gm PO UD PRN; Protocol PRN Reason: Hypoglycemia Protocol Stop: 01/31/19 22:32 Insulin Aspart (Novolog Flexpen) 0 units SC ACHS YARITZA Stop: 01/31/19 22:32 Last Admin: 01/10/19 12:57 Dose: 2 units Documented by: Insulin Glargine (Lantus Solostar Pen) 8 units SC BID YARITZA Stop: 01/31/19 22:32 Last Admin: 01/10/19 09:26 Dose: 8 units Documented by: Metoprolol Succinate (Toprol Xl) 200 mg PO DAILY YARITZA Stop: 02/01/19 08:59 Last Admin: 01/10/19 09:21 Dose: 200 mg Documented by: Miconazole Nitrate (Desenex) 1 appln EXT PRN PRN PRN Reason: Affected Skin Folds Stop: 02/06/19 11:26 Miscellaneous (Carbohydrates For Hypoglycemia) 15 - 30 gm PO UD PRN PRN Reason: Hypoglycemia Protocol Stop: 01/31/19 22:32 Ondansetron HCl (Zofran) 4 mg IV Q6H PRN PRN Reason: Nausea Stop: 01/31/19 22:32 Pantoprazole Sodium (Protonix) 40 mg PO DAILY YARITZA Stop: 02/01/19 08:59 Last Admin: 01/10/19 09:21 Dose: 40 mg Documented by: Potassium Chloride (Klor-Con M20) 20 meq PO 1700 YARITZA Stop: 01/31/19 22:32 Last Admin: 01/09/19 17:57 Dose: 20 meq Documented by: Potassium Chloride (Klor-Con M20) 40 meq PO QAM YARITZA Stop: 02/01/19 08:59 Last Admin: 01/10/19 11:13 Dose: 40 meq Documented by: Sacubitril/Valsartan (Entresto 49/51mg) 2 tab PO BID YARITZA Stop: 01/31/19 22:32 Last Admin: 01/10/19 09:23 Dose: 2 tab Documented by: Tramadol HCl (Ultram) 50 mg PO Q4H PRN PRN Reason: Pain Stop: 02/06/19 11:41 Last Admin: 01/09/19 09:12 Dose: 50 mg Documented by: Resident Activity Tracking Resident Involvement: Resident Care Provided Care Provided: Adult Hospital Medicine (1) CHF exacerbation Heart failure type: unspecified Qualified Code(s): I50.9 - Heart failure, unspecified
--- NOTE | 2019-01-10 18:33 | Discharge Summary ---
Date of Service January 10, 2019 Admission HPI Per Admitting Provider Nicola Dc is a 78-year-old male with multiple medical problems to include AAA status post repair, systolic/diastolic CHF, CAD, COPD on 2 L of oxygen, diabetes, hypertension, hyperlipidemia, atrial fibrillation on chronic anticoagulation presenting with worsening edema. Patient states that over the last 2 to 3 days he has had worsening of edema in his right foot as well as his left upper extremity. He states that swelling in these areas is fairly typical of his CHF exacerbations. Reports that he ate ham a couple of days ago and blames his recent edema on this increased salt intake. He has been taking Bumex 3 mg daily over the last 3 days with slight improvement in his swelling. He also reports mild worsening of his baseline shortness of breath. Stable orthopnea, no change in weight. Patient has an abdominal wall defect. He has seen Dr. Lucero for this concern on 12/28. He is to have a CT of the abdomen performed. Patient also reports fairly remote history of bloody bowel movement. None recently. He has a colonoscopy being arranged by his primary care physician. ER course: Bumex 2 mg IV Principal Diagnosis acute on chronic systolic chf (HFrEF) exacerbation Discharge Exam In general he is awake and alert pleasant no distress. HEENT normocephalic atraumatic mucous members are moist. Breathing is unlabored no accessory muscle use good effort. Skin shows no rashes no pallor or icterus. Left upper extremity with no edema. Right upper extremity with ongoing 2+ edema, may be slightly better than before but is diffuse the hallway up to about his upper arm just distal to his shoulder, encompassing his arm forearm wrist and hand. It is soft and nontender, no erythema no open lesions. His shoulder is far less tender to palpate than it was before, I am able to palpate with at least mild pressure before seeming to elicit pain, and there is no wincing. Neuro shows no focal deficits. Discharge Data Allergies Allergy/AdvReac Type Severity Reaction Status Date / Time Iodinated Contrast Media Allergy Severe NEEDS Verified 12/28/18 14:[address] DYE Consultations 01/01/19 20:15 ED Decision to Admit Stat 01/03/19 14:54 Consult Cardiology Routine 01/05/19 13:02 [facility] Referral Routine Ordered Studies 01/01/19 19:01 US venous doppler UE LT Stat 01/04/19 17:27 CT chest wo con Routine 01/06/19 11:21 US venous doppler UE BI Routine 01/07/19 10:53 CT head/brain wo con Urgent Hospital Course (1) CHF exacerbation: 78yo with PMhx of combination systolic/diastolic CHF, DMII, HTN, HLD, CAD, COPD and atrial fibrillation who presents with upper and lower extremity swelling likely secondary to CHF exacerbation. UE Edema -Pt with significant edema in upper extremities bilaterally Patient multiple admissions for CHF exacerbations, possibly secondary to CHF exacerbation as patient does appear to be fluid overloaded however is on presentation as there is limited lower extremity swelling and marketed upper extremity swelling. -Chest XR with no noted mass; CT chest obtained without contrast due to allergy of "convulsions" showed no evidence of mass, or SVC pathology that could be contributing to symptoms. -Arms do not appear to be infected; cellulitis less likely to be bilateral and Doppler of left UE with no evidence of clot. -After extensive work-up and review, as well as seeing improvement in his left arm with movement, but not with his right because he is not moving it it appears that his upper extremity pain is because of flaring of arthritis/tendinitis that occurred because of the edema, and now the edema is not improving because he is not moving his arms at all. -Continue baseline CHF management as below -Continue topical diclofenac to improve the arthritis/tendinitis pain -Mobilize as best as he will allow, ongoing PT/OT eval and treat CHF Exacerbation HFrEF -Echo 2018: decreased EF 30s-40s, diastolic component noted as well. -diuresed well, down to baseline/home bumex dosing -continue to follow volume status and continue bumex. -f/u BMP periodically (would start in 2-3 days then weekly thereafter for now) Chronic respiratory failure -continue home O2 At baseline O2 Atrial fibrillation: reasonably rate controlled; continue home meds (Eliquis 5mg BID and metoprolol succ 200mg daily) COPD: does not appear to be in exacerbation; continue home budesonide-formoterol HLD: continue home atorvastatin 20mg Diabetes: HgbA1c of 7.8 noted; BSG/meds/insulin per institutional protocol on arrival at [facility] HTN: continue home sacubitril-valsartan, metoprolol Gout: continue home allopurinol CAD: continue home metoprolol, atorvastatin GERD: continue home pantoprazole FEN/GI: Diabetic diet/low sodium CODE STATUS: Full DVT prophylaxis: On Eliquis dispo - stable for SNF Total Time Total Time Spent Total Time Spent (In Minutes): <30 Discharge Plan Discharge Items Patient Disposition: Transfer [facility] Reason For Visit: CHF Discharge Diagnosis: CHF Exacerbation Osteoarthritis Activity: Per Instructions section Non-emergency contact: Primary Care Provider Call non-emergency contact if: your symptoms worsen and you have a fever Follow-up/Referrals: Sergio Rivas MD [Physician] - 01/25/19 2:10 pm (Please, follow up at [facility] U[facility] Office with Dr. Rivas on January 25 at 2:10 pm. *The office is located at [address] [place] [address] in [employer]. If you need to change this appointment, call the office at [phone].) Maritza Sanchez PA-C [Physician Sustainability Communicator] - 01/17/19 2:00 pm (Congestive Heart Failure Program Appointment Information Early follow up is essential to managing your heart failure. An appointment has been scheduled for you with the [facility] Heart Failure Program within 7 days of discharge. Anticipate this visit to be 30-60 minutes long. Please expect a lobby concierge phone call from one of our nurses approximately 48 hours from discharge. They will also be placing an order for lab work to be completed 1-2 days prior to your heart failure follow up appointment. Please be sure to have this done so we can go over the results when you come in. Office Location The cardiology office building is located in front of the hospital at [address] [facility]. Bring the following with you to your follow-up doctor appointments: Please bring your daily weight log any discharge paperwork all of your medication bottles with you to this visit. ) Diet: Carb Consistent or DM2, Heart Healthy and Low Sodium (2gm) Addtl Attending Provider Instructions: FACILITY DISCHARGE INSTRUCTIONS 78yo with PMhx of combination systolic/diastolic CHF, DMII, HTN, HLD, CAD, COPD and atrial fibrillation who presents with upper and lower extremity swelling likely secondary to CHF exacerbation. Summary recommendations -Continue to diurese with PO home Bumex 1mg BID, follow swelling/breathing, check BMP tuesday then periodically thereafter -Continue physical therapy and movement, especially of upper extremities -Continue TID/QID topical diclofenac administration to right shoulder and elbow, with PRN tramadol for pain UE Edema -Pt with significant edema in upper extremities bilaterally on presentation -DDx includes SVC Syndrome given only upper extremity edema but chest XR with no noted mass -CT chest obtained without contrast (due to allergy of "convulsions") also showed no evidence of mass, or SVC pathology that could be contributing to symptoms. -Historical notes with previous treatment of upper arm swelling with oral prednisone; though no official diagnosis given. -Shoulder XR 01/07 shows degenerative change. Pt likely has component of osteoarthritis which could be why it responded to prednisone in the past. -Arms do not appear to be infected; cellulitis less likely to be bilateral and Doppler of UE with no evidence of clot. -New onset difficulty with arm movement likely secondary to deconditioning as well-PT/OT on board. Recommend SNF placement with continued PT. -Pt continuing to diurese with >7L off since admission. -Switched to home PO Bumex 1mg BID. Continue -Cardiology consulted-advise continued diuresis for CHF related UE edema. RUE weakness/pain: -Unable to get much movement from right arm, difficult to ascertain how much is pain limited vs effort vs swelling vs possible neurologic issue -head CT- no evidence of stroke -shoulder x ray 01/07- degenerative changes. Pt likely has component of osteoarthritis. -continue icing which provided some relief -continue topical diclofenac TID application daily for pain relief as well. -continue PT/OT for movement -continue tramadol as needed -continue to monitor CHF Exacerbation HFrEF -Pt with swelling in UE > LE, improving markedly; currently at baseline in terms of oxygen supplementation for dyspnea. -Echo 2018: decreased EF 30s-40s, diastolic component noted as well. -Continue Bumex 1mg BID PO daily -Patient continuing to diurese-creatinine within normal limits on discharge -continue home Entresto and metoprolol Chronic respiratory failure -continue home O2 At baseline O2 Atrial fibrillation: -pt currently reasonably rate controlled -continue home meds (Eliquis 5mg BID and metoprolol succ 200mg daily) COPD: does not appear to be in exacerbation; continue home budesonide-formoterol HLD: continue home atorvastatin 20mg DMII: ISS while hospitalized. HgbA1c of 7.8 noted; continue kathrin oral meds (glimepiride) on discharge. HTN: continue home sacubitril-valsartan, metoprolol Gout: continue home allopurinol CAD: continue home metoprolol, atorvastatin GERD: continue home pantoprazole Pending Studies at Discharge: No Stand-Alone Forms: My [facility] Skilled Items Patient informed of condition?: Yes DNR: No Discharge Level of Care: Skilled Communicable Disease: No Discharge Prognosis: Stable Lines: None Urinary Catheter: No Medications and DC Order Prescriptions: New diclofenac sodium 1 % gel 2 gm TOP QID Qty: 100 RF: 0 Continued doxazosin 4 mg tablet 4 mg PO DAILY Qty: 90 RF: 3 Symbicort 160-4.5 mcg/actuation HFA aerosol inhaler 2 puff INHALATION BID Qty: 10.2 RF: 3 glimepiride 4 mg tablet 4 mg PO QAM Qty: 90 RF: 1 (DME) Wheelchair (Powered) Device See Rx Instructions .ROUTE .MEDSUPPLY Qty: 1 RF: 0 Suprep Bowel Prep Kit 17.5-3.13-1.6 gram recon soln 177 ml PO DAILY Qty: 354 RF: 0 bumetanide 1 mg tablet 1 mg PO BID Qty: 180 RF: 0 sacubitril-valsartan 97-103 mg tablet 1 tab PO BID Qty: 180 RF: 0 pantoprazole [Protonix] 40 mg tablet,delayed release (DR/EC) 40 mg PO DAILY Qty: 14 RF: 1 turmeric root extract 500 mg capsule 500 mg PO BID RF: 0 multivitamin Tablet 1 tab PO DAILY RF: 0 atorvastatin 20 mg Tablet 20 mg PO DAILY RF: 0 Eliquis 5 mg Tablet 5 mg PO BID RF: 0 potassium chloride [Klor-Con M20] 20 mEq tablet,ER particles/crystals 20 meq PO QPM RF: 0 acetaminophen [Tylenol Extra Strength] 500 mg tablet 1,000 mg PO TID PRN (Reason: Pain) RF: 0 metoprolol succinate 200 mg tablet extended release 24 hr 200 mg PO DAILY RF: 0 allopurinol 100 mg tablet 200 mg PO DAILY RF: 0 potassium chloride 20 mEq tablet,ER particles/crystals 40 meq PO QAM RF: 0 colchicine 0.6 mg tablet 0.6 mg PO HS PRN (Reason: .GOUT) RF: 0 Discharge Orders: Discharge Order (Routine); Ordered 01/10/19 Ordered By: Eugenio Figueroa Admission Data Admit Date/Time: 01/01/19 20:57 Attending Provider: Eugenio Figueroa Admit Provider: Serena Knapp Primary Care Provider: Maryanne Whipple Other Providers: Claudia Cavazos ; Rojas, ; Serena Knapp ; Triston Robison ; Maritza Sanchez Other Interventions: Discharge Summary Assessment (RN) Last Done: 01/10/19 16:36 DC Date/Time DO NOT enter until pt leaves facility: 01/10/19 17:33
== END 2019-01-10 17:33 | DRG 292 ==
LOC: ED 17:14 → SUATTDRO 20:57 → 2N 20:57 → 3W 01-08 14:34

== ENCOUNTER 2019-01-15 07:02 | Inpatient (IN) ==
--- NOTE | 2019-01-15 07:32 | XRay Report ---
SINGLE VIEW CHEST CLINICAL HISTORY: Atypical chest pain. FINDINGS: An AP, portable, upright chest radiograph is compared to study dated 01/01/2019 and correla tamika with chest CT dated 01/04/2019. The examination is degraded by portable technique and patient rot ation. A stent graft is noted in the thoracic aorta. The heart is enlarged noting atherosclerotic jorge cification of the thoracic aorta. The pulmonary vasculature is noncongested. Emphysema and chronic in terstitial thickening are similar to previous. Scarring/atelectasis is noted at the lung bases. No ai rspace consolidation or large pleural effusion is identified. No pneumothorax is seen. The skeletal s tructures are osteopenic. The bony thorax is grossly intact. Degenerative changes noted in the should ers and thoracic spine. Superior subluxation of the right humeral head suggests chronic rotator cuff injury. IMPRESSION: 1. Cardiomegaly and emphysema with no acute cardiopulmonary abnormality. 2. A stent graft is again seen in the thoracic aorta. Electronically signed by: Andi Andrew M.D. 01/15/2019 7:31 AM
[2019-01-15] MEDS ORDERED: MoRPHine SULFATE 2 MG/ML CARP IV STA (07:40)
[2019-01-15] MEDS ORDERED: ONDANSETRON INJ 2 MG/ML 2 ML VIAL IV STA (07:40)
[2019-01-15 08:01] LABS: Basophils # (auto) 0.03 K/uL (0-0.2); Basophils % (auto) 0.4 %; Eosinophils # (auto) 0.06 K/uL (0-0.5); Eosinophils % (auto) 0.7 %; Hematocrit (blood only) 37.1 % (42-52); Hemoglobin 11.7 g/dL (14.0-18.0); Immature Granulocytes # (auto) 0.02 K/uL (0.00-0.02); Immature Granulocytes % (auto) 0.2 %; Lymphocytes # (auto) 0.68 K/uL (1.2-3.4); Lymphocytes % (auto) 8.2 %; Mean Corpuscular Hgb Conc 31.5 g/dL (32-36); Mean Corpuscular Volume 101.4 fL (80-100); Mean Platelet Volume 9.5 fL (7.4-10.4); Monocytes # (auto) 0.64 K/uL (0.11-0.59); Monocytes % (auto) 7.7 %; Neutrophils # (auto) 6.84 K/uL (1.4-6.5); Neutrophils % (auto) 82.8 %; Platelet Count 437 K/uL (130-400); RDW Coefficient of Variation 13.6 % (11.5-14.5); RDW Standard Deviation 50.7 fL (36.4-46.3); Red Blood Count 3.66 M/uL (4.7-6.1); White Blood Count 8.27 K/uL (4.8-10.8)
[2019-01-15 08:10] LABS: INR 1.3 (0.9-1.1); Partial Thromboplastin Ratio 1.4; Partial Thromboplastin Time 37.7 Seconds (21.0-31.0)
[2019-01-15 08:15] LABS: Alanine Aminotransferase 75 U/L (12-78); Aspartate Aminotransferase 69 U/L (15-37); BUN Creatinine Ratio 39.7 (10-20); Blood Urea Nitrogen 45 mg/dl (7-18); Carbon Dioxide 28 mmol/L (21-32); Chloride 99 mmol/L (98-107); Creatinine Clr Calc Pharmacy 65.1 ml/min; Est GFR (African American) 70.5; Est GFR (Non-African American) 60.8; Glucose 59 mg/dl (70-99); Lipase 119 U/L (73-393); Potassium 4.7 mmol/L (3.5-5.1); Sodium 135 mmol/L (136-145)
[2019-01-15 08:20] LABS: Albumin Globulin Ratio 0.4 (0.9-2); Alkaline Phosphatase 362 U/L (45-117); Bilirubin,Total 1.3 mg/dl (0.2-1); Creatine Kinase 55 U/L (39-308); Globulin 4.6 gm/dl (2.5-4.0); Total Protein 6.6 gm/dl (6.4-8.2); Troponin I < 0.015 ng/ml (0-0.045)
--- NOTE | 2019-01-15 10:25 | Emergency Department Note ---
ED Visit Note Was seen with Dr. Kebede, see his note for details.
--- NOTE | 2019-01-15 10:46 | Ultrasound Report ---
ABDOMINAL ULTRASOUND, RIGHT UPPER QUADRANT HISTORY: elevated LFTs. CP. COMPARISON: Abdomen and pelvis CT 01/03/2014. FINDINGS: Pancreas: The pancreatic head and tail are obscured by overlying bowel gas. The remaining portions of the pancreas are within normal limits. Liver: Heterogeneous echotexture throughout the liver. The liver is normal in size measuring 14 cm in length. Gallbladder: Not well-distended. No gallbladder wall thickening. A few stones identified at the gallb ladder neck. CBD: 7 mm in diameter. Right kidney: No hydronephrosis. IMPRESSION: 1. Heterogeneous appearance to the liver. This favors areas of fatty change. 2. Cholelithiasis. No gallbladder wall thickening. Electronically signed by: Maldonado Moody M.D. 01/15/2019 10:44 AM
--- NOTE | 2019-01-15 11:00 | History & Physical Report ---
Date of Service January 15, 2019 Assessment & Plan (1) Substernal chest pain: Patient presenting with left-sided chest pain earlier today. Currently chest pain-free. Troponin x1 = negative, EKG with nonspecific T wave flattening in the anterior leads, no STEMI Observation to PCU Troponin every 8 hours x3 sets total Continue atorvastatin 20 mg p.o. every morning Continue metoprolol 200 mg p.o. every morning Present on Admission?: Yes (2) Chronic combined systolic and diastolic congestive heart failure: Patient appears to be relatively euvolemic at present. No overt evidence of decompensated CHF. Chest x-ray with cardiomegaly otherwise no abnormalities. proBNP = 1125 Continue cardiac medications as above, metoprolol, atorvastatin Continue home Entresto Continue home Bumex 1 mg p.o. twice daily with potassium supplementation Monitor intake and output -Monitor daily weights -Low-sodium diet Present on Admission?: Yes (3) Swelling of right upper extremity: Patient with severe swelling of right upper extremity as well as pain and limited mobility. Exam with tenderness over the AC joint as well as mid deltoid point tenderness.? Rotator cuff arthropathy versus impingement. Patient had an x-ray performed during his last hospital stay which showed degenerative changes. -We will consult orthopedic surgery. Appreciate assistance with this case -Pain management as needed -PT/OT assessment. Patient requests that he not to be returned to [facility] on discharge Present on Admission?: Yes (4) Rotator cuff arthropathy: As above. Appreciate orthopedic surgery input Present on Admission?: Yes (5) Atrial fibrillation with RVR: Patient with permanent A. fib, mildly tachycardic on arrival at 104 bpm. Anticoagulated with Eliquis Continue metoprolol 200 mg p.o. daily Continue 5 mg p.o. twice daily Telemetry monitoring as above Present on Admission?: Yes (6) Abdominal wall defect: Long-standing history. Patient has been followed by Dr. Lucero in the past. No evidence of incarceration or strangulation. Outpatient follow-up as arranged Present on Admission?: Yes (7) Gastroesophageal reflux disease: Chronic. Stable. Continue Protonix 40 mg p.o. every morning Present on Admission?: Yes (8) Diabetes mellitus with diabetic polyneuropathy: Chronic. Stable. Blood glucose low on arrival at 59. Patient takes glimepiride 4 mg p.o. every morning. Treatment of hypoglycemia per protocol Lantus 8 units twice daily with sliding scale coverage Consistent carb diet (9) Gout: Chronic. Stable. No acute flare Continue allopurinol 200 mg p.o. daily (10) COPD (chronic obstructive pulmonary disease): Chronic. Stable. Patient on baseline home oxygen of 2 L. Continue albuterol as needed Continue budesonide/formoterol Continue supplemental oxygen, goal saturation 88 to 92% F/[id number]-Lock. Monitor electrolytes and replete as needed. Low- sodium/consistent carb diet as tolerated Prophylaxispatient on Eliquis for permanent A. fib, will continue. Patient on Protonix for GERD. We will continue Codefull per discussion with patient Dispositionobservation to PCU Present on Admission?: Yes History of Present Illness Chief Complaint: Chest pain Primary Care Provider: Maryanne Whipple MD Mr. Dc is a pleasant 78yo C male with multiple medical problem presenting with chest pain. He was recently admitted 01/01 with exacerbation of CHF which manifested with LUE and left foot edema. He was ruled out for DVT or SVC syndrome with imaging. Treated effectively with IV Bumex and discharged to [facility] for continued rehabilitation. This morning patient experienced an episode of severe, sharp left-sided chest pain 8. Lasted "a while". No associated shortness of breath, palpitations, diaphoresis. Pain was nonpleuritic, nonexertional and non- positional. Patient presently chest pain-free Allergies Allergy/AdvReac Type Severity Reaction Status Date / Time Iodinated Contrast Media Allergy Severe NEEDS Verified 01/15/19 07:[address] DYE Home Medications Home Medications Medication Instructions Recorded Confirmed Type Eliquis 5 mg PO BID 01/16/18 01/15/19 History atorvastatin 20 mg PO QAM 01/16/18 01/15/19 History multivitamin 1 tab PO QAM 01/16/18 01/15/19 History bumetanide 1 mg tablet 1 mg PO BID #180 tab 08/22/18 01/15/19 History sacubitril 97 mg-valsartan 103 mg 1 tab PO BID #180 tab 08/22/18 01/15/19 History tablet budesonide-formoterol HFA 160 2 puff INHALATION BID #10.2 gm 11/15/18 01/15/19 Rx mcg-4.5 mcg/actuation aerosol inhaler potassium chloride 20 mEq 20 meq PO DAILY@1600 tab 11/23/18 01/15/19 History tablet,extended release(part/cryst) turmeric root extract 500 mg 500 mg PO BID cap 12/19/18 01/15/19 History capsule glimepiride 4 mg tablet 4 mg PO QAM #90 tab 12/22/18 01/15/19 Rx allopurinol 200 mg PO QAM 01/01/19 01/15/19 History colchicine 0.6 mg PO HS PRN 01/01/19 01/15/19 History metoprolol succinate 200 mg PO QAM 01/01/19 01/15/19 History potassium chloride 40 meq PO QAM 01/01/19 01/15/19 History Wheelchair (Manual or Powered) #1 ea 01/08/19 Rx diclofenac sodium 2 gm TOP QID #100 gm 01/10/19 01/15/19 Rx acetaminophen [Tylenol] 650 mg PO Q6H PRN 01/15/19 01/15/19 History doxazosin 4 mg PO QAM 01/15/19 01/15/19 History fluticasone furoate-vilanterol 1 inh INHALATION QAM 01/15/19 01/15/19 History [Breo Ellipta] nystatin 1 applic TOPICAL QS 01/15/19 01/15/19 History pantoprazole [Protonix] 40 mg PO QAM 01/15/19 01/15/19 History Past Med/Surg History Medical History Abdominal aortic aneurysm (Acute) Acute on chronic combined systolic (congestive) and diastolic (congestive) heart failure (Acute) Anemia (Acute) Aneurysm of thoracic aorta (Acute) Arteriosclerotic coronary artery disease (Acute) Arthritis Cardiomyopathy, idiopathic (Acute) Cervical radiculopathy (Acute) Cervical spinal stenosis (Acute) Chronic anticoagulation (Acute) Chronic combined systolic and diastolic congestive heart failure (Acute) Chronic osteoarthritis (Acute) COPD (chronic obstructive pulmonary disease) (Chronic) Diabetes (Chronic) Diabetes mellitus with diabetic polyneuropathy (Acute) Gastroesophageal reflux disease (Acute) History of cardioversion Hyperlipidemia (Chronic) Hypertension (Chronic) Nonsustained ventricular tachycardia (Acute) Obesity, Class II, BMI 35-39.9 (Acute) Osteoarthritis of knee (Acute) Permanent atrial fibrillation (Acute) Rib fractures (03/29/13) Shoulder pain (Acute) Sleep apnea (Acute) Status post thoracic aortic aneurysm repair Thoracic aortic aneurysm without rupture (Chronic 01/07/14) Ventral hernia (Chronic) Vitamin D deficiency (Acute) Surgical History History of hemorrhoidectomy (Resolved) History of tonsillectomy (Resolved) Family History Father No pertinent family history Mother Stroke Other Medical history non-contributory Social History Preferred Language: Nigerien Communication Ability: Effective Implement Mechanic Required: No Beliefs That Will Affect Care: None marital status: Current Living Situation: Custodial Other Information That Helps Us Care for You: No Feels Safe at Home: Yes Safety Concerns: Feels Safe At This Time Smoking Status: Former smoker Do You Dip or Chew Tobacco: No ; Smoking End Date: 1978 ; Second Hand Exposure: No ; Tobacco Cessation Education Requested by Patient: No Hx Alcohol Use: No Hx Substance Use: No Dental Care, Regularly: No Seatbelt Use: always Review of Systems Review of Systems: All systems reviewed & are unremarkable except as noted in HPI & below Patient denies abdominal pain, nausea, vomiting, diarrhea, constipation, shortness of breath, palpitations. Denies dysuria, frequency, urgency. + Right upper extremity edema + Right shoulder pain + Limited mobility of right upper extremity Physical Exam Physical Exam: General: patient resting comfortably, NAD, non-toxic in appearance, AA&O x 4 Skin: warm, dry, intact, no rashes or lesions HEENT: NC/AT, PERRL, EOMI, anicteric sclera, conjunctiva without injection, external ear normal to inspection and nontender, nares patent, moist mucus membranes, poor dentition, no oropharyngeal lesions, neck supple, trachea midline, no LAD, no thyromegaly, no JVD Heart: +S1/S2, irregularly irregular, tachycardic, no m/r/g Lungs: Diminished breath sounds, equal air entry bilaterally, no rales/rhonchi/wheezes Abd: +BS, soft, NT/ND, no masses/organomegaly/ascites Ext: warm, 2+ pulses in UE/LE bilaterally, no clubbing/cyanosis, 3+ edema of right upper extremity, skin reddened and thickened, patient unable to raise right arm secondary to pain, + point tenderness over AC joint Neuro: nonfocal, patient AA&O x 4, speech intact, no facial droop, moving all extremities on command, + right upper extremity strength and mobility limited secondary to pain and swelling Results & Data Vital Signs (Past 12 Hours) Vital Signs Temp Pulse Resp BP Pulse Ox 01/15/19 10:39 109 H 15 97/80 L 01/15/19 10:38 105 H 20 01/15/19 10:00 104 H 19 118/68 97 01/15/19 09:32 104 H 17 99 01/15/19 09:31 97 H 20 116/65 98 01/15/19 09:30 99 H 17 99 01/15/19 09:02 107 H 12 99 01/15/19 09:01 106 H 25 H 92/54 L 98 01/15/19 09:00 104 H 14 99 01/15/19 08:40 109 H 16 99 01/15/19 08:39 102 H 19 91/62 L 99 01/15/19 08:31 107 H 21 87 L 01/15/19 08:30 107 H 15 94 01/15/19 08:01 112 H 16 106/67 91 01/15/19 08:00 101 H 20 93 01/15/19 07:30 103 H 15 117/74 93 01/15/19 07:21 37.1 C 100 H 22 105/66 95 01/15/19 07:20 97 01/15/19 07:12 107 H 18 93 01/15/19 07:08 120 H 23 95/59 L 85 L Laboratory Results Lab Results 01/15/19 01/15/19 01/15/19 Range/Units 07:46 07:46 07:46 WBC 8.27 (4.8-10.8) K/uL RBC 3.66 L (4.7-6.1) M/uL Hgb 11.7 L (14.0-18.0) g/dL Hct 37.1 L (42-52) % MCV 101.4 H (80-100) fL MCH 32.0 (25-34) pg MCHC 31.5 L (32-36) g/dL RDW Std Deviation 50.7 H (36.4-46.3) fL RDW Coeff of Chuck 13.6 (11.5-14.5) % Plt Count 437 H (130-400) K/uL MPV 9.5 (7.4-10.4) fL Immature Gran % (Auto) 0.2 % Neut % (Auto) 82.8 % Lymph % (Auto) 8.2 % Webster % (Auto) 7.7 % Eos % (Auto) 0.7 % Baso % (Auto) 0.4 % Immature Gran # (Auto) 0.02 (0.00-0.02) K/uL Neut # (Auto) 6.84 H (1.4-6.5) K/uL Lymph # (Auto) 0.68 L (1.2-3.4) K/uL Webster # (Auto) 0.64 H (0.11-0.59) K/uL Eos # (Auto) 0.06 (0-0.5) K/uL Baso # (Auto) 0.03 (0-0.2) K/uL PT 13.0 H (9.0-12.0) Seconds INR 1.3 H (0.9-1.1) APTT 37.7 H (21.0-31.0) Seconds PTT Ratio 1.4 Sodium 135 L (136-145) mmol/L Potassium 4.7 (3.5-5.1) mmol/L Chloride 99 (98-107) mmol/L Carbon Dioxide 28 (21-32) mmol/L Anion Gap 7.0 (3-11) BUN 45 H (7-18) mg/dl Creatinine 1.14 (0.6-1.4) mg/dl Est Cr Clr Drug Dosing 65.1 ml/min Est GFR ( Amer) 70.5 Est GFR (Non-Af Amer) 60.8 BUN/Creatinine Ratio 39.7 H (10-20) Glucose 59 L (70-99) mg/dl POC Glucose (70-99) Calcium 9.0 (8.5-10.1) mg/dl Phosphorus Magnesium Total Bilirubin 1.3 H (0.2-1) mg/dl AST 69 H (15-37) U/L ALT 75 (12-78) U/L Alkaline Phosphatase 362 H (45-117) U/L Total Creatine Kinase 55 (39-308) U/L Troponin I < 0.015 (0-0.045) ng/ml NT-Pro-B Natriuret Pep Total Protein 6.6 (6.4-8.2) gm/dl Albumin 2.0 L (3.4-5.0) gm/dl Globulin 4.6 H (2.5-4.0) gm/dl Albumin/Globulin Ratio 0.4 L (0.9-2) Lipase 119 (73-393) U/L Nasal Screen MRSA (PCR) (Negative) 01/15/19 01/15/19 01/15/19 Range/Units 12:12 13:51 13:51 WBC (4.8-10.8) K/uL RBC (4.7-6.1) M/uL Hgb (14.0-18.0) g/dL Hct (42-52) % MCV (80-100) fL MCH (25-34) pg MCHC (32-36) g/dL RDW Std Deviation (36.4-46.3) fL RDW Coeff of Chuck (11.5-14.5) % Plt Count (130-400) K/uL MPV (7.4-10.4) fL Immature Gran % (Auto) % Neut % (Auto) % Lymph % (Auto) % Webster % (Auto) % Eos % (Auto) % Baso % (Auto) % Immature Gran # (Auto) (0.00-0.02) K/uL Neut # (Auto) (1.4-6.5) K/uL Lymph # (Auto) (1.2-3.4) K/uL Webster # (Auto) (0.11-0.59) K/uL Eos # (Auto) (0-0.5) K/uL Baso # (Auto) (0-0.2) K/uL PT (9.0-12.0) Seconds INR (0.9-1.1) APTT (21.0-31.0) Seconds PTT Ratio Sodium (136-145) mmol/L Potassium (3.5-5.1) mmol/L Chloride (98-107) mmol/L Carbon Dioxide (21-32) mmol/L Anion Gap (3-11) BUN (7-18) mg/dl Creatinine (0.6-1.4) mg/dl Est Cr Clr Drug Dosing ml/min Est GFR ( Amer) Est GFR (Non-Af Amer) BUN/Creatinine Ratio (10-20) Glucose (70-99) mg/dl POC Glucose 83 (70-99) Calcium (8.5-10.1) mg/dl Phosphorus Cancelled Magnesium Cancelled Total Bilirubin (0.2-1) mg/dl AST (15-37) U/L ALT (12-78) U/L Alkaline Phosphatase (45-117) U/L Total Creatine Kinase (39-308) U/L Troponin I (0-0.045) ng/ml NT-Pro-B Natriuret Pep Cancelled Total Protein (6.4-8.2) gm/dl Albumin (3.4-5.0) gm/dl Globulin (2.5-4.0) gm/dl Albumin/Globulin Ratio (0.9-2) Lipase (73-393) U/L Nasal Screen MRSA (PCR) (Negative) 01/15/19 01/15/19 01/15/19 Range/Units 13:51 15:20 16:02 WBC (4.8-10.8) K/uL RBC (4.7-6.1) M/uL Hgb (14.0-18.0) g/dL Hct (42-52) % MCV (80-100) fL MCH (25-34) pg MCHC (32-36) g/dL RDW Std Deviation (36.4-46.3) fL RDW Coeff of Chuck (11.5-14.5) % Plt Count (130-400) K/uL MPV (7.4-10.4) fL Immature Gran % (Auto) % Neut % (Auto) % Lymph % (Auto) % Webster % (Auto) % Eos % (Auto) % Baso % (Auto) % Immature Gran # (Auto) (0.00-0.02) K/uL Neut # (Auto) (1.4-6.5) K/uL Lymph # (Auto) (1.2-3.4) K/uL Webster # (Auto) (0.11-0.59) K/uL Eos # (Auto) (0-0.5) K/uL Baso # (Auto) (0-0.2) K/uL PT (9.0-12.0) Seconds INR (0.9-1.1) APTT (21.0-31.0) Seconds PTT Ratio Sodium (136-145) mmol/L Potassium (3.5-5.1) mmol/L Chloride (98-107) mmol/L Carbon Dioxide (21-32) mmol/L Anion Gap (3-11) BUN (7-18) mg/dl Creatinine (0.6-1.4) mg/dl Est Cr Clr Drug Dosing ml/min Est GFR ( Amer) Est GFR (Non-Af Amer) BUN/Creatinine Ratio (10-20) Glucose (70-99) mg/dl POC Glucose 92 (70-99) Calcium (8.5-10.1) mg/dl Phosphorus 3.9 Magnesium 2.1 Total Bilirubin (0.2-1) mg/dl AST (15-37) U/L ALT (12-78) U/L Alkaline Phosphatase (45-117) U/L Total Creatine Kinase (39-308) U/L Troponin I < 0.015 (0-0.045) ng/ml NT-Pro-B Natriuret Pep 1125 Total Protein (6.4-8.2) gm/dl Albumin (3.4-5.0) gm/dl Globulin (2.5-4.0) gm/dl Albumin/Globulin Ratio (0.9-2) Lipase (73-393) U/L Nasal Screen MRSA (PCR) Negative (Negative) Diagnostic Findings SINGLE VIEW CHEST CLINICAL HISTORY: Atypical chest pain. FINDINGS: An AP, portable, upright chest radiograph is compared to study dated 01/01/2019 and correlated with chest CT dated 01/04/2019. The examination is degraded by portable technique and patient rotation. A stent graft is noted in the thoracic aorta. The heart is enlarged noting atherosclerotic calcification of the thoracic aorta. The pulmonary vasculature is noncongested. Emphysema and chronic interstitial thickening are similar to previous. Scarring/atelectasis is noted at the lung bases. No airspace consolidation or large pleural effusion is identified. No pneumothorax is seen. The skeletal structures are osteopenic. The bony thorax is grossly intact. Degenerative changes noted in the shoulders and thoracic spine. Superior subluxation of the right humeral head suggests chronic rotator cuff injury. IMPRESSION: 1. Cardiomegaly and emphysema with no acute cardiopulmonary abnormality. 2. A stent graft is again seen in the thoracic aorta. Electronically signed by: Andi Andrew M.D. 01/15/2019 7:31 AM ABDOMINAL ULTRASOUND, RIGHT UPPER QUADRANT HISTORY: elevated LFTs. CP. COMPARISON: Abdomen and pelvis CT 01/03/2014. FINDINGS: Pancreas: The pancreatic head and tail are obscured by overlying bowel gas. The remaining portions of the pancreas are within normal limits. Liver: Heterogeneous echotexture throughout the liver. The liver is normal in size measuring 14 cm in length. Gallbladder: Not well-distended. No gallbladder wall thickening. A few stones identified at the gallbladder neck. CBD: 7 mm in diameter. Right kidney: No hydronephrosis. IMPRESSION: 1. Heterogeneous appearance to the liver. This favors areas of fatty change. 2. Cholelithiasis. No gallbladder wall thickening. Electronically signed by: Maldonado Moody M.D. 01/15/2019 10:44 AM Dictated: 01/15/19 104 Transcribed: 01/15/19 104 SHOULDER XRAY 01/07/19 XR shoulder RT min 2V routine CLINICAL HISTORY: SHoulder pain weakness pain COMPARISON: None. DISCUSSION: Generalized degenerative change. Narrowing of the acromiohumeral space which is secondary sign of deterioration of the rotator cuff. No evidence for fracture or dislocation. No lytic or blastic process. There is no evidence for soft tissue swelling. IMPRESSION: 1. Moderate generalized degenerative change 2. Considerable narrowing of the acromiohumeral space which is a secondary sign of deterioration of the rotator cuff. The above report was generated using voice recognition software. It may contain grammatical, syntax or spelling errors. Electronically signed by: Tenzin Antunez M.D. 01/07/2019 2:48 PM Dictated: 01/07/[id number] Transcribed: 01/07/191446 Code Status & VTE Plan Code Status Full code VTE Prophylaxis Plan VTE Prophylaxis will be ordered: Yes PG Care Time/CCT Total # of Minutes Spent Total Time Spent with Patient: Total time spent is greater than 50% in coordination of care (as documented) at patient's floor/unit and/or counseling patient: (1) Rotator cuff arthropathy Laterality: right Qualified Code(s): M12.811 - Other specific arthropathies, not elsewhere classified, right shoulder (2) Gastroesophageal reflux disease Esophagitis presence: esophagitis presence not specified Qualified Code(s): K21.9 - Gastro-esophageal reflux disease without esophagitis (3) Diabetes mellitus with diabetic polyneuropathy Diabetes mellitus type: type 2 Diabetes mellitus long chain dyeing machine operator insulin use: without longterm use Qualified Code(s): E11.42 - Type 2 diabetes mellitus with diabetic polyneuropathy (4) Gout Gout site: unspecified site Gout etiology: unspecified cause Chronicity: unspecified Qualified Code(s): M10.9 - Gout, unspecified (5) COPD (chronic obstructive pulmonary disease) COPD type: unspecified COPD Qualified Code(s): J44.9 - Chronic obstructive pulmonary disease, unspecified
[2019-01-15] MEDS ORDERED: ALBUTEROL 0.5% NEB SOLN 2.5 MG/0.5 ML VIAL NEB PRN (12:16)
[2019-01-15] MEDS ORDERED: CARBOHYDRATES FOR HYPOGLYCEMIA PO PRN (12:16)
[2019-01-15] MEDS ORDERED: GLUCAGON FOR INJ 1 MG VIAL SQ PRN (12:16)
[2019-01-15] MEDS ORDERED: DEXTROSE 50% 50 ML SYRINGE IV PRN (12:16)
[2019-01-15] MEDS ORDERED: GLUCOSE 40% GEL 15 GM TUBE PO PRN (12:16)
[2019-01-15] MEDS ORDERED: GLUCOSE 10 TABS/TUBE PO PRN (12:16)
[2019-01-15] MEDS: INSULIN ASPART 100 UNITS/ML 3 ML PEN SC SCH ×3 (13:51→21:30)
[2019-01-15] MEDS: DICLOFENAC SOD 1% GEL 100 GM TUBE EXT SCH ×3 (13:54→20:10)
--- NOTE | 2019-01-15 14:15 | Emergency Department Note ---
Entered by Evan Thapa acting as a scribe for Dylan Kebede MD ED Provider Note CHIEF COMPLAINT: Chest pain HISTORY OF PRESENT ILLNESS: The patient is a 78 year old male who presents to the Emergency Room with complaints of intermittent left sided chest pain that has been ongoing for the past month. The patient describes the pain as sharp and notes it varies in s everity ranging from a 4/10 to an 8/10. The patient states he was hospitalized last month for upper extremity pain and swelling. The patient endorses similar swelling today but notes the pain is not present. The patient adds that his symptoms are not effected by deep breathing nor does anything make his symptoms better. The patient also mentioned that he has not moved his bowels in 2 days which is abnormal for him as he is usually regular with his bowel movements. The patient is on Eliquis and has a history of HTN, CHF, Afib and COPD. Pt denies LOC, headache, fevers, chills, diaphoresis, visual changes, neck pain, breathing difficulties, nausea, vomiting, abdominal pain, back pain, melena, hematochezia, urinary symptoms, numbness, weakness, lymphadenopathy, rash, or other complaints. REVIEW OF SYSTEMS: See HPI for pertinent positives and negatives. A total of ten systems were reviewed and were otherwise negative. PMHx/PSHx: HTN, CHF, Afib, COPD,CAD, DM, HLD SOCIAL HISTORY: [facility]. Former smoker. PHYSICAL EXAM: GENERAL: Awake, alert, well-appearing, in no distress HENT: Normocephalic, atraumatic. Oropharynx unremarkable. EYES: Normal conjunctiva. Sclera non-icteric. NECK: Inspection normal. Non-tender. Supple. No nuchal rigidity. FROM. No masses. RESPIRATORY: Clear to auscultation. No wheezes. No rales. Normal respiratory effort. CARDIAC: Normal rate. Normal rhythm. No murmurs. No rubs. Extremities warm and well perfused. Pulses equal. No JVD. GI: Soft, non-distended. No tenderness to palpation. No rebound or guarding. No masses. RECTAL: Deferred. MUSCULOSKELETAL: Atraumatic. 1-2+ edema to the right upper extremity. Chest examination reveals no tenderness. The back is symmetrical on inspection without obvious abnormality. No joint edema. LOWER EXTREMITIES: Calves are equal size bilaterally and non-tender. Trace edema. Chronic venous discoloration. NEURO: Normal sensorium. No sensory or motor deficits noted. SKIN: No rash or jaundice noted. EMERGENCY DEPARTMENT COURSE: 0713: Past medical records from 01/06/19 were reviewed for more information regarding his last hospital stay. The patient was evaluated in room A10, and a complete history and physical examination were performed. 0905: I reevaluated the patient and his chest pain as resolved. We discussed the results and treatment plan. He is agreeable to the plan. 0950: I discussed the patient's case with Shanelle Rose - [facility] PAC who is working under Dr. Ra Coleman [facility] Hospitalist. They are going to accept the patient for further evaluation. MEDICAL DECISION MAKING: A10 Prior records/ancillary studies reviewed. The patient was recently discharged from the hospital. He was worked up for CHF and diuresed. The patient noted he has had this pain for over a month. His emergency department visit, initial history, hospital progress notes, and discharge summary did not note any issues with chest pain. Triage Nursing notes reviewed and agree them. The patient's history was concerning for chest pain. Differential diagnosis: Etiologies such as cardiac ischemia, aortic dissection, pulmonary embolism, pneumonia, pneumothorax, musculoskeletal, infections, pericarditis, myocarditis, esophageal rupture, gastrointestinal, as well as others were entertained. Physical examination: As above. ER treatment provided: Monitoring IV morphine 2 mg IV Zofran 4 mg On reassessment the patient felt better. Diagnostic interpretation by me: The electrocardiogram was negative for pathologic change. The labs revealed an unremarkable CBC and troponin. The patient has slight elevation of LFTs as well as alkaline phosphatase. Compared to prior these have increased. Imaging studies: Chest x-ray was negative for acute process. Ultrasound imaging negative for acute process. The patient has substernal chest pain. Record review indicates no prior mention of chest pain problems. There is some difficulty pinning the patient down in regards to the duration of pain. Given his prior history a formal rule out is necessary. Consultation: A consultation was placed with the ean [facility] hospitalist. The case was discussed and diagnostics were reviewed. The patient was evaluated in the ER for further treatment. IMPRESSION: Substernal chest pain Elevated LFTs Atrial Fibrillation PLAN: Being evaluated by hospitalist The scribe's documentation has been prepared under my direction and personally reviewed by me in its entirety. I confirm that the note above accurately reflects all work, treatment, procedures, and medical decision making performed by me. Impression & Plan Substernal chest pain, Elevated LFTs, Atrial fibrillation with RVR Past Med/Surg History Medical History Abdominal aortic aneurysm (Acute) Acute on chronic combined systolic (congestive) and diastolic (congestive) heart failure (Acute) Anemia (Acute) Aneurysm of thoracic aorta (Acute) Arteriosclerotic coronary artery disease (Acute) Arthritis Cardiomyopathy, idiopathic (Acute) Cervical radiculopathy (Acute) Cervical spinal stenosis (Acute) Chronic anticoagulation (Acute) Chronic combined systolic and diastolic congestive heart failure (Acute) Chronic osteoarthritis (Acute) COPD (chronic obstructive pulmonary disease) (Chronic) Diabetes (Chronic) Diabetes mellitus with diabetic polyneuropathy (Acute) Gastroesophageal reflux disease (Acute) History of cardioversion Hyperlipidemia (Chronic) Hypertension (Chronic) Nonsustained ventricular tachycardia (Acute) Obesity, Class II, BMI 35-39.9 (Acute) Osteoarthritis of knee (Acute) Permanent atrial fibrillation (Acute) Rib fractures (03/29/13) Shoulder pain (Acute) Sleep apnea (Acute) Status post thoracic aortic aneurysm repair Thoracic aortic aneurysm without rupture (Chronic 01/07/14) Ventral hernia (Chronic) Vitamin D deficiency (Acute) Surgical History History of hemorrhoidectomy (Resolved) History of tonsillectomy (Resolved) Family History Father No pertinent family history Mother Stroke Other Medical history non-contributory Social History Preferred Language: Arabic Communication Ability: Effective Refuse Collector Required: No Beliefs That Will Affect Care: None marital status: Current Living Situation: [facility] Other Information That Helps Us Care for You: No Feels Safe at Home: Yes Safety Concerns: Feels Safe At This Time Smoking Status: Former smoker Do You Dip or Chew Tobacco: No ; Smoking End Date: 1978 ; Second Hand Exposure: No ; Tobacco Cessation Education Requested by Patient: No Hx Alcohol Use: No Hx Substance Use: No Dental Care, Regularly: No Seatbelt Use: always Results & Data Vital Signs Vital Signs - 24 hr 01/15/19 07:08 01/15/19 07:12 01/15/19 07:20 Temperature Temperature Source Pulse Rate 120 H 107 H Pulse Rate from SpO2 Sensor 110 H 108 H Respiratory Rate 23 18 Respiratory Effort / Characteristics Respiratory Depth Respiratory Pattern Blood Pressure 95/59 L Blood Pressure Mean 61 Pulse Oximetry 85 L 93 97 Oxygen Delivery Method Room Air Oxygen Flow Rate Sepsis Recent Fever Within 48 Hours Sepsis New/Unexplained Change in Mental Status Sepsis Action Taken by Nursing 01/15/19 07:21 01/15/19 07:30 01/15/19 08:00 Temperature 37.1 C Temperature Source Oral Pulse Rate 100 H 103 H 101 H Pulse Rate from SpO2 Sensor 97 H 119 H 102 H Respiratory Rate 22 15 20 Respiratory Effort / Characteristics Non-Labored Spontaneous Respiratory Depth Normal Respiratory Pattern Regular Blood Pressure 105/66 117/74 Blood Pressure Mean 81 93 Pulse Oximetry 95 93 93 Oxygen Delivery Method Room Air Oxygen Flow Rate Sepsis Recent Fever Within 48 Hours No Sepsis New/Unexplained Change in Mental Status No Sepsis Action Taken by Nursing No Action Required 01/15/19 08:01 01/15/19 08:30 01/15/19 08:31 Temperature Temperature Source Pulse Rate 112 H 107 H 107 H Pulse Rate from SpO2 Sensor 112 H 114 H 126 H Respiratory Rate 16 15 21 Respiratory Effort / Characteristics Respiratory Depth Respiratory Pattern Blood Pressure 106/67 Blood Pressure Mean 74 Pulse Oximetry 91 94 87 L Oxygen Delivery Method Oxygen Flow Rate 2 2 2 Sepsis Recent Fever Within 48 Hours Sepsis New/Unexplained Change in Mental Status Sepsis Action Taken by Nursing 01/15/19 08:39 01/15/19 08:40 01/15/19 09:00 Temperature Temperature Source Pulse Rate 102 H 109 H 104 H Pulse Rate from SpO2 Sensor 96 H 100 H 93 H Respiratory Rate 19 16 14 Respiratory Effort / Characteristics Respiratory Depth Respiratory Pattern Blood Pressure 91/62 L Blood Pressure Mean 65 Pulse Oximetry 99 99 99 Oxygen Delivery Method Oxygen Flow Rate 2 Sepsis Recent Fever Within 48 Hours Sepsis New/Unexplained Change in Mental Status Sepsis Action Taken by Nursing 01/15/19 09:01 01/15/19 09:02 01/15/19 09:30 Temperature Temperature Source Pulse Rate 106 H 107 H 99 H Pulse Rate from SpO2 Sensor 97 H 93 H 103 H Respiratory Rate 25 H 12 17 Respiratory Effort / Characteristics Respiratory Depth Respiratory Pattern Blood Pressure 92/54 L Blood Pressure Mean 67 Pulse Oximetry 98 99 99 Oxygen Delivery Method Oxygen Flow Rate Sepsis Recent Fever Within 48 Hours Sepsis New/Unexplained Change in Mental Status Sepsis Action Taken by Nursing 01/15/19 09:31 01/15/19 09:32 01/15/19 10:00 Temperature Temperature Source Pulse Rate 97 H 104 H 104 H Pulse Rate from SpO2 Sensor 90 92 H 98 H Respiratory Rate 20 17 19 Respiratory Effort / Characteristics Respiratory Depth Respiratory Pattern Blood Pressure 116/65 118/68 Blood Pressure Mean 68 90 Pulse Oximetry 98 99 97 Oxygen Delivery Method Oxygen Flow Rate Sepsis Recent Fever Within 48 Hours Sepsis New/Unexplained Change in Mental Status Sepsis Action Taken by Nursing 01/15/19 10:38 01/15/19 10:39 01/15/19 10:40 Temperature Temperature Source Pulse Rate 105 H 109 H 91 H Pulse Rate from SpO2 Sensor Respiratory Rate 20 15 15 Respiratory Effort / Characteristics Respiratory Depth Respiratory Pattern Blood Pressure 97/80 L Blood Pressure Mean 85 Pulse Oximetry Oxygen Delivery Method Oxygen Flow Rate Sepsis Recent Fever Within 48 Hours Sepsis New/Unexplained Change in Mental Status Sepsis Action Taken by [facility] Medications Current Medication List: was personally reviewed by me Laboratory Data Attestation: I reviewed the patient's lab results. Result diagrams: 01/15/19 07:46 01/15/19 07:46 Lab Results 01/15/19 01/15/19 01/15/19 Range/Units 07:46 07:46 07:46 WBC 8.27 (4.8-10.8) K/uL RBC 3.66 L (4.7-6.1) M/uL Hgb 11.7 L (14.0-18.0) g/dL Hct 37.1 L (42-52) % MCV 101.4 H (80-100) fL MCH 32.0 (25-34) pg MCHC 31.5 L (32-36) g/dL RDW Std Deviation 50.7 H (36.4-46.3) fL RDW Coeff of Chuck 13.6 (11.5-14.5) % Plt Count 437 H (130-400) K/uL MPV 9.5 (7.4-10.4) fL Immature Gran % (Auto) 0.2 % Neut % (Auto) 82.8 % Lymph % (Auto) 8.2 % [place] % (Auto) 7.7 % Eos % (Auto) 0.7 % Baso % (Auto) 0.4 % Immature Gran # (Auto) 0.02 (0.00-0.02) K/uL Neut # (Auto) 6.84 H (1.4-6.5) K/uL Lymph # (Auto) 0.68 L (1.2-3.4) K/uL [place] # (Auto) 0.64 H (0.11-0.59) K/uL Eos # (Auto) 0.06 (0-0.5) K/uL Baso # (Auto) 0.03 (0-0.2) K/uL PT 13.0 H (9.0-12.0) Seconds INR 1.3 H (0.9-1.1) APTT 37.7 H (21.0-31.0) Seconds PTT Ratio 1.4 Sodium 135 L (136-145) mmol/L Potassium 4.7 (3.5-5.1) mmol/L Chloride 99 (98-107) mmol/L Carbon Dioxide 28 (21-32) mmol/L Anion Gap 7.0 (3-11) BUN 45 H (7-18) mg/dl Creatinine 1.14 (0.6-1.4) mg/dl Est Cr Clr Drug Dosing 65.1 ml/min Est GFR ( Amer) 70.5 Est GFR (Non-Af Amer) 60.8 BUN/Creatinine Ratio 39.7 H (10-20) Glucose 59 L (70-99) mg/dl Calcium 9.0 (8.5-10.1) mg/dl Total Bilirubin 1.3 H (0.2-1) mg/dl AST 69 H (15-37) U/L ALT 75 (12-78) U/L Alkaline Phosphatase 362 H (45-117) U/L Total Creatine Kinase 55 (39-308) U/L Troponin I < 0.015 (0-0.045) ng/ml Total Protein 6.6 (6.4-8.2) gm/dl Albumin 2.0 L (3.4-5.0) gm/dl Globulin 4.6 H (2.5-4.0) gm/dl Albumin/Globulin Ratio 0.4 L (0.9-2) Lipase 119 (73-393) U/L Administered Medications Diclofenac Sodium (Voltaren 1% Top) 2 gm EXT QID [facility] Stop: 02/14/19 12:59 Last Admin: 01/15/19 13:54 Dose: 2 gm Documented by: [id number] Insulin Aspart (Novolog Flexpen) 0 units SC ACHS [facility] Stop: 02/14/19 12:59 Last Admin: 01/15/19 13:51 Dose: Not Given Documented by: [id number] Cosigned by: [id number] Discontinued Medications Morphine Sulfate (Morphine Sulfate) 2 mg IV NOW [facility] Stop: 01/15/19 07:41 Last Admin: 01/15/19 08:05 Dose: 2 mg Documented by: [id number] Ondansetron HCl (Zofran) 4 mg IV NOW STA Stop: 01/15/19 07:41 Last Admin: 01/15/19 08:01 Dose: 4 mg Documented by: [id number] Imaging Data Radiologist's Impression: Radiology results as stated below per my review and the radiologist's interpretation: SINGLE VIEW CHEST CLINICAL HISTORY: Atypical chest pain. FINDINGS: An AP, portable, upright chest radiograph is compared to study dated 01/01/2019 and correlated with chest CT dated 01/04/2019. The examination is degraded by portable technique and patient rotation. A stent graft is noted in the thoracic aorta. The heart is enlarged noting atherosclerotic calcification of the thoracic aorta. The pulmonary vasculature is noncongested. Emphysema and chronic interstitial thickening are similar to previous. Scarring/atelectasis is noted at the lung bases. No airspace consolidation or large pleural effusion is identified. No pneumothorax is seen. The skeletal structures are osteopenic. The bony thorax is grossly intact. Degenerative changes noted in the shoulders and thoracic spine. Superior subluxation of the right humeral head suggests chronic rotator cuff injury. IMPRESSION: 1. Cardiomegaly and emphysema with no acute cardiopulmonary abnormality. 2. A stent graft is again seen in the thoracic aorta. Electronically signed by: Andi Andrew M.D. 01/15/2019 7:31 AM ABDOMINAL ULTRASOUND, RIGHT UPPER QUADRANT HISTORY: elevated LFTs. CP. COMPARISON: Abdomen and pelvis CT 01/03/2014. FINDINGS: Pancreas: The pancreatic head and tail are obscured by overlying bowel gas. The remaining portions of the pancreas are within normal limits. Liver: Heterogeneous echotexture throughout the liver. The liver is normal in size measuring 14 cm in length. Gallbladder: Not well-distended. No gallbladder wall thickening. A few stones identified at the gallbladder neck. CBD: 7 mm in diameter. Right kidney: No hydronephrosis. IMPRESSION: 1. Heterogeneous appearance to the liver. This favors areas of fatty change. 2. Cholelithiasis. No gallbladder wall thickening. Electronically signed by: Maldonado Moody M.D. 01/15/2019 10:44 AM ECG Data Attestation: I personally reviewed and interpreted this ECG as follows: Indication: + chest pain Rate (beats per minute): 107 Rhythm: atrial fibrillation (with RVR) ECG Intervals/blocks: + Normal QRS ECG [place]: + Normal ECG ST segments: no ST elevation ECG Findings: + PVCs and + Other (Non-specific ST changes ) Comparison ECG Date: from (01/01/19) Change: no significant change Blood Pressure Blood Pressure Findings: Low blood pressure Blood Pressure Disposition: further management by hospitalist Discharge Plan Visit Data *Final* Discharge Date/Time: 01/15/19 11:39 Chief Complaint: Chest Pain ED Provider: Dylan Kebede ED Midlevel Provider: Sam Waldron Discharge Problem: Substernal chest pain, Elevated LFTs, Atrial fibrillation with RVR Patient Disposition: Admitted As Inpatient Discharge Instructions Interventions: ED Discharge Assessment Last Done: 01/15/19 11:39 The scribe's documentation has been prepared under my direction and personally reviewed by me in its entirety. I confirm that the note above accurately reflects all work, treatment, procedures, and medical decision making performed by me.
[2019-01-15 14:35] LABS: Magnesium 2.1 mg/dl (1.8-2.4); NT Pro B Type Natriuretic Pept 1125 pg/ml (0-1800); Phosphorus 3.9 mg/dl (2.5-4.9); Troponin I < 0.015 ng/ml (0-0.045)
[2019-01-15] MEDS: POTASSIUM CHLORIDE 20 MEQ TABCR PO SCH (16:15)
[2019-01-15] MEDS: NYSTATIN POWDER 15GM BTL EXT SCH (16:16)
[2019-01-15] MEDS: BUMETANIDE 1 MG TAB PO SCH (16:18)
--- NOTE | 2019-01-15 17:39 | Orthopedic Consultation ---
Date of Consultation January 15, 2019 Assessment & Plan (1) Rotator cuff arthropathy: I discussed his x-rays with him today. I talked about further management regarding his shoulder. He has had injections in the past and had a good response with those. We will go ahead and order an injection for his right shoulder and plan to see him again tomorrow and likely proceed with that injection. Present on Admission?: Yes History of Present Illness Reason for Consultation: Right shoulder pain Attending Physician: Seerna Knapp, History of Present Illness Mr. Dc is a 78-year-old male, [id number], admitted to the hospital with chest pain. He had a recent hospitalization as well for CHF. We were consulted for evaluation of his right shoulder. He states he is had shoulder pain for maybe a month or so. Denies any injury or trauma. He has had some sh oulder pain in the past. He seen Dr. Lam and had injections. The injections have helped him in the past. Denies any previous surgery on his shoulder. Most of his pain is around the anterior aspect of the shoulder and he has difficulty lifting his arm. He denies any neck pain denies any numbness or tingling in his right upper extremity. Allergies Allergy/AdvReac Type Severity Reaction Status Date / Time Iodinated Contrast Media Allergy Severe NEEDS Verified 01/15/19 07:[address] DYE Home Medications Home Medications Medication Instructions Recorded Confirmed Type Eliquis 5 mg PO BID 01/16/18 01/15/19 History atorvastatin 20 mg PO QAM 01/16/18 01/15/19 History multivitamin 1 tab PO QAM 01/16/18 01/15/19 History bumetanide 1 mg tablet 1 mg PO BID #180 tab 08/22/18 01/15/19 History sacubitril 97 mg-valsartan 103 mg 1 tab PO BID #180 tab 08/22/18 01/15/19 History tablet budesonide-formoterol HFA 160 2 puff INHALATION BID #10.2 gm 11/15/18 01/15/19 Rx mcg-4.5 mcg/actuation aerosol inhaler potassium chloride 20 mEq 20 meq PO DAILY@1600 tab 11/23/18 01/15/19 History tablet,extended release(part/cryst) turmeric root extract 500 mg 500 mg PO BID cap 12/19/18 01/15/19 History capsule glimepiride 4 mg tablet 4 mg PO QAM #90 tab 12/22/18 01/15/19 Rx allopurinol 200 mg PO QAM 01/01/19 01/15/19 History colchicine 0.6 mg PO HS PRN 01/01/19 01/15/19 History metoprolol succinate 200 mg PO QAM 01/01/19 01/15/19 History potassium chloride 40 meq PO QAM 01/01/19 01/15/19 History Wheelchair (Manual or Powered) #1 ea 01/08/19 Rx diclofenac sodium 2 gm TOP QID #100 gm 01/10/19 01/15/19 Rx acetaminophen [Tylenol] 650 mg PO Q6H PRN 01/15/19 01/15/19 History doxazosin 4 mg PO QAM 01/15/19 01/15/19 History fluticasone furoate-vilanterol 1 inh INHALATION QAM 01/15/19 01/15/19 History [Breo Ellipta] nystatin 1 applic TOPICAL QS 01/15/19 01/15/19 History pantoprazole [Protonix] 40 mg PO QAM 01/15/19 01/15/19 History Patient History Medical History Abdominal aortic aneurysm (Acute) Acute on chronic combined systolic (congestive) and diastolic (congestive) heart failure (Acute) Anemia (Acute) Aneurysm of thoracic aorta (Acute) Arteriosclerotic coronary artery disease (Acute) Arthritis Cardiomyopathy, idiopathic (Acute) Cervical radiculopathy (Acute) Cervical spinal stenosis (Acute) Chronic anticoagulation (Acute) Chronic combined systolic and diastolic congestive heart failure (Acute) Chronic osteoarthritis (Acute) COPD (chronic obstructive pulmonary disease) (Chronic) Diabetes (Chronic) Diabetes mellitus with diabetic polyneuropathy (Acute) Gastroesophageal reflux disease (Acute) History of cardioversion Hyperlipidemia (Chronic) Hypertension (Chronic) Nonsustained ventricular tachycardia (Acute) Obesity, Class II, BMI 35-39.9 (Acute) Osteoarthritis of knee (Acute) Permanent atrial fibrillation (Acute) Rib fractures (03/29/13) Shoulder pain (Acute) Sleep apnea (Acute) Status post thoracic aortic aneurysm repair Thoracic aortic aneurysm without rupture (Chronic 01/07/14) Ventral hernia (Chronic) Vitamin D deficiency (Acute) Surgical History History of hemorrhoidectomy (Resolved) History of tonsillectomy (Resolved) Family History Father No pertinent family history Mother Stroke Other Medical history non-contributory Social History Preferred Language: Canadian Communication Ability: Effective Farm Product Purchaser Required: No Beliefs That Will Affect Care: None marital status: Current Living Situation: Alf Other Information That Helps Us Care for You: No Feels Safe at Home: Yes Safety Concerns: Feels Safe At This Time Smoking Status: Former smoker Do You Dip or Chew Tobacco: No ; Smoking End Date: 1978 ; Second Hand Exposure: No ; Tobacco Cessation Education Requested by Patient: No Hx Alcohol Use: No Hx Substance Use: No Dental Care, Regularly: No Seatbelt Use: always Review of Systems Musculoskeletal: as per Subjective / HPI Neurologic: no loss of sensation, no tingling and no numbness Physical Exam Physical Exam: He is alert and oriented. No acute distress. Skin is warm dry and intact around the right shoulder. He has no tenderness palpation around the shoulder. No significant swelling around her shoulder. He is only able to actively raise his arm 20 or 30degrees while lying in bed. Sensations intact to touch. Results & Data Vital Signs (Past 12 Hours) Vital Signs Temp Pulse Pulse Resp BP BP Pulse Ox 01/15/19 16:00 36.4 C L 86 22 116/76 97 01/15/19 15:32 100 H 01/15/19 12:16 01/15/19 11:32 36.6 C 100 H 16 132/88 100 01/15/19 11:31 94 H 15 75/52 L 99 01/15/19 11:30 94 H 22 100 01/15/19 11:01 105 H 24 97 01/15/19 11:00 91 H 15 85/54 L 99 01/15/19 10:40 91 H 15 01/15/19 10:39 109 H 15 97/80 L 01/15/19 10:38 105 H 20 01/15/19 10:00 104 H 19 118/68 97 01/15/19 09:32 104 H 17 99 01/15/19 09:31 97 H 20 116/65 98 12/02/19 09:30 99 H 17 99 01/15/19 09:02 107 H 12 99 01/15/19 09:01 106 H 25 H 92/54 L 98 01/15/19 09:00 104 H 14 99 01/15/19 08:40 109 H 16 99 01/15/19 08:39 102 H 19 91/62 L 99 01/15/19 08:31 107 H 21 87 L 01/15/19 08:30 107 H 15 94 01/15/19 08:01 112 H 16 106/67 91 01/15/19 08:00 101 H 20 93 01/15/19 07:30 103 H 15 117/74 93 01/15/19 07:21 37.1 C 100 H 22 105/66 95 01/15/19 07:20 97 01/15/19 07:12 107 H 18 93 01/15/19 07:08 120 H 23 95/59 L 85 L Pulse Ox 01/15/19 16:00 01/15/19 15:32 01/15/19 12:16 92 01/15/19 11:32 01/15/19 11:31 01/15/19 11:30 01/15/19 11:01 01/15/19 11:00 01/15/19 10:40 01/15/19 10:39 01/15/19 10:38 01/15/19 10:00 01/15/19 09:32 01/15/19 09:31 01/15/19 09:30 01/15/19 09:02 01/15/19 09:01 01/15/19 09:00 01/15/19 08:40 01/15/19 08:39 01/15/19 08:31 01/15/19 08:30 01/15/19 08:01 01/15/19 08:00 01/15/19 07:30 01/15/19 07:21 01/15/19 07:20 01/15/19 07:12 01/15/19 07:08 Diagnostic Findings X-rays of his right shoulder reviewed from his previous hospital stay dated 01/07/2019. They show a proximal humeral head migration consistent with chronic rotator cuff arthropathy. PG Care Time/CCT Total # of Minutes Spent Total Time Spent with Patient: Total time spent is greater than 50% in coordination of care (as documented) at patient's floor/unit and/or counseling patient:
[2019-01-15] MEDS: ACETAMINOPHEN 325 MG TAB PO PRN (20:08)
[2019-01-15] MEDS: SACUBITRIL-VALSARTAN 49/51 MG TAB PO SCH (20:09)
[2019-01-15] MEDS: APIXABAN 5 MG TABLET PO SCH (20:09)
[2019-01-15] MEDS: BUDESONIDE/FORMOTEROL FUMARATE 160/4.5 60 PUFFS/INHALER INH SCH (20:10)
[2019-01-15] MEDS: INSULIN GLARGINE SOLOSTAR 100 UNITS/ML 3 ML PEN SC SCH (21:30)
[2019-01-16] MEDS: NYSTATIN POWDER 15GM BTL EXT SCH ×4 (00:19→23:47)
[2019-01-16] MEDS: ACETAMINOPHEN 325 MG TAB PO PRN (03:02)
[2019-01-16 06:39] LABS: Basophils # (auto) 0.01 K/uL (0-0.2); Basophils % (auto) 0.2 %; Eosinophils # (auto) 0.08 K/uL (0-0.5); Eosinophils % (auto) 1.2 %; Hematocrit (blood only) 35.5 % (42-52); Hemoglobin 11.2 g/dL (14.0-18.0); Immature Granulocytes # (auto) 0.02 K/uL (0.00-0.02); Immature Granulocytes % (auto) 0.3 %; Lymphocytes # (auto) 0.58 K/uL (1.2-3.4); Lymphocytes % (auto) 8.7 %; Mean Corpuscular Hemoglobin 31.8 pg (25-34); Mean Corpuscular Hgb Conc 31.5 g/dL (32-36); Mean Corpuscular Volume 100.9 fL (80-100); Mean Platelet Volume 9.3 fL (7.4-10.4); Monocytes # (auto) 0.47 K/uL (0.11-0.59); Monocytes % (auto) 7.1 %; Neutrophils % (auto) 82.5 %; Platelet Count 373 K/uL (130-400); RDW Coefficient of Variation 13.7 % (11.5-14.5); RDW Standard Deviation 50.9 fL (36.4-46.3); Red Blood Count 3.52 M/uL (4.7-6.1); White Blood Count 6.66 K/uL (4.8-10.8)
[2019-01-16] MEDS ORDERED: BETAMETH SOD PHOS/ACETATE IA 6 MG/ML IM SCH (07:00)
[2019-01-16] MEDS ORDERED: BUPIVACAINE 0.5 % 5 MG/1 ML MPF 30ML VIAL INJ SCH (07:00)
[2019-01-16 07:08] LABS: Albumin Level 1.9 gm/dl (3.4-5.0); Calcium 8.5 mg/dl (8.5-10.1); Creatinine Clr Calc Pharmacy 70.7 ml/min; Est GFR (Non-African American) 71.6; Potassium 4.3 mmol/L (3.5-5.1)
[2019-01-16 07:11] LABS: Bilirubin Direct 0.8 mg/dl (0-0.2); Bilirubin,Total 1.2 mg/dl (0.2-1)
[2019-01-16] MEDS: METOPROLOL SUCC 50MG EXT REL TAB PO SCH (07:54)
[2019-01-16] MEDS: allopurinoL 100 MG TAB PO SCH (07:54)
[2019-01-16] MEDS: ATORVASTATIN 20 MG TAB PO SCH (07:54)
[2019-01-16] MEDS: PANTOprazole 40 MG TAB PO SCH (07:55)
[2019-01-16] MEDS: DICLOFENAC SOD 1% GEL 100 GM TUBE EXT SCH ×4 (07:55→21:42)
[2019-01-16] MEDS: SACUBITRIL-VALSARTAN 49/51 MG TAB PO SCH ×2 (07:56→21:40)
[2019-01-16] MEDS: BUDESONIDE/FORMOTEROL FUMARATE 160/4.5 60 PUFFS/INHALER INH SCH ×2 (07:57→21:40)
[2019-01-16] MEDS: APIXABAN 5 MG TABLET PO SCH ×2 (07:57→21:40)
[2019-01-16] MEDS: BUMETANIDE 1 MG TAB PO SCH ×2 (07:57→18:16)
[2019-01-16] MEDS: DOXAZosin MESYLATE 4 MG TAB PO SCH (07:58)
[2019-01-16] MEDS: INSULIN GLARGINE SOLOSTAR 100 UNITS/ML 3 ML PEN SC SCH ×2 (08:00→21:42)
[2019-01-16] MEDS: INSULIN ASPART 100 UNITS/ML 3 ML PEN SC SCH ×4 (08:07→21:41)
[2019-01-16] MEDS ORDERED: POTASSIUM CHLORIDE 20 MEQ TABCR PO SCH (09:00)
--- NOTE | 2019-01-16 13:14 | Hospitalist Progress Note ---
Date of Service January 16, 2019 Assessment & Plan (1) Substernal chest pain: - Has left sided chest pain, no improvement since admission. - Trop negative x 3; EKG with nonspecific T-wave changes in anterior leads. - H/o thoracic aortic aneuryism, will complete CT chest dissection protocol in the AM following pre-meds for contrast allergy. - Continue statin and beta tiffanie as prescribed; not currently on ASA therapy. - Will consult cardiology, most recent cardiac cath in Jan 2018 (minimal nonobstructive CAD). (2) Chronic combined systolic and diastolic congestive heart failure: - Currently euvolemic; CXR negative, BNP was 1,125. - Echo in Jan 2018 showed EF 35-40%, severe biatrial dilation. - Monitor net I/Os and daily weights. - Continue home beta tiffanie, Entresto as prescribed. - Bumex 1 mg PO BID. (3) Swelling of right upper extremity: - May be related to rotator cuff arthropathy vs. impingement; has been an ongoing issue, present during last admission. - Consulted ortho, plan for joint injection today. - PT/OT -- will likely need rehab at discharge. - Continue Bumex BID for edema. (4) Rotator cuff arthropathy: - Ortho consulted, s/p injection. (5) Atrial fibrillation with RVR: - Currently in A. fib on monitor, HR low 100's. - Continue Metoprolol 200 mg daily and Eliquis 5 mg BID. (6) Abdominal wall defect: - Long-standing history. Patient has been followed by Dr. Lucero in the past. - Followed as oupatient. (7) Gastroesophageal reflux disease: - Continue PPI. (8) Diabetes mellitus with diabetic polyneuropathy: - Holding home Glimepiride. - Hgb A1C was 7.8 in Dec 2018. - Hypoglycemic in the ER, now improved; on Lantus 8 units BID with SSI coverage. (9) Gout: - No acute flare noted. - Continue allopurinol as prescribed. (10) COPD (chronic obstructive pulmonary disease): - Currently stable on 2L via NC (home requirements) - Continue albuterol prn, Symbicort BID. (11) Thoracic aortic aneurysm without rupture: - S/p repair in 2013. - CT chest dissection protocol as noted above. (12) Elevated LFTs: - Elevated T. bili, AST and Alk phos. - RUQ US showed fatty liver changes, otherwise negative. - Denies abd pain; no indication for further work up - trend CMP. Dispo: PCU tele; PT/OT evaluation, was previously at [facility] prior to admission. Supervising Physician Co-Signing Physician Notes PA Supervision Note: I personally saw and examined the patient. I verified all daigle points and agree with COUTR Singleton with the following exceptions and/or additions: Subjective Pt. c/o shortness of breath at rest, requires 2L via NC. Has left sided chest pain, no improvement over last 24 hours. Pain is intermittent, lasts up to 1 hour. Right arm swelling is improved. Denies LE edema. Last BM was 2 days ago. Review of Systems Review of Systems: All systems reviewed & are unremarkable except as noted in HPI & below Constitutional: no fever, no chills, no fatigue, no weakness and no anorexia Respiratory: + dyspnea and + dyspnea on exertion; no cough and no wheezing Cardiovascular: + chest pain, + chest pain at rest, + chest pain with activity and + edema (RUE); no radiating jaw, neck or arm pain and no palpitations Gastrointestinal: + constipation; no abdominal pain and no nausea Genitourinary: no difficulty urinating Musculoskeletal: no back pain and no joint pain Integumentary: no rash Physical Exam Physical Exam: General: Resting comfortably, no acute distress. HEENT: NC/AT; PERRLA with EOMI; Bandera conjunctiva, MMM. No erythema of posterior pharynx Neck: Supple and nontender Cardiac: Irregular, mildly tachycardic Lungs: 2L via NC; CTA bilaterally Abdomen: Bowel normoactive X 4; Nontender to palpation Extremities: Warm. +3 RUE edema, no LE edema noted. Neuro: No focal weakness Skin: No rash Results & Data Vital Signs (Past 12 Hours) Vital Signs Temp Pulse Pulse Resp BP Pulse Ox 01/16/19 11:42 36.9 C 84 18 119/72 99 01/16/19 08:22 65 18 105/66 01/16/19 08:00 97 H 01/16/19 07:39 36.5 C 103 H 19 103/67 97 01/16/19 04:00 36.6 C 93 H 20 133/75 99 Laboratory Results 01/16/19 01/16/19 01/16/19 Range/Units 11:21 07:52 06:19 WBC (4.8-10.8) K/uL RBC (4.7-6.1) M/uL Hgb (14.0-18.0) g/dL Hct (42-52) % MCV (80-100) fL MCH (25-34) pg MCHC (32-36) g/dL RDW Std Deviation (36.4-46.3) fL RDW Coeff of Chuck (11.5-14.5) % Plt Count (130-400) K/uL MPV (7.4-10.4) fL Immature Gran % (Auto) % Neut % (Auto) % Lymph % (Auto) % Dane % (Auto) % Eos % (Auto) % Baso % (Auto) % Immature Gran # (Auto) (0.00-0.02) K/uL Neut # (Auto) (1.4-6.5) K/uL Lymph # (Auto) (1.2-3.4) K/uL Dane # (Auto) (0.11-0.59) K/uL Eos # (Auto) (0-0.5) K/uL Baso # (Auto) (0-0.2) K/uL Sodium 135 L (136-145) mmol/L Potassium 4.3 (3.5-5.1) mmol/L Chloride 101 (98-107) mmol/L Carbon Dioxide 29 (21-32) mmol/L Anion Gap 5.0 (3-11) BUN 39 H (7-18) mg/dl Creatinine 0.99 (0.6-1.4) mg/dl Est Cr Clr Drug Dosing 70.7 ml/min Est GFR ( Amer) 83.0 Est GFR (Non-Af Amer) 71.6 BUN/Creatinine Ratio 39.0 H (10-20) Glucose 112 H (70-99) mg/dl POC Glucose 181 H 119 H (70-99) Calcium 8.5 (8.5-10.1) mg/dl Phosphorus Magnesium Total Bilirubin 1.2 H (0.2-1) mg/dl Direct Bilirubin 0.8 H (0-0.2) mg/dl AST 46 H (15-37) U/L ALT 62 (12-78) U/L Alkaline Phosphatase 311 H (45-117) U/L Troponin I (0-0.045) ng/ml NT-Pro-B Natriuret Pep Total Protein 6.0 L (6.4-8.2) gm/dl Albumin 1.9 L (3.4-5.0) gm/dl Nasal Screen MRSA (PCR) (Negative) 01/16/19 01/15/19 01/15/19 Range/Units 06:19 21:41 20:58 WBC 6.66 (4.8-10.8) K/uL RBC 3.52 L (4.7-6.1) M/uL Hgb 11.2 L (14.0-18.0) g/dL Hct 35.5 L (42-52) % MCV 100.9 H (80-100) fL MCH 31.8 (25-34) pg MCHC 31.5 L (32-36) g/dL RDW Std Deviation 50.9 H (36.4-46.3) fL RDW Coeff of Chuck 13.7 (11.5-14.5) % Plt Count 373 (130-400) K/uL MPV 9.3 (7.4-10.4) fL Immature Gran % (Auto) 0.3 % Neut % (Auto) 82.5 % Lymph % (Auto) 8.7 % Dane % (Auto) 7.1 % Eos % (Auto) 1.2 % Baso % (Auto) 0.2 % Immature Gran # (Auto) 0.02 (0.00-0.02) K/uL Neut # (Auto) 5.50 (1.4-6.5) K/uL Lymph # (Auto) 0.58 L (1.2-3.4) K/uL Dane # (Auto) 0.47 (0.11-0.59) K/uL Eos # (Auto) 0.08 (0-0.5) K/uL Baso # (Auto) 0.01 (0-0.2) K/uL Sodium (136-145) mmol/L Potassium (3.5-5.1) mmol/L Chloride (98-107) mmol/L Carbon Dioxide (21-32) mmol/L Anion Gap (3-11) BUN (7-18) mg/dl Creatinine (0.6-1.4) mg/dl Est Cr Clr Drug Dosing ml/min Est GFR ( Amer) Est GFR (Non-Af Amer) BUN/Creatinine Ratio (10-20) Glucose (70-99) mg/dl POC Glucose 71 (70-99) Calcium (8.5-10.1) mg/dl Phosphorus Magnesium Total Bilirubin (0.2-1) mg/dl Direct Bilirubin (0-0.2) mg/dl AST (15-37) U/L ALT (12-78) U/L Alkaline Phosphatase (45-117) U/L Troponin I < 0.015 (0-0.045) ng/ml NT-Pro-B Natriuret Pep Total Protein (6.4-8.2) gm/dl Albumin (3.4-5.0) gm/dl Nasal Screen MRSA (PCR) (Negative) 01/15/19 01/15/19 01/15/19 Range/Units 16:02 15:20 13:51 WBC (4.8-10.8) K/uL RBC (4.7-6.1) M/uL Hgb (14.0-18.0) g/dL Hct (42-52) % MCV (80-100) fL MCH (25-34) pg MCHC (32-36) g/dL RDW Std Deviation (36.4-46.3) fL RDW Coeff of Chuck (11.5-14.5) % Plt Count (130-400) K/uL MPV (7.4-10.4) fL Immature Gran % (Auto) % Neut % (Auto) % Lymph % (Auto) % Dane % (Auto) % Eos % (Auto) % Baso % (Auto) % Immature Gran # (Auto) (0.00-0.02) K/uL Neut # (Auto) (1.4-6.5) K/uL Lymph # (Auto) (1.2-3.4) K/uL Dane # (Auto) (0.11-0.59) K/uL Eos # (Auto) (0-0.5) K/uL Baso # (Auto) (0-0.2) K/uL Sodium (136-145) mmol/L Potassium (3.5-5.1) mmol/L Chloride (98-107) mmol/L Carbon Dioxide (21-32) mmol/L Anion Gap (3-11) BUN (7-18) mg/dl Creatinine (0.6-1.4) mg/dl Est Cr Clr Drug Dosing ml/min Est GFR ( Amer) Est GFR (Non-Af Amer) BUN/Creatinine Ratio (10-20) Glucose (70-99) mg/dl POC Glucose 92 (70-99) Calcium (8.5-10.1) mg/dl Phosphorus 3.9 Magnesium 2.1 Total Bilirubin (0.2-1) mg/dl Direct Bilirubin (0-0.2) mg/dl AST (15-37) U/L ALT (12-78) U/L Alkaline Phosphatase (45-117) U/L Troponin I < 0.015 (0-0.045) ng/ml NT-Pro-B Natriuret Pep 1125 Total Protein (6.4-8.2) gm/dl Albumin (3.4-5.0) gm/dl Nasal Screen MRSA (PCR) Negative (Negative) 01/15/19 01/15/19 Range/Units 13:51 13:51 WBC (4.8-10.8) K/uL RBC (4.7-6.1) M/uL Hgb (14.0-18.0) g/dL Hct (42-52) % MCV (80-100) fL MCH (25-34) pg MCHC (32-36) g/dL RDW Std Deviation (36.4-46.3) fL RDW Coeff of Chuck (11.5-14.5) % Plt Count (130-400) K/uL MPV (7.4-10.4) fL Immature Gran % (Auto) % Neut % (Auto) % Lymph % (Auto) % Dane % (Auto) % Eos % (Auto) % Baso % (Auto) % Immature Gran # (Auto) (0.00-0.02) K/uL Neut # (Auto) (1.4-6.5) K/uL Lymph # (Auto) (1.2-3.4) K/uL Dane # (Auto) (0.11-0.59) K/uL Eos # (Auto) (0-0.5) K/uL Baso # (Auto) (0-0.2) K/uL Sodium (136-145) mmol/L Potassium (3.5-5.1) mmol/L Chloride (98-107) mmol/L Carbon Dioxide (21-32) mmol/L Anion Gap (3-11) BUN (7-18) mg/dl Creatinine (0.6-1.4) mg/dl Est Cr Clr Drug Dosing ml/min Est GFR ( Amer) Est GFR (Non-Af Amer) BUN/Creatinine Ratio (10-20) Glucose (70-99) mg/dl POC Glucose (70-99) Calcium (8.5-10.1) mg/dl Phosphorus Cancelled Magnesium Cancelled Total Bilirubin (0.2-1) mg/dl Direct Bilirubin (0-0.2) mg/dl AST (15-37) U/L ALT (12-78) U/L Alkaline Phosphatase (45-117) U/L Troponin I (0-0.045) ng/ml NT-Pro-B Natriuret Pep Cancelled Total Protein (6.4-8.2) gm/dl Albumin (3.4-5.0) gm/dl Nasal Screen MRSA (PCR) (Negative) PG Care Time/CCT Total # of Minutes Spent Total Time Spent with Patient: Total time spent is greater than 50% in coordination of care (as documented) at patient's floor/unit and/or counseling patient: (1) Rotator cuff arthropathy Laterality: right Qualified Code(s): M12.811 - Other specific arthropathies, not elsewhere classified, right shoulder (2) Gout Chronicity: unspecified Gout etiology: unspecified cause Gout site: unspecified site Qualified Code(s): M10.9 - Gout, unspecified (3) Diabetes mellitus with diabetic polyneuropathy Diabetes mellitus card grader insulin use: without card grader use Diabetes mellitus type: type 2 Qualified Code(s): E11.42 - Type 2 diabetes mellitus with diabetic polyneuropathy (4) COPD (chronic obstructive pulmonary disease) COPD type: unspecified COPD Qualified Code(s): J44.9 - Chronic obstructive pulmonary disease, unspecified (5) Gastroesophageal reflux disease Esophagitis presence: esophagitis presence not specified Qualified Code(s): K21.9 - Gastro-esophageal reflux disease without esophagitis
[2019-01-16 15:00] LABS: Alanine Aminotransferase 59 U/L (12-78); Alkaline Phosphatase 317 U/L (45-117); Aspartate Aminotransferase 43 U/L (15-37); Bilirubin Direct 0.7 mg/dl (0-0.2); Bilirubin,Total 1.1 mg/dl (0.2-1); Total Protein 6.1 gm/dl (6.4-8.2); Troponin I < 0.015 ng/ml (0-0.045)
--- NOTE | 2019-01-16 15:41 | Orthopedic Progress Note ---
Date of Service January 16, 2019 Assessment & Plan (1) Rotator cuff arthropathy: He was seen and examined by Dr. Knapp today. He would like to proceed with an injection of his right shoulder. Procedure note: Right shoulder was sterilely prepped with alcohol and using aseptic technique, 2mL of celestone and 8mL of marcaine were injected into the subacromial space. He tolerated the procedure well. No complications. Subjective Mr. Dc is an 79 y/o male with continued right shoulder pain. No new orthopedic complaints. Physical Exam Physical Exam: He's alert, NAD RUE: skin is warm, dry, intact around the shoulder. Some edema of his UE. He is minimal active elevation of the right shoulder. Results & Data Vital Signs (Past 12 Hours) Vital Signs Temp Pulse Pulse Resp BP Pulse Ox Pulse Ox 01/16/19 15:03 36.7 C 111 H 19 101/61 93 01/16/19 12:16 96 01/16/19 12:00 16 01/16/19 11:42 36.9 C 84 18 119/72 99 01/16/19 08:22 65 18 105/66 01/16/19 08:00 97 H 01/16/19 07:39 36.5 C 103 H 19 103/67 97 01/16/19 04:00 36.6 C 93 H 20 133/75 99 PG Care Time/CCT Total # of Minutes Spent Total Time Spent with Patient: Total time spent is greater than 50% in coordination of care (as documented) at patient's floor/unit and/or counseling patient: (1) Rotator cuff arthropathy Laterality: right Qualified Code(s): M12.811 - Other specific arthropathies, not elsewhere classified, right shoulder
--- NOTE | 2019-01-16 16:28 | Cardiology Consultation ---
Date of Consultation January 16, 2019 Assessment & Plan (1) Substernal chest pain: His pain is unlikely to be cardiac in origin. He did undergo coronary angiography little over a year ago. This is not reveal any obstructive coronary disease. The symptoms are very atypical for coronary etiology. He has had prolonged symptoms without any elevation in his biomarkers. There was some concern that this could represent a change in his known thoracic aortic aneurysm which had previously been stented. I think this would also be an atypical presentation for an aortic dissection. However, there is continued concern or question regarding the etiology of his symptoms CT scanning would be the best option. Not only with this eliminate any concern regarding dissection but perhaps elucidate another etiology for his symptoms. Do not believe his contrast allergy represents a contraindication to scanning. He has had multiple scans in the past employing contrast with appropriate premedication. Additionally, his reaction occurred decades ago and was described as seizures, not likely anaphylaxis or an IgE mediated reaction. (2) Atrial fibrillation with RVR: He may have permanent atrial fibrillation. His ventricular rates are suboptimal. Reviewing his records, his current heart rate does not appear to deviate significantly from that during his last admission. His rates may be slightly higher due to some discomfort. His rate appears to be variable. He is on high-dose metoprolol but could benefit from the addition either digoxin or diltiazem, especially in the setting of normal left ventricular function. He will continue his Eliquis indefinitely. (3) Cardiomyopathy, idiopathic: He seems well compensated currently. He does not appear to have evidence of pulmonary vascular congestion. He is on an aggressive medical regimen which includes Entresto and metoprolol. He can be continued on his outpatient dose of diuretic. History of Present Illness Reason for Consultation: Chest pain Requesting Physician: Ryan Attending Physician: Pili Davis MD History of Present Illness The patient is an 79-year-old gentleman with a history of paroxysmal atrial fi brillation, cardiomyopathy and syncope who was recently discharged after an exacerbation of heart failure. Her bedtime the patient appeared to have had left upper extremity swelling and evidence of pulmonary vascular congestion. He was discharged to rehabilitation facility but was sent back for symptoms of chest pain. Patient is somewhat unclear on the details and states that he is kept in the dark regarding why certain things are done at the nursing facility. However, he does describe symptoms of intermittent chest discomfort that are in the left parasternal region. These appear to have been occurring for at least several days if not weeks. The episodes themselves are fairly random in nature. They began with a sharp stabbing sensation that is quite severe. This then improves and becomes a dull ache. This symptom appears to be quite well localized and superficial in nature. He does not radiate to the back, jaw or arms. He can last for up to an hour. There is not appear to be any significant relieving or exacerbating factors. It is not positional there is no pleuritic component. The patient also has significant right shoulder discomfort. He continues to have swelling of the right arm. He has some difficulty using the arm as result. He was sent to a rehabilitation facility but states he has not ambulated much since discharge. Prior to his recent admissions the patient claims to have been active. He ambulates generally with a walker or cane. He has significant difficulty with ambulation due to knee discomfort. He states that his breathing is at baseline. He currently denies breathing difficulty. He cannot recall breathing difficulty at the nursing facility leading up to his admission. He feels comfortable lying flat in bed. He has not noticed any swelling in his lower extremities or left upper extremity. Allergies Allergy/AdvReac Type Severity Reaction Status Date / Time Iodinated Contrast Media Allergy Severe NEEDS Verified 01/15/19 07:[address] DYE Home Medications Home Medications Medication Instructions Recorded Confirmed Type Eliquis 5 mg PO BID 01/16/18 01/15/19 History atorvastatin 20 mg PO QAM 01/16/18 01/15/19 History multivitamin 1 tab PO QAM 01/16/18 01/15/19 History bumetanide 1 mg tablet 1 mg PO BID #180 tab 08/22/18 01/15/19 History sacubitril 97 mg-valsartan 103 mg 1 tab PO BID #180 tab 08/22/18 01/15/19 History tablet budesonide-formoterol HFA 160 2 puff INHALATION BID #10.2 gm 11/15/18 01/15/19 Rx mcg-4.5 mcg/actuation aerosol inhaler potassium chloride 20 mEq 20 meq PO DAILY@1600 tab 11/23/18 01/15/19 History tablet,extended release(part/cryst) turmeric root extract 500 mg 500 mg PO BID cap 12/19/18 01/15/19 History capsule glimepiride 4 mg tablet 4 mg PO QAM #90 tab 12/22/18 01/15/19 Rx allopurinol 200 mg PO QAM 01/01/19 01/15/19 History colchicine 0.6 mg PO HS PRN 01/01/19 01/15/19 History metoprolol succinate 200 mg PO QAM 01/01/19 01/15/19 History potassium chloride 40 meq PO QAM 01/01/19 01/15/19 History Wheelchair (Manual or Powered) #1 ea 01/08/19 Rx diclofenac sodium 2 gm TOP QID #100 gm 01/10/19 01/15/19 Rx acetaminophen [Tylenol] 650 mg PO Q6H PRN 01/15/19 01/15/19 History doxazosin 4 mg PO QAM 01/15/19 01/15/19 History fluticasone furoate-vilanterol 1 inh INHALATION QAM 01/15/19 01/15/19 History [Breo Ellipta] nystatin 1 applic TOPICAL QS 01/15/19 01/15/19 History pantoprazole [Protonix] 40 mg PO QAM 01/15/19 01/15/19 History Patient History Medical History Abdominal aortic aneurysm (Acute) Acute on chronic combined systolic (congestive) and diastolic (congestive) heart failure (Acute) Anemia (Acute) Aneurysm of thoracic aorta (Acute) Arteriosclerotic coronary artery disease (Acute) Arthritis Cardiomyopathy, idiopathic (Acute) Cervical radiculopathy (Acute) Cervical spinal stenosis (Acute) Chronic anticoagulation (Acute) Chronic combined systolic and diastolic congestive heart failure (Acute) Chronic osteoarthritis (Acute) COPD (chronic obstructive pulmonary disease) (Chronic) Diabetes (Chronic) Diabetes mellitus with diabetic polyneuropathy (Acute) Gastroesophageal reflux disease (Acute) History of cardioversion Hyperlipidemia (Chronic) Hypertension (Chronic) Nonsustained ventricular tachycardia (Acute) Obesity, Class II, BMI 35-39.9 (Acute) Osteoarthritis of knee (Acute) Permanent atrial fibrillation (Acute) Rib fractures (03/29/13) Shoulder pain (Acute) Sleep apnea (Acute) Status post thoracic aortic aneurysm repair Swelling of right upper extremity Thoracic aortic aneurysm without rupture (Chronic 01/07/14) Ventral hernia (Chronic) Vitamin D deficiency (Acute) Surgical History History of hemorrhoidectomy (Resolved) History of tonsillectomy (Resolved) Family History Father No pertinent family history Mother Stroke Other Medical history non-contributory Social History Preferred Language: Irish Communication Ability: Effective Merchandise Pickup/Receiving Associate Required: No Beliefs That Will Affect Care: None marital status: Current Living Situation: Custodial Other Information That Helps Us Care for You: No Feels Safe at Home: Yes Safety Concerns: Feels Safe At This Time Smoking Status: Former smoker Do You Dip or Chew Tobacco: No ; Smoking End Date: 1978 ; Second Hand Exposure: No ; Tobacco Cessation Education Requested by Patient: No Hx Alcohol Use: No Hx Substance Use: No Dental Care, Regularly: No Seatbelt Use: always Review of Systems Review of Systems: All systems reviewed & are unremarkable except as noted in HPI & below No recent abdominal swelling. No sense of palpitation. No rece nt episodes of syncope or dizziness. Physical Exam Physical Exam: The patient is alert and oriented. Mood and affect appeared normal. He answered all questions appropriately. HEENT: Pupils are equal and reactive to light and accommodation. Extraocular movements are intact. The sclerae are anicteric. Neuro: Cranial nerves intact Neck: Patient's neck is supple. He has palpable carotid pulses bilaterally without bruits on auscultation. There is no evidence of jugular venous distention. The thyroid is not enlarged. Lungs: Clear to auscultation bilaterally. He has good air movement without use of accessory muscles. No rales wheezes or rhonchi. Cardiac: Heart demonstrates an irregular rate and rhythm. Normal S1 and S2. No murmurs on examination. Pulses: The patient has palpable radial pulses bilaterally that are equal in intensity Extremities: There was no evidence of hypoperfusion. There is no cyanosis or clubbing. There is no edema in the lower extremities. The right upper extremity is markedly swollen. Skin: I did not appreciate any rashes on examination today. Results & Data Vital Signs (Past 12 Hours) Vital Signs Temp Pulse Pulse Resp BP Pulse Ox Pulse Ox 01/16/19 15:03 36.7 C 111 H 19 101/61 93 01/16/19 12:16 96 01/16/19 12:00 16 01/16/19 11:42 36.9 C 84 18 119/72 99 01/16/19 08:22 65 18 105/66 01/16/19 08:00 97 H 01/16/19 07:39 36.5 C 103 H 19 103/67 97 Laboratory Results Abnormal Lab Results 01/15/19 01/15/19 01/15/19 15:20 16:02 20:58 WBC RBC Hgb Hct MCV MCH MCHC RDW Std Deviation RDW Coeff of Chuck Plt Count MPV Immature Gran % (Auto) Neut % (Auto) Lymph % (Auto) Alfalfa % (Auto) Eos % (Auto) Baso % (Auto) Immature Gran # (Auto) Neut # (Auto) Lymph # (Auto) Alfalfa # (Auto) Eos # (Auto) Baso # (Auto) Sodium Potassium Chloride Carbon Dioxide Anion Gap BUN Creatinine Est Cr Clr Drug Dosing Est GFR ( Amer) Est GFR (Non-Af Amer) BUN/Creatinine Ratio Glucose POC Glucose 92 71 Calcium Total Bilirubin Direct Bilirubin AST ALT Alkaline Phosphatase Troponin I Total Protein Albumin Nasal Screen MRSA (PCR) Negative 01/15/19 01/16/19 01/16/19 21:41 06:19 06:19 WBC 6.66 RBC 3.52 L Hgb 11.2 L Hct 35.5 L MCV 100.9 H MCH 31.8 MCHC 31.5 L RDW Std Deviation 50.9 H RDW Coeff of Chuck 13.7 Plt Count 373 MPV 9.3 Immature Gran % (Auto) 0.3 Neut % (Auto) 82.5 Lymph % (Auto) 8.7 Alfalfa % (Auto) 7.1 Eos % (Auto) 1.2 Baso % (Auto) 0.2 Immature Gran # (Auto) 0.02 Neut # (Auto) 5.50 Lymph # (Auto) 0.58 L Alfalfa # (Auto) 0.47 Eos # (Auto) 0.08 Baso # (Auto) 0.01 Sodium 135 L Potassium 4.3 Chloride 101 Carbon Dioxide 29 Anion Gap 5.0 BUN 39 H Creatinine 0.99 Est Cr Clr Drug Dosing 70.7 Est GFR ( Amer) 83.0 Est GFR (Non-Af Amer) 71.6 BUN/Creatinine Ratio 39.0 H Glucose 112 H POC Glucose Calcium 8.5 Total Bilirubin 1.2 H Direct Bilirubin 0.8 H AST 46 H ALT 62 Alkaline Phosphatase 311 H Troponin I < 0.015 Total Protein 6.0 L Albumin 1.9 L Nasal Screen MRSA (PCR) 01/16/19 01/16/19 01/16/19 07:52 11:21 13:57 WBC RBC Hgb Hct MCV MCH MCHC RDW Std Deviation RDW Coeff of Chuck Plt Count MPV Immature Gran % (Auto) Neut % (Auto) Lymph % (Auto) Alfalfa % (Auto) Eos % (Auto) Baso % (Auto) Immature Gran # (Auto) Neut # (Auto) Lymph # (Auto) Alfalfa # (Auto) Eos # (Auto) Baso # (Auto) Sodium Potassium Chloride Carbon Dioxide Anion Gap BUN Creatinine Est Cr Clr Drug Dosing Est GFR ( Amer) Est GFR (Non-Af Amer) BUN/Creatinine Ratio Glucose POC Glucose 119 H 181 H Calcium Total Bilirubin 1.1 H Direct Bilirubin 0.7 H AST 43 H ALT 59 Alkaline Phosphatase 317 H Troponin I < 0.015 Total Protein 6.1 L Albumin 2.0 L Nasal Screen MRSA (PCR) Diagnostic Findings Chest x-ray obtained at the time of admission did not reveal any acute cardiopulmonary process. No evidence of pulmonary edema. ECG Additional Comments: EKG obtained at the time admission revealed atrial fibrillation and rapid ventricular rate. Some aberrant conduction. Nonspecific ST and T-wave changes. An echocardiogram performed May 11, 2018: Normal LV systolic function with ejection fraction 55-60 percent. Moderate RV dilation. Moderate to severe right atrial dilation. Moderate tricuspid regurgitation. PG Care Time/CCT Total # of Minutes Spent Total Time Spent with Patient: Total time spent is greater than 50% in coordination of care (as documented) at patient's floor/unit and/or counseling patient:
[2019-01-16] MEDS: POTASSIUM CHLORIDE 20 MEQ TABCR PO SCH (17:30)
[2019-01-16] MEDS ORDERED: methylPREDNISolone 32 MG in SYRINGE 0 ML IV SCH (20:00)
[2019-01-17] MEDS ORDERED: SODIUM CHLORIDE 0.9% 1000ML 500 ML IV ONE (03:02)
[2019-01-17] MEDS ORDERED: PHARMACY GLYCEMIC MGMT CONSULT PRN (03:09)
[2019-01-17] MEDS ORDERED: LORazepam 0.5 MG/1 ML VIAL IV STA (03:25)
[2019-01-17] MEDS ORDERED: INSULIN ASPART 100 UNITS/ML 3 ML PEN SC ONE (03:30)
[2019-01-17] MEDS ORDERED: NovoLIN-N (NPH) PER UNIT CHARGE SQ ONE (06:00)
[2019-01-17] MEDS ORDERED: methylPREDNISolone 32 MG in SYRINGE 0 ML IV SCH (06:00)
[2019-01-17 06:34] LABS: Albumin Globulin Ratio 0.5 (0.9-2); BUN Creatinine Ratio 41.2 (10-20); Bilirubin,Total 0.9 mg/dl (0.2-1); Calcium 8.5 mg/dl (8.5-10.1); Creatinine Clr Calc Pharmacy 75.1 ml/min; Est GFR (African American) 88.4; Est GFR (Non-African American) 76.3; Globulin 4.1 gm/dl (2.5-4.0); Total Protein 6.1 gm/dl (6.4-8.2)
[2019-01-17] MEDS ORDERED: PHARMACY GLYCEMIC MGMT CONSULT STA (07:50)
[2019-01-17] MEDS: BUDESONIDE/FORMOTEROL FUMARATE 160/4.5 60 PUFFS/INHALER INH SCH ×2 (08:09→20:48)
[2019-01-17] MEDS: BUMETANIDE 1 MG TAB PO SCH ×2 (08:09→17:17)
[2019-01-17] MEDS: APIXABAN 5 MG TABLET PO SCH ×2 (08:09→20:47)
[2019-01-17] MEDS: ATORVASTATIN 20 MG TAB PO SCH (08:10)
[2019-01-17] MEDS: allopurinoL 100 MG TAB PO SCH (08:10)
[2019-01-17] MEDS: METOPROLOL SUCC 50MG EXT REL TAB PO SCH (08:10)
[2019-01-17] MEDS: DOXAZosin MESYLATE 4 MG TAB PO SCH (08:10)
[2019-01-17] MEDS: SACUBITRIL-VALSARTAN 49/51 MG TAB PO SCH ×2 (08:10→20:47)
[2019-01-17] MEDS: PANTOprazole 40 MG TAB PO SCH (08:10)
[2019-01-17] MEDS: INSULIN GLARGINE SOLOSTAR 100 UNITS/ML 3 ML PEN SC SCH (08:10)
[2019-01-17] MEDS: INSULIN ASPART 100 UNITS/ML 3 ML PEN SC SCH ×5 (08:12→23:39)
[2019-01-17] MEDS: DICLOFENAC SOD 1% GEL 100 GM TUBE EXT SCH ×4 (08:13→20:48)
[2019-01-17] MEDS: NYSTATIN POWDER 15GM BTL EXT SCH ×3 (08:13→23:37)
[2019-01-17] MEDS ORDERED: OPTIRAY 320 125ml IV PRN (10:18)
--- NOTE | 2019-01-17 10:56 | CT Scan Report ---
CT ANGIOGRAM OF THE CHEST COMBO CLINICAL HISTORY: Thoracic aortic aneurysm. COMPARISON STUDY: Chest CT scans dated 01/04/2019 and 05/04/2016. TECHNIQUE: Before and following the IV administration of 119 cc of Optiray 320, CT angiogram of the c hest was performed from the thoracic inlet to the upper abdomen utilizing the dissection protocol. Im ages are reviewed in the axial, sagittal, and coronal planes. 3-D MIPS images are created and assesse d. IV contrast was administered without complication. A dose lowering technique was utilized adherin g to the principles of ALARA. CT DOSE: 2291.53 mGy.cm FINDINGS: Thyroid: Imaged portions of the thyroid gland are normal in size and attenuation. Thoracic aorta: There is advanced atherosclerotic calcification of the thoracic aorta. No intramural hematoma is seen on the unenhanced series. The ascending thoracic aorta and the aortic arch are hannah l in caliber. There is aneurysmal dilatation of the descending thoracic aorta which measures up to 5. 2 cm in diameter. A stent graft is present within the descending thoracic aorta and extends to the di aphragmatic hiatus. The thoracic aorta is widely patent, and the arch demonstrates standard 3-vessel anatomy. The arch vessels are widely patent. No dissection is seen. Pulmonary vasculature: The pulmonary trunk is dilated measuring up to 3.8 cm in diameter. This sugges ts pulmonary artery hypertension. There are no filling defects within the main, lobar, or segmental p ulmonary arteries to suggest pulmonary embolus. Heart: The heart is enlarged and without pericardial effusion. The coronary arteries are densely calc ified. Lungs and pleural spaces: Emphysematous change is noted. Foci of scarring/atelectasis are present in both lungs. There is no airspace consolidation typical for pneumonia or pleural effusion. Scattered c alcified granulomas are observed. Mediastinum: There is no mediastinal lymphadenopathy. Candy: Clear. Axillae: There is no axillary lymphadenopathy. Upper abdomen: There is a small hiatal hernia. Calcified gallstones are noted. A duodenal diverticulu m is partially visualized. Skeletal structures: The skeletal structures are osteopenic. No lytic or blastic bony lesions are see n. There are healed left-sided rib fractures. Soft tissues: Contusion is suggested in the left flank. IMPRESSION: 1. There is aneurysmal dilatation of the descending thoracic aorta with a stent graft in place. This is unchanged from prior studies. 2. The remainder of the thoracic aorta is normal in caliber. No dissection is seen. 3. Cardiomegaly and emphysema. 4. There is no airspace consolidation or pleural effusion. 5. There is no evidence of pulmonary embolus in the main, lobar, or segmental pulmonary arteries. 6. Cholelithiasis. 7. Additional findings as above. Electronically signed by: Andi Andrew M.D. 01/17/2019 10:54 AM
--- NOTE | 2019-01-17 12:59 | Hospitalist Progress Note ---
Date of Service January 17, 2019 Assessment & Plan (1) Substernal chest pain: - Has left sided chest pain, now resolved over last 24 hours. - Serial trops were negative; EKG with nonspecific T-wave changes in anterior leads. - Most recent cardiac cath in Jan 2018 (minimal nonobstructive CAD) - H/o thoracic aortic aneuryism, CT chest dissection was negative for acute changes. - Continue statin/beta tiffanie as prescribed; not currently on ASA. - Consulted cardiology, pain is not likely related to cardiac source. (2) Chronic combined systolic and diastolic congestive heart failure: - Currently euvolemic; CXR negative, BNP was 1,125. - Echo in Jan 2018 showed EF 35-40%, severe biatrial dilation. - Continue home beta tiffanie & Entresto as prescribed. - On Bumex 1 mg PO BID. (3) Swelling of right upper extremity: - May be related to rotator cuff arthropathy vs. impingement; has been an ongoing issue, present during last admission. - Consulted ortho, s/p joint injection on 01/16/19. - Repeat doppler of RUE pending to rule out DVT. - Swelling is significantly improved this morning. - PT/OT -- will need rehab placement at discharge. - Continue Bumex BID for edema. (4) Rotator cuff arthropathy: - Ortho consulted, s/p injection. (5) Atrial fibrillation with RVR: - Currently in A. fib on monitor, 70-80's on monitor. - Continue Metoprolol 200 mg daily and Eliquis 5 mg BID. (6) Abdominal wall defect: - Long-standing history. Patient has been followed by Dr. Lucero in the past. - Followed as oupatient. (7) Gastroesophageal reflux disease: - Continue PPI. (8) Diabetes mellitus with diabetic polyneuropathy: - Holding home Glimepiride. - Hgb A1C was 7.8 in Dec 2018. - Uncontrolled hyperglycemia, steroid induced related to premeds for contrast allergy. Consulted pharmacy for glycemic control. (9) Gout: - No acute flare noted. - Continue allopurinol as prescribed. (10) COPD (chronic obstructive pulmonary disease): - Currently stable on 2L via NC (home requirements). No acute exacerbation noted. - Continue albuterol prn, Symbicort BID. (11) Thoracic aortic aneurysm without rupture: - S/p repair in 2013. - CT chest dissection was negative for acute changes. (12) Elevated LFTs: - Elevated T. bili, AST and Alk phos. - RUQ US showed fatty liver changes, otherwise negative. - Alk phos remains elevated >300, AST and T. bili improved. GGT pending to evaluate bone vs. liver source. Dispo: PT/OT - pt. has requested discharge to [facility], shelter case manager following. Supervising Physician Co-Signing Physician Notes PA Supervision Note: I did not personally see or examine the patient today, but I verified all daigle points of COURT Singleton's assessment and plan with the following exceptions /additions: None Addendum to note from 01/16--> should state that I did NOT see the patient on 01/16 Subjective Pt. is doing well overall. On baseline oxygen requirements, 2L via NC. Has chronic SOB. RUE edema is significantly improved following joint injection on 01/16 by ortho. Has not had any further episodes of chest pain since yesterday morning. Denies nausea/vomiting, loss of appetite, fatigue. He is agreeable to rehab placement, has requested [facility]. Review of Systems Review of Systems: All systems reviewed & are unremarkable except as noted in HPI & below Constitutional: no fever, no chills, no fatigue, no weakness and no anorexia Respiratory: + dyspnea and + dyspnea on exertion; no cough, no sputum production and no wheezing Cardiovascular: + edema (RUE); no chest pain, no chest pain at rest, no chest pain with activity and no palpitations Gastrointestinal: no abdominal pain, no nausea, no vomiting and no constipation Genitourinary: no difficulty urinating Musculoskeletal: + joint pain (Right shoulder ) and + swelling (RUE); no back pain Integumentary: no non-healing lesions Physical Exam Physical Exam: General: Resting comfortably. HEENT: NC/AT; PERRLA with EOMI; [place] conjunctiva, MMM. No erythema of posterior pharynx Neck: Supple and nontender Cardiac: Irregular, rate controlled. Lungs: 2L via NC; CTA bilaterally Abdomen: Bowel normoactive X 4; Nontender to palpation Extremities: Warm. +2 RUE edema, significantly improved. Neuro: No focal weakness Skin: No rash Results & Data Vital Signs (Past 12 Hours) Vital Signs Temp Pulse Resp BP Pulse Ox 01/17/19 11:07 36.5 C 84 18 124/79 99 01/17/19 07:11 36.4 C L 69 18 141/91 H 97 01/17/19 03:34 36.4 C L 77 19 132/87 97 01/17/19 03:28 130/85 01/17/19 02:51 36.5 C 74 132/84 96 01/17/19 02:42 84 101/74 01/17/19 02:40 35.5 C L 84 20 75/46 L 96 Laboratory Results 01/17/19 01/17/19 01/17/19 Range/Units 11:16 09:33 07:27 Sodium (136-145) mmol/L Potassium (3.5-5.1) mmol/L Chloride (98-107) mmol/L Carbon Dioxide (21-32) mmol/L Anion Gap (3-11) BUN (7-18) mg/dl Creatinine (0.6-1.4) mg/dl Est Cr Clr Drug Dosing ml/min Est GFR ( Amer) Est GFR (Non-Af Amer) BUN/Creatinine Ratio (10-20) Glucose (70-99) mg/dl POC Glucose 276 H 259 H (70-99) Calcium (8.5-10.1) mg/dl Total Bilirubin (0.2-1) mg/dl Direct Bilirubin (0-0.2) mg/dl GGT Pending AST (15-37) U/L ALT (12-78) U/L Alkaline Phosphatase (45-117) U/L Troponin I (0-0.045) ng/ml Total Protein (6.4-8.2) gm/dl Albumin (3.4-5.0) gm/dl Globulin (2.5-4.0) gm/dl Albumin/Globulin Ratio (0.9-2) 01/17/19 01/17/19 01/17/19 Range/Units 05:25 03:46 02:35 Sodium 136 (136-145) mmol/L Potassium 5.0 D (3.5-5.1) mmol/L Chloride 101 (98-107) mmol/L Carbon Dioxide 29 (21-32) mmol/L Anion Gap 5.0 (3-11) BUN 39 H (7-18) mg/dl Creatinine 0.94 (0.6-1.4) mg/dl Est Cr Clr Drug Dosing 75.1 ml/min Est GFR ( Amer) 88.4 Est GFR (Non-Af Amer) 76.3 BUN/Creatinine Ratio 41.2 H (10-20) Glucose 259 H (70-99) mg/dl POC Glucose 254 H 293 H (70-99) Calcium 8.5 (8.5-10.1) mg/dl Total Bilirubin 0.9 (0.2-1) mg/dl Direct Bilirubin (0-0.2) mg/dl GGT AST 31 (15-37) U/L ALT 53 (12-78) U/L Alkaline Phosphatase 338 H (45-117) U/L Troponin I (0-0.045) ng/ml Total Protein 6.1 L (6.4-8.2) gm/dl Albumin 2.0 L (3.4-5.0) gm/dl Globulin 4.1 H (2.5-4.0) gm/dl Albumin/Globulin Ratio 0.5 L (0.9-2) 01/16/19 01/16/19 01/16/19 Range/Units 21:14 21:12 16:15 Sodium (136-145) mmol/L Potassium (3.5-5.1) mmol/L Chloride (98-107) mmol/L Carbon Dioxide (21-32) mmol/L Anion Gap (3-11) BUN (7-18) mg/dl Creatinine (0.6-1.4) mg/dl Est Cr Clr Drug Dosing ml/min Est GFR ( Amer) Est GFR (Non-Af Amer) BUN/Creatinine Ratio (10-20) Glucose (70-99) mg/dl POC Glucose 406 H* 413 H* 268 H (70-99) Calcium (8.5-10.1) mg/dl Total Bilirubin (0.2-1) mg/dl Direct Bilirubin (0-0.2) mg/dl GGT AST (15-37) U/L ALT (12-78) U/L Alkaline Phosphatase (45-117) U/L Troponin I (0-0.045) ng/ml Total Protein (6.4-8.2) gm/dl Albumin (3.4-5.0) gm/dl Globulin (2.5-4.0) gm/dl Albumin/Globulin Ratio (0.9-2) 01/16/19 Range/Units 13:57 Sodium (136-145) mmol/L Potassium (3.5-5.1) mmol/L Chloride (98-107) mmol/L Carbon Dioxide (21-32) mmol/L Anion Gap (3-11) BUN (7-18) mg/dl Creatinine (0.6-1.4) mg/dl Est Cr Clr Drug Dosing ml/min Est GFR ( Amer) Est GFR (Non-Af Amer) BUN/Creatinine Ratio (10-20) Glucose (70-99) mg/dl POC Glucose (70-99) Calcium (8.5-10.1) mg/dl Total Bilirubin 1.1 H (0.2-1) mg/dl Direct Bilirubin 0.7 H (0-0.2) mg/dl GGT AST 43 H (15-37) U/L ALT 59 (12-78) U/L Alkaline Phosphatase 317 H (45-117) U/L Troponin I < 0.015 (0-0.045) ng/ml Total Protein 6.1 L (6.4-8.2) gm/dl Albumin 2.0 L (3.4-5.0) gm/dl Globulin (2.5-4.0) gm/dl Albumin/Globulin Ratio (0.9-2) PG Care Time/CCT Total # of Minutes Spent Total Time Spent with Patient: Total time spent is greater than 50% in coordination of care (as documented) at patient's floor/unit and/or counseling patient: (1) Rotator cuff arthropathy Laterality: right Qualified Code(s): M12.811 - Other specific arthropathies, not elsewhere classified, right shoulder (2) Gout Chronicity: unspecified Gout etiology: unspecified cause Gout site: unspecified site Qualified Code(s): M10.9 - Gout, unspecified (3) Diabetes mellitus with diabetic polyneuropathy Diabetes mellitus long wall shear operator insulin use: without fci use Diabetes mellitus type: type 2 Qualified Code(s): E11.42 - Type 2 diabetes mellitus with diabetic polyneuropathy (4) COPD (chronic obstructive pulmonary disease) COPD type: unspecified COPD Qualified Code(s): J44.9 - Chronic obstructive pulmonary disease, unspecified (5) Gastroesophageal reflux disease Esophagitis presence: esophagitis presence not specified Qualified Code(s): K21.9 - Gastro-esophageal reflux disease without esophagitis
--- NOTE | 2019-01-17 13:25 | Ultrasound Report ---
RIGHT UPPER EXTREMITY VENOUS DOPPLER HISTORY: Right arm Swelling, rule out DVT COMPARISON STUDY: None. FINDINGS: The right internal jugular vein is patent. There is normal flow within the right subclavian vein. There is normal flow and compressibility within the right axillary, basilic, brachial, radial, ulnar, and visualized cephalic veins. IMPRESSION: No DVT within the right upper extremity. Electronically signed by: Maldonado Moody M.D. 01/17/2019 1:24 PM
--- NOTE | 2019-01-17 14:10 | Pharmacy Report ---
Pharmacy Glycemic Short Note 2 - Date of Service January 17, 2019 - Glycemic Short BSG Results (Last 24 hours): 01/16/19 01/16/19 01/16/19 16:15 21:12 21:14 Glucose POC Glucose 268 H 413 H* 406 H* 01/17/19 01/17/19 01/17/19 02:35 03:46 05:25 Glucose 259 H POC Glucose 293 H 254 H 01/17/19 01/17/19 07:27 11:16 Glucose POC Glucose 259 H 276 H OUTPATIENT ANTIDIABETIC REGIMEN: * glimepiride 4mg qam ASSESSMENT: * Patient presenting with chest pain and initial hypoglycemia, now persistently hyperglycemic, likely exacerbated by 2 doses IV solumedrol * An additional ~0.3 units/kg of NPH was administered this morning to assist with steroid induced hyperglycemia. * Post prandial BSG remained elevated at lunch and will likely remain elevated through dinner. I will tighten novolog scale again. However, I expect the effects of the IV solumedrol to wear off this evening, and thus I am hesitant to be too aggressive at this time. PLAN FOR INPATIENT GLYCEMIC CONTROL: * Hold outpatient oral diabetes medications * Basal insulin * Lantus 8 units SQ BID * 30 units NPH administered @0600 * Bolus insulin * NovoLog per scale ACHS or Q6hrs while NPO * Goal Range: Low 100 mg/dL - High 140 mg/dL * Correction Factor: 15 mg/dL/unit * Nutritional / Prandial insulin per carb ratio of 1 unit per 5 grams CHO consumed
[2019-01-17] MEDS ORDERED: INSULIN GLARGINE SOLOSTAR 100 UNITS/ML 3 ML PEN SC SCH (21:00)
[2019-01-18] MEDS: INSULIN ASPART 100 UNITS/ML 3 ML PEN SC SCH ×3 (04:24→12:11)
[2019-01-18 06:31] LABS: BUN Creatinine Ratio 43.7 (10-20); Creatinine Clr Calc Pharmacy 127.1 ml/min; Est GFR (African American) 99.3; Est GFR (Non-African American) 85.7; Potassium 4.3 mmol/L (3.5-5.1)
[2019-01-18 06:34] LABS: Albumin Globulin Ratio 0.5 (0.9-2); Bilirubin,Total 0.7 mg/dl (0.2-1)
[2019-01-18] MEDS: DOXAZosin MESYLATE 4 MG TAB PO SCH (07:49)
[2019-01-18] MEDS: SACUBITRIL-VALSARTAN 49/51 MG TAB PO SCH (07:49)
[2019-01-18] MEDS: BUMETANIDE 1 MG TAB PO SCH (07:50)
[2019-01-18] MEDS: ATORVASTATIN 20 MG TAB PO SCH (07:50)
[2019-01-18] MEDS: METOPROLOL SUCC 50MG EXT REL TAB PO SCH (07:50)
[2019-01-18] MEDS: PANTOprazole 40 MG TAB PO SCH (07:50)
[2019-01-18] MEDS: allopurinoL 100 MG TAB PO SCH (07:50)
[2019-01-18] MEDS: APIXABAN 5 MG TABLET PO SCH (07:50)
[2019-01-18] MEDS: BUDESONIDE/FORMOTEROL FUMARATE 160/4.5 60 PUFFS/INHALER INH SCH (07:50)
[2019-01-18] MEDS: NYSTATIN POWDER 15GM BTL EXT SCH (07:53)
[2019-01-18] MEDS: DICLOFENAC SOD 1% GEL 100 GM TUBE EXT SCH ×2 (07:53→12:12)
--- NOTE | 2019-01-18 10:09 | Cardiology Progress Note ---
Date of Service January 18, 2019 Assessment & Plan (1) Substernal chest pain: He had very atypical chest discomfort and negative cardiac enzymes, I do not believe this was cardiac in etiology and would not pursue further investigation. It has resolved. I suspect it was musculoskeletal. (2) Permanent atrial fibrillation: He is in permanent atrial fibrillation, his heart rate now appears well controlled on his current regimen. He needs anticoagulation. (3) Chronic anticoagulation: He needs anticoagulation for his atrial fibrillation and seems to be doing well on Eliquis, I would continue it. Based on his weight and kidney function he should be on 5 mg twice a day. Subjective He is feeling well today and has no further chest discomfort. He tells me that his arms feel normal. He does describe leg weakness and is anxious to go to rehab where he could build up his legs. Physical Exam Physical Exam: Constitutional: Alert, cooperative and in no distress. Pulmonary: Clear to auscultation bilaterally. Cardiac: Irregular rhythm with no murmur, gallop or rub. Abdomen: Soft, nontender with normal bowel sounds. Extremities: No edema. Skin: No rash, ecchymoses or petechiae. Results & Data Vital Signs (Past 12 Hours) Vital Signs Temp Pulse Resp BP BP Pulse Ox 01/18/19 07:37 36.4 C L 78 20 141/88 H 98 01/18/19 03:54 36.5 C 78 18 132/81 98 01/17/19 23:40 36.3 C L 90 20 119/80 96 Diagnostic Findings Abnormal lab results 01/17/19 01/17/19 01/17/19 Range/Units 09:33 11:16 16:14 BUN (7-18) mg/dl BUN/Creatinine Ratio (10-20) Glucose (70-99) mg/dl POC Glucose 276 H 295 H (70-99) Calcium (8.5-10.1) mg/dl GGT 186 H (3-70) U/L AST (15-37) U/L Alkaline Phosphatase (45-117) U/L Total Protein (6.4-8.2) gm/dl Albumin (3.4-5.0) gm/dl Albumin/Globulin Ratio (0.9-2) 01/17/19 01/17/19 01/17/19 Range/Units 20:20 20:21 23:36 BUN (7-18) mg/dl BUN/Creatinine Ratio (10-20) Glucose (70-99) mg/dl POC Glucose 369 H* 355 H* 217 H (70-99) Calcium (8.5-10.1) mg/dl GGT (3-70) U/L AST (15-37) U/L Alkaline Phosphatase (45-117) U/L Total Protein (6.4-8.2) gm/dl Albumin (3.4-5.0) gm/dl Albumin/Globulin Ratio (0.9-2) 01/18/19 01/18/19 01/18/19 Range/Units 04:22 05:21 07:46 BUN 34 H (7-18) mg/dl BUN/Creatinine Ratio 43.7 H (10-20) Glucose 107 H (70-99) mg/dl POC Glucose 147 H 104 H (70-99) Calcium 8.0 L (8.5-10.1) mg/dl GGT (3-70) U/L AST 41 H (15-37) U/L Alkaline Phosphatase 292 H (45-117) U/L Total Protein 6.0 L (6.4-8.2) gm/dl Albumin 2.0 L (3.4-5.0) gm/dl Albumin/Globulin Ratio 0.5 L (0.9-2) Telemetry: Atrial fibrillation with a heart rate in the 70s and 80s predominantly PG Care Time/CCT Total # of Minutes Spent Total Time Spent with Patient: Total time spent is greater than 50% in co ordination of care (as documented) at patient's floor/unit and/or counseling patient:
--- NOTE | 2019-01-18 12:00 | Pharmacy Report ---
Pharmacy Glycemic Short Note 2 - Date of Service January 18, 2019 - Glycemic Short BSG Results (Last 24 hours): 01/17/19 01/17/19 01/17/19 16:14 20:20 20:21 Glucose POC Glucose 295 H 369 H* 355 H* 01/17/19 01/18/19 01/18/19 23:36 04:22 05:21 Glucose 107 H POC Glucose 217 H 147 H 01/18/19 01/18/19 07:46 11:03 Glucose POC Glucose 104 H 154 H OUTPATIENT ANTIDIABETIC REGIMEN: * glimepiride 4mg qam ASSESSMENT: 01/18/19 * Solu-medrol IV effects wearing off, held AM Lantus, changing to once daily at HS, and loosened CF and CR to prevent hypoglycemia. 01/17/19 * Patient presenting with chest pain and initial hypoglycemia, now persistently hyperglycemic, likely exacerbated by 2 doses IV solumedrol * An additional ~0.3 units/kg of NPH was administered this morning to assist with steroid induced hyperglycemia. * Post prandial BSG remained elevated at lunch and will likely remain elevated through dinner. I will tighten novolog scale again. However, I expect the eff ects of the IV solumedrol to wear off this evening, and thus I am hesitant to be too aggressive at this time. PLAN FOR INPATIENT GLYCEMIC CONTROL: * Hold outpatient oral diabetes medications * Basal insulin * DECREASE Lantus to 15 units SQ HS * Bolus insulin * NovoLog per scale ACHS or Q6hrs while NPO * Goal Range: Low 110 mg/dL - High 140 mg/dL (changed lower goal range to 110mg/dl to prevent hypoglycemia) * CHANGE: Correction Factor: 20 mg/dL/unit * CHANGE: Nutritional / Prandial insulin per carb ratio of 1 unit per 7 grams CHO consumed
--- NOTE | 2019-01-18 16:59 | Discharge Summary ---
Date of Service January 18, 2019 Admission HPI Per Admitting Provider Mr. Dc is a pleasant 78yo C male with multiple medical problem presenting with chest pain. He was recently admitted 01/01 with exacerbation of CHF which manifested with LUE and left foot edema. He was ruled out for DVT or SVC syndrome with imaging. Treated effectively with IV Bumex and discharged to [facility] for continued rehabilitation. This morning patient experienced an episode of severe, sharp left-sided chest pain 8-10/24. Lasted "a while". No associated shortness of breath, palpitations, diaphoresis. Pain was nonpleuritic, nonexertional and non- positional. Patient presently chest pain-free Admission Exam Per Admitting Provider General: patient resting comfortably, NAD, non-toxic in appearance, AA&O x 4 Skin: warm, dry, intact, no rashes or lesions HEENT: NC/AT, PERRL, EOMI, anicteric sclera, conjunctiva without injection, external ear normal to inspection and nontender, nares patent, moist mucus membranes, poor dentition, no oropharyngeal lesions, neck supple, trachea midline, no LAD, no thyromegaly, no JVD Heart: +S1/S2, irregularly irregular, tachycardic, no m/r/g Lungs: Diminished breath sounds, equal air entry bilaterally, no rales/rhonchi/wheezes Abd: +BS, soft, NT/ND, no masses/organomegaly/ascites Ext: warm, 2+ pulses in UE/LE bilaterally, no clubbing/cyanosis, 3+ edema of right upper extremity, skin reddened and thickened, patient unable to raise right arm secondary to pain, + point tenderness over AC joint Neuro: nonfocal, patient AA&O x 4, speech intact, no facial droop, moving all extremities on command, + right upper extremity strength and mobility limited secondary to pain and swelling Principal Diagnosis Chest Pain Discharge Exam General: Resting comfortably. HEENT: NC/AT; PERRLA with EOMI; [place] conjunctiva, MMM. No erythema of posterior pharynx Neck: Supple and nontender Cardiac: Irregular, rate controlled. Lungs: 3L via NC; CTA bilaterally Abdomen: Bowel normoactive X 4; Nontender to palpation Extremities: Warm. No edema noted (now resolved in RUE) Neuro: No focal weakness Skin: No rash Discharge Data Allergies Allergy/AdvReac Type Severity Reaction Status Date / Time Iodinated Contrast Media Allergy Severe NEEDS Verified 01/15/19 07:[address] DYE Consultations 01/15/19 09:59 ED Decision to Admit Stat 01/15/19 10:57 Consult Orthopedic Surgery Routine 01/15/19 12:16 Consult Case Management - Discharge Planning Routine 01/16/19 14:28 Consult Cardiology Routine Ordered Studies 01/15/19 09:34 US gallbladder Stat CXR 01/16/19 17:24 CT angio chest dissec wo/w con Routine 01/17/19 09:26 US venous doppler UE RT Urgent Hospital Course (1) Substernal chest pain: Has left sided chest pain, now completely resolved. Serial trops were negative; EKG with nonspecific T-wave changes in anterior leads. Most recent cardiac cath in Jan 2018 (minimal nonobstructive CAD) H/o thoracic aortic aneuryism, CT chest dissection was negative for acute changes. Continued statin/beta tiffanie as prescribed; not currently on ASA. Consulted cardiology, pain is not likely related to cardiac source. (2) Chronic combined systolic and diastolic congestive heart failure: Currently euvolemic; CXR negative, BNP was 1,125. Echo in Jan 2018 showed EF 35-40%, severe biatrial dilation. Continued home beta tiffanie & Entresto as prescribed. On Bumex 1 mg PO BID. (3) Swelling of right upper extremity: May be related to rotator cuff arthropathy vs. impingement; has been an ongoing issue, present during last admission. Consulted ortho, s/p joint injection on 01/16/19. Pain now much improved Repeat doppler of RUE neg for DVT. Swelling is now resolved. PT/OT recommended inpt rehab (was requiring 2 person assist) but pt. refused placement. Discussed safe discharge planning based on therapy recs with both his and patient in room (Yvon Ibrahim was also present). Pt. continued to refuse placement and demanded discharge to home. PT did evaluate him on day of discharge and his functional status slightly improved. Home health was arranged. (4) Rotator cuff arthropathy: Ortho consulted, s/p injection. (5) Atrial fibrillation with RVR: In A. fib on monitor, 70-80's on monitor. Continued Metoprolol 200 mg daily and Eliquis 5 mg BID. (6) Abdominal wall defect: Long-standing history. Patient has been followed by Dr. Lucero in the past. Followed as outpatient. (7) Gastroesophageal reflux disease: PPI. (8) Diabetes mellitus with diabetic polyneuropathy: Holding home Glimepiride. Hgb A1C was 7.8 in Dec 2018. Uncontrolled hyperglycemia, steroid induced related to premeds for contrast allergy. Improved by time of discharge, can resume home oral agent. (9) Gout: No acute flare noted. Continued allopurinol as prescribed. (10) COPD (chronic obstructive pulmonary disease): Currently stable on 2-3L via NC (home requirements). No acute exacerbation noted. Continued albuterol prn, Symbicort BID. (11) Thoracic aortic aneurysm without rupture: S/p repair in 2013. CT chest dissection was negative for acute changes. (12) Chronic respiratory failure with hypoxia: Chronic hypoxic respiratory failure continued home O2 (13) Elevated LFTs: Elevated T. bili, AST and Alk phos. RUQ US showed fatty liver changes, cholelithiasis but no cholecystitis, otherwise negative. Alk phos remains elevated at time of discharge but was trending downward, GGT level also evaluated. Recommend repeat levels in future. Perhaps passed a small stone prior to admission but did not seem to have any correlating abdominal pain Discharged with home health on 01/18/19. (14) Cholelithiasis: as above, perhaps was symptomatic but no CBD dilatation, no evidence of ongoing issues -consider elective lap ministerio in future-can f/u with PCP Total Time Total Time Spent Total Time Spent (In Minutes): >30 minutes Total Time Includes: Examination of the Patient, Discharge Planning, Medication Reconciliation, Communication With Other Providers and Other Discharge Plan Discharge Items Patient Disposition: Home - Home Health Services Reason For Visit: CHEST PAIN Discharge Diagnosis: Chest Pain Condition on Discharge: Fair Activity: As commented below Activity Comment: Per home health therapy recs. Exercise/Sports: Wait until after follow-up appointment Non-emergency contact: Primary Care Provider Call non-emergency contact if: you have any medication questions, your symptoms worsen and you have a fever Follow-up/Referrals: Maryanne Whipple MD [Primary Care Provider] - Maritza Sanchez PAVirginiaC [Physician Puddler Helper] - 01/24/19 2:00 pm (Congestive Heart Failure Program Appointment Information Early follow up is essential to managing your heart failure. An appointment has been scheduled for you with the [facility] Heart Failure Program within 7 days of discharge. Anticipate this visit to be 30-60 minutes long. Please expect a wind turbine engineer phone call from one of our nurses approximately 48 hours from discharge. They will also be placing an order for lab work to be completed 1-2 days prior to your heart failure follow up appointment. Please be sure to have this done so we can go over the results when you come in. Office Location The cardiology office building is located in front of the hospital at [address] Bring the following with you to your follow-up doctor appointments: Please bring your daily weight log any discharge paperwork all of your medication bottles with you to this visit. ) Diet: Carb Consistent or DM2, Heart Healthy and Low Sodium (2gm) Addtl Attending Provider Instructions: 1. Chest pain * Cardiac work up was negative during this admission. * Please follow up with primary care provider to discuss medication management/hospital admission. * Continue all cardiac meds as prescribed. 2. Congestive Heart Failure * Please continue to monitor daily weights at home. * Continue home meds as prescribed, including Bumex 1 mg twice daily. * Please call your PCP if you develop increased swelling, shortness of breath or weight gain. * Refer to heart failure instructions as noted below; follow up with Alexia Sanchez as prescribed on 01/24/19. 3. COPD * Continue to use 2 liters via nasal cannula at home. 4. Elevated liver function tests * Alk phosphatase level has been elevated during this admission. * You will need follow up labs in the future to monitor levels. 5. Home health has been arranged for PT/OT services following discharge. Additional Heart Failure Instructions: Call 911 and go to the Emergency Room if: * You have tightness or pain in your chest that does not go away with rest or Nitroglycerin * You are very short of breath even with rest Call your doctor if any of the following symptoms or problems start or get worse: * Shortness of breath or difficulty breathing * Wake up at night short of breath * Chest pain * Cough * Swelling of your hands, fee, or legs * More fatigued or tired with your normal activity * Palpitations - sudden fast heart beats WEIGHT * Weigh yourself every morning after using the bathroom. * Use the same scale. * Wear the same amount of clothing. * Write your weight down on your chart. * Call your doctor if you gain more than 2-3 pounds in 1-2 days. MEDICATIONS * Use this discharge instruction sheet for instructions. * Take your medications at the time your doctor ordered. * Do not skip a dose of your medicines. * If you miss a dose of medicine, take as soon as possible, but DO NOT DOUBLE A DOSE. * Read your medicine information when you get home. * Know all of the side effects of your medicine. * Call your doctor's office if you have any side effects. * Be sure all of your doctors know what medicine and herbs you take (including cold, flu, and herbal medicine). * Pain Medicine: If you do not get relief from your pain, please call your doctor for help. Take the following with you to your follow-up doctor appointments: * Weight Chart * Medication List * List of questions Do not drink excessive alcohol, beer or wine. Additional Heart Healthy Instructions: Lifestyle Changes: * Maintain a healthy weight. Get help to lose any extra pounds. * Cut back on salt. * Limit canned, dried, packaged, and fast foods. * Don't add salt to your food. * Season foods with herbs instead of salt when you cook.. * Limit fatty foods. * Ask your doctor about having your lipid levels checked regularly. * Build up your activity according to your doctor's recommendation. * Try to manage stress. Follow Up: It is important for you to keep your follow up appointments with your medical provider. Pending Studies at Discharge: No Stand-Alone Forms: Call Back Authorization, [facility] Medications and DC Order Prescriptions: Continued Symbicort 160-4.5 mcg/actuation HFA aerosol inhaler 2 puff INHALATION BID Qty: 10.2 RF: 3 glimepiride 4 mg tablet 4 mg PO QAM Qty: 90 RF: 1 (DME) Wheelchair (Powered) Device See Rx Instructions .ROUTE .MEDSUPPLY Qty: 1 RF: 0 bumetanide 1 mg tablet 1 mg PO BID Qty: 180 RF: 0 sacubitril-valsartan 97-103 mg tablet 1 tab PO BID Qty: 180 RF: 0 multivitamin Tablet 1 tab PO QAM RF: 0 atorvastatin 20 mg Tablet 20 mg PO QAM RF: 0 Eliquis 5 mg Tablet 5 mg PO BID RF: 0 potassium chloride [Klor-Con M20] 20 mEq tablet,ER particles/crystals 20 meq PO DAILY@1600 RF: 0 metoprolol succinate 200 mg tablet extended release 24 hr 200 mg PO QAM RF: 0 allopurinol 100 mg tablet 200 mg PO QAM RF: 0 diclofenac sodium 1 % gel 2 gm TOP QID Qty: 100 RF: 0 acetaminophen [Tylenol] 325 mg Tablet 650 mg PO Q6H PRN (Reason: Pain) RF: 0 nystatin 100,000 unit/gram Powder 1 applic TOPICAL QS RF: 0 Breo Ellipta 100-25 mcg/dose Blister With Device 1 inh INHALATION QAM RF: 0 pantoprazole [Protonix] 40 mg tablet,delayed release (DR/EC) 40 mg PO QAM RF: 0 doxazosin 4 mg tablet 4 mg PO QAM RF: 0 Discontinued turmeric root extract 500 mg capsule 500 mg PO BID RF: 0 potassium chloride 20 mEq tablet,ER particles/crystals 40 meq PO QAM RF: 0 colchicine 0.6 mg tablet 0.6 mg PO HS PRN (Reason: .GOUT) RF: 0 Discharge Orders: Discharge Order (Routine); Ordered 01/18/19 Ordered By: Pili Davis Admission Data Admit Date/Time: 01/17/19 13:52 Attending Provider: Pili Davis Admit Provider: Serena Knapp Primary Care Provider: Maryanne Whipple Other Providers: Serena Knapp ; Tera Donnelly V ; Jeremias Nova ; [place] Other Interventions: Discharge Summary Assessment (RN) Last Done: 01/18/19 15:09 DC Date/Time DO NOT enter until pt leaves facility: 01/18/19 16:38 Supervising Physician Co-Signing Physician Notes PA Supervision Note: I personally saw and examined the patient. I verified all daigle points and agree with COURT Singleton with the following exceptions and/or additions: Pt has no further chest pain. No abd pain, no nausea. No SOB. Is anxious to leave the hospital. Rt shoulder pain improved now with steroid injection, RUE swelling now almost completely resolved VSS irreg irreg no mgr lungs decreased at bases but fairly clear Abd +BS spft NT ND, obese Ext trace edema right forearm and hand, no edema otherwise Skin no rashes Stable for dc to home Chest pain noncardiac Perhaps was from passage of a gallstone but did not seem to corelate with location of pain in left side of chest F/u with PCP
[2019-01-18] MEDS ORDERED: INSULIN GLARGINE SOLOSTAR 100 UNITS/ML 3 ML PEN SC SCH (21:00)
--- NOTE | 2019-01-26 08:21 | Coding Query ---
CODING QUERY To promote full compliance with coding requirements relating to patient care, provider participation is requested in all cases of sales route driver uncertainty. Please assist us with the question(s) below: Coding Question(s): The Discharge Summary documents, "Chest pain noncardiac Perhaps was from passage of a gallstone but did not seem to corelate with location of pain in left side of chest". Please specify below, in your clinical opinion, the most likely etiology of the noncardiac chest pain. ( ) Noncardiac Chest Pain with most likely etiology of Unknown Etiology (x ) Noncardiac Chest Pain with most likely etiology of passage of Gallstone ( ) Noncardiac Chest Pain with most likley etiology of Other: Please Specify Physician's Response(s): Thank you Faby Veronica Principal Diagnosis: "that condition established after study, to be chiefly responsible for occasioning the admission of the patient to the hospital for care." Co-Existing Principal Diagnosis: "when two or more diagnoses equally meet the criteria for principal diagnosis as determined by the circumstances of admission, diagnostic work up, and/or therapy provided, and the Alphabetic Index, Tabular List, or another coding guideline does not provide sequencing direction, any one of the diagnoses may be sequenced first." "When the physician has documented what appears to be a current diagnosis in the body of the record, but has not included the diagnosis in the final diagnostic statement, the physician should be asked whether the diagnosis should be added." (Source Coding Clinic 2 QTR90. p3-4) JACK
== END 2019-01-18 16:38 | disposition home health service (06) | DRG 445 ==
LOC: ED 07:02 → 1E 07:02 → SUATTDRO 10:53 → 1E 11:39 → 2S 18:32

== ENCOUNTER 2019-01-19 11:19 | Inpatient (IN) ==
--- NOTE | 2019-01-19 13:01 | XRay Report ---
XR chest 1V portable HISTORY: 79 years-old Male Chest Pain acute atypical chest pain COMPARISON: Chest radiograph 01/15/2019, CTA chest 01/17/2019 TECHNIQUE: Portable AP view of the chest FINDINGS: Cardiac silhouette is enlarged, unchanged. 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 Loop recorder device noted. No pneumothorax, pleural effusion or overt pulmon [place] edema. Mild chronic interstitial coarsening. Suggested emphysema. Degenerative changes of the viet ulders and spine. IMPRESSION: 1. Cardiomegaly without acute process. 2. Emphysema with chronic interstitial coarsening. The above report was generated using voice recognition software. It may contain grammatical, syntax o r spelling errors. Electronically signed by: Lance Wadsworth M.D. 01/19/2019 1:00 PM
[2019-01-19 13:24] LABS: Basophils # (auto) 0.01 K/uL (0-0.2); Basophils % (auto) 0.1 %; Eosinophils # (auto) 0.05 K/uL (0-0.5); Eosinophils % (auto) 0.6 %; Hemoglobin 11.9 g/dL (14.0-18.0); Immature Granulocytes # (auto) 0.03 K/uL (0.00-0.02); Immature Granulocytes % (auto) 0.3 %; Lymphocytes # (auto) 0.78 K/uL (1.2-3.4); Lymphocytes % (auto) 8.8 %; Mean Corpuscular Hgb Conc 32.2 g/dL (32-36); Mean Corpuscular Volume 99.5 fL (80-100); Mean Platelet Volume 9.7 fL (7.4-10.4); Monocytes # (auto) 0.69 K/uL (0.11-0.59); Monocytes % (auto) 7.7 %; Neutrophils # (auto) 7.35 K/uL (1.4-6.5); Neutrophils % (auto) 82.5 %; Platelet Count 355 K/uL (130-400); RDW Coefficient of Variation 13.5 % (11.5-14.5); RDW Standard Deviation 49.4 fL (36.4-46.3); Red Blood Count 3.72 M/uL (4.7-6.1); White Blood Count 8.91 K/uL (4.8-10.8)
[2019-01-19 13:43] LABS: Alanine Aminotransferase 57 U/L (12-78); Albumin Level 2.3 gm/dl (3.4-5.0); Aspartate Aminotransferase 32 U/L (15-37); BUN Creatinine Ratio 45.1 (10-20); Blood Urea Nitrogen 39 mg/dl (7-18); Calcium 8.1 mg/dl (8.5-10.1); Carbon Dioxide 29 mmol/L (21-32); Chloride 103 mmol/L (98-107); Creatinine Clr Calc Pharmacy 85.2 ml/min; Est GFR (African American) 94.5; Est GFR (Non-African American) 81.5; Glucose 121 mg/dl (70-99); Lipase 154 U/L (73-393); Magnesium 1.9 mg/dl (1.8-2.4); Potassium 4.2 mmol/L (3.5-5.1); Sodium 138 mmol/L (136-145)
[2019-01-19 13:52] LABS: Albumin Globulin Ratio 0.6 (0.9-2); Alkaline Phosphatase 277 U/L (45-117); Bilirubin,Total 0.7 mg/dl (0.2-1); Creatine Kinase 36 U/L (39-308); Globulin 3.9 gm/dl (2.5-4.0); Phosphorus 2.5 mg/dl (2.5-4.9); Total Protein 6.2 gm/dl (6.4-8.2); Troponin I < 0.015 ng/ml (0-0.045)
--- NOTE | 2019-01-19 14:13 | Emergency Department Note ---
Entered by Segundo Yen acting as a scribe for Jose Hensley MD History of Present Illness General Chief complaint: Weakness Time Seen by Provider: 01/19/19 12:23 Source: patient and family () History of Present Illness Onset (ago): day(s) (several) Location: left and right Pain Consistency: + constant Maximum Pain Intensity: 5 Quality: + other (generalized weakness) Associated symptoms: + other (+trouble making a fist with right hand ) The patient is an 79 year old male, with past medical history of CHF, CAD, HTN, HLD, diabetes, and atrial fibrillation, who presents to the Emergency Room with complaints of constant generalized weakness over the past several days. The patient admits he was recommended to go to [facility] following his discharge from the ED yesterday, but the patient states he thought he was strong enough to go home at the time. After spending the day at home, the patient reports he is too weak to walk and move around in his home, and he states he would like to go to [facility] now. The patient states he has a long history of using cortisone for pain relief in order for him to work, and the patient notes this may have contributed to his weakness, especially to his right leg and right rotator cuff. The patient also reports he has trouble making a fist with his right hand. The patient states he noticed a tick on him once in the past, but the patient states it was a few years back. The of the p valentín notes the patient could walk around fine about 3 weeks ago. Home Medications Home Medications Medication Instructions Recorded Confirmed Type Eliquis 5 mg PO BID 01/16/18 01/19/19 History atorvastatin 20 mg PO QAM 01/16/18 01/19/19 History multivitamin 1 tab PO QAM 01/16/18 01/19/19 History bumetanide 1 mg tablet 1 mg PO BID #180 tab 08/22/18 01/19/19 History sacubitril 97 mg-valsartan 103 mg 1 tab PO BID #180 tab 08/22/18 01/19/19 History tablet budesonide-formoterol HFA 160 2 puff INHALATION BID #10.2 gm 11/15/18 01/19/19 Rx mcg-4.5 mcg/actuation aerosol inhaler potassium chloride 20 mEq 20 meq PO DAILY@1600 tab 10/10/19 12/06/19 History tablet,extended release(part/cryst) glimepiride 4 mg tablet 4 mg PO QAM #90 tab 12/22/18 01/19/19 Rx allopurinol 200 mg PO QAM 01/01/19 01/19/19 History metoprolol succinate 200 mg PO QAM 01/01/19 01/19/19 History Wheelchair (Manual or Powered) #1 ea 01/08/19 Rx diclofenac sodium 2 gm TOP QID #100 gm 01/10/19 01/19/19 Rx doxazosin 4 mg PO QAM 01/15/19 01/19/19 History pantoprazole [Protonix] 40 mg PO QAM 01/15/19 01/19/19 History acetaminophen [Tylenol Extra 1,000 mg PO BID 01/19/19 01/19/19 History Strength] Allergies Allergy/AdvReac Type Severity Reaction Status Date / Time Iodinated Contrast Media Allergy Severe NEEDS Verified 01/19/19 13:[address] DYE Past Med/Surg History Medical History Abdominal aortic aneurysm (Acute) Acute on chronic combined systolic (congestive) and diastolic (congestive) heart failure (Acute) Anemia (Acute) Aneurysm of thoracic aorta (Acute) Arteriosclerotic coronary artery disease (Acute) Arthritis Cardiomyopathy, idiopathic (Acute) Cervical radiculopathy (Acute) Cervical spinal stenosis (Acute) Cholelithiasis Chronic anticoagulation (Acute) Chronic combined systolic and diastolic congestive heart failure (Acute) Chronic osteoarthritis (Acute) COPD (chronic obstructive pulmonary disease) (Chronic) Diabetes (Chronic) Diabetes mellitus with diabetic polyneuropathy (Acute) Gastroesophageal reflux disease (Acute) History of cardioversion Hyperlipidemia (Chronic) Hypertension (Chronic) Nonsustained ventricular tachycardia (Acute) Obesity, Class II, BMI 35-39.9 (Acute) Osteoarthritis of knee (Acute) Permanent atrial fibrillation (Acute) Rib fractures (03/29/13) Shoulder pain (Acute) Sleep apnea (Acute) Status post thoracic aortic aneurysm repair Swelling of right upper extremity Thoracic aortic aneurysm without rupture (Chronic 01/07/14) Ventral hernia (Chronic) Vitamin D deficiency (Acute) Surgical History History of hemorrhoidectomy (Resolved) History of tonsillectomy (Resolved) Family History Father No pertinent family history Mother Stroke Other Medical history non-contributory Social History Preferred Language: Belarusian Communication Ability: Effective Research Nurse Practitioner Required: No Beliefs That Will Affect Care: None marital status: Current Living Situation: Spouse Feels Safe at Home: Yes Smoking Status: Former smoker Second Hand Exposure: No ; Hx Alcohol Use: No Hx Substance Use: No Dental Care, Regularly: No Seatbelt Use: always Review of Systems See HPI for pertinent positives & negatives. and A total of 10 systems reviewed and were otherwise negative Physical Exam Vital Signs Vital Signs - 24 hr 01/19/19 11:28 01/19/19 12:25 01/19/19 12:48 Temperature 36.5 C Temperature Source Oral Pulse Rate 86 90 Pulse Rate from SpO2 Sensor 91 H Pulse Rhythm Regular Pulse Strength Normal Respiratory Rate 20 13 Respiratory Effort / Characteristics Non-Labored Spontaneous Respiratory Depth Normal Respiratory Pattern Regular Blood Pressure 98/62 L 112/71 Blood Pressure Mean 74 74 Blood Pressure Position Sitting Pulse Oximetry 100 97 100 Oxygen Delivery Method Nasal Cannula Nasal Cannula Oxygen Flow Rate 2 2 Sepsis Recent Fever Within 48 Hours No Sepsis New/Unexplained Change in Mental Status No Sepsis Action Taken by Nursing No Action Required 01/19/19 12:51 01/19/19 13:00 01/19/19 13:10 Temperature Temperature Source Pulse Rate 96 H 82 92 H Pulse Rate from SpO2 Sensor 96 H 77 93 H Pulse Rhythm Pulse Strength Respiratory Rate 17 15 21 Respiratory Effort / Characteristics Respiratory Depth Respiratory Pattern Blood Pressure 100/59 L Blood Pressure Mean 61 Blood Pressure Position Pulse Oximetry 100 100 97 Oxygen Delivery Method Oxygen Flow Rate Sepsis Recent Fever Within 48 Hours Sepsis New/Unexplained Change in Mental Status Sepsis Action Taken by Nursing 01/19/19 13:20 01/19/19 13:30 01/19/19 13:31 Temperature Temperature Source Pulse Rate 100 H 95 H 91 H Pulse Rate from SpO2 Sensor 94 H 88 90 Pulse Rhythm Pulse Strength Respiratory Rate 20 18 12 Respiratory Effort / Characteristics Respiratory Depth Respiratory Pattern Blood Pressure 111/65 Blood Pressure Mean 80 Blood Pressure Position Pulse Oximetry 86 L 98 99 Oxygen Delivery Method Oxygen Flow Rate Sepsis Recent Fever Within 48 Hours Sepsis New/Unexplained Change in Mental Status Sepsis Action Taken by Nursing 01/19/19 13:40 01/19/19 14:23 01/19/19 14:24 Temperature Temperature Source Pulse Rate 88 87 Pulse Rate from SpO2 Sensor 86 Pulse Rhythm Pulse Strength Respiratory Rate 17 12 16 Respiratory Effort / Characteristics Respiratory Depth Respiratory Pattern Blood Pressure 97/66 L Blood Pressure Mean 83 Blood Pressure Position Pulse Oximetry 100 Oxygen Delivery Method Oxygen Flow Rate Sepsis Recent Fever Within 48 Hours Sepsis New/Unexplained Change in Mental Status Sepsis Action Taken by Nursing 01/19/19 14:30 01/19/19 14:40 Temperature Temperature Source Pulse Rate 89 87 Pulse Rate from SpO2 Sensor 91 H 84 Pulse Rhythm Pulse Strength Respiratory Rate 16 16 Respiratory Effort / Characteristics Respiratory Depth Respiratory Pattern Blood Pressure 93/62 L Blood Pressure Mean 76 Blood Pressure Position Pulse Oximetry 93 100 Oxygen Delivery Method Oxygen Flow Rate Sepsis Recent Fever Within 48 Hours Sepsis New/Unexplained Change in Mental Status Sepsis Action Taken by Nursing GENERAL: Awake, alert, chronically ill-appearing, in no distress HENT: Normocephalic, atraumatic. Oropharynx with dry mucous membranes and otherwise unremarkable. EYES: Normal conjunctiva. Sclera non-icteric. NECK: Supple. No nuchal rigidity. FROM. No JVD. RESPIRATORY: Diminished breath sounds at the bases. CARDIAC: Regular rate, normal rhythm. Extremities warm and well perfused. Pulses equal. ABDOMEN: Soft, non-distended. No tenderness to palpation. No rebound or guarding. No masses. RECTAL: Deferred. MUSCULOSKELETAL: Chest examination reveals no tenderness. The back is symmetrical on inspection without obvious abnormality. There is no CVA tenderness to palpation. No joint edema. EXTREMITIES: Calves are equal size bilaterally and non-tender. Scant bilateral lower extremity edema. No discoloration. Limited ROM of right shoulder chronically secondary to pain. 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 NEURO: Normal sensorium. No sensory or motor deficits noted. SKIN: No rash or jaundice noted. Course Course 1318: Past medical records reviewed. The patient was evaluated in room B11B. A c omplete history and physical exam was performed. 1520: Ruth-MARCELINO reports the patient is not accepted to [facility]. 1532: I reviewed the patient's case with Shanelle Rose-[facility]. Dr. Davis- Hospitalist [facility] will evaluate the patient for further management. Consultations Consultation #1: I reviewed the patient's case with Shanelle Rose-RAISA [facility]. Dr. Davis-Hospitalist [facility] will evaluate the patient for further management. Time: 15:32 Administered Medications Apixaban (Eliquis) 5 mg PO BID [facility] Stop: 02/18/19 20:59 Last Admin: 01/19/19 20:59 Dose: 5 mg Documented by: [id number] Budesonide/Formoterol Fumarate (Symbicort 160mcg/4.5mcg) 2 puffs INH BID [facility] Stop: 02/18/19 20:59 Last Admin: 01/19/19 20:59 Dose: 2 puffs Documented by: [id number] Ceftriaxone Sodium 2,000 mg/ (Dextrose) 70 mls @ 100 mls/hr IV Q24H [facility]; Protocol Stop: 01/24/19 20:59 Last Infusion: 01/19/19 22:07 Dose: 0 mls/hr Documented by: [id number] Admin: 01/19/19 21:25 Dose: 100 mls/hr Documented by: [id number] Insulin Aspart (Novolog Flexpen) 0 units SC ACHS [facility] Stop: 02/18/19 18:23 Last Admin: 01/19/19 20:59 Dose: 3 units Documented by: [id number] Cosigned by: [id number] Admin: 01/19/19 19:53 Dose: 6 units Documented by: [id number] Cosigned by: [id number] Sacubitril/Valsartan (Entresto 49/51mg) 2 tab PO BID [facility] Stop: 02/18/19 20:59 Last Admin: 01/19/19 20:59 Dose: 2 tab Documented by: [id number] Medical Decision Making Differential Diagnosis Differential diagnosis: Etiologies such as metabolic, infection, hypo/hyperglycemia, electrolyte abnormalities, cardiac sources, intracerebral event, toxicologic, neurologic, as well as others were entertained. Medical Records Attestation: I reviewed the patient's medical records. The patient was discharged from the ED yesterday and was recommended to go to [facility]. The patient had a negative CT chest for dissection. PT/OT recommended [facility], but the patient refused repeatedly and was discharged home. Home Medications Current Medication List: was personally reviewed by me Laboratory Data Attestation: I reviewed the patient's lab results. Result diagrams: 12/06/19 13:15 01/19/19 13:15 Lab Results 01/19/19 01/19/19 01/19/19 Range/Units 13:15 13:15 13:16 WBC 8.91 (4.8-10.8) K/uL RBC 3.72 L (4.7-6.1) M/uL Hgb 11.9 L (14.0-18.0) g/dL Hct 37.0 L (42-52) % MCV 99.5 (80-100) fL MCH 32.0 (25-34) pg MCHC 32.2 (32-36) g/dL RDW Std Deviation 49.4 H (36.4-46.3) fL RDW Coeff of Chuck 13.5 (11.5-14.5) % Plt Count 355 (130-400) K/uL MPV 9.7 (7.4-10.4) fL Immature Gran % (Auto) 0.3 % Neut % (Auto) 82.5 % Lymph % (Auto) 8.8 % Pitkin % (Auto) 7.7 % Eos % (Auto) 0.6 % Baso % (Auto) 0.1 % Immature Gran # (Auto) 0.03 H (0.00-0.02) K/uL Neut # (Auto) 7.35 H (1.4-6.5) K/uL Lymph # (Auto) 0.78 L (1.2-3.4) K/uL Pitkin # (Auto) 0.69 H (0.11-0.59) K/uL Eos # (Auto) 0.05 (0-0.5) K/uL Baso # (Auto) 0.01 (0-0.2) K/uL Sodium 138 (136-145) mmol/L Potassium 4.2 (3.5-5.1) mmol/L Chloride 103 (98-107) mmol/L Carbon Dioxide 29 (21-32) mmol/L Anion Gap 6.0 (3-11) BUN 39 H (7-18) mg/dl Creatinine 0.87 (0.6-1.4) mg/dl Est Cr Clr Drug Dosing 85.2 ml/min Est GFR ( Amer) 94.5 Est GFR (Non-Af Amer) 81.5 BUN/Creatinine Ratio 45.1 H (10-20) Glucose 121 H (70-99) mg/dl Calcium 8.1 L (8.5-10.1) mg/dl Phosphorus 2.5 (2.5-4.9) mg/dl Magnesium 1.9 (1.8-2.4) mg/dl Total Bilirubin 0.7 (0.2-1) mg/dl AST 32 (15-37) U/L ALT 57 (12-78) U/L Alkaline Phosphatase 277 H (45-117) U/L Total Creatine Kinase 36 L (39-308) U/L Troponin I < 0.015 (0-0.045) ng/ml Total Protein 6.2 L (6.4-8.2) gm/dl Albumin 2.3 L (3.4-5.0) gm/dl Globulin 3.9 (2.5-4.0) gm/dl Albumin/Globulin Ratio 0.6 L (0.9-2) Lipase 154 (73-393) U/L TSH 2.850 (0.300-4.500) uIu/ml Urine Color Urine Appearance (Clear) Urine pH (4.5-7.5) Ur Specific [place] (1.000-1.030) Urine Protein (Negative) Urine Glucose (UA) (Negative) Urine Ketones (Negative) Urine Blood (Negative) Urine Nitrite (Negative) Urine Bilirubin (Negative) Urine Urobilinogen (Negative) Ur Leukocyte Esterase (Negative) Urine WBC (Auto) (0-5) /hpf Urine RBC (Auto) (0-4) /hpf U Hyaline Cast (Auto) (0-5) /lpf U Epithel Cells (Auto) (0-5) /lpf Urine Bacteria (Auto) (Negative) Lyme Disease IgG Ab Negative (Negative) Lyme Disease IgM Ab Negative (Negative) 01/19/19 Range/Units 15:20 WBC (4.8-10.8) K/uL RBC (4.7-6.1) M/uL Hgb (14.0-18.0) g/dL Hct (42-52) % MCV (80-100) fL MCH (25-34) pg MCHC (32-36) g/dL RDW Std Deviation (36.4-46.3) fL RDW Coeff of Chuck (11.5-14.5) % Plt Count (130-400) K/uL MPV (7.4-10.4) fL Immature Gran % (Auto) % Neut % (Auto) % Lymph % (Auto) % Pitkin % (Auto) % Eos % (Auto) % Baso % (Auto) % Immature Gran # (Auto) (0.00-0.02) K/uL Neut # (Auto) (1.4-6.5) K/uL Lymph # (Auto) (1.2-3.4) K/uL Pitkin # (Auto) (0.11-0.59) K/uL Eos # (Auto) (0-0.5) K/uL Baso # (Auto) (0-0.2) K/uL Sodium (136-145) mmol/L Potassium (3.5-5.1) mmol/L Chloride (98-107) mmol/L Carbon Dioxide (21-32) mmol/L Anion Gap (3-11) BUN (7-18) mg/dl Creatinine (0.6-1.4) mg/dl Est Cr Clr Drug Dosing ml/min Est GFR ( Amer) Est GFR (Non-Af Amer) BUN/Creatinine Ratio (10-20) Glucose (70-99) mg/dl Calcium (8.5-10.1) mg/dl Phosphorus (2.5-4.9) mg/dl Magnesium (1.8-2.4) mg/dl Total Bilirubin (0.2-1) mg/dl AST (15-37) U/L ALT (12-78) U/L Alkaline Phosphatase (45-117) U/L Total Creatine Kinase (39-308) U/L Troponin I (0-0.045) ng/ml Total Protein (6.4-8.2) gm/dl Albumin (3.4-5.0) gm/dl Globulin (2.5-4.0) gm/dl Albumin/Globulin Ratio (0.9-2) Lipase (73-393) U/L TSH (0.300-4.500) uIu/ml Urine Color Yellow Urine Appearance Cloudy A (Clear) Urine pH 5.0 (4.5-7.5) Ur Specific [place] 1.016 (1.000-1.030) Urine Protein Negative (Negative) Urine Glucose (UA) Negative (Negative) Urine Ketones Negative (Negative) Urine Blood 1+ H (Negative) Urine Nitrite Positive A (Negative) Urine Bilirubin Negative (Negative) Urine Urobilinogen Negative (Negative) Ur Leukocyte Esterase 2+ H (Negative) Urine WBC (Auto) >30 H (0-5) /hpf Urine RBC (Auto) 0-4 (0-4) /hpf U Hyaline Cast (Auto) 5-10 H (0-5) /lpf U Epithel Cells (Auto) 5-10 H (0-5) /lpf Urine Bacteria (Auto) 1+ H (Negative) Lyme Disease IgG Ab (Negative) Lyme Disease IgM Ab (Negative) Imaging Data Radiologist's Impression: Radiology results as stated below per my review and the radiologist's interpretation: XR chest 1V portable HISTORY: 79 years-old Male Chest Pain acute atypical chest pain COMPARISON: Chest radiograph 01/15/2019, CTA chest 01/17/2019 TECHNIQUE: Portable AP view of the chest FINDINGS: Cardiac silhouette is enlarged, unchanged. 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 Loop recorder device noted. No pneumothorax, pleural effusion or overt pulmonary edema. Mild chronic interstitial coarsening. Suggested emphysema. Degenerative changes of the shoulders and spine. IMPRESSION: 1. Cardiomegaly without acute process. 2. Emphysema with chronic interstitial coarsening. The above report was generated using voice recognition software. It may contain grammatical, syntax or spelling errors. Electronically signed by: Lance Wadsworth M.D. 01/19/2019 1:00 PM XR wrist RT min 3V routine CLINICAL HISTORY: pain pain COMPARISON: None. DISCUSSION: Generalized soft tissue edematous change. Osteopenia. No evidence for fracture or dislocation. Bony alignment is anatomic. IMPRESSION: Generalized soft tissue edema and degenerative change. Osteopenia. The above report was generated using voice recognition software. It may contain grammatical, syntax or spelling errors. Electronically signed by: Tenzin Antunez M.D. 01/19/2019 2:12 PM ECG Data Attestation: I personally reviewed and interpreted this ECG as follows: Indication: + weakness Rate (beats per minute): 87 Rhythm: + atrial fibrillation ECG ST segments: + Nonspecific ST abnormalities; no ST depression and no ST elevation ECG Findings: + Other (QTC 466); no PACs and no PVCs Blood Pressure Blood Pressure Findings: Low blood pressure Blood Pressure Disposition: further management by hospitalist MARIAA Narrative The patient is a pleasant 79-year-old gentleman with a past medical history of C OPD on 2 L home O2, A. 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 Patient did have generalized weakness and physical therapy had initially referred the patient for inpatient physical therapy but the patient was adamant that he wanted to go home. On final PT evaluation they did agree with plan to have the patient go h ome with home physical therapy. However, the patient reports getting home in immediate realizing that he was too weak and reports sitting in his recliner and was unable to get up. On arrival the patient is chronically ill-appearing but no acute distress, afebrile stable vital signs. On exam the patient has no focal neuro deficits. His right upper extremity is limited in range of motion secondary to pain that is chronic. EKG with A. fib that is similar to prior and no overt acute ischemia. Chest x-ray negative for acute process. WBC, platelets within normal limits. H/H 11.9/37.0 similar to prior range of values. Chemistry without acidosis. Electrolytes and LFTs unremarkable. CPK un remarkable at 36. Troponin negative/undetectable. UA pending. Lyme screen was negative. Plain films of the right wrist which patient reported had mild pain that is worsened was negative for fracture and otherwise showed osteopenia. Our case management team did attempt to have the patient directly placed into inpatient rehab as was the original plan on his discharge yesterday however he was declined at [facility] and attempt to place him in an out of network inpatient rehab was limited secondary to insurance authorization. Thus given the patient is unable to ambulate/function safely at home we will proceed with admission. Case was discussed with Shanelle Jacques [facility], Dr. Davis, [facility] hospitalist will evaluate the patient for admission. Impression & Plan Generalized weakness, Ambulatory dysfunction, History of heart failure, History of diabetes mellitus Discharge Plan Visit Data *Final* Discharge Date/Time: 01/19/19 17:50 Chief Complaint: Weakness ED Provider: Jose Hensley Discharge Problem: Generalized weakness, Ambulatory dysfunction, History of heart failure, History of diabetes mellitus Patient Disposition: Admitted As Inpatient Discharge Instructions Interventions: ED Discharge Assessment Last Done: 01/19/19 17:50 The scribe's documentation has been prepared under my direction and personally reviewed by me in its entirety. I confirm that the note above accurately reflects all work, treatment, procedures, and medical decision making performed by me.
[2019-01-19 14:50] LABS: Lyme Ab IgG w/WB Rflx Negative (Negative); Lyme Ab IgM w/WB Rflx Negative (Negative)
[2019-01-19 16:03] LABS: Appearance Urine Cloudy (Clear); Bacteria Urine Automated 1+ (Negative); Bilirubin Urine Negative (Negative); Blood Urine 1+ (Negative); Color Urine Yellow; Glucose Urine UA Negative (Negative); Ketones Urine Negative (Negative); Leukocyte Esterase Urine 2+ (Negative); Nitrite Urine Positive (Negative); Protein Urine Negative (Negative); RBC Urine Automated 0-4 /hpf (0-4); Specific Gravity Urine 1.016 (1.000-1.030); Urobilinogen Urine Negative (Negative); WBC Urine Automated >30 /hpf (0-5)
[2019-01-19] MEDS ORDERED: POLYETHYLENE (MIRALAX) 17 GM PACK PO PRN (18:24)
[2019-01-19] MEDS ORDERED: GLUCOSE 40% GEL 15 GM TUBE PO PRN (18:24)
[2019-01-19] MEDS ORDERED: GLUCAGON FOR INJ 1 MG VIAL SQ PRN (18:24)
[2019-01-19] MEDS ORDERED: ACETAMINOPHEN 325 MG TAB PO PRN (18:24)
[2019-01-19] MEDS ORDERED: GLUCOSE 10 TABS/TUBE PO PRN (18:24)
[2019-01-19] MEDS ORDERED: DEXTROSE 50% 50 ML SYRINGE IV PRN (18:24)
[2019-01-19] MEDS ORDERED: CARBOHYDRATES FOR HYPOGLYCEMIA PO PRN (18:24)
--- NOTE | 2019-01-19 18:52 | History & Physical Report ---
Date of Service January 19, 2019 Assessment & Plan (1) Generalized weakness: - Previously admitted 01/15-01/18 for chest pain; PT/OT recommended therapy but pt. declined. - He presented for re-admission with weakness, would like placement. - kitchen manager following, will need placement -- denied acute rehab, will need SNF placement. (2) Chronic combined systolic and diastolic congestive heart failure: - Currently euvolemic; CXR negative, BNP was 1,125. - Echo in Jan 2018 showed EF 35-40%, severe biatrial dilation. - Continue home beta tiffanie & Entresto as prescribed. - Continue Bumex 1 mg PO BID. (3) Rotator cuff arthropathy: - Ortho consulted during previous admission, s/p injection. - RUE edema is resolved following procedure. (4) Atrial fibrillation with RVR: - Currently in A. fib on monitor, mostly rate controlled. - Continue Metoprolol 200 mg daily and Eliquis 5 mg BID. (5) Gastroesophageal reflux disease: - Continue PPI. (6) Diabetes mellitus with diabetic polyneuropathy: - Hold home Glimepiride. - Hgb A1C was 7.8 in Dec 2018. - SSI coverage. (7) Gout: - Continue allopurinol as prescribed. (8) COPD (chronic obstructive pulmonary disease): - Currently stable on 2-3L via NC (home requirements). No acute exacerbation noted. - Continue albuterol prn, Symbicort BID. (9) Thoracic aortic aneurysm without rupture: - S/p repair in 2013. - CT chest dissection negative for acute changes during last admission. (10) Elevated LFTs: - Elevated Alk phos, now slightly improved. - Previous RUQ US showed fatty liver changes, otherwise negative. - GGT was elevated. Likely from previously passed gallstones last admission (11) Cholelithiasis: Asymptomatic currently, but probable explanation for previously elevated LFTs (12) UTI (urinary tract infection): Abnormal UA -Start ceftriaxone -Follow urine culture Could explain generalized weakness but no urinary symptoms (13) Chronic respiratory failure with hypoxia: Continue chronic home O2 (14) DVT prophylaxis: - Continue home Eliquis BID. Dispo: Med/surg with tele; discharge pending rehab placement. History of Present Illness Chief Complaint: Weakness Primary Care Provider: Maryanne Whipple MD Mr. Dc is an 79 year old male with past medical history of chronic combined HF, A. fib with RVR, GERD, DM, gout, COPD, thoracic aortic aneuryism, chronic resp failure requiring oxygen who was recently admitted 01/15-01/18 for substernal chest pain. Cardiac work up was negative, including CT chest dissection and serial troponins. PT/OT recommended SNF placement but pt. requested discharge to home with home health. He was discharged to home but developed increased difficulty ambulating. He reports he walked into his house and was able to sit on the "love seat". Pt. was not able to stand up from the sofa for the rest of the evening. He has returned to the ER and would like to pursue inpatient rehab. Allergies Allergy/AdvReac Type Severity Reaction Status Date / Time Iodinated Contrast Media Allergy Severe NEEDS Verified 01/19/19 13:[address] DYE Home Medications Home Medications Medication Instructions Recorded Confirmed Type Eliquis 5 mg PO BID 01/16/18 01/19/19 History atorvastatin 20 mg PO QAM 01/16/18 01/19/19 History multivitamin 1 tab PO QAM 01/16/18 01/19/19 History bumetanide 1 mg tablet 1 mg PO BID #180 tab 08/22/18 01/19/19 History sacubitril 97 mg-valsartan 103 mg 1 tab PO BID #180 tab 08/22/18 01/19/19 History tablet budesonide-formoterol HFA 160 2 puff INHALATION BID #10.2 gm 11/15/18 01/19/19 Rx mcg-4.5 mcg/actuation aerosol inhaler potassium chloride 20 mEq 20 meq PO DAILY@1600 tab 11/23/18 01/19/19 History tablet,extended release(part/cryst) glimepiride 4 mg tablet 4 mg PO QAM #90 tab 12/22/18 01/19/19 Rx allopurinol 200 mg PO QAM 01/01/19 01/19/19 History metoprolol succinate 200 mg PO QAM 01/01/19 01/19/19 History Wheelchair (Manual or Powered) #1 ea 01/08/19 Rx diclofenac sodium 2 gm TOP QID #100 gm 01/10/19 01/19/19 Rx doxazosin 4 mg PO QAM 01/15/19 01/19/19 History pantoprazole [Protonix] 40 mg PO QAM 01/15/19 01/19/19 History acetaminophen [Tylenol Extra 1,000 mg PO BID 01/19/19 01/19/19 History Strength] Past Med/Surg History Medical History Abdominal aortic aneurysm (Acute) Acute on chronic combined systolic (congestive) and diastolic (congestive) heart failure (Acute) Anemia (Acute) Aneurysm of thoracic aorta (Acute) Arteriosclerotic coronary artery disease (Acute) Arthritis Cardiomyopathy, idiopathic (Acute) Cervical radiculopathy (Acute) Cervical spinal stenosis (Acute) Cholelithiasis Chronic anticoagulation (Acute) Chronic combined systolic and diastolic congestive heart failure (Acute) Chronic osteoarthritis (Acute) COPD (chronic obstructive pulmonary disease) (Chronic) Diabetes (Chronic) Diabetes mellitus with diabetic polyneuropathy (Acute) Gastroesophageal reflux disease (Acute) History of cardioversion Hyperlipidemia (Chronic) Hypertension (Chronic) Nonsustained ventricular tachycardia (Acute) Obesity, Class II, BMI 35-39.9 (Acute) Osteoarthritis of knee (Acute) Permanent atrial fibrillation (Acute) Rib fractures (03/29/13) Shoulder pain (Acute) Sleep apnea (Acute) Status post thoracic aortic aneurysm repair Swelling of right upper extremity Thoracic aortic aneurysm without rupture (Chronic 01/07/14) Ventral hernia (Chronic) Vitamin D deficiency (Acute) Surgical History History of hemorrhoidectomy (Resolved) History of tonsillectomy (Resolved) Family History Father No pertinent family history Mother Stroke Other Medical history non-contributory Social History Preferred Language: Azeri Communication Ability: Effective Piping Design Specialist Required: No Beliefs That Will Affect Care: None marital status: Current Living Situation: Spouse Feels Safe at Home: Yes Smoking Status: Former smoker Second Hand Exposure: No ; Hx Alcohol Use: No Hx Substance Use: No Dental Care, Regularly: No Seatbelt Use: always Review of Systems Review of Systems: All systems reviewed & are unremarkable except as noted in HPI & below Constitutional: + fatigue and + weakness; no fever, no chills and no anorexia Respiratory: no cough, no dyspnea, no dyspnea on exertion and no wheezing Cardiovascular: no chest pain, no palpitations and no edema Gastrointestinal: no abdominal pain, no nausea, no vomiting and no constipation Genitourinary: no difficulty urinating Musculoskeletal: no back pain and no joint pain Integumentary: no non-healing lesions Physical Exam Physical Exam: General: Resting comfortably, was present at bedside. HEENT: NC/AT; PERRLA with EOMI; [place] conjunctiva, MMM. No erythema of posterior pharynx Neck: Supple and nontender Cardiac: Irregular, rate controlled. Lungs: 2L via NC; CTA throughout. Abdomen: Bowel normoactive X 4; Nontender to palpation Extremities: Warm. No edema noted. Neuro: No focal weakness Skin: No rash Results & Data Vital Signs (Past 12 Hours) Vital Signs Temp Pulse Pulse Resp BP BP Pulse Ox 01/19/19 18:27 36.8 C 92 H 18 118/79 97 01/19/19 17:08 96 H 18 96/58 L 98 01/19/19 14:40 87 16 100 01/19/19 14:30 89 16 93/62 L 93 01/19/19 14:24 87 16 97/66 L 01/19/19 14:23 12 01/19/19 13:40 88 17 100 01/19/19 13:31 91 H 12 99 01/19/19 13:30 95 H 18 111/65 98 01/19/19 13:20 100 H 20 86 L 01/19/19 13:10 92 H 21 97 01/19/19 13:00 82 15 100/59 L 100 01/19/19 12:51 96 H 17 100 01/19/19 12:48 90 13 112/71 100 01/19/19 12:25 97 01/19/19 11:28 36.5 C 86 20 98/62 L 100 Laboratory Results 01/19/19 01/19/19 01/19/19 Range/Units 18:29 15:20 13:16 WBC (4.8-10.8) K/uL RBC (4.7-6.1) M/uL Hgb (14.0-18.0) g/dL Hct (42-52) % MCV (80-100) fL MCH (25-34) pg MCHC (32-36) g/dL RDW Std Deviation (36.4-46.3) fL RDW Coeff of Chuck (11.5-14.5) % Plt Count (130-400) K/uL MPV (7.4-10.4) fL Immature Gran % (Auto) % Neut % (Auto) % Lymph % (Auto) % [place] % (Auto) % Eos % (Auto) % Baso % (Auto) % Immature Gran # (Auto) (0.00-0.02) K/uL Neut # (Auto) (1.4-6.5) K/uL Lymph # (Auto) (1.2-3.4) K/uL [place] # (Auto) (0.11-0.59) K/uL Eos # (Auto) (0-0.5) K/uL Baso # (Auto) (0-0.2) K/uL Sodium (136-145) mmol/L Potassium (3.5-5.1) mmol/L Chloride (98-107) mmol/L Carbon Dioxide (21-32) mmol/L Anion Gap (3-11) BUN (7-18) mg/dl Creatinine (0.6-1.4) mg/dl Est Cr Clr Drug Dosing ml/min Est GFR ( Amer) Est GFR (Non-Af Amer) BUN/Creatinine Ratio (10-20) Glucose (70-99) mg/dl POC Glucose 219 H (70-99) Calcium (8.5-10.1) mg/dl Phosphorus (2.5-4.9) mg/dl Magnesium (1.8-2.4) mg/dl Total Bilirubin (0.2-1) mg/dl AST (15-37) U/L ALT (12-78) U/L Alkaline Phosphatase (45-117) U/L Total Creatine Kinase (39-308) U/L Troponin I (0-0.045) ng/ml Total Protein (6.4-8.2) gm/dl Albumin (3.4-5.0) gm/dl Globulin (2.5-4.0) gm/dl Albumin/Globulin Ratio (0.9-2) Lipase (73-393) U/L TSH (0.300-4.500) uIu/ml Urine Color Yellow Urine Appearance Cloudy A (Clear) Urine pH 5.0 (4.5-7.5) Ur Specific [place] 1.016 (1.000-1.030) Urine Protein Negative (Negative) Urine Glucose (UA) Negative (Negative) Urine Ketones Negative (Negative) Urine Blood 1+ H (Negative) Urine Nitrite Positive A (Negative) Urine Bilirubin Negative (Negative) Urine Urobilinogen Negative (Negative) Ur Leukocyte Esterase 2+ H (Negative) Urine WBC (Auto) >30 H (0-5) /hpf Urine RBC (Auto) 0-4 (0-4) /hpf U Hyaline Cast (Auto) 5-10 H (0-5) /lpf U Epithel Cells (Auto) 5-10 H (0-5) /lpf Urine Bacteria (Auto) 1+ H (Negative) Lyme Disease IgG Ab Negative (Negative) Lyme Disease IgM Ab Negative (Negative) 01/19/19 01/19/19 Range/Units 13:15 13:15 WBC 8.91 (4.8-10.8) K/uL RBC 3.72 L (4.7-6.1) M/uL Hgb 11.9 L (14.0-18.0) g/dL Hct 37.0 L (42-52) % MCV 99.5 (80-100) fL MCH 32.0 (25-34) pg MCHC 32.2 (32-36) g/dL RDW Std Deviation 49.4 H (36.4-46.3) fL RDW Coeff of Chuck 13.5 (11.5-14.5) % Plt Count 355 (130-400) K/uL MPV 9.7 (7.4-10.4) fL Immature Gran % (Auto) 0.3 % Neut % (Auto) 82.5 % Lymph % (Auto) 8.8 % [place] % (Auto) 7.7 % Eos % (Auto) 0.6 % Baso % (Auto) 0.1 % Immature Gran # (Auto) 0.03 H (0.00-0.02) K/uL Neut # (Auto) 7.35 H (1.4-6.5) K/uL Lymph # (Auto) 0.78 L (1.2-3.4) K/uL [place] # (Auto) 0.69 H (0.11-0.59) K/uL Eos # (Auto) 0.05 (0-0.5) K/uL Baso # (Auto) 0.01 (0-0.2) K/uL Sodium 138 (136-145) mmol/L Potassium 4.2 (3.5-5.1) mmol/L Chloride 103 (98-107) mmol/L Carbon Dioxide 29 (21-32) mmol/L Anion Gap 6.0 (3-11) BUN 39 H (7-18) mg/dl Creatinine 0.87 (0.6-1.4) mg/dl Est Cr Clr Drug Dosing 85.2 ml/min Est GFR ( Amer) 94.5 Est GFR (Non-Af Amer) 81.5 BUN/Creatinine Ratio 45.1 H (10-20) Glucose 121 H (70-99) mg/dl POC Glucose (70-99) Calcium 8.1 L (8.5-10.1) mg/dl Phosphorus 2.5 (2.5-4.9) mg/dl Magnesium 1.9 (1.8-2.4) mg/dl Total Bilirubin 0.7 (0.2-1) mg/dl AST 32 (15-37) U/L ALT 57 (12-78) U/L Alkaline Phosphatase 277 H (45-117) U/L Total Creatine Kinase 36 L (39-308) U/L Troponin I < 0.015 (0-0.045) ng/ml Total Protein 6.2 L (6.4-8.2) gm/dl Albumin 2.3 L (3.4-5.0) gm/dl Globulin 3.9 (2.5-4.0) gm/dl Albumin/Globulin Ratio 0.6 L (0.9-2) Lipase 154 (73-393) U/L TSH 2.850 (0.300-4.500) uIu/ml Urine Color Urine Appearance (Clear) Urine pH (4.5-7.5) Ur Specific [place] (1.000-1.030) Urine Protein (Negative) Urine Glucose (UA) (Negative) Urine Ketones (Negative) Urine Blood (Negative) Urine Nitrite (Negative) Urine Bilirubin (Negative) Urine Urobilinogen (Negative) Ur Leukocyte Esterase (Negative) Urine WBC (Auto) (0-5) /hpf Urine RBC (Auto) (0-4) /hpf U Hyaline Cast (Auto) (0-5) /lpf U Epithel Cells (Auto) (0-5) /lpf Urine Bacteria (Auto) (Negative) Lyme Disease IgG Ab (Negative) Lyme Disease IgM Ab (Negative) Code Status & VTE Plan Code Status FULL CODE VTE Prophylaxis Plan VTE Prophylaxis will be ordered: Yes Supervising Physician Co-Signing Physician Notes PA Supervision Note: I personally saw and examined the patient. I verified all daigle points and agree with COURT Singleton with the following exceptions and/or additions: Patient here with generalized weakness, denies urinary symptoms, no further chest pain or abdominal pain. History as above ROS as above Vitals reviewed Gen: AAOx3, NAD, obese HEENT: Anicteric sclerae, EOMI CV: RRR no mgr nl S1S2 Pulm: CTAB no wcr Abd: +BS soft NT ND no masses or hernias Ext: No edema, 2+ DP pulses Skin: No rashes, warm/dry Plan as above -Add ceftriaxone PG Care Time/CCT Total # of Minutes Spent Total Time Spent with Patient: Total time spent is greater than 50% in coord ination of care (as documented) at patient's floor/unit and/or counseling patient: (1) Rotator cuff arthropathy Laterality: right Qualified Code(s): M12.811 - Other specific arthropathies, not elsewhere classified, right shoulder (2) Gout Chronicity: unspecified Gout etiology: unspecified cause Gout site: unspecified site Qualified Code(s): M10.9 - Gout, unspecified (3) Diabetes mellitus with diabetic polyneuropathy Diabetes mellitus moth exterminator insulin use: without moth exterminator use Diabetes mellitus type: type 2 Qualified Code(s): E11.42 - Type 2 diabetes mellitus with diabetic polyneuropathy (4) COPD (chronic obstructive pulmonary disease) COPD type: unspecified COPD Qualified Code(s): J44.9 - Chronic obstructive pulmonary disease, unspecified (5) Gastroesophageal reflux disease Esophagitis presence: esophagitis presence not specified Qualified Code(s): K21.9 - Gastro-esophageal reflux disease without esophagitis
[2019-01-19] MEDS: INSULIN ASPART 100 UNITS/ML 3 ML PEN SC SCH ×2 (19:53→20:59)
[2019-01-19] MEDS: BUDESONIDE/FORMOTEROL FUMARATE 160/4.5 60 PUFFS/INHALER INH SCH (20:59)
[2019-01-19] MEDS: APIXABAN 5 MG TABLET PO SCH (20:59)
[2019-01-19] MEDS: SACUBITRIL-VALSARTAN 49/51 MG TAB PO SCH (20:59)
[2019-01-19] MEDS: cefTRIAXone SODIUM 2,000 MG in DEXTROSE 5% 50 ML IV SCH (21:25)
[2019-01-20 08:36] LABS: BUN Creatinine Ratio 40.6 (10-20); Calcium 8.6 mg/dl (8.5-10.1); Est GFR (African American) 104.5; Est GFR (Non-African American) 90.2; Magnesium 1.9 mg/dl (1.8-2.4); Potassium 4.1 mmol/L (3.5-5.1)
[2019-01-20] MEDS: SACUBITRIL-VALSARTAN 49/51 MG TAB PO SCH ×2 (08:41→20:55)
[2019-01-20] MEDS: BUMETANIDE 1 MG TAB PO SCH ×2 (08:42→16:46)
[2019-01-20] MEDS: PANTOprazole 40 MG TAB PO SCH (08:42)
[2019-01-20] MEDS: APIXABAN 5 MG TABLET PO SCH ×2 (08:42→20:55)
[2019-01-20] MEDS: METOPROLOL SUCC 50MG EXT REL TAB PO SCH (08:43)
[2019-01-20] MEDS: DOXAZosin MESYLATE 4 MG TAB PO SCH (08:43)
[2019-01-20] MEDS: allopurinoL 100 MG TAB PO SCH (08:44)
[2019-01-20] MEDS: ATORVASTATIN 20 MG TAB PO SCH (08:44)
[2019-01-20] MEDS: INSULIN ASPART 100 UNITS/ML 3 ML PEN SC SCH ×4 (08:46→20:56)
[2019-01-20] MEDS: BUDESONIDE/FORMOTEROL FUMARATE 160/4.5 60 PUFFS/INHALER INH SCH ×2 (08:47→20:56)
--- NOTE | 2019-01-20 15:14 | Hospitalist Progress Note ---
Date of Service January 20, 2019 Assessment & Plan (1) Generalized weakness: - Previously admitted 01/15-01/18 for chest pain; PT/OT recommended therapy but pt. declined. - He presented for re-admission with weakness, plan for placement. - He would like to go to [facility], case management following. (2) Chronic combined systolic and diastolic congestive heart failure: - Currently appears euvolemic. CXR negative on admission. - Echo in Jan 2018 showed EF 35-40%, severe biatrial dilation. - Continue home beta tiffanie & Entresto as prescribed. - Continue Bumex 1 mg PO BID. (3) Rotator cuff arthropathy: - Ortho consulted during previous admission, s/p injection. - RUE edema is resolved. (4) Atrial fibrillation with RVR: - Currently in A. fib on monitor, mostly rate controlled. - Continue Metoprolol 200 mg daily and Eliquis 5 mg BID. (5) Gastroesophageal reflux disease: - Continue PPI. (6) Diabetes mellitus with diabetic polyneuropathy: - Hold home Glimepiride. - Hgb A1C was 7.8 in Dec 2018. - SSI coverage - BG has been fluctuating. (7) Gout: - Continue allopurinol as prescribed. (8) COPD (chronic obstructive pulmonary disease): - Continue albuterol prn, Symbicort BID. (9) Thoracic aortic aneurysm without rupture: - S/p repair in 2013. - CT chest dissection negative for acute changes during last admission. (10) Elevated LFTs: - Elevated Alk phos, now slightly improved. GGT was elevated. - Previous RUQ US showed fatty liver changes, otherwise negative. - Likely from previously passed gallstones last admission. (11) Cholelithiasis: - Asymptomatic currently, but probable explanation for previously elevated LFTs. (12) UTI (urinary tract infection): - U/a positive, UC pending. - Continue Ceftriaxone for empiric coverage. - May be contributing to generalized weakness. (13) Chronic respiratory failure with hypoxia: - Continue chronic home O2, requires 2L. (14) DVT prophylaxis: - Continue home Eliquis BID. Dispo: Med/surg with tele; discharge to rehab pending placement. Supervising Physician Co-Signing Physician Notes PA Supervision Note: I did not personally see or examine the patient today, but I verified all daigle points of COURT Singleton's assessment and plan with the following exceptions/additions: None Subjective Pt. reports feeling weak today - has not been out of bed. He denies dysuria, hematuria, urinary frequency - U/a positive, on IV abx. On home requirements of 2L via NC, denies increased SOB. Review of Systems Review of Systems: All systems reviewed & are unremarkable except as noted in HPI & below Constitutional: + fatigue and + weakness; no fever, no chills and no anorexia Respiratory: no cough, no dyspnea, no dyspnea on exertion and no wheezing Cardiovascular: no chest pain, no palpitations and no edema Gastrointestinal: no abdominal pain, no nausea, no vomiting and no constipation Genitourinary: no dysuria, no difficulty urinating, no urinary frequency and no hematuria Musculoskeletal: no back pain and no joint pain Integumentary: no non-healing lesions Physical Exam Physical Exam: General: Resting comfortably. HEENT: NC/AT; PERRLA with EOMI; [place] conjunctiva, MMM. No erythema of posterior pharynx Neck: Supple and nontender Cardiac: Irregular, rate controlled. Lungs: 2L via NC; CTA throughout. Abdomen: Bowel normoactive X 4; Nontender to palpation Extremities: Warm. No edema noted. Neuro: No focal weakness Skin: No rash Results & Data Vital Signs (Past 12 Hours) Vital Signs Temp Pulse Resp BP Pulse Ox 01/20/19 14:54 36.4 C L 79 20 121/71 99 01/20/19 11:00 36.7 C 84 20 113/67 96 01/20/19 07:00 36.4 C L 108 H 20 117/63 96 Laboratory Results 01/20/19 01/20/19 01/20/19 Range/Units 11:38 07:44 07:34 Sodium 139 (136-145) mmol/L Potassium 4.1 (3.5-5.1) mmol/L Chloride 105 (98-107) mmol/L Carbon Dioxide 29 (21-32) mmol/L Anion Gap 5.0 (3-11) BUN 28 H (7-18) mg/dl Creatinine 0.68 (0.6-1.4) mg/dl Est Cr Clr Drug Dosing 108.0 ml/min Est GFR ( Amer) 104.5 Est GFR (Non-Af Amer) 90.2 BUN/Creatinine Ratio 40.6 H (10-20) Glucose 89 (70-99) mg/dl POC Glucose 182 H 98 (70-99) Calcium 8.6 (8.5-10.1) mg/dl Magnesium 1.9 (1.8-2.4) mg/dl Specimen Hemolysis Urine Color Urine Appearance (Clear) Urine pH (4.5-7.5) Ur Specific [place] (1.000-1.030) Urine Protein (Negative) Urine Glucose (UA) (Negative) Urine Ketones (Negative) Urine Blood (Negative) Urine Nitrite (Negative) Urine Bilirubin (Negative) Urine Urobilinogen (Negative) Ur Leukocyte Esterase (Negative) Urine WBC (Auto) (0-5) /hpf Urine RBC (Auto) (0-4) /hpf U Hyaline Cast (Auto) (0-5) /lpf U Epithel Cells (Auto) (0-5) /lpf Urine Bacteria (Auto) (Negative) 01/19/19 01/19/19 01/19/19 Range/Units 20:29 18:29 15:20 Sodium (136-145) mmol/L Potassium (3.5-5.1) mmol/L Chloride (98-107) mmol/L Carbon Dioxide (21-32) mmol/L Anion Gap (3-11) BUN (7-18) mg/dl Creatinine (0.6-1.4) mg/dl Est Cr Clr Drug Dosing ml/min Est GFR ( Amer) Est GFR (Non-Af Amer) BUN/Creatinine Ratio (10-20) Glucose (70-99) mg/dl POC Glucose 207 H 219 H (70-99) Calcium (8.5-10.1) mg/dl Magnesium (1.8-2.4) mg/dl Specimen Hemolysis Urine Color Yellow Urine Appearance Cloudy A (Clear) Urine pH 5.0 (4.5-7.5) Ur Specific [place] 1.016 (1.000-1.030) Urine Protein Negative (Negative) Urine Glucose (UA) Negative (Negative) Urine Ketones Negative (Negative) Urine Blood 1+ H (Negative) Urine Nitrite Positive A (Negative) Urine Bilirubin Negative (Negative) Urine Urobilinogen Negative (Negative) Ur Leukocyte Esterase 2+ H (Negative) Urine WBC (Auto) >30 H (0-5) /hpf Urine RBC (Auto) 0-4 (0-4) /hpf U Hyaline Cast (Auto) 5-10 H (0-5) /lpf U Epithel Cells (Auto) 5-10 H (0-5) /lpf Urine Bacteria (Auto) 1+ H (Negative) PG Care Time/CCT Total # of Minutes Spent Total Time Spent with Patient: Total time spent is greater than 50% in coordination of care (as documented) at patient's floor/unit and/or counseling patient: (1) Rotator cuff arthropathy Laterality: right Qualified Code(s): M12.811 - Other specific arthropathies, not elsewhere classified, right shoulder (2) Gout Chronicity: unspecified Gout etiology: unspecified cause Gout site: unspecified site Qualified Code(s): M10.9 - Gout, unspecified (3) Diabetes mellitus with diabetic polyneuropathy Diabetes mellitus superintendent marine oil terminal insulin use: without superintendent marine oil terminal use Diabetes mellitus type: type 2 Qualified Code(s): E11.42 - Type 2 diabetes mellitus with diabetic polyneuropathy (4) COPD (chronic obstructive pulmonary disease) COPD type: unspecified COPD Qualified Code(s): J44.9 - Chronic obstructive pulmonary disease, unspecified (5) Gastroesophageal reflux disease Esophagitis presence: esophagitis presence not specified Qualified Code(s): K21.9 - Gastro-esophageal reflux disease without esophagitis
[2019-01-20] MEDS: POTASSIUM CHLORIDE 20 MEQ TABCR PO SCH (16:46)
[2019-01-20] MEDS: cefTRIAXone SODIUM 2,000 MG in DEXTROSE 5% 50 ML IV SCH (20:54)
[2019-01-20] MEDS: DICLOFENAC SOD 1% GEL 100 GM TUBE EXT SCH (20:54)
[2019-01-21] MEDS: INSULIN ASPART 100 UNITS/ML 3 ML PEN SC SCH ×4 (09:01→20:56)
[2019-01-21] MEDS: SACUBITRIL-VALSARTAN 49/51 MG TAB PO SCH ×2 (09:03→20:55)
[2019-01-21] MEDS: BUMETANIDE 1 MG TAB PO SCH ×2 (09:03→17:08)
[2019-01-21] MEDS: DOXAZosin MESYLATE 4 MG TAB PO SCH (09:03)
[2019-01-21] MEDS: ATORVASTATIN 20 MG TAB PO SCH (09:04)
[2019-01-21] MEDS: APIXABAN 5 MG TABLET PO SCH ×2 (09:04→20:55)
[2019-01-21] MEDS: allopurinoL 100 MG TAB PO SCH (09:04)
[2019-01-21] MEDS: METOPROLOL SUCC 50MG EXT REL TAB PO SCH (09:04)
[2019-01-21] MEDS: BUDESONIDE/FORMOTEROL FUMARATE 160/4.5 60 PUFFS/INHALER INH SCH ×2 (09:04→20:55)
[2019-01-21] MEDS: PANTOprazole 40 MG TAB PO SCH (09:04)
[2019-01-21] MEDS: DICLOFENAC SOD 1% GEL 100 GM TUBE EXT SCH ×4 (09:04→20:56)
[2019-01-21] MEDS ORDERED: POLYETHYLENE (MIRALAX) 17 GM PACK PO PRN (09:31)
[2019-01-21 09:33] LABS: Bilirubin Direct 0.3 mg/dl (0-0.2); Bilirubin,Total 0.6 mg/dl (0.2-1); Total Protein 5.6 gm/dl (6.4-8.2)
[2019-01-21] MEDS: DOCUSATE SODIUM 100 MG CAP PO SCH ×2 (11:29→20:54)
--- NOTE | 2019-01-21 12:04 | Hospitalist Progress Note ---
Date of Service January 21, 2019 Assessment & Plan (1) Generalized weakness: - Previously admitted 01/15-01/18 for chest pain; PT/OT recommended therapy but pt. declined. - He presented for re-admission with generalized weakness, plan for placement. - He would like to go to [facility], case management following. Will need peer to peer with provider. (2) Chronic combined systolic and diastolic congestive heart failure: - Currently euvolemic. CXR negative on admission. - Echo in Jan 2018 showed EF 35-40%, severe biatrial dilation. - Continue home beta tiffanie & Entresto as prescribed. - Continue Bumex 1 mg PO BID. (3) Rotator cuff arthropathy: - Ortho consulted during previous admission, s/p injection. - RUE edema resolved. (4) Atrial fibrillation with RVR: - Currently in A. fib on monitor, rate controlled. - Continue Metoprolol 200 mg daily and Eliquis 5 mg BID. (5) Gastroesophageal reflux disease: - Continue PPI. (6) Diabetes mellitus with diabetic polyneuropathy: - Hold home Glimepiride. - Hgb A1C was 7.8 in Dec 2018. - SSI coverage - BG has been elevated, increase SSI coverage. (7) Gout: - Continue allopurinol as prescribed. (8) COPD (chronic obstructive pulmonary disease): - Continue albuterol prn, Symbicort BID. (9) Thoracic aortic aneurysm without rupture: - S/p repair in 2013. - CT chest dissection negative for acute changes during last admission. (10) Elevated LFTs: - Elevated Alk phos, now improved. GGT was elevated. - Previous RUQ US showed fatty liver changes, otherwise negative. - Likely from previously passed gallstones last admission. - Monitor LFTs daily - D. bili is 0.3, T. bili WNL this morning. (11) Cholelithiasis: - Asymptomatic currently, but probable explanation for previously elevated LFTs. (12) UTI (urinary tract infection): - U/a positive, UC +Enterobacter. - Continue Ceftriaxone (Day 3 of 3); convert to PO Cefdinir in the morning for 4 day course. - Likely contributing to generalized weakness. (13) Chronic respiratory failure with hypoxia: - Continue chronic home O2, requires 2L. (14) DVT prophylaxis: - Continue home Eliquis BID. Dispo: Med/surg with tele; discharge to rehab pending placement. Will need peer to peer - left voicemail this morning. Supervising Physician Co-Signing Physician Notes PA Supervision Note: I did not personally see or examine the patient today, but I verified all daigle points of COURT Singleton's assessment and plan with the following exceptions/additions: None Subjective Pt. is doing well overall. No BM in 3 days. Denies urinary retention. Plan for placement -- left voicemail for peer to peer. Review of Systems Review of Systems: All systems reviewed & are unremarkable except as noted in HPI & below Constitutional: + fatigue and + weakness; no fever, no chills and no anorexia Respiratory: + dyspnea on exertion (Chronic); no cough, no dyspnea and no wheezing Cardiovascular: no chest pain, no palpitations and no edema Gastrointestinal: + constipation; no abdominal pain and no nausea Genitourinary: no difficulty urinating Musculoskeletal: no back pain and no joint pain Integumentary: no non-healing lesions Physical Exam Physical Exam: General: Resting comfortably. HEENT: NC/AT; PERRLA with EOMI; Outlook conjunctiva, MMM. No erythema of posterior pharynx Neck: Supple and nontender Cardiac: Irregular, rate controlled. Lungs: 2L via NC; CTA throughout. Abdomen: Bowel normoactive X 4; Nontender to palpation Extremities: Warm. No edema noted. Neuro: No focal weakness Skin: No rash Results & Data Vital Signs (Past 12 Hours) Vital Signs Temp Pulse Resp BP BP Pulse Ox 01/21/19 07:00 36.6 C 70 20 126/67 91 01/21/19 03:21 36.4 C L 91 H 19 109/73 98 Laboratory Results 01/21/19 01/21/19 01/20/19 Range/Units 08:23 07:46 20:17 POC Glucose 122 H 206 H (70-99) Total Bilirubin 0.6 (0.2-1) mg/dl Direct Bilirubin 0.3 H (0-0.2) mg/dl AST 20 (15-37) U/L ALT 42 (12-78) U/L Alkaline Phosphatase 213 H (45-117) U/L Total Protein 5.6 L (6.4-8.2) gm/dl Albumin 2.0 L (3.4-5.0) gm/dl 01/20/19 01/20/19 Range/Units 16:44 11:38 POC Glucose 204 H 182 H (70-99) Total Bilirubin (0.2-1) mg/dl Direct Bilirubin (0-0.2) mg/dl AST (15-37) U/L ALT (12-78) U/L Alkaline Phosphatase (45-117) U/L Total Protein (6.4-8.2) gm/dl Albumin (3.4-5.0) gm/dl PG Care Time/CCT Total # of Minutes Spent Total Time Spent with Patient: Total time spent is greater than 50% in coordination of care (as documented) at patient's floor/unit and/or counseling patient: (1) Rotator cuff arthropathy Laterality: right Qualified Code(s): M12.811 - Other specific arthropathies, not elsewhere classified, right shoulder (2) Gout Chronicity: unspecified Gout etiology: unspecified cause Gout site: unspeci fied site Qualified Code(s): M10.9 - Gout, unspecified (3) Diabetes mellitus with diabetic polyneuropathy Diabetes mellitus intermediate insulin use: without intermediate use Diabetes mellitus type: type 2 Qualified Code(s): E11.42 - Type 2 diabetes mellitus with diabetic polyneuropathy (4) COPD (chronic obstructive pulmonary disease) COPD type: unspecified COPD Qualified Code(s): J44.9 - Chronic obstructive pulmonary disease, unspecified (5) Gastroesophageal reflux disease Esophagitis presence: esophagitis presence not specified Qualified Code(s): K21.9 - Gastro-esophageal reflux disease without esophagitis
[2019-01-21] MEDS: POTASSIUM CHLORIDE 20 MEQ TABCR PO SCH (17:06)
[2019-01-21] MEDS: cefTRIAXone SODIUM 2,000 MG in DEXTROSE 5% 50 ML IV SCH (20:59)
[2019-01-22 07:17] LABS: Albumin Level 2.1 gm/dl (3.4-5.0); Calcium 8.6 mg/dl (8.5-10.1); Creatinine Clr Calc Pharmacy 82.2 ml/min; Est GFR (African American) 93.6; Est GFR (Non-African American) 80.8
[2019-01-22 07:20] LABS: Albumin Globulin Ratio 0.7 (0.9-2); Bilirubin,Total 0.5 mg/dl (0.2-1); Globulin 3.1 gm/dl (2.5-4.0); Total Protein 5.2 gm/dl (6.4-8.2)
[2019-01-22] MEDS: DICLOFENAC SOD 1% GEL 100 GM TUBE EXT SCH ×4 (08:14→20:40)
[2019-01-22] MEDS: ATORVASTATIN 20 MG TAB PO SCH (08:14)
[2019-01-22] MEDS: DOCUSATE SODIUM 100 MG CAP PO SCH ×2 (08:14→20:39)
[2019-01-22] MEDS: allopurinoL 100 MG TAB PO SCH (08:14)
[2019-01-22] MEDS: METOPROLOL SUCC 50MG EXT REL TAB PO SCH (08:15)
[2019-01-22] MEDS: BUMETANIDE 1 MG TAB PO SCH ×2 (08:15→17:20)
[2019-01-22] MEDS: BUDESONIDE/FORMOTEROL FUMARATE 160/4.5 60 PUFFS/INHALER INH SCH ×2 (08:16→20:40)
[2019-01-22] MEDS: DOXAZosin MESYLATE 4 MG TAB PO SCH (08:17)
[2019-01-22] MEDS: CEFDINIR 300 MG CAP PO SCH ×2 (08:17→20:39)
[2019-01-22] MEDS: SACUBITRIL-VALSARTAN 49/51 MG TAB PO SCH ×2 (08:18→20:39)
[2019-01-22] MEDS: APIXABAN 5 MG TABLET PO SCH ×2 (08:18→20:38)
[2019-01-22] MEDS: PANTOprazole 40 MG TAB PO SCH (08:19)
[2019-01-22] MEDS: INSULIN ASPART 100 UNITS/ML 3 ML PEN SC SCH ×4 (08:21→20:43)
--- NOTE | 2019-01-22 14:29 | Hospitalist Progress Note ---
Date of Service January 22, 2019 Assessment & Plan (1) Generalized weakness: Previously admitted 01/15-01/18 for chest pain; PT/OT recommended therapy but pt. declined. He presented for re-admission with generalized weakness, plan for placement. - PT/OT recommending rehab - CM following (2) Chronic combined systolic and diastolic congestive heart failure: Echo in Jan 2018 showed EF 35-40%, severe biatrial dilation. CXR negative on admission. - Continue home beta tiffanie & Entresto as prescribed. - Continue Bumex 1 mg PO BID. - Currently euvolemic. (3) Rotator cuff arthropathy: - Ortho consulted during previous admission, s/p injection. - RUE edema resolved. (4) Atrial fibrillation with RVR: - Currently in A. fib on monitor, rate-controlled. - Continue Metoprolol 200 mg daily and Eliquis 5 mg BID. (5) Gastroesophageal reflux disease: - Continue PPI. (6) Diabetes mellitus with diabetic polyneuropathy: Hgb A1C was 7.8 in Dec 2018. - Hold home glimepiride. - SSI coverage - BG has been elevated, increase SSI coverage. (7) Gout: - Continue allopurinol as prescribed. (8) COPD (chronic obstructive pulmonary disease): No reported shortness of breath today. - Continue albuterol prn, Symbicort BID. (9) Thoracic aortic aneurysm without rupture: S/p repair in 2013. CT chest dissection negative for acute changes during last admission. - No inpatient needs (10) Elevated LFTs: - Elevated Alk phos, now improved. GGT was elevated. Previous RUQ US showed fatty liver changes, otherwise negative. Likely from previously passed gallstones last admission. - Monitor LFTs (11) Cholelithiasis: - Asymptomatic currently, but probable explanation for previously elevated LFTs. (12) UTI (urinary tract infection): U/a positive, UC +Enterobacter. - Ceftriaxone x 3 days. - Converted to PO cefdinir on 01/22 for 4 more days (End date: 01/26) - Likely contributing to generalized weakness. (13) Chronic respiratory failure with hypoxia: - Continue chronic home O2, requires 2L. (14) DVT prophylaxis: - Continue home Eliquis BID. Subjective Doing well today. Less pain and not really confused. Reports no fevers/chills, chest pain, shortness of breath, abdominal pain, nausea, or vomiting. Physical Exam Constitutional: WD/WN, vitals as above Eyes: EOM intact bilaterally; no conjunctival abnormality ENMT: external ear and nose normal, oropharynx normal Neck: trachea midline, no thyromegaly normal visual inspection Respiratory: normal respiratory effort, lungs clear to auscultation no respiratory distress Cardiovascular: RRR, no murmur, no edema Gastrointestinal (Abdomen): Inspection/Auscultation: abdomen normal to inspection; abdomen not distended Musculoskeletal: no cyanosis or clubbing, extremities motor strength 5/5 Skin: no rashes, warm and dry Neurologic: moves all extremities and awake Psychiatric: Orientation: alert, oriented to person and cooperative Results & Data Vital Signs (Past 12 Hours) Vital Signs Temp Pulse Resp BP Pulse Ox 01/22/19 11:08 36.7 C 75 16 101/66 93 01/22/19 10:01 86 103/67 01/22/19 09:46 97 H 81/51 L 01/22/19 07:19 36.8 C 79 20 147/67 H 96 01/22/19 04:00 36.6 C 102 H 20 145/76 H 98 PG Care Time/CCT Total # of Minutes Spent Total Time Spent with Patient: Total time spent is greater than 50% in coordination of care (as documented) at patient's floor/unit and/or counseling patient: (1) Rotator cuff arthropathy Laterality: right Qualified Code(s): M12.811 - Other specific arthropathies, not elsewhere classified, right shoulder (2) Gastroesophageal reflux disease Esophagitis presence: esophagitis presence not specified Qualified Code(s): K21.9 - Gastro-esophageal reflux disease without esophagitis (3) Diabetes mellitus with diabetic polyneuropathy Diabetes mellitus type: type 2 Diabetes mellitus manager long term care insulin use: without chcf use Qualified Code(s): E11.42 - Type 2 diabetes mellitus with diabetic polyneuropathy (4) Gout Gout site: unspecified site Gout etiology: unspecified cause Chronicity: unspecified Qualified Code(s): M10.9 - Gout, unspecified (5) COPD (chronic obstructive pulmonary disease) COPD type: unspecified COPD Qualified Code(s): J44.9 - Chronic obstructive pulmonary disease, unspecified
[2019-01-22] MEDS: POTASSIUM CHLORIDE 20 MEQ TABCR PO SCH (17:20)
[2019-01-23] MEDS: DICLOFENAC SOD 1% GEL 100 GM TUBE EXT SCH ×2 (08:52→12:37)
[2019-01-23] MEDS: CEFDINIR 300 MG CAP PO SCH (08:52)
[2019-01-23] MEDS: DOXAZosin MESYLATE 4 MG TAB PO SCH (08:53)
[2019-01-23] MEDS: PANTOprazole 40 MG TAB PO SCH (08:53)
[2019-01-23] MEDS: SACUBITRIL-VALSARTAN 49/51 MG TAB PO SCH (08:53)
[2019-01-23] MEDS: allopurinoL 100 MG TAB PO SCH (08:54)
[2019-01-23] MEDS: BUDESONIDE/FORMOTEROL FUMARATE 160/4.5 60 PUFFS/INHALER INH SCH (08:54)
[2019-01-23] MEDS: APIXABAN 5 MG TABLET PO SCH (08:54)
[2019-01-23] MEDS: BUMETANIDE 1 MG TAB PO SCH (08:55)
[2019-01-23] MEDS: ATORVASTATIN 20 MG TAB PO SCH (08:55)
[2019-01-23] MEDS: DOCUSATE SODIUM 100 MG CAP PO SCH (08:55)
[2019-01-23] MEDS: INSULIN ASPART 100 UNITS/ML 3 ML PEN SC SCH ×2 (08:57→12:33)
[2019-01-23] MEDS ORDERED: METOPROLOL SUCC 50MG EXT REL TAB PO SCH (12:15)
[2019-01-23] MEDS: METOPROLOL SUCC 50MG EXT REL TAB PO SCH (12:28)
--- NOTE | 2019-01-23 17:27 | Discharge Summary ---
Date of Service January 23, 2019 Admission HPI Per Admitting Provider Mr. Dc is an 79 year old male with past medical history of chronic combined HF, A. fib with RVR, GERD, DM, gout, COPD, thoracic aortic aneuryism, chronic resp failure requiring oxygen who was recently admitted 01/15-01/18 for substernal chest pain. Cardiac work up was negative, including CT chest dissection and serial troponins. PT/OT recommended SNF placement but pt. requested discharge to home with home health. He was discharged to home but developed increased difficulty ambulating. He reports he walked into his house and was able to sit on the "love seat". Pt. was not able to stand up from the sofa for the rest of the evening. He has returned to the ER and would like to pursue inpatient rehab. Principal Diagnosis Generalized weakness Discharge Exam Constitutional WD/WN, vitals as above Eyes EOM intact bilaterally; no conjunctival abnormality ENMT external ear and nose normal, oropharynx normal Neck trachea midline, no thyromegaly normal visual inspection Respiratory normal respiratory effort, lungs clear to auscultation no respiratory distress Cardiovascular RRR, no murmur, no edema Gastrointestinal (Abdomen) Inspection/Auscultation: abdomen normal to inspection; abdomen not distended Musculoskeletal no cyanosis or clubbing, extremities motor strength 5/5 Skin no rashes, warm and dry Neurologic moves all extremities and awake Psychiatric Orientation: alert, oriented to person and cooperative Discharge Data Allergies Allergy/AdvReac Type Severity Reaction Status Date / Time Iodinated Contrast Media Allergy Severe NEEDS Verified 01/19/19 13:[address] DYE Consultations 01/19/19 15:45 ED Decision to Admit Stat 01/19/19 18:24 Consult Case Management - Discharge Planning Routine Hospital Course (1) Generalized weakness: Previously admitted 01/15-01/18 for chest pain; PT/OT recommended therapy but pt. declined. He presented for re-admission with generalized weakness, plan for placement. - Worsening his weakness may be his multiple joint pains. Per patient, it has been ongoing for weeks, and per other providers, even months. He has a history of gout, but didn't have any individual joint the looked like a flare up to me. I ordered rheumatoid arthritis labs, but he should see his orthopedist or a honing job setter in 2-3 weeks for lab follow up and examination if his multiple joint issues have a more specific cause that osteoarthritis. (2) Chronic combined systolic and diastolic congestive heart failure: Echo in Jan 2018 showed EF 35-40%, severe biatrial dilation. CXR negative on admission. - Continue home beta tiffanie & Entresto as prescribed. - Continue Bumex 1 mg PO BID. - Currently euvolemic -> Will be followed by Maritza Sanchez, [facility] from [facility]. (3) Rotator cuff arthropathy: - Ortho consulted during previous admission, s/p injection. - RUE edema resolved. (4) Atrial fibrillation with RVR: - Currently in A. fib on monitor, rate-controlled. - Continue Metoprolol 100 mg daily and Eliquis 5 mg BID. (5) Gastroesophageal reflux disease: - Continue PPI. (6) Diabetes mellitus with diabetic polyneuropathy: Hgb A1C was 7.8 in Dec 2018. - Hold home glimepiride. - SSI coverage - BG has been elevated, increase SSI coverage. (7) Gout: - Continue allopurinol as prescribed. (8) COPD (chronic obstructive pulmonary disease): No reported shortness of breath today. - Continue albuterol prn, Symbicort BID. (9) Thoracic aortic aneurysm without rupture: S/p repair in 2013. CT chest dissection negative for acute changes during last admission. - No inpatient needs (10) Elevated LFTs: - Elevated Alk phos, now improved. GGT was elevated. Previous RUQ US showed fatty liver changes, otherwise negative. Likely from previously passed gallstones last admission. - Monitor LFTs (11) Cholelithiasis: - Asymptomatic currently, but probable explanation for previously elevated LFTs. (12) UTI (urinary tract infection): U/a positive, UC +Enterobacter. - Ceftriaxone x 3 days. - Converted to PO cefdinir on 01/22 for 4 more days (End date: 01/26) - Likely contributing to generalized weakness. (13) Chronic respiratory failure with hypoxia: - Continue chronic home O2, requires 2L. (14) DVT prophylaxis: - Continue home Eliquis BID. Total Time Total Time Spent Total Time Spent (In Minutes): 35 Discharge Plan Discharge Items Patient Disposition: Transfer [facility] Reason For Visit: WEAKNESS Discharge Diagnosis: Weakness, CHF exacerbation Activity: Resume your previous activity Non-emergency contact: Primary Care Provider Call non-emergency contact if: you have any medication questions, your pain is not controlled, your pain is worsening and your rectal temperature is above 100.4 Follow-up/Referrals: Maryanne Whipple MD [Primary Care Provider] - Rene Matthews MD [Physician] - (Please see in 3-4 weeks for your joint issues.) Diet: Carb Consistent or DM2 and Heart Healthy Addtl Attending Provider Instructions: You were admitted after a pair of hospitalizations for CHF and a urinary tract infection that resulted in overall weakness. End date of your cefdinir is 01/26/2019 for a UTI. Finally, we cut your metoprolol to 100 mg for some slightly low blood pressure on Tuesday morning. We are setting you up to go to [facility] for some rehab. Your biggest issue at present is that a variety of joints have been on and off painful. We sent some labs to get a preliminary check-up to be sure this isn't a rheumatologic issue. You may want to see a joint doctor to try to improve your pain in your wrist. In the meantime, please use ice and your Voltaran gel. Pending Studies at Discharge: Yes (Rheumatology labs) Stand-Alone Forms: My [facility] Skilled Items Patient informed of condition?: Yes DNR: No Discharge Level of Care: Acute rehab Communicable Disease: No Discharge Prognosis: Improving Lines: None Urinary Catheter: No Medications and DC Order Prescriptions: New cefdinir 300 mg Capsule 300 mg PO BID Qty: 1 RF: 0 Continued Symbicort 160-4.5 mcg/actuation HFA aerosol inhaler 2 puff INHALATION BID Qty: 10.2 RF: 3 glimepiride 4 mg tablet 4 mg PO QAM Qty: 90 RF: 1 (DME) Wheelchair (Powered) Device See Rx Instructions .ROUTE .MEDSUPPLY Qty: 1 RF: 0 bumetanide 1 mg tablet 1 mg PO BID Qty: 180 RF: 0 sacubitril-valsartan 97-103 mg tablet 1 tab PO BID Qty: 180 RF: 0 multivitamin Tablet 1 tab PO QAM RF: 0 atorvastatin 20 mg Tablet 20 mg PO QAM RF: 0 Eliquis 5 mg Tablet 5 mg PO BID RF: 0 potassium chloride [Klor-Con M20] 20 mEq tablet,ER particles/crystals 20 meq PO DAILY@1600 RF: 0 allopurinol 100 mg tablet 200 mg PO QAM RF: 0 diclofenac sodium 1 % gel 2 gm TOP QID Qty: 100 RF: 0 pantoprazole [Protonix] 40 mg tablet,delayed release (DR/EC) 40 mg PO QAM RF: 0 doxazosin 4 mg tablet 4 mg PO QAM RF: 0 acetaminophen [Tylenol Extra Strength] 500 mg Tablet 1,000 mg PO BID RF: 0 Changed metoprolol succinate 200 mg tablet extended release 24 hr 100 mg PO QAM Qty: 0 RF: 0 Discharge Orders: Discharge Order (Routine); Ordered 01/23/19 Ordered By: Aston Jacobo Admission Data Admit Date/Time: 01/19/19 16:16 Attending Provider: Aston Jacobo Admit Provider: Pili Davis Primary Care Provider: Maryanne Whipple Other Providers: [facility] ; [place] ; Aston Jacobo Other Interventions: Discharge Summary Assessment (RN) Last Done: 01/23/19 14:23 DC Date/Time DO NOT enter until pt leaves facility: 01/23/19 16:00
== END 2019-01-23 16:00 | DRG 690 ==
LOC: ED 11:19 → 2W 16:16 → SUATTDRO 16:16 → 2W 17:50

== ENCOUNTER 2020-11-28 14:07 | Observation (INO) ==
--- NOTE | 2020-11-28 16:24 | Electrocardiogram Report ---
Test Reason : Blood Pressure : / mmHG Vent. Rate : 088 BPM Atrial Rate : 092 BPM P-R Int : 000 ms QRS Dur : 086 ms QT Int : 348 ms P-R-T Axes : 000 066 107 degrees QTc Int : 421 ms Atrial fibrillation Low voltage QRS Septal infarct , age undetermined Abnormal ECG When compared with ECG of 19-JAN-2019 12:46, Septal infarct is now Present Confirmed by Boston Greco ([id number]) on 11/28/2020 4:24:06 PM Referred By: Confirmed By:Boston Greco
[2020-11-28 16:32] LABS: Basophils # (auto) 0.03 K/uL (0-0.2); Basophils % (auto) 0.6 %; Eosinophils # (auto) 0.07 K/uL (0-0.5); Eosinophils % (auto) 1.3 %; Hematocrit (blood only) 37.3 % (42-52); Hemoglobin 11.7 g/dL (14.0-18.0); Immature Granulocytes # (auto) 0.01 K/uL (0.00-0.02); Immature Granulocytes % (auto) 0.2 %; Lymphocytes # (auto) 0.83 K/uL (1.2-3.4); Lymphocytes % (auto) 15.9 %; Mean Corpuscular Hemoglobin 31.5 pg (25-34); Mean Corpuscular Hgb Conc 31.4 g/dL (32-36); Mean Corpuscular Volume 100.5 fL (80-100); Mean Platelet Volume 9.8 fL (7.4-10.4); Monocytes # (auto) 0.38 K/uL (0.11-0.59); Monocytes % (auto) 7.3 %; Neutrophils % (auto) 74.7 %; Platelet Count 166 K/uL (130-400); RDW Coefficient of Variation 13.6 % (11.5-14.5); RDW Standard Deviation 49.6 fL (36.4-46.3); Red Blood Count 3.71 M/uL (4.7-6.1); White Blood Count 5.22 K/uL (4.8-10.8)
[2020-11-28 16:43] LABS: INR 1.1 (0.9-1.1); Partial Thromboplastin Ratio 1.1; Partial Thromboplastin Time 30.2 Seconds (21.0-31.0)
[2020-11-28 16:48] LABS: Alanine Aminotransferase 19 U/L (12-78); Albumin Level 3.2 gm/dl (3.4-5.0); Aspartate Aminotransferase 13 U/L (15-37); BUN Creatinine Ratio 24.2 (10-20); Blood Urea Nitrogen 18 mg/dl (7-18); Calcium 9.1 mg/dl (8.5-10.1); Carbon Dioxide 36 mmol/L (21-32); Chloride 101 mmol/L (98-107); Est GFR (African American) 99.2 ml/min; Est GFR (Non-African American) 85.6 ml/min; Glucose 150 mg/dl (70-99); Magnesium 2.1 mg/dl (1.8-2.4); Potassium 3.7 mmol/L (3.5-5.1); Sodium 141 mmol/L (136-145)
[2020-11-28 16:53] LABS: Albumin Globulin Ratio 0.9 (0.9-2); Alkaline Phosphatase 133 U/L (45-117); Bilirubin,Total 0.8 mg/dl (0.2-1); Globulin 3.7 gm/dl (2.5-4.0); Total Protein 6.9 gm/dl (6.4-8.2); Troponin I < 0.015 ng/ml (0-0.045)
--- NOTE | 2020-11-28 16:57 | XRay Report ---
XR chest 1V portable HISTORY: Shortness of breath. COMPARISON: Chest 01/19/2019. FINDINGS: There are low lung volumes. The heart remains enlarged. There is progressive interstitial/v ascular thickening consistent with mild congestive change. No pleural effusions. No pneumothorax. Bib asilar linear densities favor subsegmental atelectasis. No change in position of the descending thora cic aortic stent. IMPRESSION: Cardiomegaly with mild central pulmonary vascular congestion. This has progressed in the interval. ACT 112: Negative or not required by law. Electronically signed by: Maldonado Moody M.D. 11/28/2020 4:56 PM
[2020-11-28] MEDS ORDERED: BUMETANIDE 1 MG in SYRINGE 0 ML IV ONE (18:33)
--- NOTE | 2020-11-28 18:35 | Emergency Department Note ---
History of Present Illness General Chief complaint: Shortness of Breath/Dyspnea Stated complaint: FLUID DRAINING OUT OF LEGS - REF BY DOC Time Seen by Provider: 11/28/20 18:26 Source: patient History of Present Illness Provider complaint: Shortness of breath Onset (ago): week(s) Location: chest Pain Consistency: + constant Quality: + other (Shortness of breath) Relieved By: + other (Oxygen) Associated symptoms: + chest pain and + shortness of breath; no cough, no fever/chills or no nausea/vomiting This is an 80-year-old male with a history of CHF sent here for evaluation due to increased shortness of breath for the past week with fluid retention. The patient has been having weight gain and increased swelling to his lower extremities for the past week. He is on Bumex twice a day which does not appear to be helping. He has been feeling more short of breath over the past week. It is better when he uses his oxygen. He does use 2 L nasal cannula at home. He has had no cough or cold symptoms or fevers. He does note that some fluid is leaking from his left leg where he developed a ulceration yesterday. He has had intermittent chest pain over the past several days which she describes as a brief sharp pain in the left side and previously on the right side. He currently has no chest pain. He denies any abdominal pain, vomiting, diarrhea or urinary symptoms. He denies any Covid exposure. Home Medications Medication Instructions Recorded Confirmed Type multivitamin 1 tab PO QAM 01/16/18 11/28/20 History diclofenac sodium 1 % topical gel 2 gm TOP QID #100 gm 01/10/19 11/28/20 Rx pantoprazole 40 mg tablet,delayed 40 mg PO QAM 01/15/19 11/28/20 History release (Protonix) acetaminophen 500 mg tablet 1,500 mg PO BID 01/19/19 11/28/20 History (Tylenol Extra Strength) Wheelchair (Powered) #1 ea 02/19/19 07/31/20 Rx budesonide-formoterol HFA 160 2 puff INHALATION BID #3 inhaler 04/15/20 11/28/20 Rx mcg-4.5 mcg/actuation aerosol inhaler (Symbicort) doxazosin 4 mg tablet 4 mg PO QAM #90 tab 05/01/20 11/28/20 Rx allopurinol 100 mg tablet 200 mg PO QAM #180 tab 11/25/20 11/28/20 Rx apixaban 5 mg tablet (Eliquis) 5 mg PO BID #180 tab 11/25/20 11/28/20 Rx bumetanide 1 mg tablet 2 mg PO BID #180 tab 11/25/20 11/28/20 Rx glimepiride 4 mg tablet 4 mg PO QAM #90 tab 11/25/20 11/28/20 Rx metoprolol succinate 200 mg 200 mg PO QAM #90 tab 11/25/20 11/28/20 Rx tablet,extended release 24 hr sacubitril 97 mg-valsartan 103 mg 1 tab PO BID #180 tab 11/25/20 11/28/20 Rx tablet atorvastatin 20 mg tablet 20 mg PO QAM 11/28/20 11/28/20 History colchicine 0.6 mg tablet 0.6 mg PO DIRECTED PRN 11/28/20 11/28/20 History potassium chloride 20 mEq 40 meq PO PM 11/28/20 11/28/20 History tablet,extended release(part/cryst) (Klor-Con M) Allergies Allergy/AdvReac Type Severity Reaction Status Date / Time Iodinated Contrast Media Allergy Severe seizures Verified 11/28/20 19:00 Past Med/Surg History Medical History Abdominal aortic aneurysm Acute on chronic combined systolic (congestive) and diastolic (congestive) heart failure Anemia Aneurysm of thoracic aorta Arteriosclerotic coronary artery disease Arthritis Cardiomyopathy, idiopathic Cervical radiculopathy Cervical spinal stenosis Cholelithiasis Chronic anticoagulation Chronic combined systolic and diastolic congestive heart failure Chronic osteoarthritis COPD (chronic obstructive pulmonary disease) Diabetes Diabetes mellitus with diabetic polyneuropathy Gastroesophageal reflux disease Hyperlipidemia Hypertension Nonsustained ventricular tachycardia Obesity, Class II, BMI 35-39.9 On home oxygen therapy 2L N/C at all times Osteoarthritis of knee Permanent atrial fibrillation Poor historian Rib fractures (03/29/13) Shortness of breath Shoulder pain Sleep apnea Status post thoracic aortic aneurysm repair Swelling of right upper extremity Thoracic aortic aneurysm without rupture (01/07/14) Ventral hernia Vitamin D deficiency Surgical History History of cardiac cath 01/2018 @ [facility] no stent at this time History of cardioversion History of cataract surgery History of heart artery stent @ [facility] History of hemorrhoidectomy History of loop recorder History of tonsillectomy Family History Father No pertinent family history Mother Stroke Other Medical history non-contributory Denies family history of Ovarian cancer Prostate cancer Myocardial infarction Breast cancer Colorectal cancer Social History Smoking Status: Never smoker Second Hand Exposure: No; Hx Alcohol Use: No Hx Substance Use: No Preferred Language: [place] Communication Ability: Effective Contact Worker Required: No Beliefs That Will Affect Care: None marital status: Current Living Situation: Spouse current occupational status: retired Feels Safe at Home: Yes caffeine: Yes Dental Care, Regularly: No Physical Activity Frequency: Does not Exercise Seatbelt Use: always Sunscreen Use: Yes Assistive Devices: Hearing Aid - Left, Hearing Aid - Right and Oxygen - Continuous Review of Systems See HPI for pertinent positives & negatives. and A total of 10 systems reviewed and were otherwise negative Physical Exam Vital Signs Vital Signs - 24 hr 11/28/20 14:38 11/28/20 18:28 11/28/20 18:30 Temperature 36.6 C Temperature Source Temporal Artery Scan Pulse Rate 114 H 90 83 Pulse Rate from SpO2 Sensor 93 H Respiratory Rate 24 27 H 19 Respiratory Effort / Characteristics Spontaneous Respiratory Pattern Regular Blood Pressure 111/75 160/108 H Blood Pressure Mean 87 125 Pulse Oximetry 98 92 Oxygen Delivery Method Room Air Nasal Cannula Oxygen Flow Rate 2 Sepsis Recent Fever Within 48 Hours No Sepsis New/Unexplained Change in Mental Status No Sepsis Action Taken by Nursing No Action Required 11/28/20 18:40 11/28/20 18:43 11/28/20 18:48 Temperature Temperature Source Pulse Rate 81 Pulse Rate from SpO2 Sensor 87 Respiratory Rate 21 Respiratory Effort / Characteristics Short of Breath Respiratory Pattern Regular Blood Pressure Blood Pressure Mean Pulse Oximetry 90 92 Oxygen Delivery Method Nasal Cannula Oxygen Flow Rate 2 Sepsis Recent Fever Within 48 Hours Sepsis New/Unexplained Change in Mental Status Sepsis Action Taken by Nursing 11/28/20 18:50 11/28/20 19:00 11/28/20 19:10 Temperature Temperature Source Pulse Rate 88 88 76 Pulse Rate from SpO2 Sensor 87 81 76 Respiratory Rate 21 20 18 Respiratory Effort / Characteristics Respiratory Pattern Blood Pressure Blood Pressure Mean Pulse Oximetry 89 L 90 95 Oxygen Delivery Method Oxygen Flow Rate Sepsis Recent Fever Within 48 Hours Sepsis New/Unexplained Change in Mental Status Sepsis Action Taken by Nursing 11/28/20 19:20 11/28/20 19:30 11/28/20 19:40 Temperature Temperature Source Pulse Rate 87 72 Pulse Rate from SpO2 Sensor 77 65 Respiratory Rate 14 17 Respiratory Effort / Characteristics Respiratory Pattern Blood Pressure Blood Pressure Mean Pulse Oximetry 91 99 92 Oxygen Delivery Method Oxygen Flow Rate Sepsis Recent Fever Within 48 Hours Sepsis New/Unexplained Change in Mental Status Sepsis Action Taken by Nursing 11/28/20 19:50 11/28/20 20:00 11/28/20 20:10 Temperature Temperature Source Pulse Rate Pulse Rate from SpO2 Sensor 76 74 72 Respiratory Rate Respiratory Effort / Characteristics Respiratory Pattern Blood Pressure Blood Pressure Mean Pulse Oximetry 96 100 93 Oxygen Delivery Method Oxygen Flow Rate Sepsis Recent Fever Within 48 Hours Sepsis New/Unexplained Change in Mental Status Sepsis Action Taken by Nursing 11/28/20 20:20 11/28/20 20:30 11/28/20 20:40 Temperature Temperature Source Pulse Rate Pulse Rate from SpO2 Sensor 74 74 Respiratory Rate Respiratory Effort / Characteristics Respiratory Pattern Blood Pressure Blood Pressure Mean Pulse Oximetry 83 L 87 L 99 Oxygen Delivery Method Oxygen Flow Rate Sepsis Recent Fever Within 48 Hours Sepsis New/Unexplained Change in Mental Status Sepsis Action Taken by Nursing 11/28/20 20:50 11/28/20 21:00 Temperature Temperature Source Pulse Rate Pulse Rate from SpO2 Sensor 78 84 Respiratory Rate Respiratory Effort / Characteristics Respiratory Pattern Blood Pressure 159/107 H Blood Pressure Mean 124 Pulse Oximetry 98 91 Oxygen Delivery Method Oxygen Flow Rate Sepsis Recent Fever Within 48 Hours Sepsis New/Unexplained Change in Mental Status Sepsis Action Taken by Nursing Constitutional: Vital signs reviewed. Eyes: Pupils are equal round reactive to light. Conjunctiva are noninjected. ENT: Pharynx is clear without erythema or exudate. Mucous membranes are moist. Neck supple without meningeal signs. Respiratory: Coarse rhonchi bilaterally. Breath sounds are equal bilaterally. Cardiovascular: Regular rate and rhythm. No rubs or gallops. GI: Soft, nondistended and nontender. Bowel sounds are present. Musculoskeletal: Bilateral pitting edema with weeping of fluid from the left leg with a half dollar sized ulceration to the durant. No surrounding cellulitis. Integumentary: No cyanosis. or jaundice. Neurological: The patient is awake and alert. No focal deficits. Psychiatric: Normal affect. Not anxious appearing. Course Administered Medications Discontinued Medications Bumetanide 1 mg/ Syringe 4 mls @ 4 mls/min IV ONE ONE Stop: 11/28/20 18:34 Last Admin: 11/28/20 19:05 Dose: 4 mls/min Documented by: [id number] Medical Decision Making Differential Diagnosis Pulmonary edema, CHF exacerbation, pneumonia, peripheral edema, KIKI Medical Records Attestation: I reviewed the patient's medical records. I did perform a limited focused review of portions of the patient's old chart on the electronic medical record. The patient has had no recent pertinent visits to this hospital. Home Medications Current Medication List: was personally reviewed by me Laboratory Data Attestation: I reviewed the patient's lab results. Result diagrams: 11/28/20 16:17 11/28/20 16:17 Lab Results 11/28/20 11/28/20 11/28/20 Range/Units 16:17 16:17 16:17 WBC 5.22 (4.8-10.8) K/uL RBC 3.71 L (4.7-6.1) M/uL Hgb 11.7 L (14.0-18.0) g/dL Hct 37.3 L (42-52) % MCV 100.5 H (80-100) fL MCH 31.5 (25-34) pg MCHC 31.4 L (32-36) g/dL RDW Std Deviation 49.6 H (36.4-46.3) fL RDW Coeff of Chuck 13.6 (11.5-14.5) % Plt Count 166 (130-400) K/uL MPV 9.8 (7.4-10.4) fL Immature Gran % (Auto) 0.2 % Neut % (Auto) 74.7 % Lymph % (Auto) 15.9 % [place] % (Auto) 7.3 % Eos % (Auto) 1.3 % Baso % (Auto) 0.6 % Neut # (Auto) 3.90 (1.4-6.5) K/uL Lymph # (Auto) 0.83 L (1.2-3.4) K/uL [place] # (Auto) 0.38 (0.11-0.59) K/uL Eos # (Auto) 0.07 (0-0.5) K/uL Baso # (Auto) 0.03 (0-0.2) K/uL Immature Gran # (Auto) 0.01 (0.00-0.02) K/uL PT 11.0 (9.0-12.0) Seconds INR 1.1 (0.9-1.1) APTT 30.2 (21.0-31.0) Seconds PTT Ratio 1.1 Sodium 141 (136-145) mmol/L Potassium 3.7 (3.5-5.1) mmol/L Chloride 101 (98-107) mmol/L Carbon Dioxide 36 H (21-32) mmol/L Anion Gap 4.0 (3-11) BUN 18 (7-18) mg/dl Creatinine 0.76 (0.6-1.4) mg/dl Est Cr Clr Drug Dosing Not Reportable Est GFR ( Amer) 99.2 ml/min Est GFR (Non-Af Amer) 85.6 ml/min BUN/Creatinine Ratio 24.2 H (10-20) Glucose 150 H (70-99) mg/dl Calcium 9.1 (8.5-10.1) mg/dl Magnesium 2.1 (1.8-2.4) mg/dl Total Bilirubin 0.8 (0.2-1) mg/dl AST 13 L (15-37) U/L ALT 19 (12-78) U/L Alkaline Phosphatase 133 H (45-117) U/L Troponin I < 0.015 (0-0.045) ng/ml Total Protein 6.9 (6.4-8.2) gm/dl Albumin 3.2 L (3.4-5.0) gm/dl Globulin 3.7 (2.5-4.0) gm/dl Albumin/Globulin Ratio 0.9 (0.9-2) COVID-19 Eval Order SARS-CoV-2 (PCR) (Negative) 11/28/20 11/28/20 Range/Units 18:45 18:45 WBC (4.8-10.8) K/uL RBC (4.7-6.1) M/uL Hgb (14.0-18.0) g/dL Hct (42-52) % MCV (80-100) fL MCH (25-34) pg MCHC (32-36) g/dL RDW Std Deviation (36.4-46.3) fL RDW Coeff of Chuck (11.5-14.5) % Plt Count (130-400) K/uL MPV (7.4-10.4) fL Immature Gran % (Auto) % Neut % (Auto) % Lymph % (Auto) % [place] % (Auto) % Eos % (Auto) % Baso % (Auto) % Neut # (Auto) (1.4-6.5) K/uL Lymph # (Auto) (1.2-3.4) K/uL [place] # (Auto) (0.11-0.59) K/uL Eos # (Auto) (0-0.5) K/uL Baso # (Auto) (0-0.2) K/uL Immature Gran # (Auto) (0.00-0.02) K/uL PT (9.0-12.0) Seconds INR (0.9-1.1) APTT (21.0-31.0) Seconds PTT Ratio Sodium (136-145) mmol/L Potassium (3.5-5.1) mmol/L Chloride (98-107) mmol/L Carbon Dioxide (21-32) mmol/L Anion Gap (3-11) BUN (7-18) mg/dl Creatinine (0.6-1.4) mg/dl Est Cr Clr Drug Dosing Est GFR ( Amer) ml/min Est GFR (Non-Af Amer) ml/min BUN/Creatinine Ratio (10-20) Glucose (70-99) mg/dl Calcium (8.5-10.1) mg/dl Magnesium (1.8-2.4) mg/dl Total Bilirubin (0.2-1) mg/dl AST (15-37) U/L ALT (12-78) U/L Alkaline Phosphatase (45-117) U/L Troponin I (0-0.045) ng/ml Total Protein (6.4-8.2) gm/dl Albumin (3.4-5.0) gm/dl Globulin (2.5-4.0) gm/dl Albumin/Globulin Ratio (0.9-2) COVID-19 Eval Order Covid19 at [facility] SARS-CoV-2 (PCR) NEGATIVE (Negative) Imaging Data Radiologist's Impression: Chest X-Ray 11/28/20 14:40 XR chest 1V portable HISTORY: Shortness of breath. COMPARISON: Chest 01/19/2019. FINDINGS: There are low lung volumes. The heart remains enlarged. There is progressive interstitial/vascular thickening consistent with mild congestive change. No pleural effusions. No pneumothorax. Bibasilar linear densities favor subsegmental atelectasis. No change in position of the descending thoracic aortic stent. IMPRESSION: Cardiomegaly with mild central pulmonary vascular congestion. This has progressed in the interval. ACT 112: Negative or not required by law. Electronically signed by: Maldonado Moody M.D. 11/28/2020 4:56 PM ECG Data Attestation: I personally reviewed and interpreted this ECG as follows: Indication: + chest pain and + SOB/dyspnea Rate (beats per minute): 88 Rhythm: + atrial fibrillation ECG [place]: + Normal ECG ST segments: no ST elevation ECG Findings: + Q waves and + Other (Low voltage QRS) MDM Narrative I did evaluate the patient as noted above. The patient was sent in by his doctor for shortness of breath and CHF exacerbation. IV access was established. I did place an order for continuous cardiac monitoring. The monitor showed atrial fibrillation with a rate of 89 bpm. I did order and personally review the patient's 12-lead EKG as described above. He has atrial fibrillation. I did order and personally reviewed the images of the patient's chest x-ray as described above. He has cardiomegaly with worsening pulmonary vascular conges tion. I did order and review the patient's blood work as noted in the electronic medical record. CBC demonstrates a chronic anemia with a hemoglobin 11.7. He does not have a leukocytosis. Electrolytes are unremarkable. Troponin is negative.I did treat the patient with Bumex IV. I did order a Covid screening test. I did discuss case with the hospitalist and director case management. Impression & Plan Acute exacerbation of CHF (congestive heart failure), Chronic anemia Discharge Plan Visit Data Chief Complaint: Shortness of Breath/Dyspnea Stated Complaint: FLUID DRAINING OUT OF LEGS - REF BY DOC ED Provider: Freddy Rdz Discharge Problem: Acute exacerbation of CHF (congestive heart failure), Chronic anemia Patient Disposition: Being Evaluated by Hospitalist Forms Stand Alone Forms: My [facility] Prescriptions Prescriptions: No Action Symbicort 160-4.5 mcg/actuation HFA aerosol inhaler 2 puff INHALATION BID Qty: 3 RF: 3 doxazosin 4 mg tablet 4 mg PO QAM Qty: 90 RF: 3 Eliquis 5 mg tablet 5 mg PO BID Qty: 180 RF: 3 sacubitril-valsartan 97-103 mg tablet 1 tab PO BID Qty: 180 RF: 3 bumetanide 1 mg tablet 2 mg PO BID Qty: 180 RF: 3 glimepiride 4 mg tablet 4 mg PO QAM Qty: 90 RF: 3 metoprolol succinate 200 mg tablet extended release 24 hr 200 mg PO QAM Qty: 90 RF: 1 allopurinol 100 mg tablet 200 mg PO QAM Qty: 180 RF: 1 (DME) Wheelchair (Powered) Device See Rx Instructions .ROUTE .MEDSUPPLY Qty: 1 RF: 0 multivitamin Tablet 1 tab PO QAM RF: 0 diclofenac sodium 1 % gel 2 gm TOP QID Qty: 100 RF: 0 pantoprazole [Protonix] 40 mg tablet,delayed release (DR/EC) 40 mg PO QAM RF: 0 acetaminophen [Tylenol Extra Strength] 500 mg Tablet 1,500 mg PO BID RF: 0 atorvastatin 20 mg tablet 20 mg PO QAM RF: 0 potassium chloride [Klor-Con M20] 20 mEq tablet,ER particles/crystals 40 meq PO PM RF: 0 colchicine 0.6 mg tablet 0.6 mg PO DIRECTED PRN (Reason: gout) RF: 0 Referrals Referrals: Maryanne Whipple MD [Primary Care Provider] -
--- NOTE | 2020-11-28 19:54 | History & Physical Report ---
Date of Service November 28, 2020 Assessment & Plan (1) Acute exacerbation of CHF (congestive heart failure): Plan: CHF exacerbation/CAD/hypertension/cardiomyopathy/permanent atrial fibrillation- The patient will be admitted to telemetry for serial cardiac enzymes, serial EKG's, cardiac rhythm monitoring and a 2-D echocardiogram with Dopplers. Placed on Bumex 1 mg IV twice daily Continue apixaban 5 mg p.o. twice daily, doxazosin 4 mg daily, metoprolol succinate 200 mg daily, Klor-Con 40 mEq daily, Entresto 1 p.o. twice daily. Follow serial CBC with differential, chemistry profile and magnesium levels (2) Chronic anemia: Plan: Hemoglobin stable at 11.7 Follow serially (3) CAD (coronary artery disease), [place] coronary artery: Plan: See above (4) Cardiomyopathy: Plan: See above (5) Permanent atrial fibrillation: Plan: See above (6) Diabetes: Plan: Hold glimepiride Place on Accu-Cheks before meals and at bedtime with NovoLog coverage per scale Check hemoglobin A1c (7) Hypertension: Plan: See above (8) Hyperlipidemia: Plan: Continue toward statin 20 mg daily Check a fasting lipid panel (9) COPD (chronic obstructive pulmonary disease): Plan: Continue usual inhalers (10) Obstructive sleep apnea: Plan: CPAP at bedtime as needed History of Present Illness Chief Complaint: The patient presents to the emergency department with complaint of worsening shortness of breath, dyspnea on exertion and fluid leaking out of his legs over the past few weeks Primary Care Provider: Maryanne Whipple MD The patient is a 80-year-old male with a past medical history including chronic anemia, syncope, gout, chronic respiratory failure hypoxia, NOEMÍ, pulmonary hypertension, CAD, cardiomyopathy, BPH with LUTS, atrial fibrillation with RVR, UTI, diabetes mellitus, osteoarthritis, permanent atrial fibrillation, idiopathic cardiomyopathy, HTN, DM, and COPD. The patient presents to the emergency department as noted above. Allergies Allergy/AdvReac Type Severity Reaction Status Date / Time Iodinated Contrast Media Allergy Severe seizures Verified 11/28/20 19:00 Home Medications Medication Instructions Recorded Confirmed Type multivitamin 1 tab PO QAM 01/16/18 11/28/20 History diclofenac sodium 1 % topical gel 2 gm TOP QID #100 gm 01/10/19 11/28/20 Rx pantoprazole 40 mg tablet,delayed 40 mg PO QAM 01/15/19 11/28/20 History release (Protonix) acetaminophen 500 mg tablet 1,500 mg PO BID 01/19/19 11/28/20 History (Tylenol Extra Strength) Wheelchair (Powered) #1 ea 02/19/19 07/31/20 Rx budesonide-formoterol HFA 160 2 puff INHALATION BID #3 inhaler 04/15/20 11/28/20 Rx mcg-4.5 mcg/actuation aerosol inhaler (Symbicort) doxazosin 4 mg tablet 4 mg PO QAM #90 tab 05/01/20 11/28/20 Rx allopurinol 100 mg tablet 200 mg PO QAM #180 tab 11/25/20 11/28/20 Rx apixaban 5 mg tablet (Eliquis) 5 mg PO BID #180 tab 11/25/20 11/28/20 Rx bumetanide 1 mg tablet 2 mg PO BID #180 tab 11/25/20 11/28/20 Rx glimepiride 4 mg tablet 4 mg PO QAM #90 tab 11/25/20 11/28/20 Rx metoprolol succinate 200 mg 200 mg PO QAM #90 tab 11/25/20 11/28/20 Rx tablet,extended release 24 hr sacubitril 97 mg-valsartan 103 mg 1 tab PO BID #180 tab 11/25/20 11/28/20 Rx tablet atorvastatin 20 mg tablet 20 mg PO QAM 11/28/20 11/28/20 History colchicine 0.6 mg tablet 0.6 mg PO DIRECTED PRN 11/28/20 11/28/20 History potassium chloride 20 mEq 40 meq PO PM 11/28/20 11/28/20 History tablet,extended release(part/cryst) (Klor-Con M) Past Med/Surg History Medical History Abdominal aortic aneurysm Acute on chronic combined systolic (congestive) and diastolic (congestive) heart failure Anemia Aneurysm of thoracic aorta Arteriosclerotic coronary artery disease Arthritis Cardiomyopathy, idiopathic Cervical radiculopathy Cervical spinal stenosis Cholelithiasis Chronic anticoagulation Chronic combined systolic and diastolic congestive heart failure Chronic osteoarthritis COPD (chronic obstructive pulmonary disease) Diabetes Diabetes mellitus with diabetic polyneuropathy Gastroesophageal reflux disease Hyperlipidemia Hypertension Nonsustained ventricular tachycardia Obesity, Class II, BMI 35-39.9 On home oxygen therapy 2L N/C at all times Osteoarthritis of knee Permanent atrial fibrillation Poor historian Rib fractures (03/29/13) Shortness of breath Shoulder pain Sleep apnea Status post thoracic aortic aneurysm repair Swelling of right upper extremity Thoracic aortic aneurysm without rupture (01/07/14) Ventral hernia Vitamin D deficiency Surgical History History of cardiac cath 01/2018 @ [facility] no stent at this time History of cardioversion History of cataract surgery History of heart artery stent @ [facility] History of hemorrhoidectomy History of loop recorder History of tonsillectomy Family History Father No pertinent family history Mother Stroke Other Medical history non-contributory Denies family history of Ovarian cancer Prostate cancer Myocardial infarction Breast cancer Colorectal cancer Social History Smoking Status: Former smoker Second Hand Exposure: No; Hx Alcohol Use: No Hx Substance Use: No Preferred Language: Uzbek Communication Ability: Effective Soda Dialyzer Required: No Beliefs That Will Affect Care: None marital status: Current Living Situation: Spouse current occupational status: retired Feels Safe at Home: Yes caffeine: Yes Dental Care, Regularly: No Physical Activity Frequency: Does not Exercise Seatbelt Use: always Sunscreen Use: Yes Assistive Devices: Cane and Oxygen - Continuous Review of Systems Review of Systems: The patient denies chest pain, palpitations, cough, sore throat, fevers, chills, sweats, nausea, vomiting, diarrhea , constipation, abdominal pain, pelvic pain, blood in urine or stool, dysuria, urinary frequency or urgency, lightheadedness, dizziness, headache, memory loss, loss of consciousness, imbalance, focal weakness, numbness or tingling in arms or legs, generalized arthralgias or myalgias, back or neck pain, or night sweats. The review of systems is otherwise negative other than for that already noted above, and at least 10 systems have been reviewed. Physical Exam Physical Exam: The patient is awake, alert and oriented 3, well developed and well nourished, normocephalic and atraumatic, lying in bed and in no acute distress. HEENT--PERRL, EOMI, mucous membranes and oropharynx normal. Neck--supple. No JVD. No bruits. Thyroid normal, trachea midline, no adenopathy. Heart--normal S1 and S2. No murmurs, rubs or gallops. Lungs--clear bilaterally, no respiratory distress, no accessory muscle use. Abdomen--normal bowel sounds and soft. Nontender. Nondistended. Morbidly obese Extremities--no cyanosis or clubbing. 2+ bilateral pretibial pitting edema. Dermatologic--left durant with skin laceration Neurologic--cranial nerves II through XII grossly intact. Rheumatologic--normal range of motion. Psychiatric--normal affect. Results & Data Results & Data ([facility]) Vital Signs (Past 12 Hours) Vital Signs Temp Pulse Resp BP Pulse Ox 11/28/20 18:48 92 11/28/20 18:28 90 27 H 160/108 H 92 11/28/20 14:38 97.9 F 114 H 24 111/75 98 Laboratory Results Laboratory Results WBC 5.22 K/uL (4.8-10.8) 11/28/20 16:17 RBC 3.71 M/uL (4.7-6.1) L 11/28/20 16:17 Hgb 11.7 g/dL (14.0-18.0) L 11/28/20 16:17 Hct 37.3 % (42-52) L 11/28/20 16:17 MCV 100.5 fL (80-100) H 11/28/20 16:17 MCH 31.5 pg (25-34) 11/28/20 16:17 MCHC 31.4 g/dL (32-36) L 11/28/20 16:17 RDW Std Deviation 49.6 fL (36.4-46.3) H 11/28/20 16:17 RDW Coeff of Chuck 13.6 % (11.5-14.5) 11/28/20 16:17 Plt Count 166 K/uL (130-400) 11/28/20 16:17 MPV 9.8 fL (7.4-10.4) 11/28/20 16:17 Immature Gran % (Auto) 0.2 % 11/28/20 16:17 Neut % (Auto) 74.7 % 11/28/20 16:17 Lymph % (Auto) 15.9 % 11/28/20 16:17 [place] % (Auto) 7.3 % 11/28/20 16:17 Eos % (Auto) 1.3 % 11/28/20 16:17 Baso % (Auto) 0.6 % 11/28/20 16:17 Neut # (Auto) 3.90 K/uL (1.4-6.5) 11/28/20 16:17 Lymph # (Auto) 0.83 K/uL (1.2-3.4) L 11/28/20 16:17 [place] # (Auto) 0.38 K/uL (0.11-0.59) 11/28/20 16:17 Eos # (Auto) 0.07 K/uL (0-0.5) 11/28/20 16:17 Baso # (Auto) 0.03 K/uL (0-0.2) 11/28/20 16:17 Immature Gran # (Auto) 0.01 K/uL (0.00-0.02) 11/28/20 16:17 PT 11.0 Seconds (9.0-12.0) 11/28/20 16:17 INR 1.1 (0.9-1.1) 11/28/20 16:17 APTT 30.2 Seconds (21.0-31.0) 11/28/20 16:17 PTT Ratio 1.1 11/28/20 16:17 Sodium 141 mmol/L (136-145) 11/28/20 16:17 Potassium 3.7 mmol/L (3.5-5.1) 11/28/20 16:17 Chloride 101 mmol/L (98-107) 11/28/20 16:17 Carbon Dioxide 36 mmol/L (21-32) H 11/28/20 16:17 Anion Gap 4.0 (3-11) 11/28/20 16:17 BUN 18 mg/dl (7-18) 11/28/20 16:17 Creatinine 0.76 mg/dl (0.6-1.4) 11/28/20 16:17 Est Cr Clr Drug Dosing Not Reportable 11/28/20 16:17 Est GFR ( Amer) 99.2 ml/min 11/28/20 16:17 Est GFR (Non-Af Amer) 85.6 ml/min 11/28/20 16:17 BUN/Creatinine Ratio 24.2 (10-20) H 11/28/20 16:17 Glucose 150 mg/dl (70-99) H 11/28/20 16:17 POC Glucose 164 mg/dl (70-99) H 11/28/20 22:41 Calcium 9.1 mg/dl (8.5-10.1) 11/28/20 16:17 Magnesium 2.1 mg/dl (1.8-2.4) 11/28/20 16:17 Total Bilirubin 0.8 mg/dl (0.2-1) 11/28/20 16:17 AST 13 U/L (15-37) L 11/28/20 16:17 ALT 19 U/L (12-78) 11/28/20 16:17 Alkaline Phosphatase 133 U/L (45-117) H 11/28/20 16:17 Troponin I < 0.015 ng/ml (0-0.045) 11/28/20 16:17 Total Protein 6.9 gm/dl (6.4-8.2) 11/28/20 16:17 Albumin 3.2 gm/dl (3.4-5.0) L 11/28/20 16:17 Globulin 3.7 gm/dl (2.5-4.0) 11/28/20 16:17 Albumin/Globulin Ratio 0.9 (0.9-2) 11/28/20 16:17 COVID-19 Eval Order Covid19 at [facility] 11/28/20 18:45 SARS-CoV-2 (PCR) NEGATIVE (Negative) 11/28/20 18:45 Impressions Chest X-Ray 11/28/20 14:40 XR chest 1V portable HISTORY: Shortness of breath. COMPARISON: Chest 01/19/2019. FINDINGS: There are low lung volumes. The heart remains enlarged. There is progressive interstitial/vascular thickening consistent with mild congestive change. No pleural effusions. No pneumothorax. Bibasilar linear densities favor subsegmental atelectasis. No change in position of the descending thoracic aortic stent. IMPRESSION: Cardiomegaly with mild central pulmonary vascular congestion. This has progressed in the interval. ACT 112: Negative or not required by law. Electronically signed by: Maldoando Moody M.D. 11/28/2020 4:56 PM ECG Additional Comments: [facility], [place] Electrocardiogram ReportSigned Patient: MAGALY STEINmit Date: 11/28/20MR#: [id number] Phy: Acct ID: [id number] Phy: Maryanne Whipple MDBirth Date: 1940Fam Phy:Age: 80Location: EDSex: MRoom/Bed: cc: ~ DICTATED BY: Boston Greco MD Test Reason : Blood Pressure : / mmHG Vent. Rate : 088 BPM Atrial Rate : 092 BPM P-R Int : 000 ms QRS Dur : 086 ms QT Int : 348 ms P-R-T Axes : 000 066 107 degrees QTc Int : 421 ms Atrial fibrillation Low voltage QRS Septal infarct , age undetermined Abnormal ECG When compared with ECG of 19-JAN-2019 12:46, Septal infarct is now Present Confirmed by Boston Greco ([id number]) on 11/28/2020 4:24:06 PM Referred By: Confirmed By:Boston Greco Signed By:11/28/20 1624 Dictated: 11/28/20 1605 Transcribed: Dye Automation Operator: The status of this report is Signed.Draft = Not yet reviewed or approved by Medical Physician.Signed = Reviewed and approved by Medical Physician. Code Status & VTE Plan Code Status Full code VTE Prophylaxis Plan VTE Prophylaxis will be ordered: Yes PG Care Time/CCT Total # of Minutes Spent Total Time Spent with Patient: Total time spent is greater than 50% in coordination of care (as documented) at patient's floor/unit and/or counseling patient: Coding Level of Care Code 89545 Initial Inpt Care Lvl 3 Diagnoses Acute exacerbation of CHF (congestive heart failure) I50.9 Heart failure type: unspecified Chronic anemia D64.9 Obstructive sleep apnea G47.33 CAD (coronary artery disease), [place] coronary artery I25.10 [place] vs. transplanted heart: [place] heart Associated angina: without angina Cardiomyopathy I42.9 Permanent atrial fibrillation I48.2 Diabetes E11.9 Diabetes mellitus type: type 2 Diabetes mellitus terminal computer operator insulin use: without terminal computer operator use Diabetes mellitus complication status: without complication Hypertension I10 Hypertension type: essential hypertension Hyperlipidemia E78.5 Hyperlipidemia type: unspecified COPD (chronic obstructive pulmonary disease) J44.9 COPD type: unspecified COPD (1) Acute exacerbation of CHF (congestive heart failure) Heart failure type: unspecified Qualified Code(s): I50.9 - Heart failure, unspecified (2) CAD (coronary artery disease), [place] coronary artery [place] vs. transplanted heart: [place] heart Associated angina: without angina Qualified Code(s): I25.10 - Atherosclerotic heart disease of [place] coronary artery without angina pectoris (3) Diabetes Diabetes mellitus type: type 2 Diabetes mellitus group home insulin use: without group home use Diabetes mellitus complication status: without complication Qualified Code(s): E11.9 - Type 2 diabetes mellitus without complications (4) Hypertension Hypertension type: essential hypertension Qualified Code(s): I10 - Essential (primary) hypertension (5) Hyperlipidemia Hyperlipidemia type: unspecified Qualified Code(s): E78.5 - Hyperlipidemia, unspecified (6) COPD (chronic obstructive pulmonary disease) COPD type: unspecified COPD Qualified Code(s): J44.9 - Chronic obstructive pulmonary disease, unspecified
[2020-11-28] MEDS ORDERED: GLUCAGON FOR INJ 1 MG VIAL SQ PRN (21:42)
[2020-11-28] MEDS ORDERED: ONDANSETRON INJ 2 MG/ML 2 ML VIAL IV PRN (21:42)
[2020-11-28] MEDS ORDERED: DEXTROSE 50% 50 ML SYRINGE IV PRN (21:42)
[2020-11-28] MEDS ORDERED: GLUCOSE 10 TABS/TUBE PO PRN (21:42)
[2020-11-28] MEDS ORDERED: GLUCOSE 40% GEL 15 GM TUBE PO PRN (21:42)
[2020-11-28] MEDS ORDERED: ACETAMINOPHEN 325 MG TAB PO PRN (21:42)
[2020-11-28] MEDS ORDERED: CARBOHYDRATES FOR HYPOGLYCEMIA PO PRN (21:42)
[2020-11-28] MEDS ORDERED: POTASSIUM CHLORIDE CRTAB 20 MEQ TABCR PO SCH (22:00)
[2020-11-28] MEDS: APIXABAN 5 MG TABLET PO SCH (22:39)
[2020-11-28] MEDS: SACUBITRIL-VALSARTAN 97-103 MG TAB PO SCH (22:39)
[2020-11-28] MEDS: INSULIN ASPART 100 UNITS/ML 3 ML PEN SC SCH (22:41)
[2020-11-29 07:45] LABS: Estimated Average Glucose 180 mg/dl; Hemoglobin A1C 7.9 % (4.5-5.6)
[2020-11-29 07:51] LABS: Basophils # (auto) 0.04 K/uL (0-0.2); Basophils % (auto) 0.9 %; Eosinophils # (auto) 0.07 K/uL (0-0.5); Eosinophils % (auto) 1.6 %; Hematocrit (blood only) 34.7 % (42-52); Hemoglobin 10.7 g/dL (14.0-18.0); Immature Granulocytes # (auto) 0.01 K/uL (0.00-0.02); Immature Granulocytes % (auto) 0.2 %; Lymphocytes % (auto) 13.5 %; Mean Corpuscular Hemoglobin 31.3 pg (25-34); Mean Corpuscular Hgb Conc 30.8 g/dL (32-36); Mean Corpuscular Volume 101.5 fL (80-100); Mean Platelet Volume 9.9 fL (7.4-10.4); Monocytes # (auto) 0.48 K/uL (0.11-0.59); Monocytes % (auto) 10.8 %; Neutrophils # (auto) 3.26 K/uL (1.4-6.5); Platelet Count 154 K/uL (130-400); RDW Coefficient of Variation 13.7 % (11.5-14.5); RDW Standard Deviation 50.9 fL (36.4-46.3); Red Blood Count 3.42 M/uL (4.7-6.1); White Blood Count 4.46 K/uL (4.8-10.8)
[2020-11-29 07:57] LABS: Albumin Level 2.9 gm/dl (3.4-5.0); BUN Creatinine Ratio 24.3 (10-20); Calcium 8.2 mg/dl (8.5-10.1); Creatinine Clr Calc Pharmacy 93.9 ml/min; Est GFR (African American) 99.7 ml/min; Magnesium 2.1 mg/dl (1.8-2.4)
[2020-11-29] MEDS: INSULIN ASPART 100 UNITS/ML 3 ML PEN SC SCH (07:58)
[2020-11-29 08:00] LABS: Albumin Globulin Ratio 0.9 (0.9-2); Bilirubin,Total 0.8 mg/dl (0.2-1); Globulin 3.1 gm/dl (2.5-4.0)
[2020-11-29] MEDS: SACUBITRIL-VALSARTAN 97-103 MG TAB PO SCH (08:00)
[2020-11-29] MEDS: APIXABAN 5 MG TABLET PO SCH (08:01)
[2020-11-29] MEDS ORDERED: FLUTICASONE/VILANTEROL 100/25MCG 14 PUFFS/INHALER INH SCH (09:00)
[2020-11-29] MEDS ORDERED: BUMETANIDE 1 MG in SYRINGE 0 ML IV SCH (09:00)
[2020-11-29] MEDS ORDERED: MULTIVITAMIN TAB PO SCH (09:00)
[2020-11-29] MEDS ORDERED: METOPROLOL SUCC 50MG EXT REL TAB PO SCH (09:00)
[2020-11-29] MEDS ORDERED: ATORVASTATIN 20 MG TAB PO SCH (09:00)
[2020-11-29] MEDS ORDERED: PANTOprazole 40 MG TAB PO SCH (09:00)
[2020-11-29] MEDS ORDERED: allopurinoL 100 MG TAB PO SCH (09:00)
[2020-11-29] MEDS ORDERED: DOXAZosin MESYLATE 4 MG TAB PO SCH (09:00)
--- NOTE | 2020-11-29 10:23 | Discharge Summary ---
Date of Service November 29, 2020 Admission HPI Per Admitting Provider The patient is a 80-year-old male with a past medical history including chronic anemia, syncope, gout, chronic respiratory failure hypoxia, NOEMÍ, pulmonary hypertension, CAD, cardiomyopathy, BPH with LUTS, atrial fibrillation with RVR, UTI, diabetes mellitus, osteoarthritis, permanent atrial fibrillation, idiopathic cardiomyopathy, HTN, DM, and COPD. The patient presents to the emergency department as noted above. Admission Exam Per Admitting Provider The patient is awake, alert and oriented 3, well developed and well nourished, normocephalic and atraumatic, lying in bed and in no acute distress. HEENT--PERRL, EOMI, mucous membranes and oropharynx normal. Neck--supple. No JVD. No bruits. Thyroid normal, trachea midline, no adenopa thy. Heart--normal S1 and S2. No murmurs, rubs or gallops. Lungs--clear bilaterally, no respiratory distress, no accessory muscle use. Abdomen--normal bowel sounds and soft. Nontender. Nondistended. Morbidly obese Extremities--no cyanosis or clubbing. 2+ bilateral pretibial pitting edema. Dermatologic--left durant with skin laceration Neurologic--cranial nerves II through XII grossly intact. Rheumatologic--normal range of motion. Psychiatric--normal affect. Principal Diagnosis Acute on chronic CHF, volume overload Discharge Exam General: A&Ox3. NAD. Cooperative. HEENT: Atraumatic, normocephalic. Visual acuity and hearing grossly intact. Pulm: CTAB A&P. -wheezes, -rales, -rhonchi. Symmetrical chest rise. No increase work of breathing. No respiratory distress. Cardiac: RRR, -mrg. Radial pulses intact and symmetrical. Abdominal: Nontender, nondistended, soft. BS present. Extremities: [id number]+ pitting edema in the lower extremities. Sensation to soft touch grossly intact. Left superficial blister weeping small amount of serous fluid, dressing in place. Sensation to soft touch intact bilaterally. Strength grossly intact. Discharge Data Allergies Allergy/AdvReac Type Severity Reaction Status Date / Time Iodinated Contrast Media Allergy Severe seizures Verified 11/28/20 19:00 Consultations 11/28/20 18:44 ED Decision to Admit Stat Hospital Course (1) Acute exacerbation of CHF (congestive heart failure): Patient is an 80-year-old male past medical history of CHF, CAD, hypertension, cardiomyopathy, permanent A. fib who presents to the hospital with acute CHF exacerbation due to dietary indiscretion eating a "bag of hot sausage, should have done it and now paying for it this happened once before "with a slight increase in his baseline oxygen requirements from 2 L to 3 L To do as outpatient: 1. Routine follow-up with PCP, reassess weight and diuresis adjustment as needed 2. Heart failure clinic follow-up 3. Follow-up with PCP for wound care of left leg, dressing intact with no signs of infection at time of discharge Acute on chronic CHF exacerbation CXR:IMPRESSION:Cardiomegaly with mild central pulmonary vascular congestion. This has progressed in the interval. Increased oxygen requirement of 3 L from baseline home of 2 L Creatinine 0.75 Covid negative Troponin negative Patient was treated with IV Bumex 1 mg with brisk diuresis. He reports that his leg swelling rapidly decreased, and was at/near baseline at time of discha rge. No shortness of breath on home oxygen requires at time of discharge. Patient with history of permanent A. fib, rate adequately controlled during admission, apixaban 5 mg p.o. twice daily was continued during admission Metoprolol 200 mg daily was continued during admission Entresto 1 mg p.o. twice daily was continued during admission No sign of ACS on EKG (2) Chronic anemia: Hemoglobin stable at 11.7 Follow serially (3) CAD (coronary artery disease), [place] coronary artery: See above (4) Cardiomyopathy: See above (5) Permanent atrial fibrillation: See above (6) Diabetes: Home antiplatelet mix were held and patient was placed on sliding scale insulin with adequate glycemic control during admission (7) Hypertension: See above (8) Hyperlipidemia: Continue home statin (9) COPD (chronic obstructive pulmonary disease): Continued home inhalers, presentation not consistent with COPD exacerbation (10) Obstructive sleep apnea: CPAP at bedtime as needed Total Time Total Time Spent Total Time Spent (In Minutes): Total time spent day of discharge approximately 45 minutes including direct patient care, review of labs and images, and documentation Discharge Plan Discharge Items Patient Disposition: Home - Self-Care Reason For Visit: PULMONARY EDEMA, LE EDEMA AND DRAINAGE Discharge Diagnosis: Acute on chronic heart failure, pulmonary edema 2/2 dietary salt indiscretion Activity: Resume your previous activity Non-emergency contact: Primary Care Provider and Leather Dresser Call non-emergency contact if: you have any medication questions, your symptoms worsen, your pain is worsening and you have a fever Follow-up/Referrals: Maryanne Whipple MD [Primary Care Provider] - Maritza Sanchez PA-C [Physician Research And Development Manager] - Diet: Low Sodium (2gm) Addtl Attending Provider Instructions: You are seen in the hospital for acute volume overload with swelling in your legs and some fluid on your lungs due to acute on chronic congestive heart failure exacerbated by salt from a bag of sausage. You are treated with diuretics and clinically improved. Your leg swelling was reduced at time of discharge. Your kidney function remained stable. Your heart markers did not show any sign of heart attack, and your EKG did not show any signs of heart attack. You are being discharged to continue outpatient Bumex. Please follow- up with your PCP as noted below. You have not had any new medication changes made. A followup appointment is being scheduled for you with your primary care provide r. You should be seen seen within 1 week. You should receive a call to confirm this appointment. If you do not receive a call within 48 hours to confirm this appointment, or need to change this appointment, please call the provider's office at [phone]. A followup appointment is being scheduled for you with Maritza Sanchez at the heart failure clinic. You should be seen seen within 2 weeks. You should receive a call to confirm this appointment. If you do not receive a call within 48 hours to confirm this appointment, or need to change this appointment, please call the provider's office at the number above If you develop any new or worsening symptoms including fever, chills, sweats, chest pain, chest pressure, difficulty breathing, uncontrolled nausea/vomiting, rash, wheezing, passing out or nearly passing out, bleeding, black/bloody bowel movements, or other new or concerning symptoms please call your primary care physician at [phone], or call [phone] for re-evaluation in the emergency department if you are very concerned. Pending Studies at Discharge: No Stand-Alone Forms: My [employer], Smoking Cessation Medications and DC Order Prescriptions: Continued Symbicort 160-4.5 mcg/actuation HFA aerosol inhaler 2 puff INHALATION BID Qty: 3 RF: 3 doxazosin 4 mg tablet 4 mg PO QAM Qty: 90 RF: 3 Eliquis 5 mg tablet 5 mg PO BID Qty: 180 RF: 3 sacubitril-valsartan 97-103 mg tablet 1 tab PO BID Qty: 180 RF: 3 bumetanide 1 mg tablet 2 mg PO BID Qty: 180 RF: 3 glimepiride 4 mg tablet 4 mg PO QAM Qty: 90 RF: 3 metoprolol succinate 200 mg tablet extended release 24 hr 200 mg PO QAM Qty: 90 RF: 1 allopurinol 100 mg tablet 200 mg PO QAM Qty: 180 RF: 1 (DME) Wheelchair (Powered) Device See Rx Instructions .ROUTE .MEDSUPPLY Qty: 1 RF: 0 multivitamin Tablet 1 tab PO QAM RF: 0 diclofenac sodium 1 % gel 2 gm TOP QID Qty: 100 RF: 0 pantoprazole [Protonix] 40 mg tablet,delayed release (DR/EC) 40 mg PO QAM RF: 0 acetaminophen [Tylenol Extra Strength] 500 mg Tablet 1,500 mg PO BID RF: 0 atorvastatin 20 mg tablet 20 mg PO QAM RF: 0 potassium chloride [Klor-Con M20] 20 mEq tablet,ER particles/crystals 40 meq PO PM RF: 0 colchicine 0.6 mg tablet 0.6 mg PO DIRECTED PRN (Reason: gout) RF: 0 Discharge Orders: Discharge Order (Routine); Ordered 11/29/20 Ordered By: Tera Tomlin Admission Data Admit Date/Time: 11/28/20 19:29 Attending Provider: Tera Tomlin Admit Provider: Ilya Younger Primary Care Provider: Maryanne Whipple Other Providers: Ilya Younger Coding Level of Care Code 95563 OBS Care - Discharge Diagnoses Acute exacerbation of CHF (congestive heart failure) I50.9 Heart failure type: unspecified Chronic anemia D64.9 CAD (coronary artery disease), [place] coronary artery I25.10 Associated angina: without angina [place] vs. transplanted heart: [place] heart Cardiomyopathy I42.9 Permanent atrial fibrillation I48.2 Diabetes E11.9 Diabetes mellitus complication status: without complication Diabetes mellitus shelter insulin use: without shelter use Diabetes mellitus type: type 2 Hypertension I10 Hypertension type: essential hypertension Hyperlipidemia E78.5 Hyperlipidemia type: unspecified COPD (chronic obstructive pulmonary disease) J44.9 COPD type: unspecified COPD Obstructive sleep apnea G47.33
--- NOTE | 2020-11-29 13:57 | Electrocardiogram Report ---
Test Reason : Blood Pressure : / mmHG Vent. Rate : 091 BPM Atrial Rate : 326 BPM P-R Int : 000 ms QRS Dur : 082 ms QT Int : 332 ms P-R-T Axes : 000 082 120 degrees QTc Int : 408 ms Atrial fibrillation with premature ventricular or aberrantly conducted complexes Low voltage QRS Nonspecific T wave abnormality Abnormal ECG When compared with ECG of 28-NOV-2020 16:05, Criteria for Septal infarct are no longer Present Confirmed by Patel Sanchez ([id number]) on 11/29/2020 1:56:51 PM Referred By: Maryanne Whipple Confirmed By:Patel Sanchez
== END 2020-11-29 12:37 | disposition home or self-care (01) ==
LOC: 2S 14:07 → ED 14:07 → SUATTDRO 19:29 → 2S 21:18